=== PATIENT | male | born 1955 | race Caucasian/White ===

== ENCOUNTER → 2016-10-17 | Outpatient (CLI) | payer OTHER ==
[~2016-10-17] MED LIST: LISI-729 PO; NRN100 PO; OPTIRAY 320 IV PRN; OXYC1TAB3 PO; TRAM-10 PO; VOTRIENT PO
--- NOTE | 2016-10-17 09:07 | DIAGNOSTIC IMAGING REPORT ---
ADDENDUM Additional retroperitoneal etiologies include the possibility of sarcoma. Lymphoma is a remote possibility. Electronically signed by: Karri Toro M.D. 10/17/2016 12:08 PM Dictated Date/Time: 10/17/2016 12:08 PM ORIGINAL REPORT ABDOMEN AND PELVIS CT WITH IV AND ORAL CONTRAST CT DOSE: 467.90 mGycm HISTORY: Mass RLQ ABDOMINAL MASS, RENAL CYSTS ACQUIRED BILATERAL TECHNIQUE: Multiaxial CT images of the abdomen and pelvis were performed following the use of intravenous and oral contrast. COMPARISON STUDY: None. FINDINGS: 5 mm pericardial based nodule left lung base. Lung bases otherwise are clear. The liver is uniform in appearance. Pancreas is unremarkable. Left kidney demonstrates a 1.2 cm slightly exophytic cyst at its superior pole. Spleen is uniform. There is a large locally invasive right paravertebral mass. This appears to extend to the inferior margin of the right kidney at its posterior aspect as well as potentially the right kidney lower pole positioned slightly anterior to the right renal pelvis. Measurements are approximately 14 x 10 cm. It shows a heterogeneous internal matrix. There is mild right renal hydronephrosis. There is a nonobstructing calcification involving the lower pole collecting system of the right. There are several right renal cysts largest of which measures 6.7 cm. Mass displaces the inferior vena cava to the left with extrinsic compression of that structure. There is potential invasion to the right iliopsoas musculature. No definitive extension of the spinal canal is appreciated. The right renal vein appears patent. There is Potential extension to the right lateral pelvic sidewalls identified best seen image 44. There is localized displacement of the associated bowel loops although no definite invasion of those structures is confirmed. The appendix is normal. The bowel pattern is nonobstructive. Survey evaluation of the osseous structures shows no lytic or blastic process. IMPRESSION: 1. 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 2. The mass is locally invasive as discussed. 3. No evidence for vascular invasion although there is displacement of the inferior vena cava 4. Mild right renal hydronephrosis . 5. 5 mm nodule medial left base. 6. Bilateral renal cysts. 7. A right renal neoplasm is the diagnosis of exclusion Electronically signed by: Karri Toro M.D. 10/17/2016 9:05 AM Dictated Date/Time: 10/17/2016 8:54 AM
== END | disposition home or self-care (01) ==
LOC: C.CTS 07:19
PROVIDERS: ATTEND Nurse Practitioner
DX: R19.03 Right lower quadrant abdominal swelling, mass and lump (principal); N28.1 Cyst of kidney, acquired; N13.30 Unspecified hydronephrosis

== ENCOUNTER 2016-11-23 17:37 | Emergency (ER) | payer OTHER ==
[~2016-11-23] VITALS: Ht 167.6 cm; Wt 72.2 kg
[2016-11-23 17:41] VITALS: Ht 167.6 cm; Wt 72.2 kg
[2016-11-23] MEDS ORDERED: ONDANSETRON INJ 2 MG/ML 2 ML VIAL IV STA (17:55)
[2016-11-23] MEDS ORDERED: HYDROmorphone INJ 1 MG/ML SYR IV PRN (18:00)
[2016-11-23] MEDS ORDERED: LISI-729 PO (18:09)
[2016-11-23] MEDS ORDERED: NRN100 PO (18:09)
[2016-11-23] MEDS ORDERED: TRAM-10 PO (18:09)
[2016-11-23] MEDS ORDERED: VOTRIENT PO (18:09)
[2016-11-23 18:17] LABS: BASO % 0.3 %; BASO ABS # 0.02 K/uL (0-0.2); COMPLETE YES; EOS % 1.3 %; HEMATOCRIT 30.9 % (42-52); IG% 0.1 %; LYMPH % 17.6 %; LYMPH ABS # 1.22 K/uL (1.2-3.4); MEAN CELL VOLUME 80.1 fL (80-100); MEAN CORPUSCULAR HEMOGLOBIN 26.2 pg (25-34); MEAN CORPUSCULAR HGB CONC 32.7 g/dl (32-36); MEAN PLATELET VOLUME 9.2 fL (7.4-10.4); MONO % 16.5 %; NEUT % 64.2 %; PLATELET COUNT 176 K/uL (130-400); RED BLOOD COUNT 3.86 M/uL (4.7-6.1); WHITE BLOOD COUNT 6.92 K/uL (4.8-10.8)
[2016-11-23 18:34] LABS: BUN/CREATININE RATIO 13.8 (10-20); CALCIUM 8.4 mg/dl (8.5-10.1); CREATININE 0.95 mg/dl (0.60-1.40); POTASSIUM 3.9 mmol/L (3.5-5.1)
[2016-11-23 18:45] LABS: URINE APPEARANCE CLEAR (CLEAR); URINE BILIRUBIN NEG (NEG); URINE COLOR DK YELLOW; URINE EPITHELIAL CELL AUTO 0-5 /lpf (0-5); URINE NITRITE NEG (NEG); URINE PH 5.5 (4.5-7.5); URINE SPECIFIC GRAVITY 1.023 (1.000-1.030); UROBILINOGEN POS (NEG); ZZUR CULT IF INDIC CLEAN CATCH NO
[2016-11-23 18:59] LABS: MANUAL MICROSCOPIC REQUIRED? NO; REVIEW REQ? YES
[2016-11-23] MEDS ORDERED: OPTIRAY 320 IV PRN (20:00)
--- NOTE | 2016-11-23 20:15 | DIAGNOSTIC IMAGING REPORT ---
ABD/PELVIS COMBO HISTORY: 61 years-old Male right flank pain, kidney tumor, Triple Renal phase please COMPARISON: CT abdomen and pelvis 10/17/2016 TECHNIQUE: Multiple axial CT images of the abdomen and pelvis were obtained both with and without the use of 115 mL Optiray 320 utilizing renal mass protocol. A dose lowering technique was used consistent with the principals of JARRETT. FINDINGS: The right lung bases are clear with the exception of a 6 x 8 mm nodule abutting the pleural surface in the inferior segment lingula. This is unchanged from comparison. There is no pneumoperitoneum. Coronary arterial calcifications are noted. The liver, gallbladder, pancreas and adrenal glands are within normal limits. There is moderate atherosclerotic plaquing of the abdominal aorta and branch vessels. Spleen is enlarged, 15 cm Circumscribed low attenuating lesion of the superior pole left kidney is seen, 1.2 x 1.4 cm suggesting a cyst without significant enhancement. No left-sided hydronephrosis. Bladder is unremarkable. Prostate is enlarged with central coarse calcifications. Large cyst of the superior pole right kidney measure 7.0 x 6.9 cm demonstrating thin internal calcified septations without appreciable enhancement. Additional smaller cysts are seen involving the right kidney. There is a very large complex mass of the retroperitoneum which appears to emanate from the perirenal space and invades the right so as and iliopsoas musculature demonstrating areas of internal septal hyperattenuation and mural enhancing soft tissue nodularity overall measuring approximately 10.6 x 14.8 x 15.8 cm in AP, transverse and craniocaudal dimensions. On comparison study dated 10/17/2016, this mass measured 9.9 x 14.1 cm in AP and transverse dimension. There is a moderate amount of likely reactive edema in the right perirenal space. This mass abuts and severely compresses and narrows the IVC, nicely demonstrated on image 209 of the postcontrast series. No definite IVC invasion or IVC thrombus is identified. Additionally, this mass seen abutting and invading the inferior pole right kidney. There is moderate dilation of the central and peripheral calyces and pelvis of the right kidney secondary to extrinsic mass effect from this lesion nicely seen on image 156 of the delayed series. The ureter is severely compressed throughout the majority of its course from this large mass. There is invasion of the mass into the inferior pole collecting system, seen best on the delayed sagittal series. There is mild likely reactive edema within the retroperitoneum tracking along the right pericolic gutter. There is no associated bowel obstruction. There is no bowel obstruction. There is displacement of the bowel from the large mass. Trace free pelvic fluid is likely reactive. The appendix appears normal. Soft tissues are within normal limits. No bony invasion of this mass is identified. No suspicious lytic or blastic bony lesions. IMPRESSION: 1. Large heterogeneous mass of the right retroperitoneum is redemonstrated without significant change from comparison study dated 10/17/2016. This mass causes moderate right-sided hydronephrosis secondary to external mass effect upon the right ureterovesicular junction. Additionally, there is invasion into the inferior pole right kidney and inferior collecting system as well as invasion into the right psoas and iliopsoas musculature causing severe compression without definite invasion of the IVC. Primary differential consideration would include a retroperitoneal sarcoma. 2. No evidence of bony metastasis or pathologic adenopathy. 3. No bowel obstruction. 4. Prostamegaly. 5. Unchanged 8 mm noncalcified pleural-based pulmonary nodule of the inferior segment linear. This could be further evaluated with CT of the chest. Please refer to below summary of Fleischner criteria recommendations for follow-up of incidental CT nodules (Reymundo Busch, Guidelines for management of small pulmonary nodules detected on CT scans: A statement from the Fleischner Society, Radiology 237: [phone].) SOLID NODULES Solitary nodule size: 6-8 mm * Low risk patients: follow-up at 6-12 months, then consider further follow-up at 18-24 months * high risk patients: initial follow-up CT at 6-12 months and then at 18-24 months if no change Note: newly detected indeterminate nodule in persons 35 years of age or older. * Low risk patients: minimal or absent history of smoking and/or other known risk factors * high risk patients: history of smoking or of other known risk factors (e.g. first degree relative with lung cancer, or exposure to asbestos, radon, uranium) * if a nodule up to 8 mm is partly solid or is ground glass further follow-up is required after 24 months to exclude possible slow growing adenocarcinoma (KELLY) The above report was generated using voice recognition software. It may contain grammatical, syntax or spelling errors. Electronically signed by: Eric Bah M.D. 11/23/2016 8:13 PM Dictated Date/Time: 11/23/2016 7:49 PM
[2016-11-23] MEDS ORDERED: OXYCODONE IR HOME PACK PO ONE (23:15)
[2016-11-23] MEDS ORDERED: OXYC1TAB3 PO (23:31)
[2016-11-24 00:01] VITALS: BP 127/74; PULSE 60; TEMP 36.9; O2SAT 97
--- NOTE | 2016-11-24 00:31 | EMERGENCY ROOM VISIT NOTE ---
History Report prepared by Kirill: Nell Rhodes Under the Supervision of: Dr. Anibal Lopez M.D. First contact with patient: 17:49 Chief Complaint: FLANK PAIN Stated Complaint: PAIN IN KIDNEY AND TUMOR History of Present Illness The patient is a 61 year old male who presents to the Emergency Room with complaints of constant left flank pain beginning today. The patient states that he has a history of stage II Kidney Cancer and has been on chemotherapy for 1 month. He reports that he just started an oral chemotherapy pill and since it began he has been having right flank pain. He notes that he has felt this pain before but it is worse today and after calling his doctor he was told to come in to the ED. The patient rates his pain as an 8/10 in severity. He complains of tingling in his feet and toes that began a few months ago and difficulty urinating. 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 Pt denies LOC, headache, fevers , chills, diaphoresis, visual changes, neck pain, chest pain, breathing difficulties, nausea, vomiting, melena, hematochezia, weakness, lymphadenopathy , rash, or other complaints. Source of History: patient Onset: today Position: other (right flank pain) Symptom Intensity: 8/10 Timing: constant Associated Symptoms: + urinary symptoms Review of Systems See HPI for pertinent positives and negatives. A total of ten systems were reviewed and were otherwise negative. 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 Social History Smoking Status: Former Smoker Marital Status: Housing Status: lives with significant other Current/Historical Medications Scheduled Gabapentin (Gabapentin), 200 MG PO Q8H Lisinopril (Zestril), 5 MG PO DAILY [Votrient], 800 MG PO QAM Scheduled PRN Oxycodone Ir (Roxicodone Ir), 1-2 TAB PO Q4H PRN for Pain Tramadol (Ultram), 50 MG PO Q6H PRN for Pain Allergies Coded Allergies: No Known Allergies (Unverified , 10/17/16) Physical Exam Vital Signs Date Time Temp Pulse Resp B/P (MAP) Pulse Ox O2 Delivery O2 Flow Rate FiO2 11/24/16 00:01 36.9 60 16 127/74 97 11/23/16 23:29 36.9 60 16 127/74 97 Room Air 11/23/16 22:18 55 11/23/16 22:14 56 16 132/77 95 Room Air 11/23/16 20:48 64 16 142/80 98 Room Air 11/23/16 19:23 60 16 138/86 95 Room Air 11/23/16 18:36 59 20 150/83 94 Room Air 11/23/16 18:26 64 11/23/16 17:41 37.3 70 16 128/85 95 Room Air Physical Exam GENERAL: Awake, alert, well-appearing, in no distress HENT: Normocephalic, atraumatic. Oropharynx unremarkable. EYES: Normal conjunctiva. Sclera non-icteric. NECK: Supple. No nuchal rigidity. FROM. No JVD. RESPIRATORY: Clear to auscultation. CARDIAC: Regular rate, normal rhythm. Extremities warm and well perfused. Pulses equal. ABDOMEN: Soft, non-distended. No tenderness to palpation. No rebound or guarding. No masses. RECTAL: Deferred. MUSCULOSKELETAL: Chest examination reveals no tenderness. The back is symmetrical on inspection without obvious abnormality. Right flank tenderness. No joint edema. LOWER EXTREMITIES: Calves are equal size bilaterally and non-tender. No edema. No discoloration. NEURO: Normal sensorium. No sensory or motor deficits noted. SKIN: No rash or jaundice noted. Medical Decision & Procedures ER Provider Diagnostic Interpretation: Radiology results as stated below per my review and radiologist interpretation: ABD/PELVIS COMBO FINDINGS: The right lung bases are clear with the exception of a 6 x 8 mm nodule abutting the pleural surface in the inferior segment lingula. This is unchanged from comparison. There is no pneumoperitoneum. Coronary arterial calcifications are noted. The liver, gallbladder, pancreas and adrenal glands are within normal limits. There is moderate atherosclerotic plaquing of the abdominal aorta and branch vessels. Spleen is enlarged, 15 cm Circumscribed low attenuating lesion of the superior pole left kidney is seen, 1.2 x 1.4 cm suggesting a cyst without significant enhancement. No left-sided hydronephrosis. Bladder is unremarkable. Prostate is enlarged with central coarse calcifications. Large cyst of the superior pole right kidney measure 7.0 x 6.9 cm demonstrating thin internal calcified septations without appreciable enhancement. Additional smaller cysts are seen involving the right kidney. There is a very large complex mass of the retroperitoneum which appears to emanate from the perirenal space and invades the right so as and iliopsoas musculature demonstrating areas of internal septal hyperattenuation and mural enhancing soft tissue nodularity overall measuring approximately 10.6 x 14.8 x 15.8 cm in AP, transverse and craniocaudal dimensions. On comparison study dated 10/17/2016, this mass measured 9.9 x 14.1 cm in AP and transverse dimension. There is a moderate amount of likely reactive edema in the right perirenal space. This mass abuts and severely compresses and narrows the IVC, nicely demonstrated on image 209 of the postcontrast series. No definite IVC invasion or IVC thrombus is identified. Additionally, this mass seen abutting and invading the inferior pole right kidney. There is moderate dilation of the central and peripheral calyces and pelvis of the right kidney secondary to extrinsic mass effect from this lesion nicely seen on image 156 of the delayed series. The ureter is severely compressed throughout the majority of its course from this large mass. There is invasion of the mass into the inferior pole collecting system, seen best on the delayed sagittal series. There is mild likely reactive edema within the retroperitoneum tracking along the right pericolic gutter. There is no associated bowel obstruction. There is no bowel obstruction. There is displacement of the bowel from the large mass. Trace free pelvic fluid is likely reactive. The appendix appears normal. Soft tissues are within normal limits. No bony invasion of this mass is identified. No suspicious lytic or blastic bony lesions. IMPRESSION: 1. Large heterogeneous mass of the right retroperitoneum is redemonstrated without significant change from comparison study dated 10/17/2016. This mass causes moderate right-sided hydronephrosis secondary to external mass effect upon the right ureterovesicular junction. Additionally, there is invasion into the inferior pole right kidney and inferior collecting system as well as invasion into the right psoas and iliopsoas musculature causing severe compression without definite invasion of the IVC. Primary differential consideration would include a retroperitoneal sarcoma. 2. No evidence of bony metastasis or pathologic adenopathy. 3. No bowel obstruction. 4. Prostamegaly. 5. Unchanged 8 mm noncalcified pleural-based pulmonary nodule of the inferior segment linear. This could be further evaluated with CT of the chest. Please refer to below summary of Fleischner criteria recommendations for follow-up of incidental CT nodules (Reymundo Busch, Guidelines for management of small pulmonary nodules detected on CT scans: A statement from the Fleischner Society, Radiology 237: [phone].) SOLID NODULES Solitary nodule size: 6-8 mm * Low risk patients: follow-up at 6-12 months, then consider further follow-up at 18-24 months * high risk patients: initial follow-up CT at 6-12 months and then at 18-24 months if no change Note: newly detected indeterminate nodule in persons 35 years of age or older. * Low risk patients: minimal or absent history of smoking and/or other known risk factors * high risk patients: history of smoking or of other known risk factors (e.g. first degree relative with lung cancer, or exposure to asbestos, radon, uranium) * if a nodule up to 8 mm is partly solid or is ground glass further follow-up is required after 24 months to exclude possible slow growing adenocarcinoma (KELLY) The above report was generated using voice recognition software. It may contain grammatical, syntax or spelling errors. Electronically signed by: Eric Bah M.D. 11/23/2016 8:13 PM Dictated Date/Time: 11/23/2016 7:49 PM Laboratory Results 11/23/16 18:00 Red Blood Count 3.86, Mean Corpuscular Volume 80.1, Mean Corpuscular Hemoglobin 26.2, Mean Corpuscular Hemoglobin Concent 32.7, Mean Platelet Volume 9.2, Neutrophils (%) (Auto) 64.2, Lymphocytes (%) (Auto) 17.6, Monocytes (%) (Auto) 16.5, Eosinophils (%) (Auto) 1.3, Basophils (%) (Auto) 0.3, Neutrophils # (Auto ) 4.44, Lymphocytes # (Auto) 1.22, Monocytes # (Auto) 1.14, Eosinophils # (Auto ) 0.09, Basophils # (Auto) 0.02 11/23/16 18:00 Test 11/23/16 00:00 11/23/16 18:00 Urine Color DK YELLOW Urine Appearance CLEAR (CLEAR) Urine pH 5.5 (4.5-7.5) Urine Specific [place] 1.023 (1.000-1.030) Urine Protein 1+ (NEG) Urine Glucose (UA) NEG (NEG) Urine Ketones NEG (NEG) Urine Occult Blood TRACE (NEG) Urine Nitrite NEG (NEG) Urine Bilirubin NEG (NEG) Urine Urobilinogen POS (NEG) Urine Leukocyte Esterase NEG (NEG) Urine WBC (Auto) 1-5 /hpf (0-5) Urine RBC (Auto) 5-10 /hpf (0-4) Urine Hyaline Casts (Auto) 1-5 /lpf (0-5) Urine Epithelial Cells (Auto) 0-5 /lpf (0-5) Urine Bacteria (Auto) NEG (NEG) Urine Sperm (Auto) PRESENT (NOT PRESENT) White Blood Count 6.92 K/uL (4.8-10.8) Red Blood Count 3.86 M/uL (4.7-6.1) Hemoglobin 10.1 g/dL (14.0-18.0) Hematocrit 30.9 % (42-52) Mean Corpuscular Volume 80.1 fL (80-100) Mean Corpuscular Hemoglobin 26.2 pg (25-34) Mean Corpuscular Hemoglobin Concent 32.7 g/dl (32-36) Platelet Count 176 K/uL (130-400) Mean Platelet Volume 9.2 fL (7.4-10.4) Neutrophils (%) (Auto) 64.2 % Lymphocytes (%) (Auto) 17.6 % Monocytes (%) (Auto) 16.5 % Eosinophils (%) (Auto) 1.3 % Basophils (%) (Auto) 0.3 % Neutrophils # (Auto) 4.44 K/uL (1.4-6.5) Lymphocytes # (Auto) 1.22 K/uL (1.2-3.4) Monocytes # (Auto) 1.14 K/uL (0.11-0.59) Eosinophils # (Auto) 0.09 K/uL (0-0.5) Basophils # (Auto) 0.02 K/uL (0-0.2) RDW Standard Deviation 41.0 fL (36.4-46.3) RDW Coefficient of Variation 14.0 % (11.5-14.5) Immature Granulocyte % (Auto) 0.1 % Immature Granulocyte # (Auto) 0.01 K/uL (0.00-0.02) Anion Gap 6.0 mmol/L (3-11) Est Creatinine Clear Calc Drug Dose 75.5 ml/min Estimated GFR () 101.1 Estimated GFR (Non- 87.3 BUN/Creatinine Ratio 13.8 (10-20) Calcium Level 8.4 mg/dl (8.5-10.1) Total Bilirubin 0.7 mg/dl (0.2-1) Direct Bilirubin 0.3 mg/dl (0-0.2) Aspartate Amino Transf (AST/SGOT) 28 U/L (15-37) Alanine Aminotransferase (ALT/SGPT) 21 U/L (12-78) Alkaline Phosphatase 91 U/L (45-117) Total Protein 6.7 gm/dl (6.4-8.2) Albumin 2.3 gm/dl (3.4-5.0) Lipase 83 U/L (73-393) Laboratory results reviewed by me Medications Administered Medications (Trade) Dose Ordered Sig/Cameron Route Start Time Stop Time Status Last Admin Dose Admin Hydromorphone HCl (Dilaudid Inj) 1 mg Q15M PRN IV 11/23/16 18:00 12/07/16 17:59 11/23/16 18:13 1 MG Ondansetron HCl (Zofran Inj) 4 mg NOW STAT IV 11/23/16 17:55 11/23/16 17:56 DC 11/23/16 18:13 4 MG Oxycodone HCl (Roxicodone Immediate Rel 5MG Home Pack) 1 homepack UD ONCE PO 11/23/16 23:15 11/23/16 23:16 DC 11/23/16 23:51 1 HOMEPACK ED Course 1749: The patient was evaluated in room C4. A complete history and physical exam was performed. 1755: Zofran Inj 4mg IV. 1800: Dilaudid Inj 1mg PRN IV pain. 2211: I spoke to Dr. Pacheco of Oncology. She wanted to ensure that he was not having acute issues with the cancer. She recommends continuing medications outpatient and follow up with urology. 2315: Oxycodone HCl 1 homepack PO. 2317: I reevaluated the patient and he is feeling slightly better. 2327: I reevaluated the patient. Discussed results and discharge instructions: He verbalized understanding and agreement. The patient is ready for discharge. Medical Decision Triage Nursing notes reviewed. The patient's presentation and history were concerning for flank pain and known renal cell cancer. Etiologies such as pain secondary to his renal cell cancer, renal colic, appendicitis, diverticulitis, mesenteric ischemia, aortic pathology, infections , inflammatory bowel disease, PUD, biliary pathology, UTI, as well as others were entertained. The patient was evaluated. He had pain that was not controlled by his tramadol. The patient was given Dilaudid and Zofran here and he felt much better. The patient underwent CT imaging. He has a very large right sided mass. Patient was also noting some difficulty urinating and had urinary retention. Even after urinating a sample here he still had over 450 mL in his bladder on bladder scan. The patient had a Fatima catheter placed. I suspect this is related to his enlarged prostate noted on CT. The placement of the Fatima catheter did drain out a significant amount of urine. The patient had a mild anemia of CBC but no leukocytosis. His urinalysis did not reveal any sign of infection. His chemistry panel, LFTs and lipase were unremarkable. As the patient is feeling better with pain management I discussed following up as an outpatient and the patient and feel comfortable. He will need urology follow-up and will likely need the catheter in for the rest of this week. I did consult with his oncologist, Dr. Pacheco who directed him to the Emergency Room. She was comfortable with increasing his pain medication and having him follow up regarding this large renal tumor. I did discuss the urology referral for the catheter and she was in agreement with that as well. The patient worsens in any way he will be back.I gave my usual and customary discussion regarding this issue. By the evaluation outlined above other emergent etiologies such as those listed in the differential, as well as others, were deemed relatively unlikely. The patient was educated about the findings as listed above. All questions were answered and the patient was pleased with the treatment. Return instructions were outlined and the patient was discharged in stable condition. The patient was referred to Urology and oncology for follow-up for a recheck of the current condition. Medication Reconcilliation Current Medication List: was personally reviewed by me Blood Pressure Screening Patient's blood pressure: Normal blood pressure Blood pressure disposition: Did not require urgent referral Consults Time Called: 2204 Consulting Physician: Dr. Pacheco of Oncology Returned Call: [phone] Pacheco of Oncology. She wanted to ensure that he was not having acute issues with the cancer. She recommends continuing medications outpatient and follow up with urology. Impression Primary Impression: Flank pain Additional Impressions: Renal cancer Urinary retention Enlarged prostate Scribe Attestation The scribe's documentation has been prepared under my direction and personally reviewed by me in its entirety. I confirm that the note above accurately reflects all work, treatment, procedures, and medical decision making performed by me. Departure Information Dispostion Home / Self-Care Prescriptions Oxycodone Ir (Roxicodone Ir) 5 Mg Tab 1-2 TAB PO Q4H Y for Pain, #15 TAB Prov: Anibal Lopez MD 11/23/16 Referrals Brandon Sevilla PA-C (PCP) Forms HOME CARE DOCUMENTATION FORM, IMPORTANT VISIT INFORMATION Patient Instructions My [facility] Additional Instructions Oxycodone Immediate Release (OxyIR) 5mg: Take 1-2 pills every four hours for pain. Avoid alcohol, operating machinery or dangerous equipment, working on ladders or roofs, DRIVING, or situations where being under the influence may be dangerous. It is recommended to use an rmes-whf-[id number] stool softener such as Colace, 100mg twice daily while taking this medication to avoid constipation. Acetaminophen(Tylenol) may be used for fever or pain. Use 1000mg every six hours as needed. Avoid using more than 4000mg in a 24 hour period. This medication can be taken if you need to drive, work, or perform activities which may be dangerous when taking narcotic pain medication. Drink plenty of fluids. Return to the ER for worsening abdominal or back pain, vomiting, fevers, passing out, or as needed. Call Dr. Patton office at [facility] urology for follow-up. Call them tomorrow to arrange follow-up regarding the catheter. It is recommended to have the catheter removed in 5-7 days. The number is listed below. Follow-up with your primary office and Dr. Pacheco as scheduled. If you're unable to obtain an appointment with [facility] urology call [facility] tomorrow, [phone], to arrange a visit. Continue current medications. Care for the catheter as discussed. Do not pull on the catheter. Use the leg bag during the day and the large bag at night when you are sleeping. Drain the bag frequently. Do not let it fill completely. Return to the emergency department for fevers, abdominal pain, catheter problems , or as needed. Problem Qualifiers
== END 2016-11-23 23:55 | disposition home or self-care (01) ==
LOC: C.EDB 17:39 → C.EDC 23:55
DX: R10.9 Unspecified abdominal pain (principal); C64.1 Malignant neoplasm of right kidney, except renal pelvis; N40.1 Benign prostatic hyperplasia with lower urinary tract symptoms; R33.9 Retention of urine, unspecified; R91.1 Solitary pulmonary nodule; Z87.891 Personal history of nicotine dependence; Z79.899 Other long term (current) drug therapy; Z92.21 Personal history of antineoplastic chemotherapy

== ENCOUNTER 2021-05-03 13:49 | Inpatient (IN) ==
[2021-05-03 14:39] LABS: Basophils # (auto) 0.02 K/uL (0-0.2); Basophils % (auto) 0.5 %; Eosinophils # (auto) 0.12 K/uL (0-0.5); Eosinophils % (auto) 2.7 %; Hematocrit (blood only) 35.6 % (42-52); Hemoglobin 11.2 g/dL (14.0-18.0); Lymphocytes # (auto) 0.78 K/uL (1.2-3.4); Lymphocytes % (auto) 17.8 %; Mean Corpuscular Hgb Conc 31.5 g/dL (32-36); Mean Platelet Volume 10.4 fL (7.4-10.4); Monocytes # (auto) 0.49 K/uL (0.11-0.59); Monocytes % (auto) 11.2 %; Neutrophils # (auto) 2.96 K/uL (1.4-6.5); Neutrophils % (auto) 67.8 %; Platelet Count 117 K/uL (130-400); RDW Coefficient of Variation 14.1 % (11.5-14.5); RDW Standard Deviation 55.1 fL (36.4-46.3); Red Blood Count 3.39 M/uL (4.7-6.1); White Blood Count 4.37 K/uL (4.8-10.8)
--- NOTE | 2021-05-03 15:02 | XRay Report ---
XR chest 2V PA/lateral CLINICAL HISTORY: swelling to lower extremity post surgery TECHNIQUE: AP and lateral frontal radiograph of the chest was obtained. Comparison: Comparison is made to chest one view 04/27/2021 FINDINGS: No lines and tubes are seen. The cardiomediastinal silhouette is normal. The lungs are clear. Moderat e left pleural effusion. There is likely atelectasis at the left lung with elevation of the left killian diaphragm. IMPRESSION: Stable appearance of left pleural effusion and atelectasis. ACT 112: Negative or not required by law. Electronically signed by: Meng Clark M.D. 05/03/2021 3:00 PM
[2021-05-03 15:09] LABS: Albumin Globulin Ratio 1.1 (0.9-2); Albumin Level 2.8 gm/dl (3.4-5.0); BUN Creatinine Ratio 24.7 (10-20); Bilirubin,Total 0.5 mg/dl (0.2-1.0); Calcium 8.5 mg/dl (8.5-10.1); Creatinine Clr Calc Pharmacy 77.9 ml/min; Est GFR (African American) 104.7 ml/min; Est GFR (Non-African American) 90.4 ml/min; Globulin 2.5 gm/dl (2.5-4.0); Potassium 4.3 mmol/L (3.5-5.1); Total Protein 5.3 gm/dl (6.0-8.3)
--- NOTE | 2021-05-03 15:40 | Emergency Department Note ---
Impression & Plan Pleural effusion on left, MARIEE (dyspnea on exertion), Pancytopenia, Leg swelling, Lung cancer ED Provider Note NAME: SHARATH GARZA AGE: 66 SEX: M : 1955 ARRIVES VIA: Walk-In INFORMANT: Patient, ED PROVIDER(S): Vasiliy Izquierdo MD Chief Complaint: SOB HPI: Patient was seen on April 28 for recurrent right inguinal hernia and did have this repaired by Dr. Marrufo and today due to concern for lower extremity edema which she really only noted after the surgery. The patient has had worsening left-sided chest wall pain and flank discomfort. The patient does have a known history of lung CA on the left side. The patient has had a prior thoracentesis completed in 2018. Patient does take by mouth chemotherapy but stopped it and has not taken it in the last 2 weeks secondary to his surgical procedure which was completed. Patient states that he does not have some much abdominal pain and believes that the incisional site has been well appearing. The patient has noted right greater than left lower extremity edema. No prior history of DVT or PE. Patient did take morphine and oxycodone which mildly improved his discomfort of the left chest wall and denies any recent falls or trauma. The patient does not take any blood thinners. Patient has any fevers or chills. Patient is vaccinated for flu and COVID. Patient has noted his shortness of breath to be worse with exertion as well as with lying flat. ROS: See HPI for pertinent positives and negatives. A total of 10 systems were reviewed and otherwise negative. Past medical history: See below Surgical history: See below Social history: See below Physical Exam: GENERAL: NAD, wearing a mask, non-toxic. EYE EXAM: Normal conjunctiva. PERRL, no anisocoria and EOM's grossly intact w/o pain. NECK: Supple, no nuchal rigidity, no adenopathy, non-tender. No signs of meningismus. Chest: Left-sided posterior chest wall pain without any obvious deformities or overlying skin changes LUNGS: Decreased breath sounds left base. Normal chest wall mechanics. HEART: NSR, no MRG. ABDOMEN: Abdomen soft, non-tender, right lower hernia incisional site without any surrounding erythema fluctuance or drainage. Normo-active bowel sounds, no masses, no rebound or guarding. BACK: No CVA TTP. SKIN: No rashes and no bruising. UPPER EXTREMITIES: Upper extremities are grossly normal. LOWER EXTREMITIES: Grossly normal, slightly right greater than left lower extremity edema. NEURO EXAM: A&O x3, cranial nerves II-XII grossly intact, normal speech, moves all 4 extremities on command w/o issue. Differential diagnoses: Reactive airway disease, pneumonia, pneumothorax, COPD, CHF, infections, cardiac ischemia, pulmonary embolism, musculoskeletal, g astrointestinal, as well as other pathologies. Course: Patient was seen and evaluated the bedside. Full history physical exam was performed. EKG interpreted by me Normal sinus rhythm, rate of 81, normal intervals, normal axis, no ST changes or T WI. Imaging Studies: See Below Cardiac monitoring: An order was placed for continuous cardiac monitoring. The monitor shows a rate of 78 with sinus rhythm. MDM: Patient was seen due to concern for shortness of breath. Blood work is obtained along with CT imaging and ultrasound Patient's blood work showed mild leukopenia and mild anemia with hemoglobin 11.2. Patient's platelet count is slightly low at 117. Patient's kidney function unremarkable albeit with prerenal azotemia. Patient troponin is not detectable. BNP is not elevated. Flu COVID and RSV negative. Chest x-ray does show stable appearance of left pleural effusion. DVT ultrasound negative of the right lower extremity. CT chest that showed large left pleural effusion there is concern with the possibility of stephen spread of disease. Patient CT abdomen pelvis is somewhat difficult given the lack of contrast patient does have some trace ascites. Given the patient's or thopnea and dyspnea on exertion with large pleural effusion the patient may benefit from thoracentesis. I did speak with the on-call hospitalist Dr. Vo and the patient was admitted to the medicine service. Past Med/Surg History Medical History AAA (abdominal aortic aneurysm) 3.1cm (mild aneurysm of infrarenal abdominal aorta)- not significantly changed. 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 for this with relief History of chemotherapy 2017 - Pazopanib (2-3 months of treatment) 03/19/2019 - Opdivo ([id number] then switched to [id number]) Hypertension Neuropathy Very minor in feet [facility]- [facility]- pt minimally symptomatic- declining thoracentesis at this time - following up in Spring 2021 for further evaluation Renal cell carcinoma Right kidney- initially dx'ed 2016- s/p nephrectomy, immunotherapy with chemo 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 Beatrice Holloway [facility]) History of surgery 01/31/17 - Reconstruction of Vena Cava (Dr. Ck Davies [facility] [place]) History of tonsillectomy and adenoidectomy as a child Family History Grandmother (Paternal) , Passed age 69 of Colon Cancer No problems noted. Grandfather (Maternal) , Passed age 79 of unknown cancer (possible colon) No problems noted. Mother , Passed age 79 of Liver Cancer No problems noted. Father , Passed age 68 of [place] No problems noted. Brother , Passed age 55 of unknown (passed in sleep) No problems noted. Brother No problems noted. Brother No problems noted. Son No problems noted. Daughter No problems noted. Other No family history of adverse response to anesthesia Social History Smoking Status: Former smoker Years Smoked: 18; Second Hand Exposure: No; Hx Alcohol Use: No Hx Substance Use: No Preferred Language: Vietnamese Communication Ability: Effective Visual Impairment: Limited Hearing Ability: Normal Campus Supervisor Required: No Beliefs That Will Affect Care: None marital status: Current Living Situation: Spouse current occupational status: employed current occupation: [employer] Work[employer] Feels Safe at Home: Yes Childhood Exposure to Second-Hand Smoke: No caffeine: Yes (3 cups of coffee/day ) during the past year weight has: remained stable Dental Care, Regularly: No Assistive Devices: Contacts and Glasses Allergies Allergies Allergy/AdvReac Type Severity Reaction Status Date / Time No Known Allergies Allergy Unverified 05/03/21 20:11 Home Meds Home Medications Medication Instructions Recorded Confirmed albuterol sulfate 90 mcg/actuation 2 puffs INH QID PRN 07/17/19 05/03/21 aerosol inhaler (Proventil HFA) clobetasol-emollient 0.05 % 1 appln TOP BID PRN 07/17/19 05/03/21 topical cream gabapentin 600 mg tablet 1,200 mg PO QAM tab 07/17/19 05/03/21 hydrocortisone acetate 25 mg 25 mg KS BID PRN 07/17/19 05/03/21 rectal suppository (Anusol-HC) omeprazole 20 mg capsule,delayed 20 mg PO QAM 07/17/19 05/03/21 release rosuvastatin 10 mg tablet (Crestor) 10 mg PO QAM 07/17/19 05/03/21 tamsulosin 0.4 mg capsule (Flomax) 0.4 mg PO QAM 07/17/19 05/03/21 oxycodone 5 mg tablet 5 mg PO Q4H PRN 07/23/19 05/03/21 allopurinol 100 mg tablet 200 mg PO QAM 04/21/21 05/03/21 amlodipine 5 mg tablet (Norvasc) 5 mg PO QAM 04/21/21 05/03/21 cabozantinib 40 mg tablet 40 mg PO QDL 04/21/21 05/03/21 (Cabometyx) cyanocobalamin (vitamin B-12) 1,000 mcg PO QAM 04/21/21 05/03/21 1,000 mcg tablet,extended release (Vitamin B-12 ER) levothyroxine 25 mcg tablet 25 mcg PO QAM 04/21/21 05/03/21 (Synthroid) lisinopril 30 mg tablet 30 mg PO QAM 04/21/21 05/03/21 magnesium oxide 400 mg PO QAM 04/21/21 05/03/21 morphine 15 mg tablet,extended 15 mg PO Q12H 04/21/21 05/03/21 release ondansetron HCl 8 mg tablet 8 mg PO Q8H PRN 05/03/21 05/03/21 Previous Rx's Medication Instructions Recorded hydrocodone 5 mg-acetaminophen 325 1 tab PO Q6H PRN #20 tab 04/27/21 mg tablet Results & Data (ED) Vital Signs Vital Signs - 24 hr 05/03/21 14:08 05/03/21 17:21 Temperature 36.7 C Temperature Source Temporal Artery Scan Pulse Rate 91 H Pulse Rate [Right Finger] 76 Pulse Rhythm [Right Finger] Regular Pulse Strength [Right Finger] Normal Respiratory Rate 18 18 Respiratory Effort / Characteristics Non-Labored Non-Labored Spontaneous Respiratory Depth Normal Normal Respiratory Pattern Regular Regular Blood Pressure 114/77 Blood Pressure [Right Arm] 132/81 Blood Pressure Mean 89 Blood Pressure Mean [Right Arm] 98 Blood Pressure Position Sitting Pulse Oximetry 95 98 Oxygen Delivery Method Room Air Room Air Sepsis Recent Fever Within 48 Hours No Sepsis New/Unexplained Change in Mental Status No Sepsis Action Taken by Nursing No Action Required Home Medications Current Medication List: was personally reviewed by me Laboratory Data Attestation: I reviewed the patient's lab results. Result diagrams: 05/03/21 14:20 05/03/21 14:20 Lab Results 05/03/21 05/03/21 05/03/21 Range/Units 14:20 14:20 14:20 WBC 4.37 L (4.8-10.8) K/uL RBC 3.39 L (4.7-6.1) M/uL Hgb 11.2 L (14.0-18.0) g/dL Hct 35.6 L (42-52) % MCV 105.0 H (80-100) fL MCH 33.0 (25-34) pg MCHC 31.5 L (32-36) g/dL RDW Std Deviation 55.1 H (36.4-46.3) fL RDW Coeff of Rodrigue 14.1 (11.5-14.5) % Plt Count 117 L (130-400) K/uL MPV 10.4 (7.4-10.4) fL Immature Gran % (Auto) 0.0 % Neut % (Auto) 67.8 % Lymph % (Auto) 17.8 % Gooding % (Auto) 11.2 % Eos % (Auto) 2.7 % Baso % (Auto) 0.5 % Neut # (Auto) 2.96 (1.4-6.5) K/uL Lymph # (Auto) 0.78 L (1.2-3.4) K/uL Gooding # (Auto) 0.49 (0.11-0.59) K/uL Eos # (Auto) 0.12 (0-0.5) K/uL Baso # (Auto) 0.02 (0-0.2) K/uL Immature Gran # (Auto) 0.00 (0.00-0.02) K/uL Sodium 138 (136-145) mmol/L Potassium 4.3 (3.5-5.1) mmol/L Chloride 107 (98-107) mmol/L Carbon Dioxide 26 (21-32) mmol/L Anion Gap 5 (3-11) BUN 22 (6-23) mg/dl Creatinine 0.89 (0.6-1.4) mg/dl Est Cr Clr Drug Dosing 77.9 ml/min Est GFR ( Amer) 104.7 ml/min Est GFR (Non-Af Amer) 90.4 ml/min BUN/Creatinine Ratio 24.7 H (10-20) Glucose 132 H (70-99(Fasting)) mg/dl Calcium 8.5 (8.5-10.1) mg/dl Magnesium (1.7-2.4) mg/dl Total Bilirubin 0.5 (0.2-1.0) mg/dl AST 13 (13-39) U/L ALT 8 (7-52) U/L Alkaline Phosphatase 73 (34-104) U/L Troponin I < 0.03 (0-0.04) ng/ml B-Natriuretic Peptide (0-100) pg/ml Total Protein 5.3 L (6.0-8.3) gm/dl Albumin 2.8 L (3.4-5.0) gm/dl Globulin 2.5 (2.5-4.0) gm/dl Albumin/Globulin Ratio 1.1 (0.9-2) TSH (0.300-4.500) uIu/ml Free T4 (0.61-1.60) ng/dl SARS-CoV-2 (PCR) (Negative) Influenza Type A (PCR) (Neg) Influenza Type B (PCR) (Neg) RSV (RT-PCR) (Neg) 05/03/21 05/03/21 05/03/21 Range/Units 14:20 14:20 16:00 WBC (4.8-10.8) K/uL RBC (4.7-6.1) M/uL Hgb (14.0-18.0) g/dL Hct (42-52) % MCV (80-100) fL MCH (25-34) pg MCHC (32-36) g/dL RDW Std Deviation (36.4-46.3) fL RDW Coeff of Rodrigue (11.5-14.5) % Plt Count (130-400) K/uL MPV (7.4-10.4) fL Immature Gran % (Auto) % Neut % (Auto) % Lymph % (Auto) % Gooding % (Auto) % Eos % (Auto) % Baso % (Auto) % Neut # (Auto) (1.4-6.5) K/uL Lymph # (Auto) (1.2-3.4) K/uL Gooding # (Auto) (0.11-0.59) K/uL Eos # (Auto) (0-0.5) K/uL Baso # (Auto) (0-0.2) K/uL Immature Gran # (Auto) (0.00-0.02) K/uL Sodium (136-145) mmol/L Potassium (3.5-5.1) mmol/L Chloride (98-107) mmol/L Carbon Dioxide (21-32) mmol/L Anion Gap (3-11) BUN (6-23) mg/dl Creatinine (0.6-1.4) mg/dl Est Cr Clr Drug Dosing ml/min Est GFR ( Amer) ml/min Est GFR (Non-Af Amer) ml/min BUN/Creatinine Ratio (10-20) Glucose (70-99(Fasting)) mg/dl Calcium (8.5-10.1) mg/dl Magnesium 1.8 (1.7-2.4) mg/dl Total Bilirubin (0.2-1.0) mg/dl AST (13-39) U/L ALT (7-52) U/L Alkaline Phosphatase (34-104) U/L Troponin I (0-0.04) ng/ml B-Natriuretic Peptide (0-100) pg/ml Total Protein (6.0-8.3) gm/dl Albumin (3.4-5.0) gm/dl Globulin (2.5-4.0) gm/dl Albumin/Globulin Ratio (0.9-2) TSH 10.826 H (0.300-4.500) uIu/ml Free T4 0.71 (0.61-1.60) ng/dl SARS-CoV-2 (PCR) NEGATIVE (Negative) Influenza Type A (PCR) Negative (Neg) Influenza Type B (PCR) Negative (Neg) RSV (RT-PCR) Negative (Neg) 05/03/21 Range/Units 16:31 WBC (4.8-10.8) K/uL RBC (4.7-6.1) M/uL Hgb (14.0-18.0) g/dL Hct (42-52) % MCV (80-100) fL MCH (25-34) pg MCHC (32-36) g/dL RDW Std Deviation (36.4-46.3) fL RDW Coeff of Rodrigue (11.5-14.5) % Plt Count (130-400) K/uL MPV (7.4-10.4) fL Immature Gran % (Auto) % Neut % (Auto) % Lymph % (Auto) % Gooding % (Auto) % Eos % (Auto) % Baso % (Auto) % Neut # (Auto) (1.4-6.5) K/uL Lymph # (Auto) (1.2-3.4) K/uL Gooding # (Auto) (0.11-0.59) K/uL Eos # (Auto) (0-0.5) K/uL Baso # (Auto) (0-0.2) K/uL Immature Gran # (Auto) (0.00-0.02) K/uL Sodium (136-145) mmol/L Potassium (3.5-5.1) mmol/L Chloride (98-107) mmol/L Carbon Dioxide (21-32) mmol/L Anion Gap (3-11) BUN (6-23) mg/dl Creatinine (0.6-1.4) mg/dl Est Cr Clr Drug Dosing ml/min Est GFR ( Amer) ml/min Est GFR (Non-Af Amer) ml/min BUN/Creatinine Ratio (10-20) Glucose (70-99(Fasting)) mg/dl Calcium (8.5-10.1) mg/dl Magnesium (1.7-2.4) mg/dl Total Bilirubin (0.2-1.0) mg/dl AST (13-39) U/L ALT (7-52) U/L Alkaline Phosphatase (34-104) U/L Troponin I (0-0.04) ng/ml B-Natriuretic Peptide 83 (0-100) pg/ml Total Protein (6.0-8.3) gm/dl Albumin (3.4-5.0) gm/dl Globulin (2.5-4.0) gm/dl Albumin/Globulin Ratio (0.9-2) TSH (0.300-4.500) uIu/ml Free T4 (0.61-1.60) ng/dl SARS-CoV-2 (PCR) (Negative) Influenza Type A (PCR) (Neg) Influenza Type B (PCR) (Neg) RSV (RT-PCR) (Neg) Administered Medications Discontinued Medications Morphine Sulfate (Morphine Sulfate 4 Mg/Ml 1 Ml Carp\Vial) 4 mg IV NOW STA Stop: 05/03/21 17:45 Last Admin: 05/03/21 17:52 Dose: 4 mg Documented by: [id number] Oxycodone HCl (Oxycodone Hcl Ir 5 Mg Tab (Immediate Release)) 5 mg PO NOW STA Stop: 05/03/21 20:11 Last Admin: 05/03/21 20:30 Dose: 5 mg Documented by: [id number] Imaging Data Radiologist's Impression: Chest X-Ray 05/03/21 14:13 XR chest 2V PA/lateral CLINICAL HISTORY: swelling to lower extremity post surgery TECHNIQUE: AP and lateral frontal radiograph of the chest was obtained. Comparison: Comparison is made to chest one view 04/27/2021 FINDINGS: No lines and tubes are seen. The cardiomediastinal silhouette is normal. The lungs are clear. Moderate left pleural effusion. There is likely atelectasis at the left lung with elevation of the left hemidiaphragm. IMPRESSION: Stable appearance of left pleural effusion and atelectasis. ACT 112: Negative or not required by law. Electronically signed by: Meng Clark M.D. 05/03/2021 3:[address] 05/03/21 16:03 CT OF THE CHEST WITHOUT IV CONTRAST CLINICAL HISTORY: Left-sided chest pain. History of lung cancer. COMPARISON STUDY: Chest radiograph performed earlier today. Chest CT February 07, 2019. TECHNIQUE: Axial images of the chest were obtained without IV contrast. Images were reviewed in the axial, sagittal, and coronal planes. IV contrast was not administered for this examination. Automated exposure control was utilized for the study. A dose lowering technique was utilized adhering to the principles of ALARA. FINDINGS: Size of the heart is normal. There is no pericardial effusion. There is decreased attenuation of the cardiac blood pool. There is extensive coronary artery calcification. No pneumothorax is present. A large left pleural effusion is noted. This occupies 60% of the left thorax. This has significantly increased in size since prior chest CT. There is trace right pleural fluid. Note is made of multiple suspected left pleural implants which measure up to 4.4 cm. Implants were noted on prior CT. Enlarged prevascular node measures 1.8 x 1.3 cm. There are enlarged left cardiophrenic angle lymph nodes which measure up to 1.7 x 1.5 cm. No suspicious lesions are identified within visualized portions of the bony fractures. No acute fracture is identified. Abdomen and pelvis will be reported separately. Mild emphysema is present. IMPRESSION: 1. Large left pleural effusion, likely malignant given multiple left-sided pleural implants. 2. Interval development of prevascular and left cardiophrenic angle lymphadenopathy which suggests stephen spread of disease. ACT 112: Negative or not required by law. Electronically signed by: Kadeem Mary M.D. 05/03/2021 5:39 PM Venous Doppler Study 05/03/21 16:03 RIGHT LOWER EXTREMITY VENOUS DOPPLER CLINICAL HISTORY: Right leg swelling. Recent surgery. COMPARISON STUDY: No previous studies for comparison. TECHNIQUE: Sonography of the deep venous system of the right lower extremity was performed. Compression and augmentation were evaluated. FINDINGS: The right common femoral, superficial femoral and popliteal veins were compressible. Augmentation was normal. Flow was shown within the deep calf vessels. Subcutaneous edema of the right lower extremity is noted. IMPRESSION: No evidence of deep venous thrombus within the right lower extremity. ACT 112: Negative or not required by law. Electronically signed by: Kadeem Mary M.D. 05/03/2021 5:01 PM Abdomen/Pelvis CT 05/03/21 16:25 CT OF THE ABDOMEN AND PELVIS WITHOUT CONTRAST CLINICAL HISTORY: R hernia repair; now b/l LE edema R flank/chest pain. COMPARISON STUDY: CT of the abdomen and pelvis June 14, 2019. TECHNIQUE: Axial images of the abdomen and pelvis were obtained without IV contrast. Images were reviewed in the axial, sagittal, and coronal planes. Automated exposure control was utilized for the study. A dose lowering technique was utilized adhering to the principles of ALARA. FINDINGS: Please note that the chest CT will be reported separately. A large left pleural effusion with numerous pleural implants as well as left ca rdiophrenic angle lymphadenopathy are better depicted on the chest CT. No pneumatosis, free air or portal venous gas is present. Evaluation of the abdomen and pelvis is suboptimal as unenhanced examination. There is anasarca. There are are postoperative findings consistent with right inguinal hernia repair. No abnormality within the right nephrectomy bed is identified. The abdominal aorta is ectatic, measuring 2.9 cm in caliber at the level of the renal arteries. There is no evidence for a bowel obstruction. Fluid and gas within the right ankle region suggest recent hernia repair. No abdominal or pelvic lymphadenopathy is identified on this unenhanced study. No suspicious lesions are identified within the visualized skeletal structures. The appendix is likely normal. Evaluation of the abdomen and pelvis is suboptimal given the lack of contrast as well as paucity of intra-abdominal fat. There is trace ascites. IMPRESSION: 1. Technically difficult exam to interpret given lack of contrast and paucity of intra-abdominal fat. 2. Large left pleural effusion, likely malignant, and left cardiophrenic angle lymphadenopathy. Findings better depicted on the chest CT. Please see that report for further description. 3. Expected findings following recent right inguinal hernia. 4. Anasarca. Trace ascites. 5. No bowel obstruction. 6. Status post right nephrectomy. No abnormality within the nephrectomy bed. ACT 112: Negative or not required by law. Electronically signed by: Kadeem Mary M.D. 05/03/2021 5:51 PM Discharge Plan Visit Data Chief Complaint: Swelling/Edema to Extremity Stated Complaint: EDEMA WAIST DOWN, SOB WHEN LAYING, POST SURGICAL ED Provider: Vasiliy Izquierdo Discharge Problem: Pleural effusion on left, MARIEE (dyspnea on exertion), Pancytopenia, Leg swelling, Lung cancer Patient Disposition: Admitted As Inpatient Forms Stand Alone Forms: [facility] Prescriptions Prescriptions: No Action omeprazole 20 mg capsule,delayed release(DR/EC) 20 mg PO QAM RF: 0 gabapentin 600 mg tablet 1,200 mg PO QAM RF: 0 albuterol sulfate [Proventil HFA] 90 mcg/actuation HFA aerosol inhaler 2 puffs INH QID PRN (Reason: shortness of breath or wheezing) RF: 0 rosuvastatin [Crestor] 10 mg tablet 10 mg PO QAM RF: 0 tamsulosin [Flomax] 0.4 mg capsule 0.4 mg PO QAM RF: 0 clobetasol-emollient 0.05 % cream 1 appln TOP BID PRN (Reason: Skin Irritation) RF: 0 hydrocortisone acetate [Anusol-HC] 25 mg suppository 25 mg KS BID PRN (Reason: Hemorrhoids) RF: 0 oxycodone 5 mg tablet 5 mg PO Q4H PRN (Reason: Pain) RF: 0 cyanocobalamin (vitamin B-12) [Vitamin B-12] 1,000 mcg Tablet Extended Release 1,000 mcg PO QAM RF: 0 amlodipine [Norvasc] 5 mg Tablet 5 mg PO QAM RF: 0 allopurinol 100 mg Tablet 200 mg PO QAM RF: 0 levothyroxine [Synthroid] 25 mcg Tablet 25 mcg PO QAM RF: 0 lisinopril 30 mg Tablet 30 mg PO QAM RF: 0 morphine 15 mg Tablet Extended Release 15 mg PO Q12H RF: 0 Cabometyx 40 mg Tablet 40 mg PO QDL RF: 0 magnesium oxide 400 mg magnesium Tablet 400 mg PO QAM RF: 0 hydrocodone-acetaminophen 5-325 mg tablet 1 tab PO Q6H PRN (Reason: pain) Qty: 20 RF: 0 ondansetron HCl 8 mg tablet 8 mg PO Q8H PRN (Reason: Nausea) RF: 0 Referrals Referrals: Brandon Sevilla PA-C [Primary Care Provider] -
--- NOTE | 2021-05-03 16:46 | Electrocardiogram Report ---
Test Reason : Blood Pressure : / mmHG Vent. Rate : 081 BPM Atrial Rate : 081 BPM P-R Int : 138 ms QRS Dur : 082 ms QT Int : 360 ms P-R-T Axes : 046 023 025 degrees QTc Int : 418 ms Poor data quality, interpretation may be adversely affected Normal sinus rhythm Diffuse Minor Nonspecific T wave abnormality Abnormal ECG No previous ECGs available Confirmed by Manav Lee ([id number]) on 05/03/2021 4:45:32 PM Referred By: Confirmed By:Manav Lee
--- NOTE | 2021-05-03 17:02 | Ultrasound Report ---
RIGHT LOWER EXTREMITY VENOUS DOPPLER CLINICAL HISTORY: Right leg swelling. Recent surgery. COMPARISON STUDY: No previous studies for comparison. TECHNIQUE: Sonography of the deep venous system of the right lower extremity was performed. Compress ion and augmentation were evaluated. FINDINGS: The right common femoral, superficial femoral and popliteal veins were compressible. Augme ntation was normal. Flow was shown within the deep calf vessels. Subcutaneous edema of the right lowe r extremity is noted. IMPRESSION: No evidence of deep venous thrombus within the right lower extremity. ACT 112: Negative or not required by law. Electronically signed by: Kadeem Mary M.D. 05/03/2021 5:01 PM
[2021-05-03 17:09] LABS: Influenza A virus by PCR Negative (Neg); Influenza B virus by PCR Negative (Neg); RSV by PCR Negative (Neg); SARS CoV2 RNA(COVID-19) InHosp NEGATIVE (Negative)
--- NOTE | 2021-05-03 17:40 | CT Scan Report ---
CT OF THE CHEST WITHOUT IV CONTRAST CLINICAL HISTORY: Left-sided chest pain. History of lung cancer. COMPARISON STUDY: Chest radiograph performed earlier today. Chest CT February 07, 2019. TECHNIQUE: Axial images of the chest were obtained without IV contrast. Images were reviewed in the axial, sagittal, and coronal planes. IV contrast was not administered for this examination. Automat ed exposure control was utilized for the study. A dose lowering technique was utilized adhering to t he principles of ALARA. FINDINGS: Size of the heart is normal. There is no pericardial effusion. There is decreased attenuat ion of the cardiac blood pool. There is extensive coronary artery calcification. No pneumothorax is p resent. A large left pleural effusion is noted. This occupies 60% of the left thorax. This has signif icantly increased in size since prior chest CT. There is trace right pleural fluid. Note is made of lowell dawson suspected left pleural implants which measure up to 4.4 cm. Implants were noted on prior CT. Enlarged prevascular node measures 1.8 x 1.3 cm. There are enlarged left cardiophrenic angle lymph no brielle which measure up to 1.7 x 1.5 cm. No suspicious lesions are identified within visualized portions of the bony fractures. No acute fracture is identified. Abdomen and pelvis will be reported separate ly. Mild emphysema is present. IMPRESSION: 1. Large left pleural effusion, likely malignant given multiple left-sided pleural implants. 2. Interval development of prevascular and left cardiophrenic angle lymphadenopathy which suggests no judy spread of disease. ACT 112: Negative or not required by law. Electronically signed by: Kadeem Mary M.D. 05/03/2021 5:39 PM
[2021-05-03] MEDS ORDERED: MoRPHine SULFATE 4 MG/ML 1 ML CARP\\VIAL IV STA (17:44)
--- NOTE | 2021-05-03 17:52 | CT Scan Report ---
CT OF THE ABDOMEN AND PELVIS WITHOUT CONTRAST CLINICAL HISTORY: R hernia repair; now b/l LE edema R flank/chest pain. COMPARISON STUDY: CT of the abdomen and pelvis June 14, 2019. TECHNIQUE: Axial images of the abdomen and pelvis were obtained without IV contrast. Images were revi ewed in the axial, sagittal, and coronal planes. Automated exposure control was utilized for the lela dy. A dose lowering technique was utilized adhering to the principles of ALARA. FINDINGS: Please note that the chest CT will be reported separately. A large left pleural effusion wi th numerous pleural implants as well as left cardiophrenic angle lymphadenopathy are better depicted on the chest CT. No pneumatosis, free air or portal venous gas is present. Evaluation of the abdomen and pelvis is suboptimal as unenhanced examination. There is anasarca. There are are postoperative fi ndings consistent with right inguinal hernia repair. No abnormality within the right nephrectomy bed is identified. The abdominal aorta is ectatic, measuring 2.9 cm in caliber at the level of the renal arteries. There is no evidence for a bowel obstruction. Fluid and gas within the right ankle region s uggest recent hernia repair. No abdominal or pelvic lymphadenopathy is identified on this unenhanced study. No suspicious lesions are identified within the visualized skeletal structures. The appendix i s likely normal. Evaluation of the abdomen and pelvis is suboptimal given the lack of contrast as wel l as paucity of intra-abdominal fat. There is trace ascites. IMPRESSION: 1. Technically difficult exam to interpret given lack of contrast and paucity of intra-abdominal fat. 2. Large left pleural effusion, likely malignant, and left cardiophrenic angle lymphadenopathy. Findi ngs better depicted on the chest CT. Please see that report for further description. 3. Expected findings following recent right inguinal hernia. 4. Anasarca. Trace ascites. 5. No bowel obstruction. 6. Status post right nephrectomy. No abnormality within the nephrectomy bed. ACT 112: Negative or not required by law. Electronically signed by: Kadeem Mary M.D. 05/03/2021 5:51 PM
[2021-05-03] MEDS ORDERED: oxyCODONE HCL IR 5 MG TAB (IMMEDIATE RELEASE) PO STA (20:10)
[2021-05-03] MEDS ORDERED: FUROSEMIDE INJ 20 MG/2 ML VIAL IV ONE (20:11)
[2021-05-03 20:19] LABS: Thyroid Stimulating Hormone 10.826 uIu/ml (0.300-4.500)
[2021-05-03 20:51] LABS: T4 Free Thyroxine 0.71 ng/dl (0.61-1.60)
[2021-05-03] MEDS ORDERED: FUROSEMIDE 40 MG/4 ML VIAL IV ONE (21:06)
[2021-05-03] MEDS: MoRPHine SULFATE CR 15 MG TABCR PO SCH (21:22)
[2021-05-04] MEDS: oxyCODONE HCL IR 5 MG TAB (IMMEDIATE RELEASE) PO PRN ×4 (00:33→16:18)
[2021-05-04] MEDS ORDERED: ACETAMINOPHEN 325 MG TAB PO PRN (03:31)
[2021-05-04] MEDS ORDERED: PROMETHAZINE HCL 12.5 MG in SODIUM CHLORIDE 0.9% 50 ML IV PRN (03:31)
[2021-05-04] MEDS ORDERED: MoRPHine SULFATE 4 MG/ML 1 ML CARP\\VIAL IV PRN (03:31)
[2021-05-04] MEDS ORDERED: ACETAMINOPHEN 325 MG TAB ONE (03:34)
--- NOTE | 2021-05-04 03:54 | History & Physical Report ---
Date of Service LATE ENTRY May 03, 2021 Assessment & Plan (1) SOB (shortness of breath): Plan: Secondary to malignant left pleural effusion hx recurrent RCCA right with lung mets status post surgery, radiation, immunotherapy, currently on chemotherapy Fluid retention with orthopnea symptoms Rule out right-sided heart failure hx COPD, past tobacco abuse chronic pain on narcotics hypertension, stable hyperlipidemia on statin Rx AAA, stable measurement at 3.[address] abdomen pelvis February 2021 mild aortic stenosis (TTE 2017 ) Pancytopenia possibly from chemotherapy Hypothyroidism, TSH noted to be 10 Hyperglycemia rule out DM Medical telemetry Pulmonary consult in a.m. Re: Left pleural effusion N.p.o. after midnight in anticipation of procedure TTE Re: Fluid retention rule out right-sided heart failure, follow-up study for aortic stenosis Lasix 1 dose for fluid retention Peripheral blood smear for pancytopenia Check hemoglobin A1c DVT prophylaxis. SCDs Re: Thrombocytopenia Full code Patient's requesting updates from providers. Ms. Jeannie Lopez, contact #[phone]. Text document was generated using [employer] voice recognition software. It may contain grammatical or spelling errors. Kindly contact undersigned for clarification of any documentation item in question. Admission and Anticipated Discharge Date Admission Date: May 03, 2021 History of Present Illness Chief Complaint: Orthopnea, leg swelling Primary Care Provider: Brandon Sevilla PA-C History obtained from patient, family, and records. Medical history significant for recurrent RCCA right with lung mets status post surgery, radiation, immunotherapy, currently on chemotherapy, chronic left pleural effusion, chronic pain on narcotics, COPD, hypertension, hyperlipidemia, AAA, mild aortic stenosis (TTE 2018 ), anemia (last baseline hemoglobin of 11), chronic thrombocytopenia, past tobacco abuse. Patient underwent elective open repair of right inguinal hernia with mesh at same-day surgery last week. About 2 days ago, patient noted swelling from the waist down going to both legs with orthopnea symptoms. No unusual cough symptoms. Worsening of chronic left flank pain complaints. No fever, no chills. Patient directed to ER by PCPs office for evaluation. 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 Allergies Allergy/AdvReac Type Severity Reaction Status Date / Time No Known Allergies Allergy Unverified 05/03/21 20:11 Home Medications Medication Instructions Recorded Confirmed Type albuterol sulfate 90 mcg/actuation 2 puffs INH QID PRN 07/17/19 05/03/21 History aerosol inhaler (Proventil HFA) clobetasol-emollient 0.05 % 1 appln TOP BID PRN 07/17/19 05/03/21 History topical cream gabapentin 600 mg tablet 1,200 mg PO QAM tab 07/17/19 05/03/21 History hydrocortisone acetate 25 mg 25 mg TN BID PRN 07/17/19 05/03/21 History rectal suppository (Anusol-HC) omeprazole 20 mg capsule,delayed 20 mg PO QAM 07/17/19 05/03/21 History release rosuvastatin 10 mg tablet (Crestor) 10 mg PO QAM 07/17/19 05/03/21 History tamsulosin 0.4 mg capsule (Flomax) 0.4 mg PO QAM 07/17/19 05/03/21 History oxycodone 5 mg tablet 5 mg PO Q4H PRN 07/23/19 05/03/21 History allopurinol 100 mg tablet 200 mg PO QAM 04/21/21 05/03/21 History amlodipine 5 mg tablet (Norvasc) 5 mg PO QAM 04/21/21 05/03/21 History cabozantinib 40 mg tablet 40 mg PO QDL 04/21/21 05/03/21 History (Cabometyx) cyanocobalamin (vitamin B-12) 1,000 mcg PO QAM 04/21/21 05/03/21 History 1,000 mcg tablet,extended release (Vitamin B-12 ER) levothyroxine 25 mcg tablet 25 mcg PO QAM 04/21/21 05/03/21 History (Synthroid) lisinopril 30 mg tablet 30 mg PO QAM 04/21/21 05/03/21 History magnesium oxide 400 mg PO QAM 04/21/21 05/03/21 History morphine 15 mg tablet,extended 15 mg PO Q12H 04/21/21 05/03/21 History release hydrocodone 5 mg-acetaminophen 325 1 tab PO Q6H PRN #20 tab 04/27/21 05/03/21 Rx mg tablet ondansetron HCl 8 mg tablet 8 mg PO Q8H PRN 05/03/21 05/03/21 History Past Med/Surg History Medical History AAA (abdominal aortic aneurysm) 3.1cm (mild aneurysm of infrarenal abdominal aorta)- not significantly changed. 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 for this with relief History of chemotherapy 2016 - Pazopanib (2-3 months of treatment) 03/19/2019 - Opdivo ([id number] then switched to [id number]) Hypertension Neuropathy Very minor in feet Pleural effusion Per [facility] records- likely metastatic- pt minimally symptomatic- declining thoracentesis at this time - following up in Spring 2021 for further evaluation Renal cell carcinoma Right kidney- initially dx'ed 2016- s/p nephrectomy, immunotherapy with chemo Recurrence in nephrectomy bed with mets to lung (dx ~2018, takes oral chemoth erapy + radiation - stable currently) Thrombocytopenia Per records Surgical History History of biopsy 10/27/16 - Right Retroperitoneal Core Biopsy: + renal cell CA 05/2018 - Right Nephrectomy Bed: + renal cell CA History of colonoscopy 05/29/07 - with biopsy - Hyperplastic 06/03/10 - WNL 05/17/13 07/11/18 History of hemorrhoids 1989 - with Hemorrhoidectomy History of hernia repair 05/22/2018 History of laparoscopy 05/22/18 - Exploratory History of right nephrectomy 01/31/17 (Dr. Beatrice Holloway [facility] [place]) History of surgery 01/31/17 - Reconstruction of Vena Cava (Dr. Ck Davies [facility] [place]) History of tonsillectomy and adenoidectomy as a child Family History Grandmother (Paternal) , Passed age 69 of Colon Cancer No problems noted. Grandfather (Maternal) , Passed age 79 of unknown cancer (possible colon) No problems noted. Mother , Passed age 79 of Liver Cancer No problems noted. Father , Passed age 68 of [place] No problems noted. Brother , Passed age 55 of unknown (passed in sleep) No problems noted. Brother No problems noted. Brother No problems noted. Son No problems noted. Daughter No problems noted. Other No family history of adverse response to anesthesia Social History Smoking Status: Former smoker Years Smoked: 18; Second Hand Exposure: No; Hx Alcohol Use: No Hx Substance Use: No Preferred Language: Arabic Communication Ability: Effective Visual Impairment: Limited Hearing Ability: Normal Statistical Assistant Required: No Beliefs That Will Affect Care: None marital status: Current Living Situation: Spouse current occupational status: employed current occupation: [employer] Feels Safe at Home: Yes Safety Concerns: Feels Safe At This Time Childhood Exposure to Second-Hand Smoke: No caffeine: Yes (3 cups of coffee/day ) during the past year weight has: remained stable Dental Care, Regularly: No Assistive Devices: Glasses Review of Systems Review of Systems: As per HPI, all 10 systems reviewed, all other ROS negative Physical Exam Physical Exam: GENERAL: Slightly anxious, no respiratory distress SKIN: Pallor , warm HEENT: Partial alopecia, bespectacled, pale palpebral conjunctivae, no ptosis, dry buccal mucosa NECK : Supple, no tenderness CHEST : Decreased breath sounds more on the left, left chest wall tenderness HEART : RRR, systolic murmur ABDOMEN: Some distention, left flank tenderness EXTREMITIES : Bilateral LE swelling (left greater than the right), no LE tenderness, no other conspicuous deformities noted NEUROLOGIC : Coherent, no facial asymmetry, no other gross focality Results & Data Results & Data ([facility]) Vital Signs (Past 12 Hours) Vital Signs Pulse Pulse Resp BP BP Pulse Ox 05/04/21 02:00 89 16 164/94 H 94 05/03/21 22:06 74 16 142/87 H 95 05/03/21 17:21 76 18 132/81 98 Laboratory Results Laboratory Results WBC 4.37 K/uL (4.8-10.8) L 05/03/21 14:20 RBC 3.39 M/uL (4.7-6.1) L 05/03/21 14:20 Hgb 11.2 g/dL (14.0-18.0) L 05/03/21 14:20 Hct 35.6 % (42-52) L 05/03/21 14:20 MCV 105.0 fL (80-100) H 05/03/21 14:20 MCH 33.0 pg (25-34) 05/03/21 14:20 MCHC 31.5 g/dL (32-36) L 05/03/21 14:20 RDW Std Deviation 55.1 fL (36.4-46.3) H 05/03/21 14:20 RDW Coeff of Rodrigue 14.1 % (11.5-14.5) 05/03/21 14:20 Plt Count 117 K/uL (130-400) L 05/03/21 14:20 MPV 10.4 fL (7.4-10.4) 05/03/21 14:20 Immature Gran % (Auto) 0.0 % 05/03/21 14:20 Neut % (Auto) 67.8 % 05/03/21 14:20 Lymph % (Auto) 17.8 % 05/03/21 14:20 [place] % (Auto) 11.2 % 05/03/21 14:20 Eos % (Auto) 2.7 % 05/03/21 14:20 Baso % (Auto) 0.5 % 05/03/21 14:20 Neut # (Auto) 2.96 K/uL (1.4-6.5) 05/03/21 14:20 Lymph # (Auto) 0.78 K/uL (1.2-3.4) L 05/03/21 14:20 [place] # (Auto) 0.49 K/uL (0.11-0.59) 05/03/21 14:20 Eos # (Auto) 0.12 K/uL (0-0.5) 05/03/21 14:20 Baso # (Auto) 0.02 K/uL (0-0.2) 05/03/21 14:20 Immature Gran # (Auto) 0.00 K/uL (0.00-0.02) 05/03/21 14:20 Sodium 138 mmol/L (136-145) 05/03/21 14:20 Potassium 4.3 mmol/L (3.5-5.1) 05/03/21 14:20 Chloride 107 mmol/L (98-107) 05/03/21 14:20 Carbon Dioxide 26 mmol/L (21-32) 05/03/21 14:20 Anion Gap 5 (3-11) 05/03/21 14:20 BUN 22 mg/dl (6-23) 05/03/21 14:20 Creatinine 0.89 mg/dl (0.6-1.4) 05/03/21 14:20 Est Cr Clr Drug Dosing 77.9 ml/min 05/03/21 14:20 Est GFR ( Amer) 104.7 ml/min 05/03/21 14:20 Est GFR (Non-Af Amer) 90.4 ml/min 05/03/21 14:20 BUN/Creatinine Ratio 24.7 (10-20) H 05/03/21 14:20 Glucose 132 mg/dl (70-99(Fasting)) H 05/03/21 14:20 Calcium 8.5 mg/dl (8.5-10.1) 05/03/21 14:20 Magnesium 1.8 mg/dl (1.7-2.4) 05/03/21 14:20 Total Bilirubin 0.5 mg/dl (0.2-1.0) 05/03/21 14:20 AST 13 U/L (13-39) 05/03/21 14:20 ALT 8 U/L (7-52) 05/03/21 14:20 Alkaline Phosphatase 73 U/L (34-104) 05/03/21 14:20 Troponin I < 0.03 ng/ml (0-0.04) 05/03/21 14:20 B-Natriuretic Peptide 83 pg/ml (0-100) 05/03/21 16:31 Total Protein 5.3 gm/dl (6.0-8.3) L 05/03/21 14:20 Albumin 2.8 gm/dl (3.4-5.0) L 05/03/21 14:20 Globulin 2.5 gm/dl (2.5-4.0) 05/03/21 14:20 Albumin/Globulin Ratio 1.1 (0.9-2) 05/03/21 14:20 TSH 10.826 uIu/ml (0.300-4.500) H 05/03/21 14:20 Free T4 0.71 ng/dl (0.61-1.60) 05/03/21 14:20 SARS-CoV-2 (PCR) NEGATIVE (Negative) 05/03/21 16:00 Influenza Type A (PCR) Negative (Neg) 05/03/21 16:00 Influenza Type B (PCR) Negative (Neg) 05/03/21 16:00 RSV (RT-PCR) Negative (Neg) 05/03/21 16:00 Impressions Chest X-Ray 05/03/21 14:13 XR chest 2V PA/lateral CLINICAL HISTORY: swelling to lower extremity post surgery TECHNIQUE: AP and lateral frontal radiograph of the chest was obtained. Comparison: Comparison is made to chest one view 04/27/2021 FINDINGS: No lines and tubes are seen. The cardiomediastinal silhouette is normal. The lungs are clear. Moderate left pleural effusion. There is likely atelectasis at the left lung with elevation of the left hemidiaphragm. IMPRESSION: Stable appearance of left pleural effusion and atelectasis. ACT 112: Negative or not required by law. Electronically signed by: Meng Clark M.D. 05/03/2021 3:[address] 05/03/21 16:03 CT OF THE CHEST WITHOUT IV CONTRAST CLINICAL HISTORY: Left-sided chest pain. History of lung cancer. COMPARISON STUDY: Chest radiograph performed earlier today. Chest CT February 07, 2019. TECHNIQUE: Axial images of the chest were obtained without IV contrast. Images were reviewed in the axial, sagittal, and coronal planes. IV contrast was not administered for this examination. Automated exposure control was utilized for the study. A dose lowering technique was utilized adhering to the principles of ALARA. FINDINGS: Size of the heart is normal. There is no pericardial effusion. There is decreased attenuation of the cardiac blood pool. There is extensive coronary artery calcification. No pneumothorax is present. A large left pleural effusion is noted. This occupies 60% of the left thorax. This has significantly increased in size since prior chest CT. There is trace right pleural fluid. Note is made of multiple suspected left pleural implants which measure up to 4.4 cm. Implants were noted on prior CT. Enlarged prevascular node measures 1.8 x 1.3 cm. There are enlarged left cardiophrenic angle lymph nodes which measure up to 1.7 x 1.5 cm. No suspicious lesions are identified within visualized portions of the bony fractures. No acute fracture is identified. Abdomen and pelvis will be reported separately. Mild emphysema is present. IMPRESSION: 1. Large left pleural effusion, likely malignant given multiple left-sided pleural implants. 2. Interval development of prevascular and left cardiophrenic angle lymphadenopathy which suggests stephen spread of disease. ACT 112: Negative or not required by law. Electronically signed by: Kadeem Mary M.D. 05/03/2021 5:39 PM Venous Doppler Study 05/03/21 16:03 RIGHT LOWER EXTREMITY VENOUS DOPPLER CLINICAL HISTORY: Right leg swelling. Recent surgery. COMPARISON STUDY: No previous studies for comparison. TECHNIQUE: Sonography of the deep venous system of the right lower extremity was performed. Compression and augmentation were evaluated. FINDINGS: The right common femoral, superficial femoral and popliteal veins were compressible. Augmentation was normal. Flow was shown within the deep calf vessels. Subcutaneous edema of the right lower extremity is noted. IMPRESSION: No evidence of deep venous thrombus within the right lower extremity. ACT 112: Negative or not required by law. Electronically signed by: Kadeem Mary M.D. 05/03/2021 5:01 PM Abdomen/Pelvis CT 05/03/21 16:25 CT OF THE ABDOMEN AND PELVIS WITHOUT CONTRAST CLINICAL HISTORY: R hernia repair; now b/l LE edema R flank/chest pain. COMPARISON STUDY: CT of the abdomen and pelvis June 14, 2019. TECHNIQUE: Axial images of the abdomen and pelvis were obtained without IV contrast. Images were reviewed in the axial, sagittal, and coronal planes. Automated exposure control was utilized for the study. A dose lowering technique was utilized adhering to the principles of ALARA. FINDINGS: Please note that the chest CT will be reported separately. A large left pleural effusion with numerous pleural implants as well as left cardiophrenic angle lymphadenopathy are better depicted on the chest CT. No pneumatosis, free air or portal venous gas is present. Evaluation of the abdomen and pelvis is suboptimal as unenhanced examination. There is anasarca. There are are postoperative findings consistent with right inguinal hernia repair. No abnormality within the right nephrectomy bed is identified. The abdominal aorta is ectatic, measuring 2.9 cm in caliber at the level of the renal arteries. There is no evidence for a bowel obstruction. Fluid and gas within the right ankle region suggest recent hernia repair. No abdominal or pelvic lymphadenopathy is identified on this unenhanced study. No suspicious lesions are identified within the visualized skeletal structures. The appendix is likely normal. Evaluation of the abdomen and pelvis is suboptimal given the lack of contrast as well as paucity of intra-abdominal fat. There is trace ascites. IMPRESSION: 1. Technically difficult exam to interpret given lack of contrast and paucity of intra-abdominal fat. 2. Large left pleural effusion, likely malignant, and left cardiophrenic angle lymphadenopathy. Findings better depicted on the chest CT. Please see that report for further description. 3. Expected findings following recent right inguinal hernia. 4. Anasarca. Trace ascites. 5. No bowel obstruction. 6. Status post right nephrectomy. No abnormality within the nephrectomy bed. ACT 112: Negative or not required by law. Electronically signed by: Kadeem Mary M.D. 05/03/2021 5:51 PM Diagnostic Findings EKG as per my interpretation rate 80, NSR, normal axis, T wave flattening inferior leads Code Status & VTE Plan VTE Prophylaxis Plan VTE Prophylaxis will be ordered: Yes
[2021-05-04 05:34] LABS: Basophils # (auto) 0.02 K/uL (0-0.2); Basophils % (auto) 0.5 %; Eosinophils # (auto) 0.12 K/uL (0-0.5); Eosinophils % (auto) 2.9 %; Hematocrit (blood only) 31.7 % (42-52); Mean Corpuscular Hemoglobin 32.9 pg (25-34); Mean Corpuscular Hgb Conc 31.5 g/dL (32-36); Mean Corpuscular Volume 104.3 fL (80-100); Mean Platelet Volume 10.2 fL (7.4-10.4); Monocytes # (auto) 0.66 K/uL (0.11-0.59); Monocytes % (auto) 16.1 %; Neutrophils # (auto) 2.61 K/uL (1.4-6.5); Neutrophils % (auto) 63.5 %; Platelet Count 114 K/uL (130-400); RDW Coefficient of Variation 14.1 % (11.5-14.5); RDW Standard Deviation 53.9 fL (36.4-46.3); Red Blood Count 3.04 M/uL (4.7-6.1); White Blood Count 4.11 K/uL (4.8-10.8)
[2021-05-04 06:07] LABS: RBC Morphology Unremarkable
[2021-05-04] MEDS: amLODIPine BESYLATE 5 MG TAB PO SCH ×2 (06:18→10:46)
[2021-05-04] MEDS: LEVOTHYROXINE SODIUM 25 MCG TABLET PO SCH (06:19)
[2021-05-04 06:55] LABS: Estimated Average Glucose 111 mg/dl; Hemoglobin A1C 5.5 % (4.5-5.6)
[2021-05-04] MEDS ORDERED: ENOXAPARIN INJ 40 MG/0.4 ML SYR SQ SCH (09:00)
[2021-05-04] MEDS ORDERED: amLODIPine BESYLATE 5 MG TAB PO SCH (09:00)
[2021-05-04] MEDS: allopurinoL 100 MG TAB PO SCH (10:45)
[2021-05-04] MEDS: MoRPHine SULFATE CR 15 MG TABCR PO SCH ×2 (10:45→19:52)
[2021-05-04] MEDS: GABAPENTIN 600 MG TAB PO SCH (10:47)
[2021-05-04] MEDS: lisinopril 10 MG TAB PO SCH (10:47)
[2021-05-04 10:48] LABS: Partial Thromboplastin Time 26.3 Seconds (21.0-31.0); Prothrombin Time 10.1 Seconds (9.0-12.0)
[2021-05-04] MEDS: ROSUVASTATIN CALCIUM 10 MG TAB PO SCH (10:48)
[2021-05-04] MEDS: PANTOprazole 40 MG TAB PO SCH (10:48)
[2021-05-04] MEDS: TAMSULOSIN HCL 0.4 MG CAP PO SCH (10:49)
--- NOTE | 2021-05-04 13:09 | Procedure Note ---
Procedure Note Date of Service May 04, 2021 Note INDICATION: Left-sided pleural effusion with history of lung cancer and renal cell carcinoma PROCEDURE: Left-sided thoracentesis with ultrasound imaging prior to procedure. DATE: 05/04/2021 TIME: 12:30 PM PROVIDER: Ben Torres PA-C CONSENT: Was obtained prior to the procedure by Ben Torres PA-C at the direction of Dr. Lund and placed on the chart PROCEDURE SUMMARY: Bedside ultra sound was performed to identify an appropriate puncture site. Images were saved to the [employer] system. A time out was performed. The patient was prepped and draped in a sterile manner using chlorhexidine scrub after the appropriate level was confirmed by ultrasound. 1% lidocaine was used to numb the region. A finder needle was then used under negative pressure to locate fluid and instill lidocaine into the pleural space. A small incision was made with a #10 scalpel. A needle with overlying catheter was advanced using negative pressure on the syringe until a pleural flash was obtained. The thoracentesis catheter was then threaded without difficulty and without any bleeding. The patient had 1440 mL of yellow fluid removed. The incision site was then covered with two Band-Aids with no evidence of bleeding. No immediate complications were noted during the procedure. Dr. Lund and Dr. Maldonado were contacted after the procedure with results. A post-procedure chest x-ray was completed and reviewed at bedside by this provider and no pneumothorax was identified. The patient tolerated the procedure well with no shortness of breath, no hypotension, no increase in heart rate, and no other acute symptoms. Coding CPT Codes Pulmonary/Thoracic - Pulmonary and Thoracic: 94099 Thoracentesis w imaging ([id number]) Pulmonary/Thoracic - Pulmonary and Thoracic: 62619 US, Chest, real time with imaging documentation ([id number]) [facility] [facility] [place] Codes (Charges) Pulmonary/Thoracic Procedure 1: Pulmonary and Thoracic: 83396 Thoracentesis w imaging Procedure 2: Pulmonary and Thoracic: 92117 US, Chest, real time with imaging documentation
--- NOTE | 2021-05-04 13:25 | Pulmonary Consultation ---
Date of Consultation May 04, 2021 Assessment & Plan (1) Lung cancer: Laterality: left Lung location: unspecified part of lung Qualified Code(s): C34.92 - Malignant neoplasm of unspecified part of left bro nchus or lung (2) Renal cell carcinoma: (3) Pancytopenia: (4) Pleural effusion on left: (5) SOB (shortness of breath): Attending: Dr. Lund Impression: 66-year-old male with history of renal cell carcinoma and newly diagnosed lung cancer 4 years ago. Presents with a several day history of lower extremity edema and new left-sided pleural effusion. Patient currently receiving Carbometyx 40 mg p.o. daily. Not anticoagulated and not on any antiplatelet agents. INR 1.0, PT 10.1, APTT 26.3. Platelet count is 114,000. Patient saturating at 95% SaO2 on room air with respiratory rate of 18. Recommendations: 1. Left pleural effusion: * Consent obtained as delegated by Dr. Lund for left-sided thoracentesis * Procedure performed at bedside without complication * 1440 cc of yellow fluid was evacuated with no blood loss * Dr. Lund and Dr. Maldonado advised of thoracentesis. * Fluid was sent to the laboratory for evaluation and cytology studies * Chest x-ray performed at bedside with no evidence of pneumothorax 2. Shortness of breath: * No adventitious breath sounds other than decreased breath sounds on the left at the time of my examination * SaO2 95% on room air with no other evidence of hypoxia * Bedside thoracentesis performed * Continue supportive care and await pleural fluid studies 3. Lung cancer: * Daily Carbometyx * Continue outpatient follow-up with oncology 4. History of tobacco abuse: * Patient reports he quit smoking in 1992 5. Vaccination status: * 6 vaccinations of COVID 19 Moderna * 05/18/2020, 05/23/2020, 06/15/2020, 07/02/2020, 01/15/2021, 02/13/2021 Moderna vaccinations as listed in the EMR * Influenza vaccination 01/06/2021 Thank you for including us in the care of this patient. We will sign off at this time. Please feel free to consult us with further questions. History of Present Illness Reason for Consultation: Left pleural effusion Requesting Physician: Dr. Dumont Attending Physician: Asa Maldonado MD History of Present Illness Attending: Dr. Lund This is a 66-year-old male with a past medical history of renal cell carcinoma, left-sided lung cancer, pancytopenia from chemotherapy, daily chemotherapy with Cabometyx 40 mg p.o., neuropathy, GERD, hyperlipidemia, BPH, hypothyroidism, chronic pain, vitamin B 12 deficiency, hypertension, gout, past history of tobacco abuse. Patient presents today with shortness of breath. He reports that he underwent right inguinal hernia repair last week and since that time he has felt more short of breath. When he had his renal cell carcinoma he developed right-sided pleural fluid which was evacuated at the time of surgery. During that same admission, a thoracentesis was performed and it sounds like the patient had pleurodesis done on the right. He developed lung cancer approximately 4 years ago and is receiving daily oral chemotherapy treatment with Cabometyx. He denies any other thoracentesis or pleural procedure. He complains of a constant left lower lobe pain around the flank and posterior rib line. He denies any fever, chills, sweats, rigors. No pleuritic pain. He does have some lower extremity edema since the surgery last week. Patient is fully vaccinated for COVID. Tobacco abuse history. Quit smoking in 1992. Allergies Allergy/AdvReac Type Severity Reaction Status Date / Time No Known Allergies Allergy Unverified 05/03/21 20:11 Home Medications Medication Instructions Recorded Confirmed Type albuterol sulfate 90 mcg/actuation 2 puffs INH QID PRN 07/17/19 05/03/21 History aerosol inhaler (Proventil HFA) clobetasol-emollient 0.05 % 1 appln TOP BID PRN 07/17/19 05/03/21 History topical cream gabapentin 600 mg tablet 1,200 mg PO QAM tab 07/17/19 05/03/21 History hydrocortisone acetate 25 mg 25 mg OR BID PRN 07/17/19 05/03/21 History rectal suppository (Anusol-HC) omeprazole 20 mg capsule,delayed 20 mg PO QAM 07/17/19 05/03/21 History release rosuvastatin 10 mg tablet (Crestor) 10 mg PO QAM 07/17/19 05/03/21 History tamsulosin 0.4 mg capsule (Flomax) 0.4 mg PO QAM 07/17/19 05/03/21 History oxycodone 5 mg tablet 5 mg PO Q4H PRN 07/23/19 05/03/21 History allopurinol 100 mg tablet 200 mg PO QAM 04/21/21 05/03/21 History amlodipine 5 mg tablet (Norvasc) 5 mg PO QAM 04/21/21 05/03/21 History cabozantinib 40 mg tablet 40 mg PO QDL 04/21/21 05/03/21 History (Cabometyx) cyanocobalamin (vitamin B-12) 1,000 mcg PO QAM 04/21/21 05/03/21 History 1,000 mcg tablet,extended release (Vitamin B-12 ER) levothyroxine 25 mcg tablet 25 mcg PO QAM 04/21/21 05/03/21 History (Synthroid) lisinopril 30 mg tablet 30 mg PO QAM 04/21/21 05/03/21 History magnesium oxide 400 mg PO QAM 04/21/21 05/03/21 History morphine 15 mg tablet,extended 15 mg PO Q12H 04/21/21 05/03/21 History release hydrocodone 5 mg-acetaminophen 325 1 tab PO Q6H PRN #20 tab 04/27/21 05/03/21 Rx mg tablet ondansetron HCl 8 mg tablet 8 mg PO Q8H PRN 05/03/21 05/03/21 History Patient History Medical History AAA (abdominal aortic aneurysm) 3.1cm (mild aneurysm of infrarenal abdominal aorta)- not significantly changed. 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 for this with relief History of chemotherapy 2017 - Pazopanib (2-3 months of treatment) 03/19/2019 - Opdivo ([id number] then switched to [id number]) Hypertension Neuropathy Very minor in feet Pleural effusion Per [facility] records- likely metastatic- pt minimally symptomatic- declining thoracentesis at this time - following up in Spring 2021 for further evaluation Renal cell carcinoma Right kidney- initially dx'ed 2016- s/p nephrectomy, immunotherapy with chemo 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 [facility] [place] of surgery 01/31/17 - Reconstruction of Vena Cava [place]k [place] [facility] [place] History of tonsillectomy and adenoidectomy as a child Family History Grandmother (Paternal) , Passed age 69 of Colon Cancer No problems noted. Grandfather (Maternal) , Passed age 79 of unknown cancer (possible colon) No problems noted. Mother , Passed age 79 of Liver Cancer No problems noted. Father , Passed age 68 of [place] No problems noted. Brother , Passed age 55 of unknown (passed in sleep) No problems noted. Brother No problems noted. Brother No problems noted. Son No problems noted. Daughter No problems noted. 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 No wheezes, rales, rhonchi. No dyspnea demonstrated. No use of accessory muscles. No conversational dyspnea. HEART: Regular, rate controlled ABDOMEN: Soft, NT, ND, BS Present EXTREMITIES: Trace bilateral LE edema, pedal pulses intact and equal bilaterally NEURO: A&OX3 Results & Data Results & Data ([facility]) Vital Signs (Past 12 Hours) Vital Signs Pulse Pulse Resp BP BP Pulse Ox Pulse Ox 05/04/21 04:50 69 18 162/93 H 95 95 05/04/21 02:00 89 16 164/94 H 94 Laboratory Results 05/04/21 05:11 05/03/21 14:20 COVID-19 Results 05/03/21 16:00 SARS-CoV-2 (PCR) NEGATIVE INR 1.0 (0.9-1.1) 05/04/21 10:14 Diagnostic Findings Chest X-Ray 05/03/21 14:13 XR chest 2V PA/lateral CLINICAL HISTORY: swelling to lower extremity post surgery TECHNIQUE: AP and lateral frontal radiograph of the chest was obtained. Comparison: Comparison is made to chest one view 04/27/2021 FINDINGS: No lines and tubes are seen. The cardiomediastinal silhouette is normal. The lungs are clear. Moderate left pleural effusion. There is likely atelectasis at the left lung with elevation of the left hemidiaphragm. IMPRESSION: Stable appearance of left pleural effusion and atelectasis. ACT 112: Negative or not required by law. Electronically signed by: Meng Clark M.D. 05/03/2021 3:[address] 05/03/21 16:03 CT OF THE CHEST WITHOUT IV CONTRAST CLINICAL HISTORY: Left-sided chest pain. History of lung cancer. COMPARISON STUDY: Chest radiograph performed earlier today. Chest CT February 07, 2019. TECHNIQUE: Axial images of the chest were obtained without IV contrast. Images were reviewed in the axial, sagittal, and coronal planes. IV contrast was not administered for this examination. Automated exposure control was utilized for the study. A dose lowering technique was utilized adhering to the principles of ALARA. FINDINGS: Size of the heart is normal. There is no pericardial effusion. There is decreased attenuation of the cardiac blood pool. There is extensive coronary artery calcification. No pneumothorax is present. A large left pleural effusion is noted. This occupies 60% of the left thorax. This has significantly increased in size since prior chest CT. There is trace right pleural fluid. Note is made of multiple suspected left pleural implants which measure up to 4.4 cm. Implants were noted on prior CT. Enlarged prevascular node measures 1.8 x 1.3 cm. There are enlarged left cardiophrenic angle lymph nodes which measure up to 1.7 x 1.5 cm. No suspicious lesions are identified within visualized portions of the bony fractures. No acute fracture is identified. Abdomen and pelvis will be reported separately. Mild emphysema is present. IMPRESSION: 1. Large left pleural effusion, likely malignant given multiple left-sided pleural implants. 2. Interval development of prevascular and left cardiophrenic angle lymphadenopathy which suggests stephen spread of disease. ACT 112: Negative or not required by law. Electronically signed by: Kadeem Mary M.D. 05/03/2021 5:39 PM Venous Doppler Study 05/03/21 16:03 RIGHT LOWER EXTREMITY VENOUS DOPPLER CLINICAL HISTORY: Right leg swelling. Recent surgery. COMPARISON STUDY: No previous studies for comparison. TECHNIQUE: Sonography of the deep venous system of the right lower extremity was performed. Compression and augmentation were evaluated. FINDINGS: The right common femoral, superficial femoral and popliteal veins were compressible. Augmentation was normal. Flow was shown within the deep calf vessels. Subcutaneous edema of the right lower extremity is noted. IMPRESSION: No evidence of deep venous thrombus within the right lower extremity. ACT 112: Negative or not required by law. Electronically signed by: Kadeem Mary M.D. 05/03/2021 5:01 PM Abdomen/Pelvis CT 05/03/21 16:25 CT OF THE ABDOMEN AND PELVIS WITHOUT CONTRAST CLINICAL HISTORY: R hernia repair; now b/l LE edema R flank/chest pain. COMPARISON STUDY: CT of the abdomen and pelvis June 14, 2019. TECHNIQUE: Axial images of the abdomen and pelvis were obtained without IV contrast. Images were reviewed in the axial, sagittal, and coronal planes. Automated exposure control was utilized for the study. A dose lowering technique was utilized adhering to the principles of ALARA. FINDINGS: Please note that the chest CT will be reported separately. A large left pleural effusion with numerous pleural implants as well as left cardiophrenic angle lymphadenopathy are better depicted on the chest CT. No pneumatosis, free air or portal venous gas is present. Evaluation of the abdomen and pelvis is suboptimal as unenhanced examination. There is anasarca. There are are postoperative findings consistent with right inguinal hernia repair. No abnormality within the right nephrectomy bed is identified. The abdominal aorta is ectatic, measuring 2.9 cm in caliber at the level of the renal arteries. There is no evidence for a bowel obstruction. Fluid and gas within the right ankle region suggest recent hernia repair. No abdominal or pelvic lymphadenopathy is identified on this unenhanced study. No suspicious lesions are identified within the visualized skeletal structures. The appendix is likely normal. Evaluation of the abdomen and pelvis is suboptimal given the lack of contrast as well as paucity of intra-abdominal fat. There is trace ascites. IMPRESSION: 1. Technically difficult exam to interpret given lack of contrast and paucity of intra-abdominal fat. 2. Large left pleural effusion, likely malignant, and left cardiophrenic angle lymphadenopathy. Findings better depicted on the chest CT. Please see that report for further description. 3. Expected findings following recent right inguinal hernia. 4. Anasarca. Trace ascites. 5. No bowel obstruction. 6. Status post right nephrectomy. No abnormality within the nephrectomy bed. ACT 112: Negative or not required by law. Electronically signed by: Kadeem Mary M.D. 05/03/2021 5:51 PM PG Care Time/CCT Total # of Minutes Spent Total Time Spent with Patient: Total time spent is greater than 50% in coordination of care (as documented) at patient's floor/unit and/or counseling patient: 45 minutes independent of any procedures Coding Level of Care Code 17218 Inpt Consult Level 5 Diagnoses Lung cancer C34.92 Laterality: left Lung location: unspecified part of lung Renal cell carcinoma C64.9 Pancytopenia D61.818 Pleural effusion on left J90 SOB (shortness of breath) R06.02 Time Spent (min) 45
--- NOTE | 2021-05-04 13:37 | XRay Report ---
XR chest 1V portable HISTORY: S/P Left Thoracentesis COMPARISON: Chest 05/03/2021. FINDINGS: No pneumothorax. There is elevation the left hemidiaphragm and a trace left pleural effusio n. This has decreased in size status post thoracentesis. Left basilar densities favor atelectasis. Th e right lung is clear. The heart is stable in size. IMPRESSION: Decrease in size in the trace left pleural effusion status post thoracentesis. No pneumothorax. ACT 112: Negative or not required by law. Electronically signed by: Twan Yun M.D. 05/04/2021 1:36 PM
[2021-05-04 13:50] LABS: Glucose Pleural Fluid 92 mg/dl
[2021-05-04 13:55] LABS: Amylase Pleural Fluid 39 U/L; LDH Pleural Fluid 118 U/L; Total Protein Pleural Fluid 2.8 g/dl
[2021-05-04 14:31] LABS: Appearance Pleural Fluid HAZY; Color Pleural Fluid YELLOW; RBC Pleural Fluid (A) < 3000 /uL; Source Pleural Fluid LEFT LUNG; WBC Pleural Fluid (A) 580 /uL
[2021-05-04 14:50] LABS: Basophils, Fluid 0 %; Eosinophils, Fluid 0 %; Lymphocytes, Fluid 8 %; Mono,Macrophage,Mesothelial 50 %; Neutrophils, Fluid 42 %
--- NOTE | 2021-05-04 16:37 | Hospitalist Progress Note ---
Date of Service May 04, 2021 Assessment & Plan (1) SOB (shortness of breath): Plan: Left pleural effusion Secondary to metastatic lung disease H/O Recurrent RCCA right with lung mets S/P Surgery, radiation, immunotherapy H/O Tobacco use -CT Chest:Large left pleural effusion, likely malignant given multiple left- sided pleural implants. Interval development of prevascular and left cardiophrenic angle lymphadenopathy which suggests stephen spread of disease. ECHO reviwed Currently on chemotherapy--Carbometyx 40 mg p.o. daily S/P Thoracentesis Follow-up pleural fluid studies Appreciate pulmonology input Needs follow-up with Dr. Jay Melissa upon discharge Discussed with Dr. Jay Melissa today--okay to hold Carbometyx today--Requests to inform about DC planning H/O COPD past tobacco abuse No signs of exacerbation Monitor Chronic pain on narcotics Hypertension Hyperlipidemia AAA, stable measurement at 3.[address] abdomen pelvis February 2021 Continue home meds Pancytopenia possibly from chemotherapy Monitor CBC Hypothyroidism TSH elevated, normal free T4 We will repeat thyroid function test tomorrow Continue levothyroxine DVT Px: SCDs Re: Thrombocytopenia Code Status Full code Admission and Anticipated Discharge Date Admission Date: May 03, 2021 Subjective Patient is seen and examined at bedside States having left-sided pleuritic pain and dyspnea on exertion Offers no other complaints Denies any dizziness, nausea, abdominal pain Discussed with Dr. Jay Melissa today Review of Systems Review of Systems: All systems reviewed & are unremarkable except as noted in Subjective Physical Exam Physical Exam: Physical Exam: Vitals signs as noted above General Appearance:Thin, no apparent distress Head: normocephalic, Atraumatic Eyes: normal inspection, EOMI Neck: supple, Trachea midline Respiratory/Chest: Decreased left breath sounds, CTA, No accessory muscle use Cardiovascular: S1, S2, No murmur Abdomen/GI:Soft, Non tender, Bowel sounds present Extremities/Musculoskeletal:normal inspection, no edema Neurologic/Psych:AAOX3, grossly no focal neurological deficits Skin: normal color, warm Results & Data Results & Data ([facility]) Vital Signs (Past 12 Hours) Vital Signs Temp Pulse Resp BP BP Pulse Ox Pulse Ox 05/04/21 16:12 36.6 C 82 18 144/87 H 96 05/04/21 14:00 36.9 C 75 18 150/86 H 96 05/04/21 12:30 36.8 C 89 18 154/79 H 98 05/04/21 09:00 37 C 88 18 152/84 H 98 05/04/21 04:50 69 18 162/93 H 95 95 Laboratory Results Short CBC 05/04/21 Range/Units 05:11 WBC 4.11 L (4.8-10.8) K/uL Hgb 10.0 L (14.0-18.0) g/dL Hct 31.7 L (42-52) % Plt Count 114 L (130-400) K/uL Cardiac Enzymes 05/03/21 Range/Units 14:20 Troponin I < 0.03 (0-0.04) ng/ml
[2021-05-05] MEDS: oxyCODONE HCL IR 5 MG TAB (IMMEDIATE RELEASE) PO PRN ×4 (01:09→14:28)
[2021-05-05] MEDS: LEVOTHYROXINE SODIUM 25 MCG TABLET PO SCH (05:33)
[2021-05-05 05:52] LABS: Hematocrit (blood only) 31.3 % (42-52); Hemoglobin 9.8 g/dL (14.0-18.0); Mean Corpuscular Hemoglobin 32.7 pg (25-34); Mean Corpuscular Hgb Conc 31.3 g/dL (32-36); Mean Corpuscular Volume 104.3 fL (80-100); Mean Platelet Volume 10.3 fL (7.4-10.4); Platelet Count 118 K/uL (130-400); RDW Coefficient of Variation 13.8 % (11.5-14.5); RDW Standard Deviation 53.1 fL (36.4-46.3); White Blood Count 4.59 K/uL (4.8-10.8)
[2021-05-05 06:13] LABS: BUN Creatinine Ratio 22.4 (10-20); Calcium 8.3 mg/dl (8.5-10.1); Creatinine Clr Calc Pharmacy 50.5 ml/min; Est GFR (African American) 70.1 ml/min; Est GFR (Non-African American) 60.5 ml/min; Potassium 4.7 mmol/L (3.5-5.1)
[2021-05-05 06:35] LABS: Thyroid Stimulating Hormone 10.86 uIu/ml (0.300-4.500)
[2021-05-05 07:33] LABS: T4 Free Thyroxine 0.71 ng/dl (0.61-1.60)
[2021-05-05] MEDS: MoRPHine SULFATE CR 15 MG TABCR PO SCH (07:47)
[2021-05-05] MEDS: amLODIPine BESYLATE 5 MG TAB PO SCH (07:47)
[2021-05-05] MEDS: GABAPENTIN 600 MG TAB PO SCH (07:47)
[2021-05-05] MEDS: allopurinoL 100 MG TAB PO SCH (07:48)
[2021-05-05] MEDS: ROSUVASTATIN CALCIUM 10 MG TAB PO SCH (07:48)
[2021-05-05] MEDS: PANTOprazole 40 MG TAB PO SCH (07:48)
[2021-05-05] MEDS: TAMSULOSIN HCL 0.4 MG CAP PO SCH (07:48)
[2021-05-05] MEDS: lisinopril 10 MG TAB PO SCH (07:48)
[2021-05-05 11:53] VITALS: PULSE 69; TEMP 97.9; O2SAT 94
--- NOTE | 2021-05-05 13:28 | Pulmonology Progress Note ---
Date of Service May 05, 2021 Assessment & Plan (1) Lung cancer: Laterality: left Lung location: unspecified part of lung Qualified Code(s): C34.92 - Malignant neoplasm of unspecified part of left bronchus or lung (2) Renal cell carcinoma: (3) Pancytopenia: (4) Pleural effusion on left: (5) SOB (shortness of breath): Plan: Attending: Dr. Lund Impression: 66-year-old male with history of renal cell carcinoma and newly diagnosed lung cancer 4 years ago. Presents with a several day history of lower extremity edema and new left-sided pleural effusion. Patient currently receiving Carbometyx 40 mg p.o. daily. Not anticoagulated and not on any antiplatelet agents. INR 1.0, PT 10.1, APTT 26.3. Platelet count is 114,000. Patient saturating at 95% SaO2 on room air with respiratory rate of 18. Status post left-sided thoracentesis 05/04/2021 with what appeared to be transudate of fluid by lights criteria. Pathology is pending Recommendations: 1. Left pleural effusion: * Status post left-sided thoracentesis 05/04/2021 with small residual pleural effusion on postprocedural chest x-ray * No evidence of empyema on laboratory evaluation of pleural fluid * Pathology is still pending. Known malignancy on left side with lung cancer primary * At this time no further intervention by pulmonary as needed. Would follow-up with patient's oncologist after pathology is reported on yesterday's pleural fluid 2. Shortness of breath: * Persistent left-sided decrease in breath sounds. * SaO2 95% on room air with no other evidence of hypoxia * Bedside thoracentesis performed 05/04/2021 * Consider two-step prior to discharge. From a pulmonary perspective, patient could be discharged at this time. 3. Lung cancer: * Daily Carbometyx * Continue outpatient follow-up with oncology * Pathology of yesterday's left-sided thoracentesis still pending 4. History of tobacco abuse: * Patient reports he quit smoking in 1992 5. Vaccination status: * 6 vaccinations of COVID 19 Moderna * 05/18/2020, 05/23/2020, 06/15/2020, 07/02/2020, 01/15/2021, 02/13/2021 Moderna vaccinations as listed in the EMR * Influenza vaccination 01/06/2021 Thank you for including us in the care of this patient. We will sign off at this time. Please feel free to consult us with further questions. Admission and Anticipated Discharge Date Admission Date: May 03, 2021 Subjective Attending: Dr. Lund Patient seen and examined in room 289. No shortness of breath. No bleeding at thoracentesis site on left. Chest discomfort seems to be improved. Oxygenating well on room air. No cough or sputum production. No fever or chills. No acute complaints. Review of Systems Review of Systems: All systems reviewed & are unremarkable except as noted in Subjective Physical Exam Physical Exam: GENERAL : No acute distress EYES: No icterus, gaze conjugate NOSE: No evidence of epistaxis MOUTH: No lesions or candidiasis NECK: Supple LUNGS: Breath sounds continue to be diminished at left base. No other adventitious breath sounds. HEART: Regular, rate controlled ABDOMEN: Soft, NT, ND, BS Present EXTREMITIES: No LE edema, pedal pulses intact NEURO: A&OX3 Results & Data Results & Data ([facility]) Vital Signs (Past 12 Hours) Vital Signs Temp Pulse Pulse Pulse Pulse Pulse Resp 05/05/21 11:53 36.6 C 69 16 05/05/21 08:11 80 78 70 05/05/21 07:27 36.3 C L 63 20 05/05/21 07:11 59 L 05/05/21 03:12 37.2 C 71 18 Resp Resp Resp BP BP Pulse Ox Pulse Ox 05/05/21 11:53 101/62 94 05/05/21 08:11 18 16 16 94 05/05/21 07:27 121/75 95 05/05/21 07:11 05/05/21 03:12 122/64 95 Pulse Ox Pulse Ox 05/05/21 11:53 05/05/21 08:11 95 97 05/05/21 07:27 05/05/21 07:11 05/05/21 03:12 Laboratory Results 05/05/21 05:18 05/05/21 05:18 Diagnostic Findings No further diagnostics since thoracentesis yesterday PG Care Time/CCT Total # of Minutes Spent Total Time Spent with Patient: Total time spent is greater than 50% in coordination of care (as documented) at patient's floor/unit and/or counseling patient: Coding Level of Care Code 95741 Subseq Hosp Care Lvl 2 Diagnoses Lung cancer C34.92 Laterality: left Lung location: unspecified part of lung Renal cell carcinoma C64.9 Pancytopenia D61.818 Pleural effusion on left J90 SOB (shortness of breath) R06.02 Time Spent (min) 20
--- NOTE | 2021-05-05 13:36 | Hospitalist Progress Note ---
Date of Service May 05, 2021 Assessment & Plan (1) SOB (shortness of breath): Plan: per Dr. Maldonado's notes with addendum: Left pleural effusion Secondary to metastatic lung disease H/O Recurrent RCCA right with lung mets S/P Surgery, radiation, immunotherapy H/O Tobacco use -CT Chest:Large left pleural effusion, likely malignant given multiple left- sided pleural implants. Interval development of prevascular and left car diophrenic angle lymphadenopathy which suggests stephen spread of disease. ECHO reviewed Currently on chemotherapy--Carbometyx 40 mg p.o. daily S/P Thoracentesis 05/04/21 draining 1.4 L Follow-up pleural fluid studies: pending patient requesting to increase Oxycodone to 7.5mg q4 prn Drug monitoring queried, no issues also advised to use Tylenol 650mg TID advised to use Incentive Spirometer q1h ff up with Dr. Jay Melissa tomorrow ff up with PCP in 1 week H/O COPD past tobacco abuse not in exacerbation Chronic pain per # 1 Hypertension Hyperlipidemia AAA, stable measurement at 3.[address] abdomen pelvis February 2021 reduce Amlodipine to 2.5mg po daily as BP on the lower side monitor as outpatient Pancytopenia possibly from chemotherapy CBC stable Hypothyroidism TSH elevated at 10, normal free T4 at 0.7 further management per PCP Continue levothyroxine 25mcg for now Disposition d/c home ff up with Oncologist tomorrow ff up with PCP in 1 week Admission and Anticipated Discharge Date Admission Date: May 03, 2021 Subjective ff up for left pleural effusion, etc seen resting in bed, comfortable states his breathing is better overall ambulated with respiratory therapist, does not require o2 supplement no cough, fever/chills report sharp pain on the posterolateral lower ribs, chronic no other symptoms states he is ready and would like to be discharged today Review of Systems Review of Systems: all noted and negative except for above Physical Exam Physical Exam: General- oriented x 3, not in distress, speaks in sentences with no effort or accessory muscle use Eyes- anicteric Neck- no JVD Lungs- clear breath sounds bilaterally, no rales/wheezes thoracentesis site: no bleeding, discharge Heart- normal rate, regular rhythm; no murmurs Abdomen- normal bowel sounds, nondistended, soft, nontender Extremities- no pretibial edema, no calf tenderness Neuro- alert, oriented x 3; no gross focal neurologic deficits Skin- warm & dry Results & Data Results & Data ([facility]) Vital Signs (Past 12 Hours) Vital Signs Temp Pulse Pulse Pulse Pulse Pulse Resp 05/05/21 11:53 36.6 C 69 16 05/05/21 08:11 80 78 70 05/05/21 07:27 36.3 C L 63 20 05/05/21 07:11 59 L 05/05/21 03:12 37.2 C 71 18 Resp Resp Resp BP BP Pulse Ox Pulse Ox 05/05/21 11:53 101/62 94 05/05/21 08:11 18 16 16 94 05/05/21 07:27 121/75 95 05/05/21 07:11 05/05/21 03:12 122/64 95 Pulse Ox Pulse Ox 05/05/21 11:53 05/05/21 08:11 95 97 05/05/21 07:27 05/05/21 07:11 05/05/21 03:12 all noted and reviewed including below
[2021-05-05 14:08] VITALS: BP 122/64
--- NOTE | 2021-05-05 14:32 | Discharge Summary ---
Date of Service May 05, 2021 Admission HPI Per Admitting Provider History obtained from patient, family, and records. Medical history significant for recurrent RCCA right with lung mets status post surgery, radiation, immunotherapy, currently on chemotherapy, chronic left pleural effusion, chronic pain on narcotics, COPD, hypertension, hyperlipidemia, AAA, mild aortic stenosis (TTE 2018 ), anemia (last baseline hemoglobin of 11), chronic thrombocytopenia, past tobacco abuse. Patient underwent elective open repair of right inguinal hernia with mesh at same-day surgery last week. About 2 days ago, patient noted swelling from the waist down going to both legs with orthopnea symptoms. No unusual cough symptoms. Worsening of chronic left flank pain complaints. No fever, no chills. Patient directed to ER by PCPs office for evaluation. 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 Admission Exam (Per Admitting) Constitutional GENERAL: Slightly anxious, no respiratory distress SKIN: Pallor , warm HEENT: Partial alopecia, bespectacled, pale palpebral conjunctivae, no ptosis, dry buccal mucosa NECK : Supple, no tenderness CHEST : Decreased breath sounds more on the left, left chest wall tenderness HEART : RRR, systolic murmur ABDOMEN: Some distention, left flank tenderness EXTREMITIES : Bilateral LE swelling (left greater than the right), no LE tenderness, no other conspicuous deformities noted NEUROLOGIC : Coherent, no facial asymmetry, no other gross focality Discharge Data Consultations 05/03/21 18:55 ED Decision to Admit Stat 05/04/21 03:31 Consult Pulmonology Routine Procedures Performed LEFT SIDED THORACENTESIS Date of Service May 04, 2021 Note INDICATION: Left-sided pleural effusion with history of lung cancer and renal cell carcinoma PROCEDURE: Left-sided thoracentesis with ultrasound imaging prior to procedure. DATE: 05/04/2021 TIME: 12:30 PM PROVIDER: Ben Torres PA-C CONSENT: Was obtained prior to the procedure by Ben Torres PA-C at the direction of Dr. Lund and placed on the chart PROCEDURE SUMMARY: Bedside ultra sound was performed to identify an appropriate puncture site. Images were saved to the [employer] system. A time out was performed. The patient was prepped and draped in a sterile manner using chlorhexidine scrub after the appropriate level was confirmed by ultrasound. 1% lidocaine was used to numb the region. A finder needle was then used under negative pressure to locate fluid and instill lidocaine into the pleural space. A small incision was made with a #10 scalpel. A needle with overlying catheter was advanced using negative pressure on the syringe until a pleural flash was obtained. The thoracentesis catheter was then threaded without difficulty and without any bleeding. The patient had 1440 mL of yellow fluid removed. The incision site was then covered with two Band-Aids with no evidence of bleeding. No immediate complications were noted during the procedure. Dr. Lund and Dr. Maldonado were contacted after the procedure with results. A post-procedure chest x-ray was completed and reviewed at bedside by this provider and no pneumothorax was identified. The patient tolerated the procedure well with no shortness of breath, no hypotension, no increase in heart rate, and no other acute symptoms. CT OF THE CHEST WITHOUT IV CONTRAST CLINICAL HISTORY: Left-sided chest pain. History of lung cancer. COMPARISON STUDY: Chest radiograph performed earlier today. Chest CT February 07, 2019. TECHNIQUE: Axial images of the chest were obtained without IV contrast. Images were reviewed in the axial, sagittal, and coronal planes. IV contrast was not administered for this examination. Automated exposure control was utilized for the study. A dose lowering technique was utilized adhering to the principles of ALARA. FINDINGS: Size of the heart is normal. There is no pericardial effusion. There is decreased attenuation of the cardiac blood pool. There is extensive coronary artery calcification. No pneumothorax is present. A large left pleural effusion is noted. This occupies 60% of the left thorax. This has significantly increased in size since prior chest CT. There is trace right pleural fluid. Note is made of multiple suspected left pleural implants which measure up to 4.4 cm. Implants were noted on prior CT. Enlarged prevascular node measures 1.8 x 1.3 cm. There are enlarged left cardiophrenic angle lymph nodes which measure up to 1.7 x 1.5 cm. No suspicious lesions are identified within visualized portions of the bony fractures. No acute fracture is identified. Abdomen and pelvis will be reported separately. Mild emphysema is present. IMPRESSION: 1. Large left pleural effusion, likely malignant given multiple left-sided pleural implants. 2. Interval development of prevascular and left cardiophrenic angle lymphadenopathy which suggests stephen spread of disease. ACT 112: Negative or not required by law. CT OF THE ABDOMEN AND PELVIS WITHOUT CONTRAST CLINICAL HISTORY: R hernia repair; now b/l LE edema R flank/chest pain. COMPARISON STUDY: CT of the abdomen and pelvis June 14, 2019. TECHNIQUE: Axial images of the abdomen and pelvis were obtained without IV contrast. Images were reviewed in the axial, sagittal, and coronal planes. Automated exposure control was utilized for the study. A dose lowering technique was utilized adhering to the principles of ALARA. FINDINGS: Please note that the chest CT will be reported separately. A large left pleural effusion with numerous pleural implants as well as left cardiophren ic angle lymphadenopathy are better depicted on the chest CT. No pneumatosis, free air or portal venous gas is present. Evaluation of the abdomen and pelvis is suboptimal as unenhanced examination. There is anasarca. There are are postoperative findings consistent with right inguinal hernia repair. No abnormality within the right nephrectomy bed is identified. The abdominal aorta is ectatic, measuring 2.9 cm in caliber at the level of the renal arteries. There is no evidence for a bowel obstruction. Fluid and gas within the right ankle region suggest recent hernia repair. No abdominal or pelvic lymphadenopathy is identified on this unenhanced study. No suspicious lesions are identified within the visualized skeletal structures. The appendix is likely normal. Evaluation of the abdomen and pelvis is suboptimal given the lack of contrast as well as paucity of intra-abdominal fat. There is trace ascites. IMPRESSION: 1. Technically difficult exam to interpret given lack of contrast and paucity of intra-abdominal fat. 2. Large left pleural effusion, likely malignant, and left cardiophrenic angle lymphadenopathy. Findings better depicted on the chest CT. Please see that report for further description. 3. Expected findings following recent right inguinal hernia. 4. Anasarca. Trace ascites. 5. No bowel obstruction. 6. Status post right nephrectomy. No abnormality within the nephrectomy bed. ACT 112: Negative or not required by law. Hospital Course (1) SOB (shortness of breath): per Dr. Maldonado's notes with addendum: Left pleural effusion Secondary to metastatic lung disease H/O Recurrent RCCA right with lung mets S/P Surgery, radiation, immunotherapy H/O Tobacco use -CT Chest:Large left pleural effusion, likely malignant given multiple left- sided pleural implants. Interval development of prevascular and left cardiophrenic angle lymphadenopathy which suggests stephen spread of disease. ECHO reviewed Currently on chemotherapy--Carbometyx 40 mg p.o. daily S/P Thoracentesis 05/04/21 draining 1.4 L Follow-up pleural fluid studies: pending patient requesting to increase Oxycodone to 7.5mg q4 prn Drug monitoring queried, no issues also advised to use Tylenol 650mg TID advised to use Incentive Spirometer q1h ff up with Dr. Jay Melissa tomorrow ff up with PCP in 1 week H/O COPD past tobacco abuse not in exacerbation Chronic pain per # 1 Hypertension Hyperlipidemia AAA, stable measurement at 3.[address] abdomen pelvis February 2021 reduce Amlodipine to 2.5mg po daily as BP on the lower side monitor as outpatient Pancytopenia possibly from chemotherapy CBC stable Hypothyroidism TSH elevated at 10, normal free T4 at 0.7 further management per PCP Continue levothyroxine 25mcg for now Disposition d/c home ff up with Oncologist tomorrow ff up with PCP in 1 week
== END 2021-05-05 15:48 | disposition home or self-care (01) | DRG 180 ==
LOC: ED 13:49 → SUATTDRO 20:15 → EDINP 20:15 → 2N 05-04 04:59

== ENCOUNTER 2022-01-13 18:13 | Inpatient (IN) ==
--- NOTE | 2022-01-13 18:25 | ED Triage Note ---
Date of Service January 13, 2022 History of Present Illness This patient was briefly evaluated while in triage. An abbreviated physical exam was performed. This patient is a 66-year-old Male with past medical history of renal cell carcinoma, lung cancer, and recurrent left pleural effusion, who presents to the ED for evaluation of high calcium levels. Has been confused and weak for about a week, had blood work done today and was found to have Calcium level 13.3 and was referred here. Has history of kidney cancer and on daily oral chemo. Has been having pain in left side, notes history of fluid in the left lungs and had drained on 01/04. Dr. Melissa is his oncologist. Physical Exam CONSTITUTIONAL: No acute distress. Well appearing. RESPIRATORY: Diminished left lung sounds, clear on the right. Equal expansion bilaterally. CARDIOVASCULAR: Regular rate and rhythm with no murmurs, rubs or gallops. Normal peripheral perfusion. GASTROINTESTINAL: Soft NEUROLOGIC: Alert and oriented X 4 with normal affect. Initial orders for labs and / or imaging were placed and patient was placed in the waiting area until a bed is available. Please see further documentation for the full ED course.
[2022-01-13 18:52] LABS: Basophils # (auto) 0.03 K/uL (0-0.2); Basophils % (auto) 0.4 %; Eosinophils % (auto) 1.3 %; Hematocrit (blood only) 28.2 % (40.1-51.0); Hemoglobin 8.6 g/dl (14.0-18.0); Immature Granulocytes # (auto) 0.03 K/uL (0.00-0.02); Immature Granulocytes % (auto) 0.4 %; Lymphocytes # (auto) 0.55 K/uL (1.2-3.4); Lymphocytes % (auto) 7.3 %; Mean Corpuscular Hemoglobin 30.8 pg (25.0-34.0); Mean Corpuscular Hgb Conc 30.5 g/dL (32.0-36.0); Mean Corpuscular Volume 101.1 fL (80.0-100.0); Monocytes # (auto) 1.03 K/uL (0.24-0.82); Monocytes % (auto) 13.7 %; Neutrophils # (auto) 5.77 K/uL (1.4-6.5); Neutrophils % (auto) 76.9 %; Platelet Count 167 K/uL (130-400); RDW Coefficient of Variation 14.3 % (11.5-14.5); RDW Standard Deviation 53.7 fL (36.4-46.3); Red Blood Count 2.79 M/uL (4.63-6.08); White Blood Count 7.51 K/ul (4.8-10.8)
[2022-01-13 19:27] LABS: Albumin Globulin Ratio 0.8 (0.9-2); Albumin Level 2.8 gm/dl (3.4-5.0); BUN Creatinine Ratio 32.2 (10-20); Bilirubin,Total 0.3 mg/dl (0.2-1.0); Calcium 12.9 mg/dl (8.5-10.1); Creatinine Clr Calc Pharmacy 55.3 ml/min; Est GFR (African American) 77.5 ml/min; Est GFR (Non-African American) 66.9 ml/min; Globulin 3.3 gm/dl (2.5-4.0); Magnesium 1.8 mg/dl (1.7-2.4); Phosphorus 2.5 mg/dl (2.5-4.9); Potassium 4.4 mmol/L (3.5-5.1); Total Protein 6.1 gm/dl (6.0-8.3); Troponin I High Sensitivity 7.5 pg/ml (0-20)
[2022-01-13] MEDS ORDERED: SODIUM CHLORIDE 0.9% 1000ML 1,000 ML IV ONE (19:40)
--- NOTE | 2022-01-13 19:48 | CT Scan Report ---
CT OF THE HEAD WITHOUT CONTRAST CLINICAL HISTORY: Confusion. COMPARISON STUDY: No previous studies for comparison. CT DOSE: 691.05 mGy.cm TECHNIQUE: Helical axial images of the head were obtained without IV contrast. Automated exposure con trol was utilized for the study. A dose lowering technique was utilized adhering to the principles o f ALARA. FINDINGS: No acute intracranial hemorrhage, midline shift or mass effect is present. The ventricular system is unremarkable. The basal cisterns are patent. No extra-axial collections are present. There are no findings to suggest acute dural sinus thrombosis or acute territorial infarct. No significant calvarial abnormalities are present. IMPRESSION: No acute intracranial findings. ACT 112: Negative or not required by law. Electronically signed by: Kadeem Mary M.D. 01/13/2022 7:46 PM
--- NOTE | 2022-01-13 21:00 | XRay Report ---
XR chest 1V portable CLINICAL HISTORY: Atypical chest pain. COMPARISON STUDY: Chest CT May 03, 2021. Chest radiograph May 04, 2021. FINDINGS: A large left pleural effusion has increased in size since chest radiograph of May 04. There is no pneumothorax. No right pleural effusion is noted. No evidence for pulmonary edema. L eft basilar opacity is noted. IMPRESSION: Increase in size of a large left pleural effusion. ACT 112: Negative or not required by law. Electronically signed by: Kadeem Mary M.D. 01/13/2022 8:58 PM
[2022-01-13 21:37] LABS: Appearance Urine Clear (Clear); Bacteria Urine Automated Negative (Negative); Bilirubin Urine Negative (Negative); Blood Urine Negative (Negative); Color Urine Yellow; Glucose Urine UA Negative (Negative); Ketones Urine Negative (Negative); Leukocyte Esterase Urine Negative (Negative); Nitrite Urine Negative (Negative); Protein Urine Trace (Negative); RBC Urine Automated 0-4 /hpf (0-4); Specific Gravity Urine 1.021 (1.000-1.030); Urobilinogen Urine Negative (Negative); pH Urine 5.5 (4.5-7.5)
--- NOTE | 2022-01-13 21:56 | Emergency Department Note ---
Impression & Plan Hypercalcemia, Renal cell carcinoma, Lung cancer, Acute confusion ED Provider Note NAME: SHARATH GARZA AGE: 66 SEX: M : 1955 ARRIVES VIA: Walk-In INFORMANT: Patient, ED PROVIDER(S): Yaakov Mcginnis DO CHIEF COMPLAINT: confusion and elevated Calcium HPI: Patient is a 66-year-old male with a history of renal cell carcinoma in the lung cancer who presents the ER for confusion over the past 3 to 4 days. Patient denies any change in vision admits to mild headache. Admits to some left-sided chest pain which has been present for quite some time as well as abdominal pain. Denies any dysuria urgency or frequency. No other exacerbating or remitting factors. Pain along his abdomen and chest that is worse when he pushes on it. ROS: See above HPI for pertinent positives & negatives. A total of 10 systems reviewed and were otherwise negative. PAST MEDICAL HISTORY:See Below PAST SURGICAL HISTORY:See Below FAMILY HISTORY:See Below SOCIAL HISTORY:See Below HOME MEDICATIONS:See Below ALLERGIES:See Below VITALS:See Below PHYSICAL EXAMINATION: GENERAL: Sitting up in bed, alert, chronically ill-appearing, disheveled, cachectic EYE EXAM: normal conjunctiva. PERRL and EOM's grossly intact. OROPHARYNX: mucous membranes are dry CHEST: Reproducible left anterior chest wall pain LUNGS: Clear to auscultation. Normal chest wall mechanics HEART: no murmurs, S1 normal and S2 normal ABDOMEN: abdomen soft, non-tender, normo-active bowel sounds, no masses, no rebound or guarding. UPPER EXTREMITIES: upper extremities are grossly normal. LOWER EXTREMITIES: No pitting edema. NEURO EXAM: Awake alert following commands but confused. No focal deficit in the upper or lower extremities. No slurred speech. MEDICAL DECISION MAKING: Patient is a 66-year-old male who presents ER for the above stated complaint. IV was established blood work was obtained. Labs show no significant leukocytosis. Mild anemia at 8.6 down from 9. BMP was unremarkable. Calcium was significantly elevated at nearly 13. Troponin was negative with chest pain that has been present for greater than 8 hours not indicative of ACS. LFTs bilirubin was unremarkable. UA was clean. COVID was negative. CT head was negative. Chest x-ray with a large effusion. He is not hypoxic. Patient was given IV fluids as he will need to be diuresed for the hypercalcium. Discussed with the at bedside and patient was admitted to the hospitalist for further evaluation. Triage Nursing notes reviewed. Limited review of prior medical records performed Vital Signs: reviewed and remarkable for no significant abnormalities Differential diagnosis: Differential diagnoses includes but is not limited to toxic, metabolic, infectious, traumatic, cardiac, neurologic, hematologic, psychiatric and infl ammatory etiologies. ER treatment provided: See below Diagnostics interpreted by me: ECG: Sinus rhythm rate of 69 Normal axis No PVCs QTC 381 Cardiac Monitoring: An order was placed for continuous cardiac monitoring. The monitor shows a rate of 70 with sinus rhythm. Laboratory studies: As stated above and show below. Imaging studies: CT head was negative Chest x-ray as described above Consultation(s): Discussed with Dr. Andersen approved for further evaluation Procedures: none Critical Care: None Past Med/Surg History Medical History AAA (abdominal aortic aneurysm) 3.1cm (mild aneurysm of infrarenal abdominal aorta)- not significantly changed. 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 for this with relief History of chemotherapy 2017 - Pazopanib (2-3 months of treatment) 03/19/2019 - Opdivo ([id number] then switched to [id number]) Hypertension Neuropathy Very minor in feet Pleural effusion Per [facility] records- likely metastatic- pt minimally symptomatic- declining thoracentesis at this time - following up in Spring 2021 for further evaluation Renal cell carcinoma Right kidney- initially dx'ed 2017- s/p nephrectomy, immunotherapy with chemo 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 [facility] [place] of surgery 01/31/17 - Reconstruction of Vena Cava [place] Ck [place] [facility] [place] History of tonsillectomy and adenoidectomy as a child Family History Grandmother (Paternal) , Passed age 69 of Colon Cancer No problems noted. Grandfather (Maternal) , Passed age 79 of unknown cancer (possible colon) No problems noted. Mother , Passed age 79 of Liver Cancer No problems noted. Father , Passed age 68 of [place] No problems noted. Brother , Passed age 55 of unknown (passed in sleep) No problems noted. Brother No problems noted. Brother No problems noted. Son No problems noted. Daughter No problems noted. 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 Safe at Home: Yes Childhood Exposure to Second-Hand Smoke: No caffeine: Yes (3 cups of coffee/day ) during the past year weight has: remained stable Dental Care, Regularly: No Assistive Devices: None Allergies Allergies Allergy/AdvReac Type Severity Reaction Status Date / Time No Known Allergies Allergy Unverified 05/03/21 20:11 Home Meds Home Medications Medication Instructions Recorded Confirmed albuterol sulfate 90 mcg/actuation 2 puffs inhalation QID PRN 07/17/19 05/03/21 aerosol inhaler (Proventil HFA) shortness of breath or wheezing clobetasol-emollient 0.05 % 1 appln topical BID PRN Skin 07/17/19 05/03/21 topical cream Irritation gabapentin 600 mg tablet 1,200 mg PO QAM 07/17/19 05/03/21 hydrocortisone acetate 25 mg 25 mg [place] BID PRN Hemorrhoids 07/17/19 05/03/21 rectal suppository (Anusol-HC) omeprazole 20 mg capsule,delayed 20 mg PO QAM 07/17/19 05/03/21 release rosuvastatin 10 mg tablet (Crestor) 10 mg PO QAM 07/17/19 05/03/21 tamsulosin 0.4 mg capsule (Flomax) 0.4 mg PO QAM 07/17/19 05/03/21 allopurinol 100 mg tablet 200 mg PO QAM 04/21/21 05/03/21 cyanocobalamin (vitamin B-12) 1,000 mcg PO QAM 04/21/21 05/03/21 1,000 mcg tablet,extended release (Vitamin B-12 ER) levothyroxine 25 mcg tablet 25 mcg PO QAM 04/21/21 05/03/21 (Synthroid) lisinopril 30 mg tablet 30 mg PO QAM 04/21/21 05/03/21 magnesium oxide 400 mg PO QAM 04/21/21 05/03/21 ondansetron HCl 8 mg tablet 8 mg PO Q8H PRN Nausea 05/03/21 05/03/21 amlodipine 5 mg tablet 5 mg PO DAILY 01/13/22 01/13/22 cabozantinib 20 mg tablet 20 mg PO DAILY 01/13/22 01/13/22 (Cabometyx) hydromorphone 4 mg tablet 8 mg PO Q4H PRN Pain 01/13/22 01/13/22 methadone 10 mg tablet 10 mg PO BID 01/13/22 01/13/22 Results & Data (ED) Vital Signs Vital Signs - 24 hr 01/13/22 18:20 Temperature 37.1 C Temperature Source Temporal Artery Scan Pulse Rate 70 Respiratory Rate 20 Respiratory Effort / Characteristics Non-Labored Respiratory Depth Normal Blood Pressure 115/68 Blood Pressure Mean 83 Pulse Oximetry 99 Oxygen Delivery Method Room Air Sepsis Recent Fever Within 48 Hours No Sepsis New/Unexplained Change in Mental Status N/A Sepsis Action Taken by Nursing No Action Required Laboratory Data Result diagrams: 01/13/22 18:35 01/13/22 18:35 Lab Results 01/13/22 01/13/22 01/13/22 Range/Units 18:35 18:35 20:49 WBC 7.51 (4.8-10.8) K/ul RBC 2.79 L (4.63-6.08) M/uL Hgb 8.6 L (14.0-18.0) g/dl Hct 28.2 L (40.1-51.0) % MCV 101.1 H (80.0-100.0) fL MCH 30.8 (25.0-34.0) pg MCHC 30.5 L (32.0-36.0) g/dL RDW Std Deviation 53.7 H (36.4-46.3) fL RDW Coeff of Rodrigue 14.3 (11.5-14.5) % Plt Count 167 (130-400) K/uL MPV 10.0 (9.4-12.4) fL Immature Gran % (Auto) 0.4 % Neut % (Auto) 76.9 % Lymph % (Auto) 7.3 % Hunt % (Auto) 13.7 % Eos % (Auto) 1.3 % Baso % (Auto) 0.4 % Neut # (Auto) 5.77 (1.4-6.5) K/uL Lymph # (Auto) 0.55 L (1.2-3.4) K/uL Hunt # (Auto) 1.03 H (0.24-0.82) K/uL Eos # (Auto) 0.10 (0-0.50) K/uL Baso # (Auto) 0.03 (0-0.2) K/uL Immature Gran # (Auto) 0.03 H (0.00-0.02) K/uL Sodium 137 (136-145) mmol/L Potassium 4.4 (3.5-5.1) mmol/L Chloride 105 (98-107) mmol/L Carbon Dioxide 28 (21-32) mmol/L Anion Gap 4 (3-11) BUN 37 H (6-23) mg/dl Creatinine 1.15 (0.6-1.4) mg/dl Est Cr Clr Drug Dosing 55.3 ml/min Est GFR ( Amer) 77.5 ml/min Est GFR (Non-Af Amer) 66.9 ml/min BUN/Creatinine Ratio 32.2 H (10-20) Glucose 98 (70-99(Fasting)) mg/dl Calcium 12.9 H* (8.5-10.1) mg/dl Phosphorus 2.5 (2.5-4.9) mg/dl Magnesium 1.8 (1.7-2.4) mg/dl Total Bilirubin 0.3 (0.2-1.0) mg/dl AST 18 (13-39) U/L ALT 20 (7-52) U/L Alkaline Phosphatase 61 (34-104) U/L Troponin I High Sens 7.5 (0-20) pg/ml Total Protein 6.1 (6.0-8.3) gm/dl Albumin 2.8 L (3.4-5.0) gm/dl Globulin 3.3 (2.5-4.0) gm/dl Albumin/Globulin Ratio 0.8 L (0.9-2) Lipase 10 L (11-82) U/L Urine Color Yellow Urine Appearance Clear (Clear) Urine pH 5.5 (4.5-7.5) Ur Specific [place] 1.021 (1.000-1.030) Urine Protein Trace H (Negative) Urine Glucose (UA) Negative (Negative) Urine Ketones Negative (Negative) Urine Blood Negative (Negative) Urine Nitrite Negative (Negative) Urine Bilirubin Negative (Negative) Urine Urobilinogen Negative (Negative) Ur Leukocyte Esterase Negative (Negative) Urine WBC (Auto) 1-5 (0-5) /hpf Urine RBC (Auto) 0-4 (0-4) /hpf U Hyaline Cast (Auto) 1-5 (0-5) /lpf U Epithel Cells (Auto) 5-10 H (0-5) /lpf Urine Bacteria (Auto) Negative (Negative) SARS-CoV-2, RNA, NAAT (NEGATIVE) 01/13/22 Range/Units 21:06 WBC (4.8-10.8) K/ul RBC (4.63-6.08) M/uL Hgb (14.0-18.0) g/dl Hct (40.1-51.0) % MCV (80.0-100.0) fL MCH (25.0-34.0) pg MCHC (32.0-36.0) g/dL RDW Std Deviation (36.4-46.3) fL RDW Coeff of Rodrigue (11.5-14.5) % Plt Count (130-400) K/uL MPV (9.4-12.4) fL Immature Gran % (Auto) % Neut % (Auto) % Lymph % (Auto) % Hunt % (Auto) % Eos % (Auto) % Baso % (Auto) % Neut # (Auto) (1.4-6.5) K/uL Lymph # (Auto) (1.2-3.4) K/uL Hunt # (Auto) (0.24-0.82) K/uL Eos # (Auto) (0-0.50) K/uL Baso # (Auto) (0-0.2) K/uL Immature Gran # (Auto) (0.00-0.02) K/uL Sodium (136-145) mmol/L Potassium (3.5-5.1) mmol/L Chloride (98-107) mmol/L Carbon Dioxide (21-32) mmol/L Anion Gap (3-11) BUN (6-23) mg/dl Creatinine (0.6-1.4) mg/dl Est Cr Clr Drug Dosing ml/min Est GFR ( Amer) ml/min Est GFR (Non-Af Amer) ml/min BUN/Creatinine Ratio (10-20) Glucose (70-99(Fasting)) mg/dl Calcium (8.5-10.1) mg/dl Phosphorus (2.5-4.9) mg/dl Magnesium (1.7-2.4) mg/dl Total Bilirubin (0.2-1.0) mg/dl AST (13-39) U/L ALT (7-52) U/L Alkaline Phosphatase (34-104) U/L Troponin I High Sens (0-20) pg/ml Total Protein (6.0-8.3) gm/dl Albumin (3.4-5.0) gm/dl Globulin (2.5-4.0) gm/dl Albumin/Globulin Ratio (0.9-2) Lipase (11-82) U/L Urine Color Urine Appearance (Clear) Urine pH (4.5-7.5) Ur Specific [place] (1.000-1.030) Urine Protein (Negative) Urine Glucose (UA) (Negative) Urine Ketones (Negative) Urine Blood (Negative) Urine Nitrite (Negative) Urine Bilirubin (Negative) Urine Urobilinogen (Negative) Ur Leukocyte Esterase (Negative) Urine WBC (Auto) (0-5) /hpf Urine RBC (Auto) (0-4) /hpf U Hyaline Cast (Auto) (0-5) /lpf U Epithel Cells (Auto) (0-5) /lpf Urine Bacteria (Auto) (Negative) SARS-CoV-2, RNA, NAAT NEGATIVE (NEGATIVE) Administered Medications Discontinued Medications Sodium Chloride (Nss 1000ml) 1,000 mls @ 999 mls/hr IV .Q1H1M ONE Stop: 01/13/22 20:40 Last Admin: 01/13/22 20:30 Dose: 999 mls/hr Documented By: [facility] Imaging Data Radiologist's Impression: Chest X-Ray 01/13/22 18:25 XR chest 1V portable CLINICAL HISTORY: Atypical chest pain. COMPARISON STUDY: Chest CT May 03, 2021. Chest radiograph May 04, 2021. FINDINGS: A large left pleural effusion has increased in size since chest radiograph of May 04, 2021. There is no pneumothorax. No right pleural effusion is noted. No evidence for pulmonary edema. Left basilar opacity is noted. IMPRESSION: Increase in size of a large left pleural effusion. ACT 112: Negative or not required by law. Electronically signed by: Kadeem Mary M.D. 01/13/2022 8:[address] 01/13/22 18:27 CT OF THE HEAD WITHOUT CONTRAST CLINICAL HISTORY: Confusion. COMPARISON STUDY: No previous studies for comparison. CT DOSE: 691.05 mGy.cm TECHNIQUE: Helical axial images of the head were obtained without IV contrast. Automated exposure control was utilized for the study. A dose lowering technique was utilized adhering to the principles of ALARA. FINDINGS: No acute intracranial hemorrhage, midline shift or mass effect is present. The ventricular system is unremarkable. The basal cisterns are patent. No extra-axial collections are present. There are no findings to suggest acute dural sinus thrombosis or acute territorial infarct. No significant calvarial abnormalities are present. IMPRESSION: No acute intracranial findings. ACT 112: Negative or not required by law. Electronically signed by: Kadeem Mary M.D. 01/13/2022 7:46 PM Discharge Plan Visit Data Chief Complaint: Abnormal Labs/Diagnostic Testing Stated Complaint: REF BY , CALCIUM LEVEL 13.3, CONFUSION ED Provider: Yaakov Mcginnis Forms Stand Alone Forms: My [facility] Prescriptions Prescriptions: No Action omeprazole 20 mg capsule,delayed release(DR/EC) 20 mg PO QAM gabapentin 600 mg tablet 1,200 mg PO QAM albuterol sulfate [Proventil HFA] 90 mcg/actuation HFA aerosol inhaler 2 puffs INH QID PRN (Reason: shortness of breath or wheezing) rosuvastatin [Crestor] 10 mg tablet 10 mg PO QAM tamsulosin [Flomax] 0.4 mg capsule 0.4 mg PO QAM clobetasol-emollient 0.05 % cream 1 appln TOP BID PRN (Reason: Skin Irritation) hydrocortisone acetate [Anusol-HC] 25 mg suppository 25 mg [place] BID PRN (Reason: Hemorrhoids) methadone 10 mg tablet 10 mg PO BID amlodipine 5 mg tablet 5 mg PO DAILY hydromorphone 4 mg tablet 8 mg PO Q4H PRN (Reason: Pain) Cabometyx 20 mg tablet 20 mg PO DAILY cyanocobalamin (vitamin B-12) [Vitamin B-12] 1,000 mcg Tablet Extended Release 1,000 mcg PO QAM allopurinol 100 mg Tablet 200 mg PO QAM levothyroxine [Synthroid] 25 mcg Tablet 25 mcg PO QAM lisinopril 30 mg Tablet 30 mg PO QAM magnesium oxide 400 mg magnesium Tablet 400 mg PO QAM ondansetron HCl 8 mg tablet 8 mg PO Q8H PRN (Reason: Nausea) Referrals Referrals: Brandon Sevilla PA-C [Primary Care Provider] -
[2022-01-13] MEDS ORDERED: HYDROmorphone INJ 0.5 MG/0.5 ML SYR ONE (22:22)
--- NOTE | 2022-01-13 23:33 | History and Physical Report ---
DATE OF ADMISSION: 01/13/2022. CHIEF COMPLAINT: Hypercalcemia. HISTORY OF PRESENT ILLNESS: A 66-year-old male with past medical history significant for metastatic renal cell cancer, hyperlipidemia, history of hypercalcemia of malignancy, dehydration, history of COPD, metastasis to the left lung, abdominal aortic aneurysm, hypertension, history of inferior vena cava obstruction, sinus bradycardia, chronic kidney disease stage III, polyneuropathy associated with critical illness, anemia of chronic kidney disease, thrombocytopenia. The patient has history of thoracocentesis on the left side. On pain medication for cancer pain. Presents with hypercalcemia on outpatient labs with patient's calcium of 13.3 and was advised to come to the hospital. The patient was recently started on increased dose of Dilaudid and has some confusion, thought to be from Dilaudid, and has some weakness, could be from hypercalcemia. The patient has pain in the left rib cage and also left flank region, which is chronic and taking pain medications, currently on methadone 10 mg b.i.d. and Dilaudid p.o. 8 mg every 4 hours as needed, but still he has significant pain. Somewhat constipated. Moved bowels with stool softeners. Gets short of breath on exertion. Ambulates without any support. Appetite is okay. No headache. Had some double vision, thought to be from Dilaudid, but that is currently resolved. Has some mild runny nose, has some cough with whitish phlegm, afebrile. Normal bladder movements. No swelling in the legs. Resting comfortably and hemodynamically stable, answering questions appropriately. The is in the room. ALLERGIES: No known drug allergies. PAST MEDICAL HISTORY: As mentioned above. PAST SURGICAL HISTORY: Colonoscopy with biopsy, exploratory laparotomy, some kind of mesh for abdominal hernia repair, hemorrhoidectomy, reconstruction of vena cava, right radical nephrectomy with regional lymphadenectomy, tonsillectomy, adenoidectomy, incisional hernia repair, left inguinal hernia repair. MEDICATIONS: As per Epic, the patient is on magnesium oxide 400 mg p.o. daily, Dilaudid 4 mg 2 tablets p.o. q.4 hours p.r.n., methadone 10 mg p.o. b.i.d., Senna 8.6 mg p.o. at bedtime, Flomax 0.4 mg p.o. daily, albuterol sulfate 2 puffs every 4 hours p.r.n., vitamin B12 1000 mcg p.o. daily, Cabometyx 20 mg p.o. daily, lisinopril 30 mg p.o. daily, allopurinol 200 mg p.o. daily, amlodipine 5 mg p.o. daily, gabapentin 1200 mg p.o. daily, omeprazole 20 mg p.o. daily, levothyroxine 25 mcg p.o. daily, Zofran 8 mg p.o. p.r.n., simvastatin 10 mg p.o. daily, prochlorperazine 10 mg p.o. q.6 hours p.r.n. FAMILY HISTORY: Significant for maternal grandfather had colon cancer, irregular heartbeat; paternal grandmother had colon cancer, heart disorder; brother has diabetes; father had diabetes, heart disorder, stroke; mother has colon polyps, liver cancer. SOCIAL HISTORY: , former smoker and quit in 1995, smoked 1 pack a day for 18 years. No alcohol use. No drug use. REVIEW OF SYSTEMS: As per HPI. Rest of the review of systems is negative. PHYSICAL EXAMINATION: GENERAL: The patient is of moderate build, not in acute distress. VITAL SIGNS: Temperature 37.1, pulse 70, respiratory rate 20, blood pressure 115/68, oxygen 99% on room air. HEENT: Pupils equal, round and reactive to light. Oral mucosa moist. NECK: No JVD, no neck masses. CARDIOVASCULAR: S1 and S2 heard. Regular rate and rhythm. No murmur, no gallop. RESPIRATORY SYSTEM: Normal AP diameter, no accessory muscle use. Diminished breath sounds on the left side. No wheezing. ABDOMEN: Soft, bowel sounds present. Tenderness in the left lower quadrant. No distention. CENTRAL NERVOUS SYSTEM: Cranial nerves II through XII are grossly intact, nonfocal. EXTREMITIES: No edema, no erythema. LABORATORY DATA: WBC 7.5, hemoglobin 8.6, hematocrit 28.2, platelets 167. Sodium 137, potassium 4.4, chloride 105, bicarbonate 28, BUN 37, creatinine 1.1, serum glucose 98, calcium 12.9, phosphorus 2.5, magnesium 1.8, total bilirubin 0.3, AST 18, ALT 20, alkaline phosphatase 61. Troponin I high sensitivity 7.5. Lipase 10. Urinalysis negative. SARS-CoV-[address] of the head: No acute intracranial findings. Chest x-ray: Increase in size of the large left pleural effusion. EKG: Sinus rhythm with short LA, at a rate of 69, no significant change was found. ASSESSMENT AND PLAN: 1. This 66-year-old male presents with hypercalcemia, mostly secondary to metastatic right renal cell cancer. Received fluids in the Emergency Room. ill do aggressive iv fluids. We will follow the repeat laboratories. If not getting better can do Zometa or calcitonin, we will consult nephrology in the a.m. 2. History of recurrent right renal cell carcinoma with right-sided mid lung metastasis, status post surgery, radiation, immunotherapy. Currently metastatic lung disease, left pleural effusion, had thoracocentesis in the past. On Cabometyx.. As per the , there is a plan for catheter next [facility] at [facility]. If any concern, will consult pulmonary while the patient in the hospital. 3. History of chronic obstructive pulmonary disease, past tobacco use. Not in exacerbation. We will continue home inhalers. 4. Chronic pain from the cancer. Continue home methadone. Place on IV Dilaudid p.r.n. Consult pain management while in the hospital. 5. History of hypertension, hyperlipidemia, abdominal aortic aneurysm. Follows up with primary care physician. Continue amlodipine, statin, and lisinopril. We will monitor the blood pressure. 6. Anemia of chronic kidney disease. We will follow the laboratories. Possibly from chemotherapy. 7. Chronic kidney disease stage III. Presents with creatinine of 1.1. Follow the laboratories. 8. Deep venous thrombosis prophylaxis, placed on Lovenox. DISPOSITION: Closely monitor in the med-tele. PT/OT prior to discharge. Social service to help with discharge planning. Job ID: [id number] [facility]
[2022-01-13] MEDS ORDERED: ALBUTEROL HFA 8 GM INHALER INH PRN (23:46)
[2022-01-13] MEDS ORDERED: NITROGLYCERIN SL 0.4 MG/TAB TAB SL PRN (23:46)
[2022-01-14] MEDS ORDERED: FLUARIX QUADRIVALENT 0.5 ML SYR IM ONE (00:13)
[2022-01-14] MEDS: SODIUM CHLORIDE 0.9% 1000ML 1,000 ML IV SCH ×6 (01:01→23:36)
[2022-01-14] MEDS: ENOXAPARIN INJ 40 MG/0.4 ML SYR SQ SCH ×2 (01:01→20:48)
[2022-01-14] MEDS ORDERED: CLOBETASOL PROPIONATE 0.05% OINT 15 GM TUBE EXT PRN (01:32)
[2022-01-14] MEDS: HYDROmorphone INJ 0.5 MG/0.5 ML SYR IV PRN ×7 (04:52→19:43)
[2022-01-14] MEDS: LEVOTHYROXINE SODIUM 25 MCG TABLET PO SCH (04:52)
[2022-01-14 06:17] LABS: Basophils # (auto) 0.04 K/uL (0-0.2); Basophils % (auto) 0.7 %; Eosinophils # (auto) 0.17 K/uL (0-0.50); Eosinophils % (auto) 2.8 %; Hematocrit (blood only) 23.9 % (40.1-51.0); Hemoglobin 7.4 g/dl (14.0-18.0); Immature Granulocytes # (auto) 0.02 K/uL (0.00-0.02); Immature Granulocytes % (auto) 0.3 %; Lymphocytes % (auto) 11.5 %; Mean Corpuscular Hemoglobin 30.8 pg (25.0-34.0); Mean Corpuscular Volume 99.6 fL (80.0-100.0); Mean Platelet Volume 10.4 fL (9.4-12.4); Monocytes # (auto) 0.93 K/uL (0.24-0.82); Monocytes % (auto) 15.3 %; Neutrophils # (auto) 4.21 K/uL (1.4-6.5); Neutrophils % (auto) 69.4 %; Platelet Count 138 K/uL (130-400); RDW Coefficient of Variation 14.1 % (11.5-14.5); RDW Standard Deviation 51.3 fL (36.4-46.3); White Blood Count 6.07 K/ul (4.8-10.8)
[2022-01-14 06:39] LABS: Calcium 11.4 mg/dl (8.5-10.1); Creatinine Clr Calc Pharmacy 62.8 ml/min; Est GFR (African American) 91.8 ml/min; Est GFR (Non-African American) 79.2 ml/min; Magnesium 1.7 mg/dl (1.7-2.4); Potassium 4.5 mmol/L (3.5-5.1)
[2022-01-14 06:42] LABS: Polychromasia 1+
[2022-01-14] MEDS: MAGNESIUM OXIDE 400 MG TAB PO SCH (07:45)
[2022-01-14] MEDS: amLODIPine BESYLATE 5 MG TAB PO SCH (07:45)
[2022-01-14] MEDS: CYANOCOBALAMIN (B-12) 500 MCG TABLET PO SCH (07:45)
[2022-01-14] MEDS: allopurinoL 100 MG TAB PO SCH (07:45)
[2022-01-14] MEDS: GABAPENTIN 600 MG TAB PO SCH (07:45)
[2022-01-14] MEDS: TAMSULOSIN HCL 0.4 MG CAP PO SCH (07:46)
[2022-01-14] MEDS: ROSUVASTATIN CALCIUM 10 MG TAB PO SCH (07:46)
[2022-01-14] MEDS: PANTOprazole 40 MG TAB PO SCH (07:46)
[2022-01-14] MEDS: lisinopril 10 MG TAB PO SCH (07:46)
[2022-01-14] MEDS ORDERED: CABOZANTINIB 20 MG PO SCH (09:00)
[2022-01-14] MEDS ORDERED: METHADONE HCL 10 MG TAB PO SCH (09:00)
[2022-01-14] MEDS: oxyCODONE HCL IR 5 MG TAB (IMMEDIATE RELEASE) PO PRN ×3 (10:47→23:34)
--- NOTE | 2022-01-14 11:05 | Pain Management Consultation ---
Date of Consultation January 14, 2022 Assessment & Plan (1) Lung cancer: Laterality: left Lung location: unspecified part of lung Qualified Code(s): C34.92 - Malignant neoplasm of unspecified part of left b ronchus or lung (2) Renal cell carcinoma: (3) Non-cardiac chest pain: (4) Pleural effusion on left: Plan 1. Patient with history of renal cell carcinoma with left-sided lung metastasis with known pleural effusion and chronic left-sided chest wall region pain presenting with hypercalcemia, confusion and intractable pain. Potential for confusion to be multifactorial relating to his hypercalcemia and possibly outpatient opiate therapy. 2. We discussed treatment options at length. Patient currently involved the palliative care through [facility] in [place]. Will therefore have the patient maintain methadone, but will adjust the dose to 10 mg 3 times daily. ECG was reviewed which revealed normal QT interval. We did discuss that it will take methadone another 3-5 days to provide efficacy. 3. Will initiate Oxy IR 10 mg every 4 hours for as needed breakthrough pain which should be slightly longer lasting than oral hydromorphone. 4. Patient may utilize IV hydromorphone 0.5 mg every 2 hours for as needed breakthrough pain not well controlled with oral Oxy IR. 5. Will initiate Colace 100 mg twice daily for bowel regimen History of Present Illness Reason for Consultation: Intractable left chest wall pain with history of metastatic renal cell cancer Requesting Physician: Ruperto Garcia MD Attending Physician: Ruperto Garcia MD History of Present Illness Mr. Lopez is a 66-year-old white male who was admitted due to confusion over the past 3-4 days as well as ongoing difficulties with left posterior, lateral and anterior chest wall pain. Patient has past medical history significant for renal cell carcinoma with metastasis to the left lung with pleural effusion currently under the care of Dr. Melissa through [facility]. Patient further reports past medical history significant for hyperlipidemia, hypercalcemia of malignancy, COPD, abdominal aortic aneurysm, hypertension, inferior vena cava obstruction, sinus bradycardia,, chronic kidney disease, polyneuropathy, anemia of chronic disease and thrombocytopenia. He also has history of thoracentesis on left side and is reportedly scheduled for placement of catheter next week at [facility] in [place]. The patient has been under the care of palliative care through [facility] in [place] who started the patient on methadone 10 mg twice daily approximately 3 days ago and hydromorphone 8 mg every 4 hours as needed. He was reporting minimal relief from these medications indicating his pain is persistent in the left chest wall which he describes as a deep aching characteristic pain ranging between a 7/10 at its best and 10/10 at its worst. He denies any axial neck pain. He denies cervical radicular component to his pain. Reports increased pain with deep breathing, coughing or sneezing. He denies right-sided chest wall pain. He denies abdominal region pain. He reports bowel movements most recently yesterday without significant constipation. Patient reports trials in the outpatient setting with MS Contin and oxycodone with minimal relief of pain. He does have prior history of chemoradiation in the past but nothing within the past few years. His initial cancer diagnosis was approximately 4-5 years ago per his report. Patient has no further constitutional complaints at this time. Plan of care discussed with Dr. Koki Hannah. Pain Assessment Full Body Front + Back: 1. Left anterior chest wall 2. Left posterior chest wall Pain scale - at its best (0-10): 7 Pain scale - at its worst (0-10): 10 Allergies Allergy/AdvReac Type Severity Reaction Status Date / Time No Known Allergies Allergy Unverified 05/03/21 20:11 Home Medications Medication Instructions Recorded Confirmed Type albuterol sulfate 90 mcg/actuation 2 puffs inhalation QID PRN 07/17/19 05/03/21 History aerosol inhaler (Proventil HFA) shortness of breath or wheezing clobetasol-emollient 0.05 % 1 appln topical BID PRN Skin 07/17/19 05/03/21 History topical cream Irritation gabapentin 600 mg tablet 1,200 mg PO QAM 07/17/19 05/03/21 History hydrocortisone acetate 25 mg 25 mg [place] BID PRN Hemorrhoids 07/17/19 05/03/21 History rectal suppository (Anusol-HC) omeprazole 20 mg capsule,delayed 20 mg PO QAM 07/17/19 05/03/21 History release rosuvastatin 10 mg tablet (Crestor) 10 mg PO QAM 07/17/19 05/03/21 History tamsulosin 0.4 mg capsule (Flomax) 0.4 mg PO QAM 07/17/19 05/03/21 History allopurinol 100 mg tablet 200 mg PO QAM 04/21/21 05/03/21 History cyanocobalamin (vitamin B-12) 1,000 mcg PO QAM 04/21/21 05/03/21 History 1,000 mcg tablet,extended release (Vitamin B-12 ER) levothyroxine 25 mcg tablet 25 mcg PO QAM 04/21/21 05/03/21 History (Synthroid) lisinopril 30 mg tablet 30 mg PO QAM 04/21/21 05/03/21 History magnesium oxide 400 mg PO QAM 04/21/21 05/03/21 History ondansetron HCl 8 mg tablet 8 mg PO Q8H PRN Nausea 05/03/21 05/03/21 History amlodipine 5 mg tablet 5 mg PO DAILY 01/13/22 01/13/22 History cabozantinib 20 mg tablet 20 mg PO DAILY 01/13/22 01/13/22 History (Cabometyx) hydromorphone 4 mg tablet 8 mg PO Q4H PRN Pain 01/13/22 01/13/22 History methadone 10 mg tablet 10 mg PO BID 01/13/22 01/13/22 History Pain History Pain Intensity Pain scale - at its best (0-10): 7 Pain scale - at its worst (0-10): 10 Patient History Medical History (Updated 01/14/22 @ 12:13 by Rosalio Menodza PA-C) AAA (abdominal aortic aneurysm) 3.1cm (mild aneurysm of infrarenal abdominal aorta)- not significantly susan nged. 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 - Now on Gabapentin for this with relief History of chemotherapy 2017 - Pazopanib (2-3 months of treatment) 03/19/2019 - Opdivo ([id number] then switched to [id number]) Hypertension Neuropathy Very minor in feet Non-cardiac chest pain Pleural effusion Per [facility] records- likely metastatic- pt minimally symptomatic- declining thoracentesis at this time - following up in Spring 2021 for further evaluation Renal cell carcinoma Right kidney- initially dx'ed 2016- s/p nephrectomy, immunotherapy with chemo 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 [facility] [place] of surgery 01/31/17 - Reconstruction [place] Vena Cava [place] [facility] [place] History of tonsillectomy and adenoidectomy as a child Family History Grandmother (Paternal) , Passed age 69 of Colon Cancer No problems noted. Grandfather (Maternal) , Passed age 79 of unknown cancer (possible colon) No problems noted. Mother , Passed age 79 of Liver Cancer No problems noted. Father , Passed age 68 of [place] No problems noted. Brother , Passed age 55 of unknown (passed in sleep) No problems noted. Brother No problems noted. Brother No problems noted. Son No problems noted. Daughter No problems noted. 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 Speech and thought process appropriate. Mood and affect appropriate. Cognition intact. Head: Normocephalic and atraumatic. ENT: No evidence of nasal or oral mucosal lesions. Mucous membranes are moist. Eyes: Pupils equal round reactive to light. Neck: Supple without adenopathy and full range of motion. Chest: Patient is tender over the entire left anterior, lateral and posterior mid and lower chest wall from approximately the nipple line distally to the costal margin. Patient is tender with AP and lateral compression of the left chest wall. There is no visible abnormalities or skin breakdown. Thoracic spine: Patient nontender over the midline of the thoracic spine to palpation or percussion. Abdomen: Soft and nondistended. No organomegaly. Bowel sounds active. Lower extremities: Strength testing 5/5 with dorsi and plantar flexion. Sensation was intact. No appreciable edema. Neurologic: Cranial nerves grossly intact. Ambulatory function not witnessed.
--- NOTE | 2022-01-14 11:26 | Nephrology Consultation ---
Date of Consultation January 14, 2022 Assessment & Plan (1) Hypercalcemia: moderate hypercalcemia w/ intermittent confusion prior to admission; presume hypercalcemia of malignancy; responding slowly to IV fluids -continue NS at current rate but stop immediately if worsening respiratory status -will give zolendronate 4 mg IV today -check PTH, 25 OHD, TSH and repeat BMP this afternoon; orders in History of Present Illness Reason for Consultation: hypercalcemia Requesting Physician: Dr Green Attending Physician: Ruperto Garcia MD History of Present Illness 71 y/o M whom I'm asked to see for hypercalcemia was admitted for same overnight after outpatient labs showed serum calcium of 13.3 (14.7 corrected). This am w/ NS running at 200 mL/hr serum calcium is 11.4 (12.7 corrected for albumin). PMH includes renal/clear cell carcinoma dx'd 2016 w/ L lung mets and Apr 2021 L pleural effusion with negative cytology, hyperlipidemia, COPD, hypothyroid, abdominal aortic aneurysm, hypertension, history of inferior vena cava obstruction, polyneuropathy associated with critical illness/Guillain [place] 2016. he also had L thoracentesis 01/04/22 for pain mgt w/ little relief. He has had hypercalcemia of malignancy in the past per report, though I find no inpatient records of this at [facility] or [facility]. also w/ hx of chronic pain milly L flank/rib cage on chronic narcotics. he is s/p R radical nephrectomy and lymphadenectomy. He is undergoing CTX w/ Carbometyx 20 mg p.o. daily. The patient had intermittent confusion, weakness priro to admission; also some constipation. when I evaluated him on rounds this am he endorsed exertional dyspnea "if I try to do anything" but no worsening dyspnea since arrival. no confusion; did have some L flank pain and was awaiting mediction. no n/v, no TAYLOR, no urinary concerns; no f/c. Allergies Allergy/AdvReac Type Severity Reaction Status Date / Time No Known Allergies Allergy Unverified 05/03/21 20:11 Home Medications Medication Instructions Recorded Confirmed Type albuterol sulfate 90 mcg/actuation 2 puffs inhalation QID PRN 07/17/19 05/03/21 History aerosol inhaler (Proventil HFA) shortness of breath or wheezing clobetasol-emollient 0.05 % 1 appln topical BID PRN Skin 07/17/19 05/03/21 History topical cream Irritation gabapentin 600 mg tablet 1,200 mg PO QAM 07/17/19 05/03/21 History hydrocortisone acetate 25 mg 25 mg [place] BID PRN Hemorrhoids 07/17/19 05/03/21 History rectal suppository (Anusol-HC) omeprazole 20 mg capsule,delayed 20 mg PO QAM 07/17/19 05/03/21 History release rosuvastatin 10 mg tablet (Crestor) 10 mg PO QAM 07/17/19 05/03/21 History tamsulosin 0.4 mg capsule (Flomax) 0.4 mg PO QAM 07/17/19 05/03/21 History allopurinol 100 mg tablet 200 mg PO QAM 04/21/21 05/03/21 History cyanocobalamin (vitamin B-12) 1,000 mcg PO QAM 04/21/21 05/03/21 History 1,000 mcg tablet,extended release (Vitamin B-12 ER) levothyroxine 25 mcg tablet 25 mcg PO QAM 04/21/21 05/03/21 History (Synthroid) lisinopril 30 mg tablet 30 mg PO QAM 04/21/21 05/03/21 History magnesium oxide 400 mg PO QAM 04/21/21 05/03/21 History ondansetron HCl 8 mg tablet 8 mg PO Q8H PRN Nausea 05/03/21 05/03/21 History amlodipine 5 mg tablet 5 mg PO DAILY 01/13/22 01/13/22 History cabozantinib 20 mg tablet 20 mg PO DAILY 01/13/22 01/13/22 History (Cabometyx) hydromorphone 4 mg tablet 8 mg PO Q4H PRN Pain 01/13/22 01/13/22 History methadone 10 mg tablet 10 mg PO BID 01/13/22 01/13/22 History Patient History Medical History (Updated 01/14/22 @ 12:13 by Rosalio Mendoza PA-C) AAA (abdominal aortic aneurysm) 3.1cm (mild aneurysm of infrarenal abdominal aorta)- not significantly changed. 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 - Now on Gabapentin for this with relief History of chemotherapy 2017 - Pazopanib (2-3 months of treatment) 03/19/2019 - Opdivo ([id number] then switched to [id number]) Hypertension Neuropathy Very minor in feet Non-cardiac chest pain [facility]- likely [facility]- pt minimally symptomatic- declining thoracentesis at this time - following up in Spring 2021 for further evaluation Renal cell carcinoma Right kidney- initially dx'ed 2016- s/p nephrectomy, immunotherapy with chemo 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 [facility] [place] History of surgery 01/31/17 - Reconstruction of Vena Cava [place] Ck [place] [facility] [place] History of tonsillectomy and adenoidectomy as a child Family History Grandmother (Paternal) , Passed age 69 of Colon Cancer No problems noted. Grandfather (Maternal) , Passed age 79 of unknown cancer (possible colon) No problems noted. Mother , Passed age 79 of Liver Cancer No problems noted. Father , Passed age 68 of [place] No problems noted. Brother , Passed age 55 of unknown (passed in sleep) No problems noted. Brother No problems noted. Brother No problems noted. Son No problems noted. Daughter No problems noted. 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 Other Information That Helps Us Care for You: No Feels Safe at Home: Yes Safety Concerns: Feels Safe At This Time Childhood Exposure to Second-Hand Smoke: No caffeine: Yes (3 cups of coffee/day ) during the past year weight has: remained stable Dental Care, Regularly: No Assistive Devices: Glasses Assistive Devices Comment: 2 pair glasses with patient Review of Systems Review of Systems: All systems reviewed & are unremarkable except as noted in HPI & below Physical Exam Constitutional: well developed, + thin, + frail appearing (exhausted just with talking; does limited exam maneuvers with effort) and cooperative; no acute distress Eyes: EOM intact bilaterally ENMT: Ears: no external ear abnormality Nose: no external nose abnormality Mouth: + dry oral mucous membranes Neck: no nuchal rigidity Respiratory: normal respiratory effort (as long as not talking and resting), + labored breathing (with speech) and able to speak in complete sentences; no cough Auscultation: + diminished lung sounds (tubular and extremely diminished L posterior mckeon; clear on R) Gastrointestinal (Abdomen): Inspection/Auscultation: normal bowel sounds Percussion/Palpation: abdomen soft; abdomen nontender Musculoskeletal: Extremities: strength 5/5 throughout Skin: no rashes, warm and dry Neurologic: deleon, fluent speech, no tremor Psychiatric: Orientation: oriented x 3 Genitourinary: no culver Results & Data ([facility]) Vital Signs (Past 12 Hours) Vital Signs Temp Pulse Pulse Resp BP Pulse Ox O2 Del Method 01/14/22 08:00 Room Air 01/14/22 08:20 36.6 C 62 18 159/79 H 96 Room Air 01/14/22 04:13 36.4 C L 52 L 16 107/63 96 Room Air 01/14/22 02:07 66 01/14/22 01:16 Room Air 01/13/22 23:55 36.7 C 68 16 128/74 97 Room Air Laboratory Results 01/14/22 05:27 01/14/22 05:27 Ca, albumin as per HPI Diagnostic Findings Chest x-ray: Increase in size of the large left pleural effusion. CT of the head: No acute intracranial findings.
[2022-01-14] MEDS ORDERED: ZOLEDRONIC ACID 4 MG in 0.9 % SODIUM CHLORIDE 100 ML IV ONE (13:00)
[2022-01-14] MEDS: METHADONE HCL 10 MG TAB PO SCH ×2 (13:31→20:47)
[2022-01-14] MEDS ORDERED: LIDOCAINE 1% LOCAL 20 ML VIAL ONE (14:59)
--- NOTE | 2022-01-14 15:10 | Pulmonary Consultation ---
Date of Consultation January 14, 2022 Assessment & Plan (1) Pleural effusion on left: (2) SOB (shortness of breath): (3) Renal cell carcinoma: Plan Impression: 66-year-old male with metastatic renal cell carcinoma and recurrent left pleural effusion. Our initial cytology was negative however there may have been additional samples which are not available in our system. The patient was scheduled to undergo outpatient Pleurx catheter placement in 1 week but was admitted for hypercalcemia. The patient is would like to have this procedure accomplished now. I advised him that it would not likely impact his pain but may improve his shortness of breath. He is agreeable to proceed. Recommendations: 1. The patient will undergo ultrasound-guided tunneled Pleurx catheter placement on the left. We will attempt to drain the fluid during the course of the catheter placement. 2. The patient will need case management to assist with home health care and getting the patient set up to drain at home and getting supplies delivered. This can be followed by the patient's outpatient pulmonary and oncology team in [place]. 3. Management of the patient's other medical issues is deferred to the primary admitting service. Questions were answered to the satisfaction of the patient and his . History of Present Illness Attending Physician: Ruperto Garcia MD History of Present Illness Asked by hospitalist to evaluate this patient for potential Pleurx catheter placement. History is obtained from discussion with the patient and his as well as review electronic medical record. Patient is a 66-year-old male with a history of metastatic renal cell carcinoma. He had a pleural effusion which was drained here back in April. Cytology at that point in time showed no evidence of malignancy. The effusion has reaccumulated and the patient is actually scheduled to undergo Pleurx catheter placement with [facility] in 1 week. He presented to the emergency room due to hypercalcemia on outpatient labs with a calcium of 13.3. He has some issues with chronic pain control as well as shortness of breath. Chest x-ray confirmed the left-sided effusion and pulmonary was consulted for potential Pleurx catheter placement. The patient is state that they would like to get the Pleurx done now with possible. This would enable getting some home health services set up with them and having the receive education. The patient reports shortness of breath with exertion. He has diffuse pain and has been seen by the pain management team. He does not report fevers chills or night sweats. He has not had significant lower extremity edema. Allergies Allergy/AdvReac Type Severity Reaction Status Date / Time No Known Allergies Allergy Unverified 05/03/21 20:11 Home Medications Medication Instructions Recorded Confirmed Type albuterol sulfate 90 mcg/actuation 2 puffs inhalation QID PRN 07/17/19 05/03/21 History aerosol inhaler (Proventil HFA) shortness of breath or wheezing clobetasol-emollient 0.05 % 1 appln topical BID PRN Skin 07/17/19 05/03/21 History topical cream Irritation gabapentin 600 mg tablet 1,200 mg PO QAM 07/17/19 05/03/21 History hydrocortisone acetate 25 mg 25 mg NV BID PRN Hemorrhoids 07/17/19 05/03/21 History rectal suppository (Anusol-HC) omeprazole 20 mg capsule,delayed 20 mg PO QAM 07/17/19 05/03/21 History release rosuvastatin 10 mg tablet (Crestor) 10 mg PO QAM 07/17/19 05/03/21 History tamsulosin 0.4 mg capsule (Flomax) 0.4 mg PO QAM 07/17/19 05/03/21 History allopurinol 100 mg tablet 200 mg PO QAM 04/21/21 05/03/21 History cyanocobalamin (vitamin B-12) 1,000 mcg PO QAM 04/21/21 05/03/21 History 1,000 mcg tablet,extended release (Vitamin B-12 ER) levothyroxine 25 mcg tablet 25 mcg PO QAM 04/21/21 05/03/21 History (Synthroid) lisinopril 30 mg tablet 30 mg PO QAM 04/21/21 05/03/21 History magnesium oxide 400 mg PO QAM 04/21/21 05/03/21 History ondansetron HCl 8 mg tablet 8 mg PO Q8H PRN Nausea 05/03/21 05/03/21 History amlodipine 5 mg tablet 5 mg PO DAILY 01/13/22 01/13/22 History cabozantinib 20 mg tablet 20 mg PO DAILY 01/13/22 01/13/22 History (Cabometyx) hydromorphone 4 mg tablet 8 mg PO Q4H PRN Pain 01/13/22 01/13/22 History methadone 10 mg tablet 10 mg PO BID 01/13/22 01/13/22 History Patient History Medical History (Updated 01/14/22 @ 12:13 by Rosalio Mendoza PA-C) AAA (abdominal aortic aneurysm) 3.1cm (mild aneurysm of infrarenal abdominal aorta)- not significantly castaneda ged. 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 - Now on Gabapentin for this with relief History of chemotherapy 2016 - Pazopanib (2-3 months of treatment) 03/19/2019 - Opdivo ([id number] then switched to [id number]) Hypertension Neuropathy Very minor in feet Non-cardiac chest pain [facility]- likely metastatic- pt minimally symptomatic- declining thoracentesis at this time - following up in Spring 2021 for further evaluation Renal cell carcinoma Right kidney- initially dx'ed 2016- s/p nephrectomy, immunotherapy with chemo 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 Beatrice Holloway [facility]) History of surgery 01/31/17 - Reconstruction of Vena Cava (Dr. Ck Davies [facility]) History of tonsillectomy and adenoidectomy as a child Family History Grandmother (Paternal) , Passed age 69 of Colon Cancer No problems noted. Grandfather (Maternal) , Passed age 79 of unknown cancer (possible colon) No problems noted. Mother , Passed age 79 of Liver Cancer No problems noted. Father , Passed age 68 of [place] No problems noted. Brother , Passed age 55 of unknown (passed in sleep) No problems noted. Brother No problems noted. Brother No problems noted. Son No problems noted. Daughter No problems noted. 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 No additions or deletions Physical Exam Constitutional: well developed, + thin, + frail appearing (exhausted just with talking; does limited exam maneuvers with effort) and cooperative; no acute d istress Eyes: EOM intact bilaterally ENMT: Ears: no external ear abnormality Nose: no external nose abnormality Mouth: + dry oral mucous membranes Neck: no nuchal rigidity Respiratory: normal respiratory effort (as long as not talking and resting), + labored breathing (with speech) and able to speak in complete sentences; no cough Auscultation: + diminished lung sounds (tubular and extremely diminished L posterior mckeon; clear on R) Gastrointestinal (Abdomen): Inspection/Auscultation: normal bowel sounds Percussion/Palpation: abdomen soft; abdomen nontender Musculoskeletal: Extremities: strength 5/5 throughout Skin: no rashes, warm and dry Neurologic: deleon, fluent speech, no tremor Psychiatric: Orientation: oriented x 3 Genitourinary: no culver Results & Data Results & Data ([facility]) Vital Signs (Past 12 Hours) Vital Signs Temp Pulse Resp BP Pulse Ox O2 Del Method 01/14/22 11:40 36.7 C 64 17 113/65 92 Room Air 01/14/22 08:00 Room Air 01/14/22 08:20 36.6 C 62 18 159/79 H 96 Room Air 01/14/22 04:13 36.4 C L 52 L 16 107/63 96 Room Air Critical Care Results & Data Vital Signs (Past 12 Hours) Vital Signs Temp Pulse Resp BP Pulse Ox O2 Del Method 01/14/22 11:40 36.7 C 64 17 113/65 92 Room Air 01/14/22 08:00 Room Air 01/14/22 08:20 36.6 C 62 18 159/79 H 96 Room Air 01/14/22 04:13 36.4 C L 52 L 16 107/63 96 Room Air Lab & Micro Results (Past 24 Hours) RBC 2.40 M/uL (4.63-6.08) L 01/14/22 WBC 6.07 K/ul (4.8-10.8) 01/14/22 Hgb 7.4 g/dl (14.0-18.0) L 01/14/22 Hct 23.9 % (40.1-51.0) L 01/14/22 MCV 99.6 fL (80.0-100.0) 01/14/22 MCH 30.8 pg (25.0-34.0) 01/14/22 MCHC 31.0 g/dL (32.0-36.0) L 01/14/22 RDW Standard Deviation 51.3 fL (36.4-46.3) H 01/14/22 RDW Coefficient of Variation 14.1 % (11.5-14.5) 01/14/22 Plt Count 138 K/uL (130-400) 01/14/22 MPV 10.4 fL (9.4-12.4) 01/14/22 Neutrophils (%) (Auto) 69.4 % 01/14/22 Lymphocytes (%) (Auto) 11.5 % 01/14/22 Monocytes # (Auto) 0.93 K/uL (0.24-0.82) H 01/14/22 Eosinophils # (Auto) 0.17 K/uL (0-0.50) 01/14/22 Immature Granulocyte % (Auto) 0.3 % 01/14/22 Neutrophils # (Auto) 4.21 K/uL (1.4-6.5) 01/14/22 Lymphocytes # (Auto) 0.70 K/uL (1.2-3.4) L 01/14/22 Monocytes # (Auto) 0.93 K/uL (0.24-0.82) H 01/14/22 Eosinophils # (Auto) 0.17 K/uL (0-0.50) 01/14/22 Basophils # (Auto) 0.04 K/uL (0-0.2) 01/14/22 Immature Granulocyte # (Auto) 0.02 K/uL (0.00-0.02) 2 Polychromasia 1+ 01/14/22 Na 135 mmol/L (136-145) L 01/14/22 K 4.5 mmol/L (3.5-5.1) 01/14/22 Cl 106 mmol/L (98-107) 01/14/22 CO2 28 mmol/L (21-32) 01/14/22 Anion Gap 1 (3-11) L 01/14/22 BUN 33 mg/dl (6-23) H 01/14/22 Creatinine 1.00 mg/dl (0.6-1.4) 01/14/22 Estimated GFR ( Amer) 91.8 ml/min 01/14/22 Estimated GFR (Non-Af Amer) 79.2 ml/min 01/14/22 BUN/Creatinine Ratio 33.0 (10-20) H 01/14/22 Glu 87 mg/dl (70-99(Fasting)) 01/14/22 Ca 11.4 mg/dl (8.5-10.1) H 01/14/22 Phosphorus Level 2.5 mg/dl (2.5-4.9) 01/13/22 Total Bilirubin 0.3 mg/dl (0.2-1.0) 01/13/22 AST 18 U/L (13-39) 01/13/22 ALT 20 U/L (7-52) 01/13/22 Alkaline Phosphatase 61 U/L (34-104) 01/13/22 TP 6.1 gm/dl (6.0-8.3) 01/13/22 Albumin 2.8 gm/dl (3.4-5.0) L 01/13/22 Globulin 3.3 gm/dl (2.5-4.0) 01/13/22 Albumin/Globulin Ratio 0.8 (0.9-2) L 01/13/22 Mg 1.7 mg/dl (1.7-2.4) 01/14/22 05:27 Calcium Level 11.4 mg/dl (8.5-10.1) H 01/14/22 05:27 Diagnostic Findings (Past 24 Hours) Chest X-Ray 01/13/22 18:25 XR chest 1V portable CLINICAL HISTORY: Atypical chest pain. COMPARISON STUDY: Chest CT May 03, 2021. Chest radiograph May 04, 2021. FINDINGS: A large left pleural effusion has increased in size since chest radiograph of May 04, 2021. There is no pneumothorax. No right pleural effusion is noted. No evidence for pulmonary edema. Left basilar opacity is noted. IMPRESSION: Increase in size of a large left pleural effusion. ACT 112: Negative or not required by law. Electronically signed by: Kadeem Mary M.D. 01/13/2022 8:[address] 01/13/22 18:27 CT OF THE HEAD WITHOUT CONTRAST CLINICAL HISTORY: Confusion. COMPARISON STUDY: No previous studies for comparison. CT DOSE: 691.05 mGy.cm TECHNIQUE: Helical axial images of the head were obtained without IV contrast. Automated exposure control was utilized for the study. A dose lowering technique was utilized adhering to the principles of ALARA. FINDINGS: No acute intracranial hemorrhage, midline shift or mass effect is present. The ventricular system is unremarkable. The basal cisterns are patent. No extra-axial collections are present. There are no findings to suggest acute dural sinus thrombosis or acute territorial infarct. No significant calvarial abnormalities are present. IMPRESSION: No acute intracranial findings. ACT 112: Negative or not required by law. Electronically signed by: Kadeem Mary M.D. 01/13/2022 7:46 PM I & O Totals 24 Hours 01/13/22 01/14/22 01/15/22 06:59 06:59 06:59 Intake Total 1969 1835.000 / 1835.000 Balance 1969 1835.000 / 1835.000 Cumulative 01/13/22 18:13 thru 01/14/22 14:15 Intake Total 3805.000 Balance 3805.000 RT Ventilator Mngmt (Last Documented) Ventilator Ordered Settings Respiratory Rate 17 01/14/22 11:40 Ventilator - PT Measurements Respiratory Rate 17 PG Care Time/CCT Total # of Minutes Spent Total Time Spent with Patient: Total time spent is greater than 50% in coordination of care (as documented) at patient's floor/unit and/or counseling patient: Coding Level of Care Code 17850 Inpt Consult Level 4 Diagnoses Pleural effusion on left J90 SOB (shortness of breath) R06.02 Renal cell carcinoma C64.9
[2022-01-14] MEDS ORDERED: HYDROmorphone INJ 0.5 MG/0.5 ML SYR IV STA ×2 (15:51→15:52)
--- NOTE | 2022-01-14 16:09 | Procedure Note ---
Procedure Note Date of Service January 14, 2022 Note Procedure: Ultrasound guided Left Pleurx catheter placement. Indication: Recurrent paramalignant effusion Consent: Signed by patient's wift and verified with timeout prior to procedure. Anesthesia: 15 mL's 1% lidocaine without epinephrine locally. [facility] Consultant: Dr. Lonnie Aviles Procedure: Appropriate radiographic films had been reviewed prior to commencement of the procedure. Risks and benefits were again discussed with patient consent was verified. The patient was placed in the left side up lateral decubitus position. Limited thoracic ultrasound was performed which revealed a large L effusion with compressive atelectasis. See seperate imaging. Site appropriate for the pleurotomy was marked. Skin was prepped and draped in normal sterile fashion. Using 1% lidocaine, the skin and soft tissues down to the pleura were anesthetized. A tract extending approximately 8 to 10 cm anteriorly from the pleurotomy site was also infiltrated and a site appropriate for the exit of the Pleurx catheter was marked. A 1 cm skin thaddeus was made at the posterior site. The catheter over the needle apparatus was advanced into the pleural space with pleural fluid easily aspirated. A wire was passed through the catheter after th e needle was removed. The Pleurx catheter was then loaded on the tunneling device. A 1cm skin incision was made at the anterior catheter exit site. The tunneling device with the attached Pleurx catheter were passed from the anterior incision back to the posterior incision until the cuff of the Pleurx catheter resided within the subcutaneous tissues. The catheter was palpated along its course and no kinking was identified. Serial dilatation was then performed over the wire with the pull-away catheter being left in place. The Pleurx was removed from the tunneling mechanism and advanced through the peel-away catheter. The catheter sheath was then peeled back as the Pleurx catheter was advanced into the pleural space. The Pleurx catheter course was palpated and no kinks were felt. It was attached to wall suction and a total of 2100 mL's was removed. Using 1-0 silk, 2 stitches were placed at the exit Pleurx site and the catheter secured in place. 2 small silk sutures were used to close the posterior incision. A sterile dressing was applied. The patient tolerated the procedure well without obvious complication. Post procedure x-ray is pending. Estimated blood loss: Less than 10 mL's Coding CPT Codes Pulmonary/Thoracic - Pulmonary and Thoracic: 34276 Insert pleural cathereter w/cuff ([id number]) [facility] [place] Procedure Codes (Charges) Pulmonary/Thoracic Procedure 1: Pulmonary and Thoracic: 00107 Insert pleural cathereter w/cuff
--- NOTE | 2022-01-14 16:24 | Hospitalist Progress Note ---
Date of Service January 14, 2022 Assessment & Plan (1) Hypercalcemia: (2) Pleural effusion on left: Plan: Dr. Green's notes with addendum: 1. This 66-year-old male presents with hypercalcemia, mostly secondary to metastatic right renal cell cancer. Received fluids in the Emergency Room. ill do aggressive iv fluids. We will follow the repeat laboratories. If not getting better can do Zometa or calcitonin, we will consult nephrology in the a.m. --Calcium improving from 13-11 Nephrology consulted Zometa given Continue IV fluid 2. History of recurrent right renal cell carcinoma with right-sided mid lung metastasis, status post surgery, radiation, immunotherapy. Currently metastatic lung disease, left pleural effusion, had thoracocentesis in the past. On Cabometyx.. As per the , there is a plan for catheter next Monday at [facility]. If any concern, will consult pulmonary while the patient in the hospital. -- Pulmonary service consulted for Pleurx catheter placement 3. History of chronic obstructive pulmonary disease, past tobacco use. Not in exacerbation. We will continue home inhalers. --Not in exacerbation 4. Chronic pain from the cancer. Continue home methadone. Place on IV Dilaudid p.r.n. Consult pain management while in the hospital. --Pain management consulted Methadone increased to 3 times daily, on IV Dilaudid as well and as needed oxycodone 5. History of hypertension, hyperlipidemia, abdominal aortic aneurysm. Follows up with primary care physician. Continue amlodipine, statin, and lisinopril. 6. Anemia of chronic kidney disease. -- Hemoglobin 7.8 No signs of active bleeding Monitor closely 7. Chronic kidney disease stage III. Presents with creatinine of 1.1. 8. Deep venous thrombosis prophylaxis, placed on Lovenox. DISPOSITION: Closely monitor in the med-tele. PT/OT prior to discharge. Social service to help with discharge planning. Disposition Anticipate discharge to home with home health services medically Admission and Anticipated Discharge Date Admission Date: January 13, 2022 Subjective Follow-up for hypercalcemia, left pleural effusion, etc. Seen sitting up in bed, comfortable, not in distress On room air Appears somewhat weak States he still has significant left pleuritic chest pain-chronic but seems to be worsening lately Has mild shortness of breath due to the difficulty with inspiration secondary to pain Denies confusion no fevers or chills No abdominal pain, nausea vomiting, problems with urination No other symptoms Review of Systems Review of Systems: all noted and negative except for above Physical Exam Physical Exam: General- oriented x 3, not in distress, speaks in sentences with no effort or accessory muscle use Head- atraumatic Eyes- PERRL, EOMI, anicteric ENT- oropharynx clear Neck- supple, no JVD, no adenopathy, no thyromegaly; carotids +2/2, no bruits appreciated Lungs-decreased breath sounds on the left Clear on the right Heart- normal rate, regular rhythm; no murmur, no gallop, no rub appreciated Abdomen- normal bowel sounds, nondistended, soft, nontender, no masses or hepatosplenomegaly Extremities- no pretibial edema, no calf tenderness; peripheral pulses intact Neuro- alert, oriented x 3; CN 2-12 grossly intact; motor 5/5 bilaterally;sensation 100% on all extremities; no other gross focal neurologic deficits Skin- warm & dry Results & Data Results & Data ([facility]) Vital Signs (Past 12 Hours) Vital Signs Temp Pulse Resp BP Pulse Ox O2 Del Method 01/14/22 11:40 36.7 C 64 17 113/65 92 Room Air 01/14/22 08:00 Room Air 01/14/22 08:20 36.6 C 62 18 159/79 H 96 Room Air all noted and reviewed including below
[2022-01-14 16:59] LABS: Thyroid Stimulating Hormone 6.342 uIu/ml (0.300-4.500)
--- NOTE | 2022-01-14 17:18 | Electrocardiogram Report ---
Test Reason : Blood Pressure : / mmHG Vent. Rate : 069 BPM Atrial Rate : 069 BPM P-R Int : 128 ms QRS Dur : 090 ms QT Int : 356 ms P-R-T Axes : -15 047 058 degrees QTc Int : 381 ms Sinus rhythm Nonspecific T wave abnormality Abnormal ECG When compared with ECG of 03-MAY-2021 14:14, No significant change was found Confirmed by Usman Calvert ([id number]) on 01/14/2022 5:18:32 PM Referred By: Jay Melissa Confirmed By:Usman Calvert
[2022-01-14 17:31] LABS: T4 Free Thyroxine 0.97 ng/dl (0.61-1.60)
--- NOTE | 2022-01-14 17:52 | XRay Report ---
XR chest 1V portable CLINICAL HISTORY: L pleurex placement TECHNIQUE: Single frontal radiograph of the chest was obtained. Comparison: Comparison is made to chest radiograph 01/13/2022 FINDINGS: Interval placement of a left pleural catheter. Cardiomegaly is noted. There is a small left pleural e ffusion, decreased from prior exam. Thorax is seen. Left lower lung airspace opacity is seen. IMPRESSION: 1. Interval placement of a left pleural catheter. The left effusion has decreased in size and no pne umothorax is seen. 2. Left lower lung airspace opacity likely reflects atelectasis with or without superimposed aspirat ion/pneumonia. ACT 112: Negative or not required by law. Electronically signed by: Meng Clark M.D. 01/14/2022 5:50 PM
[2022-01-14] MEDS: DOCUSATE SODIUM 100 MG CAP PO SCH (20:47)
--- NOTE | 2022-01-14 22:06 | Electrocardiogram Report ---
Test Reason : Blood Pressure : / mmHG Vent. Rate : 074 BPM Atrial Rate : 074 BPM P-R Int : 138 ms QRS Dur : 086 ms QT Int : 360 ms P-R-T Axes : 055 038 047 degrees QTc Int : 399 ms Normal sinus rhythm Normal ECG When compared with ECG of 13-JAN-2022 18:31, No significant change was found Confirmed by Usman Calvert ([id number]) on 01/14/2022 10:05:34 PM Referred By: Jay Melissa Confirmed By:Usman Calvert
[2022-01-15] MEDS: HYDROmorphone INJ 0.5 MG/0.5 ML SYR IV PRN ×8 (01:07→22:45)
[2022-01-15] MEDS: oxyCODONE HCL IR 5 MG TAB (IMMEDIATE RELEASE) PO PRN ×5 (04:40→22:44)
[2022-01-15] MEDS: LEVOTHYROXINE SODIUM 25 MCG TABLET PO SCH (04:41)
[2022-01-15] MEDS: SODIUM CHLORIDE 0.9% 1000ML 1,000 ML IV SCH ×2 (04:41→09:45)
[2022-01-15 07:09] LABS: Basophils # (auto) 0.05 K/uL (0-0.2); Basophils % (auto) 0.6 %; Eosinophils # (auto) 0.12 K/uL (0-0.50); Eosinophils % (auto) 1.4 %; Hemoglobin 9.4 g/dl (14.0-18.0); Immature Granulocytes # (auto) 0.04 K/uL (0.00-0.02); Immature Granulocytes % (auto) 0.5 %; Lymphocytes # (auto) 0.65 K/uL (1.2-3.4); Lymphocytes % (auto) 7.8 %; Mean Corpuscular Hemoglobin 30.9 pg (25.0-34.0); Mean Corpuscular Hgb Conc 31.3 g/dL (32.0-36.0); Mean Corpuscular Volume 98.7 fL (80.0-100.0); Mean Platelet Volume 10.2 fL (9.4-12.4); Monocytes # (auto) 0.87 K/uL (0.24-0.82); Monocytes % (auto) 10.4 %; Neutrophils # (auto) 6.61 K/uL (1.4-6.5); Neutrophils % (auto) 79.3 %; Platelet Count 181 K/uL (130-400); RDW Coefficient of Variation 14.4 % (11.5-14.5); RDW Standard Deviation 52.5 fL (36.4-46.3); Red Blood Count 3.04 M/uL (4.63-6.08); White Blood Count 8.34 K/ul (4.8-10.8)
--- NOTE | 2022-01-15 07:21 | Electrocardiogram Report ---
Test Reason : Blood Pressure : / mmHG Vent. Rate : 072 BPM Atrial Rate : 072 BPM P-R Int : 124 ms QRS Dur : 082 ms QT Int : 356 ms P-R-T Axes : 080 046 017 degrees QTc Int : 389 ms Poor data quality, interpretation may be adversely affected Normal sinus rhythm Nonspecific T wave abnormality Abnormal ECG When compared with ECG of 14-JAN-2022 08:51, No significant change was found Confirmed by Silverio Marley ([id number]) on 01/15/2022 7:20:54 AM Referred By: Jay Melissa Confirmed By:Rick Marley
[2022-01-15] MEDS: lisinopril 10 MG TAB PO SCH (07:55)
[2022-01-15] MEDS: ROSUVASTATIN CALCIUM 10 MG TAB PO SCH (07:55)
[2022-01-15] MEDS: GABAPENTIN 600 MG TAB PO SCH (07:55)
[2022-01-15] MEDS: PANTOprazole 40 MG TAB PO SCH (07:55)
[2022-01-15] MEDS: CYANOCOBALAMIN (B-12) 500 MCG TABLET PO SCH (07:55)
[2022-01-15] MEDS: TAMSULOSIN HCL 0.4 MG CAP PO SCH (07:56)
[2022-01-15] MEDS: allopurinoL 100 MG TAB PO SCH (07:56)
[2022-01-15] MEDS: MAGNESIUM OXIDE 400 MG TAB PO SCH (07:56)
[2022-01-15] MEDS: DOCUSATE SODIUM 100 MG CAP PO SCH ×2 (07:56→20:26)
[2022-01-15] MEDS: amLODIPine BESYLATE 5 MG TAB PO SCH (07:56)
[2022-01-15 08:19] LABS: BUN Creatinine Ratio 23.5 (10-20); Calcium 11.3 mg/dl (8.5-10.1); Creatinine Clr Calc Pharmacy 68.1 ml/min; Est GFR (African American) 94.1 ml/min; Est GFR (Non-African American) 81.2 ml/min; Potassium 4.3 mmol/L (3.5-5.1)
[2022-01-15] MEDS: METHADONE HCL 10 MG TAB PO SCH ×3 (08:34→20:26)
[2022-01-15] MEDS ORDERED: POLYETHYLENE (MIRALAX) 17 GM PACK PO ONE (09:45)
[2022-01-15] MEDS ORDERED: FUROSEMIDE INJ 20 MG/2 ML VIAL IV ONE (10:00)
[2022-01-15] MEDS ORDERED: FUROSEMIDE 40 MG/4 ML VIAL IV ONE (10:00)
--- NOTE | 2022-01-15 10:35 | XRay Report ---
SINGLE VIEW CHEST CLINICAL HISTORY: Pleural effusion. FINDINGS: An AP, portable, upright chest radiograph is compared to study dated 01/14/2022 and correlat ed with chest CT dated 04/23/2021. The examination is degraded by portable technique and patient rotati on. The cardiomediastinal silhouette is unremarkable. A pleural drain the left lung base is unchange d from previous. There is a small residual pleural effusion with left basilar consolidation. This george ears mildly increased in size from yesterday. The right lung is clear noting basilar atelectasis. No pneumothorax is seen. The skeletal structures are osteopenic. The bony thorax is grossly intact. IMPRESSION: 1. A pleural drain is again seen in the left lung base. No pneumothorax is identified. 2. Small residual left pleural effusion with left basilar consolidation. This appears modestly increa sed in size from yesterday. ACT 112: Negative or not required by law. Electronically signed by: Ben Blevins M.D. 01/15/2022 10:33 AM
--- NOTE | 2022-01-15 10:56 | Nephrology Progress Note ---
Date of Service January 15, 2022 Assessment & Plan (1) Hypercalcemia: Plan: moderate hypercalcemia w/ intermittent confusion prior to admission; presume hypercalcemia of malignancy; responding slowly to IV fluids - NS stopped 2/ SOB, has trace pedal edema, - Ok to withhold fluids as his oral intake has improved.No more lasix today, Reasses in am - zolendronate 4 mg IV given yesterday, lasix given in am-- expect better calcium levels on next check. -This is likey hypercalcemia of malignancy.PTH and 25 OHD low, send PTrP. TSH raised with normal t4- likley subclinical-- would repeat with free t3 Admission and Anticipated Discharge Date Admission Date: January 13, 2022 Subjective Follow-up for hypercalcemia, left pleural effusion, etc. Seen sitting up in bed, comfortable, not in distress On room air Appears weak No abdominal pain, nausea vomiting, problems with urination. oral intake has improved. No other symptoms Trace pedal edema Review of Systems Review of Systems: All systems reviewed & are unremarkable except as noted in HPI & below Physical Exam Physical Exam: General Comfortable, not in distress. appears weak HEENT- Moist mucous membrane CVS-Normal heart sounds, no murmer Resp- Decreased breath sound bilaterally, Ocassioanal wheezes, no crepts Abdomen- soft , non tender , non distended BS + REGISTERED VASCULAR TECHNOLOGIST (RVT)- Alert , oriented X 3 Extremities- Trace pedal edema Results & Data ([facility]) Vital Signs (Past 12 Hours) Vital Signs Temp Pulse Pulse Resp BP Pulse Ox O2 Del Method 01/15/22 07:43 37.2 C 67 19 115/68 95 Room Air 01/15/22 04:56 37.0 C 73 18 138/77 94 Room Air 01/15/22 03:39 36.6 C 65 20 95 Room Air 01/15/22 00:00 61 01/14/22 23:00 36.9 C 76 18 166/81 H 94 Room Air Laboratory Results 01/15/22 06:59 01/15/22 06:59
--- NOTE | 2022-01-15 11:10 | Pulmonology Progress Note ---
Date of Service January 15, 2022 Assessment & Plan (1) Pleural effusion on left: (2) SOB (shortness of breath): (3) Renal cell carcinoma: Plan Impression: 66-year-old male with metastatic renal cell carcinoma and recurrent left pleural effusion. Status post Pleurx catheter placement 01/14/2022 with removal of 2 L of fluid. Recommendations: 1. Para malignant effusion: Status post Pleurx catheter placement. Continue drainage every other day. The will be educated by nursing regarding drainage. They have palliative care set up at home and they can provide some additional assistance in draining the catheter. 2. Patient's stitches should be removed in 7 to 10 days. This can be performed by the home health care or palliative care team or through Dr. Garber's offic e. 3. Management of the patient's other medical issues is deferred to the primary admitting service. Would recommend updating CODE STATUS in this patient with advanced malignancy. Pulmonary will sign off at this point time. Feel free to contact us if we can be of additional assistance Admission and Anticipated Discharge Date Admission Date: January 13, 2022 Subjective Patient seen and examined. EMR reviewed. The patient is somewhat somnolent but nevertheless continues to complain of significant pain. He thinks his breathing may be better after the Pleurx catheter was placed and the pleural effusion was drained. He complains of some pain at the insertion site. He is not had any fevers or chills overnight. His believes that he is fairly edematous. Review of Systems Review of Systems: All systems reviewed & are unremarkable except as noted in Subjective Physical Exam Constitutional: well developed, + thin, + frail appearing (exhausted just with talking; does limited exam maneuvers with effort) and cooperative; no acute distress Eyes: EOM intact bilaterally ENMT: Ears: no external ear abnormality Nose: no external nose abnormality Mouth: + dry oral mucous membranes Neck: no nuchal rigidity Respiratory: normal respiratory effort (as long as not talking and resting), + labored breathing (with speech) and able to speak in complete sentences; no cough Auscultation: + diminished lung sounds (tubular and extremely diminished L posterior mckeon; clear on R) Gastrointestinal (Abdomen): Inspection/Auscultation: normal bowel sounds Percussion/Palpation: abdomen soft; abdomen nontender Musculoskeletal: Extremities: strength 5/5 throughout Skin: no rashes, warm and dry Psychiatric: Orientation: oriented x 3 Results & Data Results & Data ([facility]) Vital Signs (Past 12 Hours) Vital Signs Temp Pulse Pulse Resp BP Pulse Ox O2 Del Method 01/15/22 07:43 37.2 C 67 19 115/68 95 Room Air 01/15/22 04:56 37.0 C 73 18 138/77 94 Room Air 01/15/22 03:39 36.6 C 65 20 95 Room Air 01/15/22 00:00 61 Laboratory Results 01/15/22 06:59 01/15/22 06:59 Diagnostic Findings Chest x-ray post Pleurx catheter placement was reviewed. No pneumothorax. Decr eased size of the pleural effusion with Pleurx catheter in good position PG Care Time/CCT Total # of Minutes Spent Total Time Spent with Patient: Total time spent is greater than 50% in coordination of care (as documented) at patient's floor/unit and/or counseling patient: Coding Level of Care Code 39696 Subseq Hosp Care Lvl 2 Diagnoses Pleural effusion on left J90 SOB (shortness of breath) R06.02 Renal cell carcinoma C64.9
--- NOTE | 2022-01-15 16:45 | Hospitalist Progress Note ---
Date of Service January 15, 2022 Assessment & Plan (1) Hypercalcemia: (2) Pleural effusion on left: Plan: Dr. Green's notes with addendum: 1. This 66-year-old male presents with hypercalcemia, mostly secondary to metastatic right renal cell cancer. --Calcium improving from 13-11 Remains at 11 today IV fluids held secondary to lower extremity edema Lasix 20 mg IV ordered Nephrology on board Zometa given 01/14 2. History of recurrent right renal cell carcinoma with right-sided mid lung metastasis, status post surgery, radiation, immunotherapy. Currently metastatic lung disease, left pleural effusion, had thoracocentesis in the past. On Cabometyx.. As per the , there is a plan for catheter next Monday at [facility]. If any concern, will consult pulmonary while the patient in the hospital. -- Pulmonary service consulted 01/14, Pleurx catheter placed drainage to be performed every other day bilingual case manager on board 3. History of chronic obstructive pulmonary disease, past tobacco use. Not in exacerbation. We will continue home inhalers. --Not in exacerbation 4. Chronic pain from the cancer. Continue home methadone. Place on IV Dilaudid p.r.n. Consult pain management while in the hospital. --Pain management consulted Methadone increased to 3 times daily, on IV Dilaudid as well and as needed oxycodone 5. History of hypertension, hyperlipidemia, abdominal aortic aneurysm. Follows up with primary care physician. Continue amlodipine, statin, and lisinopril. 6. Anemia of chronic kidney disease. -- Hemoglobin 9.4 No signs of active bleeding Monitor closely 7. Chronic kidney disease stage III. Presents with creatinine of 1.1. 8. Deep venous thrombosis prophylaxis, placed on Lovenox. DISPOSITION: Closely monitor in the med-tele. Disposition Anticipate discharge to home with home health services medically Admission and Anticipated Discharge Date Admission Date: January 13, 2022 Subjective Follow-up for hypercalcemia, metastatic renal cell carcinoma with left-sided pleural effusion, etc. Seen resting in bed, comfortable, not in distress States he had persistent left-sided chest pain overnight No shortness of breath No fevers or chills, cough Urinating with no problems no other symptoms Review of Systems Review of Systems: all noted and negative except for above Physical Exam Physical Exam: General- oriented x 3, not in distress, speaks in sentences with no effort or accessory muscle use Eyes- anicteric Neck- no JVD Lungs- clear BS bilaterally, no crackles or wheezing Heart- normal rate, regular rhythm; no murmurs Abdomen- normal bowel sounds, nondistended, soft, nontender Extremities- no pretibial edema, no calf tenderness Neuro- alert, oriented x 3; no gross focal neurologic deficits Skin- warm & dry Results & Data Results & Data ([facility]) Vital Signs (Past 12 Hours) Vital Signs Temp Pulse Pulse Resp BP Pulse Ox O2 Del Method 01/15/22 15:52 60 01/15/22 11:15 37.1 C 60 18 98/54 L 95 01/15/22 08:00 65 01/15/22 08:00 Room Air 01/15/22 07:43 37.2 C 67 19 115/68 95 Room Air 01/15/22 04:56 37.0 C 73 18 138/77 94 Room Air
[2022-01-15] MEDS: ENOXAPARIN INJ 40 MG/0.4 ML SYR SQ SCH (20:26)
[2022-01-15] MEDS ORDERED: GABAPENTIN 300 MG CAP PO SCH (21:00)
[2022-01-15] MEDS ORDERED: GABAPENTIN 100 MG CAP PO SCH (21:00)
[2022-01-16] MEDS: HYDROmorphone INJ 0.5 MG/0.5 ML SYR IV PRN ×9 (00:36→22:14)
[2022-01-16] MEDS: oxyCODONE HCL IR 5 MG TAB (IMMEDIATE RELEASE) PO PRN ×4 (02:55→22:13)
[2022-01-16] MEDS: LEVOTHYROXINE SODIUM 25 MCG TABLET PO SCH (05:47)
[2022-01-16 08:03] LABS: BUN Creatinine Ratio 24.5 (10-20); Calcium 10.7 mg/dl (8.5-10.1); Creatinine Clr Calc Pharmacy 65.4 ml/min; Est GFR (African American) 89.6 ml/min; Est GFR (Non-African American) 77.3 ml/min; Potassium 4.2 mmol/L (3.5-5.1)
[2022-01-16] MEDS: allopurinoL 100 MG TAB PO SCH (08:20)
[2022-01-16] MEDS: lisinopril 10 MG TAB PO SCH (08:21)
[2022-01-16] MEDS: PANTOprazole 40 MG TAB PO SCH (08:21)
[2022-01-16] MEDS: METHADONE HCL 10 MG TAB PO SCH ×3 (08:21→20:07)
[2022-01-16] MEDS: MAGNESIUM OXIDE 400 MG TAB PO SCH (08:21)
[2022-01-16] MEDS: CABOZANTINIB S MALATE 20 MG PO SCH (08:21)
[2022-01-16] MEDS: amLODIPine BESYLATE 5 MG TAB PO SCH (08:21)
[2022-01-16] MEDS: CYANOCOBALAMIN (B-12) 500 MCG TABLET PO SCH (08:21)
[2022-01-16] MEDS: DOCUSATE SODIUM 100 MG CAP PO SCH ×2 (08:21→20:07)
[2022-01-16] MEDS: GABAPENTIN 600 MG TAB PO SCH (08:21)
[2022-01-16] MEDS: POLYETHYLENE (MIRALAX) 17 GM PACK PO SCH (08:22)
[2022-01-16] MEDS: TAMSULOSIN HCL 0.4 MG CAP PO SCH (08:22)
[2022-01-16] MEDS: ROSUVASTATIN CALCIUM 10 MG TAB PO SCH (08:22)
--- NOTE | 2022-01-16 10:31 | Nephrology Progress Note ---
Date of Service January 16, 2022 Assessment & Plan (1) Hypercalcemia: Plan: moderate hypercalcemia w/ intermittent confusion prior to admission; presume hypercalcemia of malignancy; responding slowly to IV fluids - NS stopped yesterday 2/ SOB, has trace pedal edema, Calcium improved. - Ok to withhold fluids as his oral intake has improved.No lasix today, Reasses in am - zolendronate 4 mg IV given on 01/14, lasix was given in am of 01/14 -This is likey hypercalcemia of malignancy.PTH and 25 OHD low, send PTrP. TSH raised with normal t4- miladisley subclinical-- would repeat with free t3 Admission and Anticipated Discharge Date Admission Date: January 13, 2022 Subjective Follow-up for hypercalcemia, metastatic renal cell carcinoma with left-sided pleural effusion, etc. Seen resting in bed, comfortable, not in distress, c/o back pain No shortness of breath No fevers or chills, cough Urinating with no problems no other symptoms Review of Systems Review of Systems: All systems reviewed & are unremarkable except as noted in HPI & below Physical Exam Physical Exam: General Comfortable, not in distress. appears weak HEENT- Moist mucous membrane CVS-Normal heart sounds, no murmer Resp- Decreased breath sound bilaterally, Ocassioanal wheezes, no crepts Abdomen- soft , non tender , non distended BS + DIETITIAN RESEARCH- Alert , oriented X 3 Extremities- Trace pedal edema Results & Data ([facility] [place]) Vital Signs (Past 12 Hours) Vital Signs Temp Pulse Resp BP Pulse Ox O2 Del Method 01/16/22 07:28 36.8 C 67 17 119/70 97 Room Air 01/16/22 06:12 37.0 C 89 24 148/72 H 94 Room Air 01/16/22 02:53 36.8 C 55 L 17 110/66 94 Room Air 01/15/22 23:46 37.0 C 53 L 19 106/66 94 Room Air Laboratory Results 01/15/22 06:59 01/16/22 06:55
[2022-01-16] MEDS: DICLOFENAC SOD 1% GEL 100 GM TUBE EXT SCH ×2 (14:40→20:08)
--- NOTE | 2022-01-16 16:17 | Hospitalist Progress Note ---
Date of Service January 16, 2022 Assessment & Plan (1) Hypercalcemia: Plan: This 66-year-old male presents with hypercalcemia, mostly secondary to metastatic right renal cell cancer. Received Zometa on 01/14/2022 IV fluids held secondary to lower extremity edema Calcium level has been improving Calcium is 10.7 as of 01/16/2022 Appreciate nephrology input and recommendation Metastatic right renal cell cancer-has been under care of oncologist Dr. Melissa Chronic pain from the cancer. Continue home methadone. Place on IV Dilaudid p.r.n. Consult pain management while in the hospital. Pain management consulted-appreciate input and recommendation Methadone increased to 3 times daily, on IV Dilaudid as well and as needed oxycodone (2) Pleural effusion on left: Plan: History of recurrent right renal cell carcinoma with right-sided mid lung metastasis, status post surgery, radiation, immunotherapy. Currently metastatic lung disease, left pleural effusion, had thoracocentesis in the past. On Cabometyx-.. Pulmonary service consulted 01/14, Pleurx catheter placed drainage to be performed every other day manager of maintenance on board Has been draining adequate amount of fluid Left posterior chest wall pain-minimal swelling locally and tenderness Will try diclofenac cream twice daily History of chronic obstructive pulmonary disease, past tobacco use. Not in exacerbation. We will continue home inhalers. Denies any more increasing shortness of breath History of hypertension, hyperlipidemia, abdominal aortic aneurysm. Follows up with primary care physician. Continue amlodipine, statin, and lisinopril. Anemia of chronic kidney disease. Hemoglobin 9.4 No signs of active bleeding Monitor closely Chronic kidney disease stage III. Presents with creatinine of 1.1. Deep venous thrombosis prophylaxis, placed on Lovenox. DISPOSITION: Closely monitor in the med-tele. Disposition Anticipate discharge to home with home health services medically Discussed with the in detail Admission and Anticipated Discharge Date Admission Date: January 13, 2022 Subjective 01/16/2022 The patient was seen and examined in telemetry unit He has been complaining of pain in the left chest wall at the back, remains weak and lethargic Pain in the left lower quadrant and at the back stable Review of Systems Review of Systems: All systems reviewed and are unremarkable except as noted below Physical Exam Physical Exam: Lying in bed with minimal distress due to pain Constitutional: + ill appearing and + thin Eyes: PERRL, conjunctivae normal, anicteric sclerae ENMT: external ear and nose normal, oropharynx normal Respiratory: + respiratory distress (Minimal distress at rest) Auscultation: + diminished lung sounds (Left base with a status post chest tube in situ) and + crackles Cardiovascular: Rate/Rhythm: regular rate, regular rhythm and + tachycardic Heart Sounds: normal S1 and normal S2; no murmur Extremities: + edema (Trace edema bilaterally more on the right) Gastrointestinal (Abdomen): Inspection/Auscultation: normal bowel sounds; abdomen not distended Percussion/Palpation: abdomen soft; abdomen nontender Musculoskeletal: No acute arthritis in any joint Neurologic: Alert and awake. Generally very weak and lethargic. Moves all extremities Results & Data Results & Data ([facility]) Vital Signs (Past 12 Hours) Vital Signs Temp Pulse Resp BP Pulse Ox O2 Del Method 01/16/22 15:46 37.1 C 116 H 17 111/70 92 Room Air 01/16/22 14:49 Room Air 01/16/22 11:09 36.6 C 60 16 97/58 L 97 Room Air 01/16/22 07:28 36.8 C 67 17 119/70 97 Room Air 01/16/22 06:12 37.0 C 89 24 148/72 H 94 Room Air Laboratory Results [facility] 01/16/22 06:55 Sodium 134 L Potassium 4.2 Chloride 104 Carbon Dioxide 24 BUN 25 H Creatinine 1.02 Glucose 98 Calcium 10.7 H Medications Administered Current Inpatient Medications Acetaminophen (Acetaminophen 325 Mg Tab) 650 mg PO Q4H PRN PRN Reason: Mild Pain or Fever Stop: 02/12/22 23:45 Albuterol (Albuterol Hfa 8 Gm Inhaler) 2 puffs INH QID PRN PRN Reason: shortness of breath or wheezin Stop: 02/12/22 23:45 Allopurinol (Allopurinol 100 Mg Tab) 200 mg PO QAM HEATHER Stop: 02/13/22 08:59 Last Admin: 01/16/22 08:20 Dose: 200 mg Amlodipine Besylate (Amlodipine Besylate 5 Mg Tab) 5 mg PO DAILY HEATHER Stop: 02/13/22 08:59 Last Admin: 01/16/22 08:21 Dose: 5 mg Cabozantinib (Cabozantinib S-Malate 20 Mg Tab (Cabometyx) (Patients Own Med)) 1 each PO DAILY HEATHER Stop: 02/15/22 08:59 Last Admin: 01/16/22 08:21 Dose: 1 each Clobetasol Propionate (Clobetasol Propionate 0.05% Oint 15 Gm Tube) 1 appln EXT BID PRN PRN Reason: Skin Irritation Stop: 02/13/22 01:31 Cyanocobalamin (Cyanocobalamin (B-12) 500 Mcg Tablet) 1,000 mcg PO QAM ON LICENSE OF [facility] Stop: 02/13/22 08:59 Last Admin: 01/16/22 08:21 Dose: 1,000 mcg Diclofenac Sodium (Diclofenac Sod 1% Gel 100 Gm Tube) 2 gm EXT BID ON LICENSE OF [facility]; Protocol Stop: 02/15/22 11:44 Last Admin: 01/16/22 14:40 Dose: 2 gm Docusate Sodium (Docusate Sodium 100 Mg Cap) 100 mg PO BID ON LICENSE OF [facility] Stop: 02/13/22 20:59 Last Admin: 01/16/22 08:21 Dose: 100 mg Enoxaparin Sodium (Enoxaparin Inj 40 Mg/0.4 Ml Syr) 40 mg SQ HS ON LICENSE OF [facility] Stop: 02/13/22 00:59 Last Admin: 01/15/22 20:26 Dose: 40 mg Gabapentin (Gabapentin 600 Mg Tab) 1,200 mg PO QAM ON LICENSE OF [facility] Stop: 02/13/22 08:59 Last Admin: 01/16/22 08:21 Dose: 1,200 mg Hydromorphone HCl (Hydromorphone Inj 0.5 Mg/0.5 Ml Syr) 0.5 mg IV Q2H PRN PRN Reason: Pain uncontrolled by PO meds Stop: 01/27/22 23:45 Last Admin: 01/16/22 13:40 Dose: 0.5 mg Levothyroxine Sodium (Levothyroxine Sodium 25 Mcg Tablet) 25 mcg PO DAILYBB ON LICENSE OF [facility] Stop: 02/13/22 06:29 Last Admin: 01/16/22 05:47 Dose: 25 mcg Lisinopril (Lisinopril 10 Mg Tab) 30 mg PO QAM ON LICENSE OF [facility] Stop: 02/13/22 08:59 Last Admin: 01/16/22 08:21 Dose: 30 mg Magnesium Oxide (Magnesium Oxide 400 Mg Tab) 400 mg PO QAM ON LICENSE OF [facility] Stop: 02/13/22 08:59 Last Admin: 01/16/22 08:21 Dose: 400 mg Methadone HCl (Methadone Hcl 10 Mg Tab) 10 mg PO TID HEATHER Stop: 01/28/22 13:59 Last Admin: 01/16/22 13:40 Dose: 10 mg Nitroglycerin (Nitroglycerin Sl 0.4 Mg/Tab Tab) 0.4 mg SL UD PRN PRN Reason: Chest Pain Stop: 02/12/22 23:45 Ondansetron HCl (Ondansetron Inj 2 Mg/Ml 2 Ml Vial) 4 mg IV Q6H PRN PRN Reason: Nausea Stop: 02/12/22 23:45 Oxycodone HCl (Oxycodone Hcl Ir 5 Mg Tab (Immediate Release)) 10 mg PO Q4 PRN PRN Reason: Moderate to Severe Pain Stop: 01/28/22 09:07 Last Admin: 01/16/22 08:02 Dose: 10 mg Pantoprazole Sodium (Pantoprazole 40 Mg Tab) 40 mg PO QAM ON LICENSE OF [facility] Stop: 02/13/22 08:59 Last Admin: 01/16/22 08:21 Dose: 40 mg Polyethylene Glycol (Polyethylene (Miralax) 17 Gm Pack) 17 gm PO DAILY ON LICENSE OF [facility] Stop: 02/15/22 08:59 Last Admin: 01/16/22 08:22 Dose: 17 gm Rosuvastatin Calcium (Rosuvastatin Calcium 10 Mg Tab) 10 mg PO QAM ON LICENSE OF [facility] Stop: 02/13/22 08:59 Last Admin: 01/16/22 08:22 Dose: 10 mg Tamsulosin HCl (Tamsulosin Hcl 0.4 Mg Cap) 0.4 mg PO QAM ON LICENSE OF [facility] Stop: 02/13/22 08:59 Last Admin: 01/16/22 08:22 Dose: 0.4 mg
[2022-01-16] MEDS: ENOXAPARIN INJ 40 MG/0.4 ML SYR SQ SCH (20:07)
[2022-01-17] MEDS: HYDROmorphone INJ 0.5 MG/0.5 ML SYR IV PRN ×7 (00:55→23:34)
[2022-01-17] MEDS: oxyCODONE HCL IR 5 MG TAB (IMMEDIATE RELEASE) PO PRN ×5 (02:16→23:33)
[2022-01-17] MEDS: LEVOTHYROXINE SODIUM 25 MCG TABLET PO SCH (05:17)
[2022-01-17 07:33] LABS: BUN Creatinine Ratio 26.5 (10-20); Calcium 9.3 mg/dl (8.5-10.1); Creatinine Clr Calc Pharmacy 59.3 ml/min; Est GFR (African American) 79.2 ml/min; Est GFR (Non-African American) 68.3 ml/min; Potassium 4.1 mmol/L (3.5-5.1)
--- NOTE | 2022-01-17 08:46 | Pain Management Progress Note ---
Date of Service January 17, 2022 Assessment & Plan (1) Lung cancer: Laterality: left Lung location: unspecified part of lung Qualified Code(s): C34.92 - Malignant neoplasm of unspecified part of left bronchus or lung (2) Renal cell carcinoma: (3) Non-cardiac chest pain: (4) Pleural effusion on left: Plan 1. Commend increasing methadone to 15 mg a.m. and p.m. and 10 mg in the afternoon. Discussed it may take 5-7 days to provide efficacy. Recommend EKG this Monday for QTc interval monitoring 2. Recommend increasing his Oxy IR to 15 mg every 4 hours for as needed breakthrough pain and he utilize IV hydromorphone 0.5 mg every 2 hours for as needed breakthrough pain not well controlled with oral Oxy IR. 3. Bowel regimen was increased to add Dulcolax and Relistor to the regimen today. We discussed the goal of 1 bowel movement at least every 3 days. 4. Recommend initiation of Cymbalta 30 mg p.o. every morning. We discussed the risk benefits and side effects and patient agrees to proceed. Orders are written 5. We will follow-up with him tomorrow morning to confirm efficacy. Admission and Anticipated Discharge Date Admission Date: January 13, 2022 Subjective 66-year-old white male with an initial diagnosis of renal cell cancer 4 to 5 years ago. He presented to the [facility] with ongoing difficulties with left posterior, lateral and anterior chest wall pain due to metastasis. He is currently under the care of Dr. Melissa and palliative care through [facility]. He was initiated on methadone 10 mg p.o. twice daily through palliative care and this was increased last week to 3 times daily during his hospital stay. He reports persistent left chest wall pain characterized as deep aching characteristic pain at 8 out of 10 at rest and 10/10 with activity. He reports he tries to "push through his pain "but finds it difficult with pain control during ambulation. He has utilized 50 mg of Oxy IR and 4.5 mg of IV hydromorphone in the last 24 hours. He reports constipation and has been 3-4 days since his last movement. He denies significant mental sedation with his current opiate regimen. Previous trials include MSContin and oxycodone. Pain Assessment Pain Assessment Full Body Front + Back: 1. Physical Exam Constitutional: WD/WN, vitals as above well developed and + thin; no acute distress Eyes: PERRL, conjunctivae normal, anicteric sclerae Respiratory: normal respiratory effort Cardiovascular: Extremities: + edema Gastrointestinal (Abdomen): Inspection/Auscultation: + abdomen distended Percussion/Palpation: + abdomen tender (mild) Results ([facility]) Diagnostic Review Other Findings: EKG 01/13/2022 Vent. Rate : 072 BPM Atrial Rate : 072 BPM P-R Int : 124 ms QRS Dur : 082 ms QT Int : 356 ms P-R-T Axes : 080 046 017 degrees QTc Int : 389 ms Poor data quality, interpretation may be adversely affected Normal sinus rhythm Nonspecific T wave abnormality Abnormal ECG When compared with ECG of 14-JAN-2022 08:51, No significant change was found
--- NOTE | 2022-01-17 08:54 | Nephrology Progress Note ---
Date of Service January 17, 2022 Assessment & Plan (1) Hypercalcemia: Plan: moderate hypercalcemia w/ intermittent confusion prior to admission; presume hypercalcemia of malignancy; responded slowly to IV fluids and zometa now taking effect as well - zolendronate 4 mg IV given on 01/14, lasix was given in am of 01/14 -PTH and 25 OHD low -recommend sending PTHrp -defer to primary service to further eval thyroid or to give to PCP for mgt; TSH raised with normal t4- likley subclinical-- would repeat with free t3 - calcium wnl; will sign off; no renal f/u needed; f/u labs w/ oncology per routine Admission and Anticipated Discharge Date Admission Date: January 13, 2022 Subjective no interval events; denies worsening sob -feels improved on this since tap; no edema, no abd pain Review of Systems Review of Systems: All systems reviewed & are unremarkable except as noted in Subjective Physical Exam Constitutional: well developed, + thin, + frail appearing (but not obviously tired w/ speech) and cooperative; no acute distress Eyes: EOM intact bilaterally ENMT: Ears: no external ear abnormality Nose: no external nose abnormality Mouth: + dry oral mucous membranes Neck: no nuchal rigidity Respiratory: normal respiratory effort and able to speak in complete sentences; no cough Auscultation: + diminished lung sounds (extremely diminished L posterior mckeon) Cardiovascular: RRR, no murmur, no edema Gastrointestinal (Abdomen): Inspection/Auscultation: normal bowel sounds Percussion/Palpation: abdomen soft; abdomen nontender Musculoskeletal: Extremities: strength 5/5 throughout Skin: no rashes, warm and dry Psychiatric: Orientation: oriented x 3 Results & Data ([facility]) Vital Signs (Past 12 Hours) Vital Signs Temp Pulse Pulse Resp BP Pulse Ox O2 Del Method 01/17/22 07:05 36.6 C 63 17 132/81 99 Room Air 01/16/22 23:00 61 01/17/22 02:20 36.9 C 84 16 102/64 95 Room Air 01/16/22 22:18 36.8 C 64 18 114/68 92 Room Air Laboratory Results 01/15/22 06:59 01/17/22 06:24
[2022-01-17] MEDS: CYANOCOBALAMIN (B-12) 500 MCG TABLET PO SCH (09:09)
[2022-01-17] MEDS: CABOZANTINIB S MALATE 20 MG PO SCH (09:09)
[2022-01-17] MEDS: amLODIPine BESYLATE 5 MG TAB PO SCH (09:09)
[2022-01-17] MEDS: allopurinoL 100 MG TAB PO SCH (09:09)
[2022-01-17] MEDS: DOCUSATE SODIUM 100 MG CAP PO SCH ×2 (09:10→19:40)
[2022-01-17] MEDS: MAGNESIUM OXIDE 400 MG TAB PO SCH (09:10)
[2022-01-17] MEDS: DICLOFENAC SOD 1% GEL 100 GM TUBE EXT SCH ×2 (09:10→19:40)
[2022-01-17] MEDS: GABAPENTIN 600 MG TAB PO SCH (09:10)
[2022-01-17] MEDS: lisinopril 10 MG TAB PO SCH (09:10)
[2022-01-17] MEDS: DULoxetine HCL 30 MG CAP PO SCH (09:10)
[2022-01-17] MEDS: POLYETHYLENE (MIRALAX) 17 GM PACK PO SCH (09:11)
[2022-01-17] MEDS: ROSUVASTATIN CALCIUM 10 MG TAB PO SCH (09:11)
[2022-01-17] MEDS: METHYLNALTREXONE BROMIDE 12 MG/0.6 ML VIAL SQ SCH (09:11)
[2022-01-17] MEDS: TAMSULOSIN HCL 0.4 MG CAP PO SCH (09:11)
[2022-01-17] MEDS: PANTOprazole 40 MG TAB PO SCH (09:11)
[2022-01-17] MEDS: bisacodyL 5 MG TABEC PO SCH (09:17)
[2022-01-17] MEDS: METHADONE HCL 5 MG TAB PO SCH ×2 (09:17→21:42)
[2022-01-17] MEDS ORDERED: METHADONE HCL 10 MG TAB PO SCH (14:00)
--- NOTE | 2022-01-17 16:02 | Hospitalist Progress Note ---
Date of Service January 17, 2022 Assessment & Plan (1) Hypercalcemia: Plan: This 66-year-old male presents with hypercalcemia, mostly secondary to metastatic right renal cell cancer. Received Zometa on 01/14/2022 IV fluids held secondary to lower extremity edema Calcium level has been improving Calcium is 10.7 as of 01/16/2022 Appreciate nephrology input and recommendation Calcium level has been normalized and marketing agent signed off Metastatic right renal cell cancer-has been under care of oncologist Dr. Melissa Chronic pain from the cancer. Continue home methadone. Place on IV Dilaudid p.r.n. Consult pain management while in the hospital. Pain management consulted-appreciate input and recommendation Methadone increased to 3 times daily, on IV Dilaudid as well and as needed oxycodone Appreciate pain therapist reevaluation and adjustment of medication (2) Pleural effusion on left: Plan: History of recurrent right renal cell carcinoma with right-sided mid lung metastasis, status post surgery, radiation, immunotherapy. Currently metastatic lung disease, left pleural effusion, had thoracocentesis in the past. On Cabometyx-.. 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 Not in exacerbation. We will continue home inhalers. Denies any more increasing shortness of breath History of hypertension, hyperlipidemia, abdominal aortic aneurysm. Follows up with primary care physician. Continue amlodipine, statin, and lisinopril. Anemia of chronic kidney disease. Hemoglobin 9.4 No signs of active bleeding Monitor closely Chronic kidney disease stage III. Presents with creatinine of 1.1. Deep venous thrombosis prophylaxis, placed on Lovenox. DISPOSITION: Closely monitor in the med-tele. Disposition Anticipate discharge to home with home health services medically Discussed with the in detail Ask for PT and OT evaluation for possible discharge in a day or 2 Admission and Anticipated Discharge Date Admission Date: January 13, 2022 Subjective 01/16/2022 The patient was seen and examined in telemetry unit He has been complaining of pain in the left chest wall at the back, remains weak and lethargic Pain in the left lower quadrant and at the back stable 01/17/2022 The patient was seen and examined in telemetry unit in presence of the He was just seen by the pain therapist and the medications have been adjusted Patient is sleeping right now Review of Systems Review of Systems: Other (Not done as he is sleeping) Physical Exam Physical Exam: Lying in bed -sleeping Constitutional: + ill appearing and + thin Respiratory: + respiratory distress (Minimal distress at rest) Auscultation: + diminished lung sounds (Left base with a status post chest tube in situ) and + crackles Cardiovascular: Rate/Rhythm: regular rate, regular rhythm and + tachycardic Heart Sounds: normal S1 and normal S2; no murmur Extremities: + edema (Trace edema bilaterally more on the right) Gastrointestinal (Abdomen): Inspection/Auscultation: normal bowel sounds; abdomen not distended Percussion/Palpation: abdomen soft; abdomen nontender Results & Data Results & Data ([facility]) Vital Signs (Past 12 Hours) Vital Signs Temp Pulse Resp BP Pulse Ox O2 Del Method 01/17/22 11:19 36.7 C 63 17 108/65 97 Room Air 01/17/22 09:46 Room Air 01/17/22 07:05 36.6 C 63 17 132/81 99 Room Air Laboratory Results [facility] 01/17/22 06:24 Sodium 132 L Potassium 4.1 Chloride 103 Carbon Dioxide 26 BUN 30 H Creatinine 1.13 Glucose 98 Calcium 9.3 Medications Administered Current Inpatient Medications Acetaminophen (Acetaminophen 325 Mg Tab) 650 mg PO Q4H PRN PRN Reason: Mild Pain or Fever Stop: 02/12/22 23:45 Albuterol (Albuterol Hfa 8 Gm Inhaler) 2 puffs INH QID PRN PRN Reason: shortness of breath or wheezin Stop: 02/12/22 23:45 Allopurinol (Allopurinol 100 Mg Tab) 200 mg PO QAM [facility] Stop: 02/13/22 08:59 Last Admin: 01/17/22 09:09 Dose: 200 mg Amlodipine Besylate (Amlodipine Besylate 5 Mg Tab) 5 mg PO DAILY [facility] Stop: 02/13/22 08:59 Last Admin: 01/17/22 09:09 Dose: 5 mg Bisacodyl (Bisacodyl 5 Mg Tabec) 5 mg PO QAM [facility] Stop: 02/16/22 08:59 Last Admin: 01/17/22 09:17 Dose: 5 mg Cabozantinib (Cabozantinib S-Malate 20 Mg Tab (Cabometyx) (Patients Own Med)) 1 each PO DAILY [facility] Stop: 02/15/22 08:59 Last Admin: 01/17/22 09:09 Dose: 1 each Clobetasol Propionate (Clobetasol Propionate 0.05% Oint 15 Gm Tube) 1 appln EXT BID PRN PRN Reason: Skin Irritation Stop: 02/13/22 01:31 Cyanocobalamin (Cyanocobalamin (B-12) 500 Mcg Tablet) 1,000 mcg PO QAM [facility] Stop: 02/13/22 08:59 Last Admin: 01/17/22 09:09 Dose: 1,000 mcg Diclofenac Sodium (Diclofenac Sod 1% Gel 100 Gm Tube) 2 gm EXT BID [facility]; Protocol Stop: 02/15/22 11:44 Last Admin: 01/17/22 09:10 Dose: 2 gm Docusate Sodium (Docusate Sodium 100 Mg Cap) 100 mg PO BID [facility] Stop: 02/13/22 20:59 Last Admin: 01/17/22 09:10 Dose: 100 mg Duloxetine HCl (Duloxetine Hcl 30 Mg Cap) 30 mg PO QAM [facility] Stop: 02/16/22 08:59 Last Admin: 01/17/22 09:10 Dose: 30 mg Enoxaparin Sodium (Enoxaparin Inj 40 Mg/0.4 Ml Syr) 40 mg SQ HS [facility] Stop: 02/13/22 00:59 Last Admin: 01/16/22 20:07 Dose: 40 mg Gabapentin (Gabapentin 600 Mg Tab) 1,200 mg PO QAM [facility] Stop: 02/13/22 08:59 Last Admin: 01/17/22 09:10 Dose: 1,200 mg Hydromorphone HCl (Hydromorphone Inj 0.5 Mg/0.5 Ml Syr) 0.5 mg IV Q2H PRN PRN Reason: Pain uncontrolled by PO meds Stop: 01/27/22 23:45 Last Admin: 01/17/22 09:18 Dose: 0.5 mg Levothyroxine Sodium (Levothyroxine Sodium 25 Mcg Tablet) 25 mcg PO DAILYBB [facility] Stop: 02/13/22 06:29 Last Admin: 01/17/22 05:17 Dose: 25 mcg Lisinopril (Lisinopril 10 Mg Tab) 30 mg PO QAM [facility] Stop: 02/13/22 08:59 Last Admin: 01/17/22 09:10 Dose: 30 mg Magnesium Oxide (Magnesium Oxide 400 Mg Tab) 400 mg PO QAM [facility] Stop: 02/13/22 08:59 Last Admin: 01/17/22 09:10 Dose: 400 mg Methadone HCl (Methadone Hcl 10 Mg Tab) 10 mg PO DAILY@1400 [facility] Stop: 01/31/22 13:59 Last Admin: 01/17/22 14:39 Dose: 10 mg Methadone HCl (Methadone Hcl 5 Mg Tab) 15 mg PO BID@0600,2200 [facility] Stop: 01/31/22 08:59 Last Admin: 01/17/22 09:17 Dose: 15 mg Methylnaltrexone [place] (Methylnaltrexone [place] 12 Mg/0.6 Ml Vial) 12 mg SQ Q2D@0900 [facility] Stop: 02/16/22 08:59 Last Admin: 01/17/22 09:11 Dose: 12 mg Nitroglycerin (Nitroglycerin Sl 0.4 Mg/Tab Tab) 0.4 mg SL UD PRN PRN Reason: Chest Pain Stop: 02/12/22 23:45 Ondansetron HCl (Ondansetron Inj 2 Mg/Ml 2 Ml Vial) 4 mg IV Q6H PRN PRN Reason: Nausea Stop: 02/12/22 23:45 Oxycodone HCl (Oxycodone Hcl Ir 5 Mg Tab (Immediate Release)) 15 mg PO Q4H PRN PRN Reason: Pain Stop: 01/31/22 08:21 Last Admin: 01/17/22 11:36 Dose: 15 mg Pantoprazole Sodium (Pantoprazole 40 Mg Tab) 40 mg PO QAM [facility] Stop: 02/13/22 08:59 Last Admin: 01/17/22 09:11 Dose: 40 mg Polyethylene Glycol (Polyethylene (Miralax) 17 Gm Pack) 17 gm PO DAILY [facility] Stop: 02/15/22 08:59 Last Admin: 01/17/22 09:11 Dose: 17 gm Rosuvastatin Calcium (Rosuvastatin Calcium 10 Mg Tab) 10 mg PO QAM [facility] Stop: 02/13/22 08:59 Last Admin: 01/17/22 09:11 Dose: 10 mg Tamsulosin HCl (Tamsulosin Hcl 0.4 Mg Cap) 0.4 mg PO QAM [facility] Stop: 02/13/22 08:59 Last Admin: 01/17/22 09:11 Dose: 0.4 mg
[2022-01-17] MEDS: ENOXAPARIN INJ 40 MG/0.4 ML SYR SQ SCH (19:41)
[2022-01-18] MEDS: HYDROmorphone INJ 0.5 MG/0.5 ML SYR IV PRN ×6 (02:30→21:50)
[2022-01-18 06:17] LABS: BUN Creatinine Ratio 27.1 (10-20); Calcium 8.6 mg/dl (8.5-10.1); Creatinine Clr Calc Pharmacy 69.8 ml/min; Est GFR (African American) 96.4 ml/min; Est GFR (Non-African American) 83.2 ml/min; Potassium 4.1 mmol/L (3.5-5.1)
[2022-01-18] MEDS: METHADONE HCL 5 MG TAB PO SCH ×4 (06:31→21:49)
[2022-01-18] MEDS: LEVOTHYROXINE SODIUM 25 MCG TABLET PO SCH (06:32)
[2022-01-18] MEDS: oxyCODONE HCL IR 5 MG TAB (IMMEDIATE RELEASE) PO PRN ×3 (08:38→19:38)
[2022-01-18] MEDS: bisacodyL 5 MG TABEC PO SCH (08:41)
[2022-01-18] MEDS: PANTOprazole 40 MG TAB PO SCH (08:42)
[2022-01-18] MEDS: TAMSULOSIN HCL 0.4 MG CAP PO SCH (08:42)
[2022-01-18] MEDS: lisinopril 10 MG TAB PO SCH (08:43)
[2022-01-18] MEDS: DOCUSATE SODIUM 100 MG CAP PO SCH ×2 (08:44→21:49)
--- NOTE | 2022-01-18 08:44 | Pain Management Progress Note ---
Date of Service January 18, 2022 Assessment & Plan (1) Lung cancer: Laterality: left Lung location: unspecified part of lung Qualified Code(s): C34.92 - Malignant neoplasm of unspecified part of left bronchus or lung (2) Renal cell carcinoma: (3) Non-cardiac chest pain: (4) Pleural effusion on left: Plan 1. Will increase methadone to 15 mg 3 times daily. Recommend EKG this Monday for QTc interval monitoring 2. We will currently maintain Oxy IR 15 mg every 4 hours for as needed breakthrough pain and he may utilize IV hydromorphone 0.5 mg every 2 hours for as needed breakthrough pain not well controlled with oral Oxy IR. 3. Monitor bowel regimen with adjustments as needed 4. Continue with duloxetine 30 mg p.o. every morning. 5. Will follow-up with him tomorrow morning to confirm further efficacy. Admission and Anticipated Discharge Date Admission Date: January 13, 2022 Subjective Mr. Lopez is [id number] white male with an initial diagnosis of renal cell cancer 4 to 5 years ago. He presented to the [facility] with ongoing difficulties with left posterior, lateral and anterior chest wall pain d ue to metastasis. He is currently under the care of Dr. Melissa and palliative care through [facility]. He was initiated on methadone 10 mg p.o. twice daily through palliative care and has been increased currently to 50 mg twice daily and 10 mg midday with this dosage adjustment yesterday. There has been a slight reduction in his overall utilization of Oxy IR and IV hydromorphone in the past 24 hours utilizing 3 mg of IV hydromorphone and 45 mg of Oxy IR. He reports his pain is slightly improved although he reports persistent left chest wall pain characterized as deep aching characteristic pain at 8-10/10. He reports constipation, but did have BM yesterday which was small per his report. He reports some generalized abdominal discomfort and fullness. Patient continues to deny significant mental sedation with his current opiate regimen. Previous trials include MSContin and oxycodone. Patient has no further constitutional complaints. Pain Assessment Pain Assessment Full Body Front + Back: 1. Left lateral and anterior chest wall 2. Left posterior lateral chest wall Pain scale - at its best (0-10): 8 Pain scale - at its worst (0-10): 10 Physical Exam Physical Exam: General: Patient sitting quietly in exam room in no acute distress. Speech and thought process appropriate. Mood and affect appropriate. Cognition intact. Head: Normocephalic and atraumatic. Chest: Patient is tender over the entire left anterior, lateral and posterior mid and lower chest wall from approximately the nipple line distally to the costal margin. Patient is tender with AP and lateral compression of the left chest wall. There is no visible abnormalities or skin breakdown. Thoracic spine: Patient nontender over the midline of the thoracic spine to palpation or percussion. Abdomen: Soft and nondistended. No organomegaly. Bowel sounds active. Patient is moderately tender left upper quadrant to direct palpation. Lower extremities: Strength testing 5/5 with dorsi and plantar flexion. Sensation was intact. Patient has some appreciable 1+ pitting edema in the left lower extremity., Neurologic: Cranial nerves grossly intact. Ambulatory function not witnessed.
[2022-01-18] MEDS: MAGNESIUM OXIDE 400 MG TAB PO SCH (08:46)
[2022-01-18] MEDS: GABAPENTIN 600 MG TAB PO SCH (08:47)
[2022-01-18] MEDS: allopurinoL 100 MG TAB PO SCH (08:47)
[2022-01-18] MEDS: ROSUVASTATIN CALCIUM 10 MG TAB PO SCH (08:47)
[2022-01-18] MEDS: CYANOCOBALAMIN (B-12) 500 MCG TABLET PO SCH (08:48)
[2022-01-18] MEDS: POLYETHYLENE (MIRALAX) 17 GM PACK PO SCH (08:49)
[2022-01-18] MEDS: DULoxetine HCL 30 MG CAP PO SCH (08:50)
[2022-01-18] MEDS: amLODIPine BESYLATE 5 MG TAB PO SCH (08:50)
[2022-01-18] MEDS: DICLOFENAC SOD 1% GEL 100 GM TUBE EXT SCH ×2 (08:51→21:50)
[2022-01-18] MEDS: CABOZANTINIB S MALATE 20 MG PO SCH ×2 (09:59→10:32)
[2022-01-18] MEDS ORDERED: Nursing to Pharmacy Communication SCH (10:00)
--- NOTE | 2022-01-18 16:39 | Hospitalist Progress Note ---
Date of Service January 18, 2022 Assessment & Plan (1) Hypercalcemia: Plan: This 66-year-old male presents with hypercalcemia, mostly secondary to metastatic right renal cell cancer. Received Zometa on 01/14/2022 IV fluids held secondary to lower extremity edema Calcium level has been improving Calcium is 10.7 as of 01/16/2022 Appreciate nephrology input and recommendation Calcium level has been normalized and dam operator signed off Calcium level is 8.6 today we will monitor for tomorrow Metastatic right renal cell cancer-has been under care of oncologist Dr. Melsisa Chronic pain from the cancer. Continue home methadone. Place on IV Dilaudid p.r.n. Consult pain management while in the hospital. Pain management consulted-appreciate input and recommendation Methadone increased to 3 times daily, on IV Dilaudid as well and as needed oxycodone Appreciate pain therapist reevaluation and adjustment of medication Pain seems to reasonably controlled and further adjustment of pain medications will be done tomorrow History of PT and OT evaluation prior to discharge in a day or 2 (2) Pleural effusion on left: Plan: History of recurrent right renal cell carcinoma with right-sided mid lung metastasis, status post surgery, radiation, immunotherapy. Currently metastatic lung disease, left pleural effusion, had thoracocentesis in the past. On Cabometyx-.. 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 Not in exacerbation. We will continue home inhalers. Denies any more increasing shortness of breath History of hypertension, hyperlipidemia, abdominal aortic aneurysm. Follows up with primary care physician. Continue amlodipine, statin, and lisinopril. Anemia of chronic kidney disease. Hemoglobin 9.4 No signs of active bleeding Monitor closely Chronic kidney disease stage III. Presents with creatinine of 1.1. Deep venous thrombosis prophylaxis, placed on Lovenox. DISPOSITION: Closely monitor in the med-tele. Disposition Anticipate discharge to home with home health services medically Discussed with the in detail Ask for PT and OT evaluation for possible discharge in a day or 2 Did not get any PT evaluation today Admission and Anticipated Discharge Date Admission Date: January 13, 2022 Subjective 01/16/2022 The patient was seen and examined in telemetry unit He has been complaining of pain in the left chest wall at the back, remains weak and lethargic Pain in the left lower quadrant and at the back stable 01/17/2022 The patient was seen and examined in telemetry unit in presence of the He was just seen by the pain therapist and the medications have been adjusted Patient is sleeping right now 01/18/2022 The patient was seen and examined in telemetry unit His pain seems to be reasonably controlled Denies any other symptoms of chest pain, shortness of breath, abdominal pain, nausea and or vomiting Review of Systems Review of Systems: All systems reviewed and are unremarkable except as noted below Physical Exam Physical Exam: Lying in bed without any significant pain Constitutional: + ill appearing and + thin Eyes: PERRL, conjunctivae normal, anicteric sclerae ENMT: external ear and nose normal, oropharynx normal Respiratory: + respiratory distress (Minimal distress at rest) Auscultation: + diminished lung sounds (Left base with a status post chest tube in situ) and + crackles Cardiovascular: Rate/Rhythm: regular rate, regular rhythm and + tachycardic Heart Sounds: normal S1 and normal S2; no murmur Extremities: + edema (Trace edema bilaterally more on the right) Gastrointestinal (Abdomen): Inspection/Auscultation: normal bowel sounds; abdomen not distended Percussion/Palpation: abdomen soft; abdomen nontender Musculoskeletal: No acute arthritis in any joint Neurologic: normal touch/pain/proprioception and moves all extremities; no focal motor deficits Generally very weak and lethargic Results & Data Results & Data ([facility]) Vital Signs (Past 12 Hours) Vital Signs Temp Pulse Pulse Resp BP Pulse Ox O2 Del Method 01/18/22 13:34 103/76 01/18/22 11:43 36.5 C 57 L 17 93/60 L 95 Room Air 01/18/22 11:29 Room Air 01/18/22 09:34 63 16 103/68 100 Room Air 01/18/22 07:51 77 01/18/22 07:31 36.6 C 66 18 105/63 100 Room Air Laboratory Results [facility] 01/18/22 05:18 Sodium 132 L Potassium 4.1 Chloride 103 Carbon Dioxide 25 BUN 26 H Creatinine 0.96 Glucose 92 Calcium 8.6 Medications Administered Current Inpatient Medications Acetaminophen (Acetaminophen 325 Mg Tab) 650 mg PO Q4H PRN PRN Reason: Mild Pain or Fever Stop: 02/12/22 23:45 Albuterol (Albuterol Hfa 8 Gm Inhaler) 2 puffs INH QID PRN PRN Reason: shortness of breath or wheezin Stop: 02/12/22 23:45 Allopurinol (Allopurinol 100 Mg Tab) 200 mg PO QAM [facility] Stop: 02/13/22 08:59 Last Admin: 01/18/22 08:47 Dose: 200 mg Amlodipine Besylate (Amlodipine Besylate 5 Mg Tab) 5 mg PO DAILY [facility] Stop: 02/13/22 08:59 Last Admin: 01/18/22 08:50 Dose: 5 mg Bisacodyl (Bisacodyl 5 Mg Tabec) 5 mg PO QAM [facility] Stop: 02/16/22 08:59 Last Admin: 01/18/22 08:41 Dose: 5 mg Cabozantinib (Cabozantinib S-Malate 20 Mg Tab (Cabometyx) (Patients Own Med)) 1 each PO DAILY@1030 [facility] Stop: 02/15/22 08:59 Last Admin: 01/18/22 10:32 Dose: 1 each Clobetasol Propionate (Clobetasol Propionate 0.05% Oint 15 Gm Tube) 1 appln EXT BID PRN PRN Reason: Skin Irritation Stop: 02/13/22 01:31 Cyanocobalamin (Cyanocobalamin (B-12) 500 Mcg Tablet) 1,000 mcg PO QAM [facility] Stop: 02/13/22 08:59 Last Admin: 01/18/22 08:48 Dose: 1,000 mcg Diclofenac Sodium (Diclofenac Sod 1% Gel 100 Gm Tube) 2 gm EXT BID [facility]; Protoco l Stop: 02/15/22 11:44 Last Admin: 01/18/22 08:51 Dose: 2 gm Docusate Sodium (Docusate Sodium 100 Mg Cap) 100 mg PO BID [facility] Stop: 02/13/22 20:59 Last Admin: 01/18/22 08:44 Dose: 100 mg Duloxetine HCl (Duloxetine Hcl 30 Mg Cap) 30 mg PO QAM [facility] Stop: 02/16/22 08:59 Last Admin: 01/18/22 08:50 Dose: 30 mg Enoxaparin Sodium (Enoxaparin Inj 40 Mg/0.4 Ml Syr) 40 mg SQ HS [facility] Stop: 02/13/22 00:59 Last Admin: 01/17/22 19:41 Dose: 40 mg Gabapentin (Gabapentin 600 Mg Tab) 1,200 mg PO QAM [facility] Stop: 02/13/22 08:59 Last Admin: 01/18/22 08:47 Dose: 1,200 mg Hydromorphone HCl (Hydromorphone Inj 0.5 Mg/0.5 Ml Syr) 0.5 mg IV Q2H PRN PRN Reason: Pain uncontrolled by PO meds Stop: 01/27/22 23:45 Last Admin: 01/18/22 13:29 Dose: 0.5 mg Levothyroxine Sodium (Levothyroxine Sodium 25 Mcg Tablet) 25 mcg PO DAILYBB [facility] Stop: 02/13/22 06:29 Last Admin: 01/18/22 06:32 Dose: 25 mcg Lisinopril (Lisinopril 10 Mg Tab) [facility] [place] Stop: 02/13/22 08:59 Last Admin: 01/18/22 08:43 Dose: 30 mg Magnesium Oxide (Magnesium Oxide 400 Mg Tab) 400 [facility] [place] [facility] Stop: 02/13/22 08:59 Last Admin: 01/18/22 08:46 Dose: 400 mg Methadone HCl (Methadone Hcl 5 Mg Tab) 15 mg PO TID [facility] Stop: 02/01/22 08:59 Last Admin: 01/18/22 14:13 Dose: 15 mg Methylnaltrexone [place] (Methylnaltrexone [place] 12 Mg/0.6 Ml Vial) 12 mg SQ Q2D@0900 [facility] Stop: 02/16/22 08:59 Last Admin: 01/17/22 09:11 Dose: 12 mg Nitroglycerin (Nitroglycerin Sl 0.4 Mg/Tab Tab) 0.4 mg SL UD PRN PRN Reason: Chest Pain Stop: 02/12/22 23:45 Ondansetron HCl (Ondansetron Inj 2 Mg/Ml 2 Ml Vial) 4 mg IV Q6H PRN PRN Reason: Nausea Stop: 02/12/22 23:45 Oxycodone HCl (Oxycodone Hcl Ir 5 Mg Tab (Immediate Release)) 15 mg PO Q4H PRN PRN Reason: Pain Stop: 01/31/22 08:21 Last Admin: 01/18/22 15:34 Dose: 15 mg Pantoprazole Sodium (Pantoprazole 40 Mg Tab) 40 mg PO QAM [facility] Stop: 02/13/22 08:59 Last Admin: 01/18/22 08:42 Dose: 40 mg Polyethylene Glycol (Polyethylene (Miralax) 17 Gm Pack) 17 gm PO DAILY [facility] Stop: 02/15/22 08:59 Last Admin: 01/18/22 08:49 Dose: 17 gm Rosuvastatin Calcium (Rosuvastatin Calcium 10 Mg Tab) [facility] [place] [facility] Stop: 02/13/22 08:59 Last Admin: 01/18/22 08:47 Dose: 10 mg Tamsulosin HCl (Tamsulosin Hcl 0.4 Mg Cap) 0.[facility] [place] [facility] Stop: 02/13/22 08:59 Last Admin: 01/18/22 08:42 Dose: 0.4 mg
[2022-01-18] MEDS: ENOXAPARIN INJ 40 MG/0.4 ML SYR SQ SCH (21:49)
[2022-01-19] MEDS: HYDROmorphone INJ 0.5 MG/0.5 ML SYR IV PRN ×5 (03:24→17:48)
[2022-01-19] MEDS: ACETAMINOPHEN 325 MG TAB PO PRN (03:27)
[2022-01-19] MEDS: oxyCODONE HCL IR 5 MG TAB (IMMEDIATE RELEASE) PO PRN ×3 (04:41→20:45)
[2022-01-19] MEDS: LEVOTHYROXINE SODIUM 25 MCG TABLET PO SCH (06:32)
[2022-01-19 06:43] LABS: Calcium 8.9 mg/dl (8.5-10.1); Creatinine Clr Calc Pharmacy 68.5 ml/min; Est GFR (African American) 91.8 ml/min; Est GFR (Non-African American) 79.2 ml/min
--- NOTE | 2022-01-19 08:49 | Pain Management Progress Note ---
Date of Service January 19, 2022 Assessment & Plan (1) Lung cancer: Laterality: left Lung location: unspecified part of lung Qualified Code(s): C34.92 - Malignant neoplasm of unspecified part of left bronchus or lung (2) Renal cell carcinoma: (3) Non-cardiac chest pain: (4) Pleural effusion on left: Plan 1. Maintain methadone 15 mg 3 times daily. Recommend EKG this Monday for QTc interval monitoring-orders will be written 2. Will continue to maintain Oxy IR 15 mg every 4 hours for as needed breakthrough pain and he may utilize IV hydromorphone 0.5 mg every 2 hours for as needed breakthrough pain not well controlled with oral Oxy IR. 3. Monitor bowel regimen with adjustments as needed--patient is scheduled to receive Relistor today 4. Continue with duloxetine 30 mg p.o. every morning. Admission and Anticipated Discharge Date Admission Date: January 13, 2022 Subjective Mr. Lopez is a 66-year-old white male with known history of renal cell cancer diagnosed 4 to 5 years ago with metastatic disease affecting the left lung with ongoing pain complaints affecting the left posterior, lateral and anterior chest wall region. Patient's methadone was further increased to 15 mg 3 times daily yesterday. He continues with Oxy IR 15 mg every 4 hours for breakthrough pain (60 mg in past 24 hours) and hydromorphone 0.5 mg every 2 hours (3 mg in past 24 hours). Patient is reporting a slight improvement in his overall pain over the past 24 hours with further dosing adjustments. His pain is currently a 7/10. His pain is not as sharp and stabbing as it had been. Patient did not have bowel movement yesterday and reports minimal abdominal discomfort/fullness. Patient reports that he is not nauseated. He did consume some food yesterday with slightly improved appetite. Patient has no further constitutional complaints at this time. Plan of care discussed with Dr. Koki Hannah. Pain Assessment Pain Assessment Full Body Front + Back: 1. Left anterior lateral chest wall 2. Left posterior lateral chest wall Pain scale - at its best (0-10): 7 Pain scale - at its worst (0-10): 10 Physical Exam Physical Exam: General: Patient sitting quietly in exam room in no acute distress. Speech and thought process appropriate. Mood and affect appropriate. Cognition intact. Head: Normocephalic and atraumatic. Chest: Patient is tender over the entire left anterior, lateral and posterior mid and lower chest wall from approximately the nipple line distally to the costal margin. Patient is tender with AP and lateral compression of the left chest wall. There is no visible abnormalities or skin breakdown. Thoracic spine: Patient nontender over the midline of the thoracic spine to pa lpation or percussion. Abdomen: Soft and nondistended. No organomegaly. Bowel sounds active. Patient is moderately tender left upper quadrant to direct palpation. Lower extremities: Strength testing 5/5 with dorsi and plantar flexion. Sensation was intact. Patient has some appreciable 1+ pitting edema in the left lower extremity., Neurologic: Cranial nerves grossly intact. Ambulatory function not witnessed.
[2022-01-19] MEDS: METHADONE HCL 5 MG TAB PO SCH ×2 (09:00→14:09)
[2022-01-19] MEDS: lisinopril 10 MG TAB PO SCH (09:00)
[2022-01-19] MEDS: METHYLNALTREXONE BROMIDE 12 MG/0.6 ML VIAL SQ SCH (09:01)
[2022-01-19] MEDS: MAGNESIUM OXIDE 400 MG TAB PO SCH (09:01)
[2022-01-19] MEDS: CYANOCOBALAMIN (B-12) 500 MCG TABLET PO SCH (09:01)
[2022-01-19] MEDS: DULoxetine HCL 30 MG CAP PO SCH (09:01)
[2022-01-19] MEDS: GABAPENTIN 600 MG TAB PO SCH (09:01)
[2022-01-19] MEDS: ROSUVASTATIN CALCIUM 10 MG TAB PO SCH (09:01)
[2022-01-19] MEDS: PANTOprazole 40 MG TAB PO SCH (09:01)
[2022-01-19] MEDS: DOCUSATE SODIUM 100 MG CAP PO SCH ×2 (09:01→20:47)
[2022-01-19] MEDS: amLODIPine BESYLATE 5 MG TAB PO SCH (09:01)
[2022-01-19] MEDS: allopurinoL 100 MG TAB PO SCH (09:01)
[2022-01-19] MEDS: TAMSULOSIN HCL 0.4 MG CAP PO SCH (09:01)
[2022-01-19] MEDS: POLYETHYLENE (MIRALAX) 17 GM PACK PO SCH (09:01)
[2022-01-19] MEDS: DICLOFENAC SOD 1% GEL 100 GM TUBE EXT SCH ×2 (09:02→20:46)
[2022-01-19] MEDS: bisacodyL 5 MG TABEC PO SCH (09:02)
[2022-01-19] MEDS: CABOZANTINIB S MALATE 20 MG PO SCH (11:07)
[2022-01-19] MEDS ORDERED: fentaNYL 12 MCG/HR TDSY TD SCH (16:15)
[2022-01-19] MEDS ORDERED: fentaNYL 25 MCG/HR TDSY TD SCH (16:15)
--- NOTE | 2022-01-19 16:42 | Hospitalist Progress Note ---
Date of Service January 19, 2022 Assessment & Plan (1) Hypercalcemia: Plan: This 66-year-old male presents with hypercalcemia, mostly secondary to metastatic right renal cell cancer. Received Zometa on 01/14/2022 IV fluids held secondary to lower extremity edema Calcium level has been improving Calcium is 10.7 as of 01/16/2022 Appreciate nephrology input and recommendation Calcium level has been normalized and billing services manager signed off Calcium level is 8.6 today we will monitor for tomorrow Calcium level remains normal Metastatic right renal cell cancer-has been under care of oncologist Dr. Melissa Chronic pain from the cancer. Continue home methadone. Place on IV Dilaudid p.r.n. Consult pain management while in the hospital. Pain management consulted-appreciate input and recommendation Methadone increased to 3 times daily, on IV Dilaudid as well and as needed oxycodone Appreciate pain therapist reevaluation and adjustment of medication Pain seems to reasonably controlled and further adjustment of pain medications will be done tomorrow History of PT and OT evaluation prior to discharge in a day or 2 Still has significant pain and methadone has been discontinued and fentanyl patch has been applied If the pain is controlled may be discharged tomorrow or day after (2) Pleural effusion on left: Plan: History of recurrent right renal cell carcinoma with right-sided mid lung metast asis, status post surgery, radiation, immunotherapy. Currently metastatic lung disease, left pleural effusion, had thoracocentesis in the past. On Cabometyx-.. 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 Not in exacerbation. We will continue home inhalers. Denies any more increasing shortness of breath History of hypertension, hyperlipidemia, abdominal aortic aneurysm. Follows up with primary care physician. Continue amlodipine, statin, and lisinopril. Anemia of chronic kidney disease. Hemoglobin 9.4 No signs of active bleeding Monitor closely Chronic kidney disease stage III. Presents with creatinine of 1.1. Deep venous thrombosis prophylaxis, placed on Lovenox. DISPOSITION: Closely monitor in the med-tele. Disposition Anticipate discharge to home with home health services medically Discussed with the in detail Ask for PT and OT evaluation for possible discharge in a day or 2 Did not get any PT evaluation today Has been ambulating in the room without any significant problem Admission and Anticipated Discharge Date Admission Date: January 13, 2022 Subjective 01/16/2022 The patient was seen and examined in telemetry unit He has been complaining of pain in the left chest wall at the back, remains weak and lethargic Pain in the left lower quadrant and at the back stable 01/17/2022 The patient was seen and examined in telemetry unit in presence of the He was just seen by the pain therapist and the medications have been adjusted Patient is sleeping right now 01/18/2022 The patient was seen and examined in telemetry unit His pain seems to be reasonably controlled Denies any other symptoms of chest pain, shortness of breath, abdominal pain, nausea and or vomiting 01/19/2022 The patient was seen and examined in telemetry unit Still remains in pain which is not reasonably controlled He wants to try fentanyl patch Denies any other symptoms Review of Systems Review of Systems: All systems reviewed and are unremarkable except as noted below Physical Exam Physical Exam: Lying in bed without any significant pain Constitutional: + ill appearing and + thin Eyes: PERRL, conjunctivae normal, anicteric sclerae ENMT: external ear and nose normal, oropharynx normal Respiratory: + respiratory distress (Minimal distress at rest) Auscultation: + diminished lung sounds (Left base with a status post chest tube in situ) and + crackles Cardiovascular: Rate/Rhythm: regular rate, regular rhythm and + tachycardic Heart Sounds: normal S1 and normal S2; no murmur Extremities: + edema (Trace edema bilaterally more on the right) Gastrointestinal (Abdomen): Inspection/Auscultation: normal bowel sounds; abdomen not distended Percussion/Palpation: abdomen soft; abdomen nontender Neurologic: normal touch/pain/proprioception and moves all extremities; no focal motor deficits Lymphatic: no cervical or axillary lymphadenopathy Results & Data Results & Data ([facility]) Vital Signs (Past 12 Hours) Vital Signs Temp Pulse Pulse Resp BP Pulse Ox O2 Del Method 01/19/22 16:27 36.4 C L 62 18 97/61 L 94 Room Air 01/19/22 16:09 76 01/19/22 12:39 36.8 C 57 L 18 100/64 96 Room Air 01/19/22 09:00 62 01/19/22 09:00 Room Air 01/19/22 08:34 36.9 C 62 18 105/67 95 Room Air Laboratory Results BMP 01/19/22 05:26 Sodium 131 L Potassium 4.0 Chloride 102 Carbon Dioxide 24 BUN 23 Creatinine 1.00 Glucose 95 Calcium 8.9 Medications Administered Current Inpatient Medications Acetaminophen (Acetaminophen 325 Mg Tab) 650 mg PO Q4H PRN PRN Reason: Mild Pain or Fever Stop: 02/12/22 23:45 Last Admin: 01/19/22 03:27 Dose: 650 mg Albuterol (Albuterol Hfa 8 Gm Inhaler) 2 puffs INH QID PRN PRN Reason: shortness of breath or wheezin Stop: 02/12/22 23:45 Allopurinol ([facility] 100 Mg Tab) [facility] [place]: 02/13/22 08:59 Last Admin: 01/19/22 09:01 Dose: 200 mg Amlodipine Besylate (Amlodipine Besylate 5 Mg Tab) 5 mg PO DAILY [facility] Stop: 02/13/22 08:59 Last Admin: 01/19/22 09:01 Dose: 5 mg Bisacodyl (Bisacodyl 5 Mg Tabec) [facility] [place]: 02/16/22 08:59 Last Admin: 01/19/22 09:02 Dose: 5 mg Cabozantinib (Cabozantinib S-Malate 20 Mg Tab (Cabometyx) (Patients Own Med)) 1 each PO DAILY@1030 [facility] Stop: 02/15/22 08:59 Last Admin: 01/19/22 11:07 Dose: 1 each Clobetasol Propionate (Clobetasol Propionate 0.05% Oint 15 Gm Tube) 1 appln EXT BID PRN PRN Reason: Skin Irritation Stop: 02/13/22 01:31 Cyanocobalamin (Cyanocobalamin (B-12) 500 Mcg Tablet) 1,000 mcg PO QAM [facility] Stop: 02/13/22 08:59 Last Admin: 01/19/22 09:01 Dose: 1,000 mcg Diclofenac Sodium (Diclofenac Sod 1% Gel 100 Gm Tube) 2 gm EXT BID [facility]; Protoc ol Stop: 02/15/22 11:44 Last Admin: 01/19/22 09:02 Dose: Not Given Docusate Sodium (Docusate Sodium 100 Mg Cap) 100 mg PO BID [facility] Stop: 02/13/22 20:59 Last Admin: 01/19/22 09:01 Dose: 100 mg Duloxetine HCl (Duloxetine Hcl 30 Mg Cap) 30 mg PO QAM [facility] Stop: 02/16/22 08:59 Last Admin: 01/19/22 09:01 Dose: 30 mg Enoxaparin Sodium (Enoxaparin Inj 40 Mg/0.4 Ml Syr) 40 mg SQ HS [facility] Stop: 02/13/22 00:59 Last Admin: 01/18/22 21:49 Dose: 40 mg Fentanyl (Fentanyl 25 Mcg/Hr Tdsy) 25 mcg TD Q3D [facility] Stop: 02/02/22 16:14 Fentanyl (Fentanyl 12 Mcg/Hr Tdsy) 12 mcg TD Q3D [facility] Stop: 02/02/22 16:14 Gabapentin (Gabapentin 600 Mg Tab) 1,[facility] [place] Stop: 02/13/22 08:59 Last Admin: 01/19/22 09:01 Dose: 1,200 mg Hydromorphone HCl (Hydromorphone Inj 0.5 Mg/0.5 Ml Syr) 0.5 mg IV Q2H PRN PRN Reason: Pain uncontrolled by PO meds Stop: 01/27/22 23:45 Last Admin: 01/19/22 12:44 Dose: 0.5 mg Levothyroxine Sodium (Levothyroxine Sodium 25 Mcg Tablet) 25 mcg PO DAILYBB [facility] Stop: 02/13/22 06:29 Last Admin: 01/19/22 06:32 Dose: 25 mcg Lisinopril (Lisinopril 10 Mg Tab) [facility] [place] [place] Stop: 02/13/22 08:59 Last Admin: 01/19/22 09:00 Dose: 30 mg Magnesium Oxide (Magnesium Oxide 400 Mg Tab) [facility] [place] [place] Stop: 02/13/22 08:59 Last Admin: 01/19/22 09:01 Dose: 400 mg Methylnaltrexone [place] (Methylnaltrexone [place] 12 Mg/0.6 Ml Vial) 12 mg SQ Q2D@0900 [facility] Stop: 02/16/22 08:59 Last Admin: 01/19/22 09:01 Dose: 12 mg Miscellaneous (Fentanyl Patch Remove & Waste) 1 each N/A Q3D [facility] Stop: 02/18/22 16:14 Miscellaneous (Check Fentanyl Patch Placement) 1 each N/A QS [facility] Stop: 02/19/22 00:00 Nitroglycerin (Nitroglycerin Sl 0.4 Mg/Tab Tab) 0.4 mg SL UD PRN PRN Reason: Chest Pain Stop: 02/12/22 23:45 Ondansetron HCl (Ondansetron Inj 2 Mg/Ml 2 Ml Vial) 4 mg IV Q6H PRN PRN Reason: Nausea Stop: 02/12/22 23:45 Oxycodone HCl (Oxycodone Hcl Ir 5 Mg Tab (Immediate Release)) 15 mg PO Q4H PRN PRN Reason: Pain Stop: 01/31/22 08:21 Last Admin: 01/19/22 11:06 Dose: 15 mg Pantoprazole Sodium (Pantoprazole 40 Mg Tab) 40 mg PO QAM [facility] Stop: 02/13/22 08:59 Last Admin: 01/19/22 09:01 Dose: 40 mg Polyethylene Glycol (Polyethylene (Miralax) 17 Gm Pack) 17 gm PO DAILY [facility] Stop: 02/15/22 08:59 Last Admin: 01/19/22 09:01 Dose: 17 gm Rosuvastatin Calcium (Rosuvastatin Calcium 10 Mg Tab) 10 mg PO QAM [facility] Stop: 02/13/22 08:59 Last Admin: 01/19/22 09:01 Dose: 10 mg Tamsulosin HCl (Tamsulosin Hcl 0.4 Mg Cap) 0.4 mg PO QAM [facility] Stop: 02/13/22 08:59 Last Admin: 01/19/22 09:01 Dose: 0.4 mg
[2022-01-19] MEDS: ONDANSETRON INJ 2 MG/ML 2 ML VIAL IV PRN (17:42)
[2022-01-19] MEDS: ENOXAPARIN INJ 40 MG/0.4 ML SYR SQ SCH (20:46)
[2022-01-19] MEDS: CHECK fentaNYL PATCH PLACEMENT SCH (23:34)
[2022-01-20] MEDS: oxyCODONE HCL IR 5 MG TAB (IMMEDIATE RELEASE) PO PRN ×4 (03:40→19:31)
[2022-01-20] MEDS: HYDROmorphone INJ 0.5 MG/0.5 ML SYR IV PRN ×3 (05:12→21:08)
[2022-01-20] MEDS: LEVOTHYROXINE SODIUM 25 MCG TABLET PO SCH (06:55)
[2022-01-20 06:56] LABS: BUN Creatinine Ratio 23.4 (10-20); Calcium 8.5 mg/dl (8.5-10.1); Est GFR (African American) 80.9 ml/min; Est GFR (Non-African American) 69.8 ml/min; Potassium 4.2 mmol/L (3.5-5.1)
[2022-01-20] MEDS: DICLOFENAC SOD 1% GEL 100 GM TUBE EXT SCH ×2 (07:59→21:09)
[2022-01-20] MEDS: allopurinoL 100 MG TAB PO SCH (08:00)
[2022-01-20] MEDS: DOCUSATE SODIUM 100 MG CAP PO SCH ×2 (08:00→21:09)
[2022-01-20] MEDS: ROSUVASTATIN CALCIUM 10 MG TAB PO SCH (08:00)
[2022-01-20] MEDS: PANTOprazole 40 MG TAB PO SCH (08:01)
[2022-01-20] MEDS: GABAPENTIN 600 MG TAB PO SCH (08:01)
[2022-01-20] MEDS: MAGNESIUM OXIDE 400 MG TAB PO SCH (08:01)
[2022-01-20] MEDS: DULoxetine HCL 30 MG CAP PO SCH (08:01)
[2022-01-20] MEDS: CYANOCOBALAMIN (B-12) 500 MCG TABLET PO SCH (08:01)
[2022-01-20] MEDS: TAMSULOSIN HCL 0.4 MG CAP PO SCH (08:01)
[2022-01-20] MEDS: POLYETHYLENE (MIRALAX) 17 GM PACK PO SCH (08:01)
[2022-01-20] MEDS: CHECK fentaNYL PATCH PLACEMENT SCH ×2 (08:03→16:22)
[2022-01-20] MEDS: bisacodyL 5 MG TABEC PO SCH (08:06)
--- NOTE | 2022-01-20 08:35 | Pain Management Progress Note ---
Date of Service January 20, 2022 Assessment & Plan (1) Lung cancer: Laterality: left Lung location: unspecified part of lung Qualified Code(s): C34.92 - Malignant neoplasm of unspecified part of left bronchus or lung (2) Renal cell carcinoma: (3) Non-cardiac chest pain: (4) Pleural effusion on left: Plan 1. Will currently maintain fentanyl at 37 mcg dose. We discussed the challenges of transitioning from methadone to fentanyl with regards to residual methadone over the next 3-5 days. 2. Will continue to maintain Oxy IR 15 mg every 4 hours for as needed breakt hrough pain and he may utilize IV hydromorphone 0.5 mg every 2 hours for as needed breakthrough pain not well controlled with oral Oxy IR. 3. Monitor bowel regimen with adjustments as needed 4. Continue with duloxetine 30 mg p.o. every morning. 5. Further adjustment of fentanyl in 2-3 days pending response Admission and Anticipated Discharge Date Admission Date: January 13, 2022 Subjective Mr. Lopez is a 66-year-old white male with known history of renal cell cancer diagnosed 4 to 5 years ago with metastatic disease affecting the left lung with ongoing pain complaints affecting the left posterior, lateral and anterior chest wall region. Patient's methadone was discontinued yesterday afternoon after discussion with the patient's as he was continuing to experience poor pain control. Patient was transitioned to fentanyl transdermal patch initially at 37 mcg dose. He continues with Oxy IR 15 mg every 4 hours for breakthrough pain (454 mg in past 24 hours) and hydromorphone 0.5 mg every 2 hours (2 mg in past 24 hours). Patient is reporting a slight improvement in his overall pain over the past 24 hours. His pain is currently a 7/10. His pain is not as sharp and stabbing as it had been. Patient did have bowel movement yesterday and reports minimal abdominal discomfort/fullness. Patient reports that he is not nauseated. He did consume some food yesterday with slightly improved appetite. Patient has no further constitutional complaints at this time. Plan of care discussed with Dr. Koki Hannah. Pain Assessment Pain Assessment Full Body Front + Back: 1. Left lateral and anterior chest wall 2. Left posterior lateral Pain scale - at its best (0-10): 7 Pain scale - at its worst (0-10): 10 Physical Exam Physical Exam: General: Patient sleeping upon entering the room. Patient was easily arousable. Patient in no acute distress. Speech and thought process appropriate. Mood and affect appropriate. Cognition intact. Head: Normocephalic and atraumatic. Chest: Patient is tender over the entire left anterior, lateral and posterior mid and lower chest wall from approximately the nipple line distally to the costal margin predominantly lateral and posterior during today's evaluation. Patient is tender with AP and lateral compression of the left chest wall. There is no visible abnormalities or skin breakdown. Abdomen: Soft and nondistended. No organomegaly. Bowel sounds active. Patient is moderately tender left upper quadrant to direct palpation. Lower extremities: Strength testing 5/5 with dorsi and plantar flexion. Sensation was intact. Patient has some appreciable 1+ pitting edema in the left lower extremity., Neurologic: Cranial nerves grossly intact. Ambulatory function not witnessed.
[2022-01-20] MEDS: amLODIPine BESYLATE 5 MG TAB PO SCH (09:52)
[2022-01-20] MEDS: lisinopril 10 MG TAB PO SCH (09:54)
[2022-01-20] MEDS: CABOZANTINIB S MALATE 20 MG PO SCH (11:56)
--- NOTE | 2022-01-20 16:58 | Hospitalist Progress Note ---
Date of Service January 20, 2022 Assessment & Plan (1) Hypercalcemia: Plan: This 66-year-old male presents with hypercalcemia, mostly secondary to metastatic right renal cell cancer. Received Zometa on 01/14/2022 IV fluids held secondary to lower extremity edema Calcium level has been improving Calcium is 10.7 as of 01/16/2022 Appreciate nephrology input and recommendation Calcium level has been normalized and drop worker signed off Calcium level is 8.6 today we will monitor for tomorrow Calcium level remains normal (2) Cancer-related pain: Plan: Metastatic right renal cell cancer-has been under care of oncologist Dr. Melissa- on oral chemotherapy Chronic pain from the cancer. Continue home methadone. Place on IV Dilaudid p.r.n. Consult pain management while in the hospital. Pain management consulted-appreciate input and recommendation Methadone increased to 3 times daily, on IV Dilaudid as well and as needed oxycodone Appreciate pain therapist reevaluation and adjustment of medication Pain seems to reasonably controlled and further adjustment of pain medications will be done tomorrow History of PT and OT evaluation prior to discharge in a day or 2 Still has significant pain and methadone has been discontinued and Fentanyl patch 37 mcg has been on for the last 2 days without much improvement of pain The patch can be increased to 50 to 75 mcg but will need to wait for 2 to 3 days for the methadone to be cleared out of the system The patient is not yet ready to be discharged due to persistence of increased pain (3) Pleural effusion on left: Plan: History of recurrent right renal cell carcinoma with right-sided mid lung metastasis, status post surgery, radiation, immunotherapy. Currently metastatic lung disease, left pleural effusion, had thoracocentesis in the past. On Cabometyx-.. 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 Not in exacerbation. We will continue home inhalers. Denies any more increasing shortness of breath History of hypertension, hyperlipidemia, abdominal aortic aneurysm. Follows up with primary care physician. Continue amlodipine, statin, and lisinopril. Anemia of chronic kidney disease. Hemoglobin 9.4 No signs of active bleeding Monitor closely Chronic kidney disease stage III. Presents with creatinine of 1.1. Deep venous thrombosis prophylaxis, placed on Lovenox. DISPOSITION: Closely monitor in the med-tele. Disposition Anticipate discharge to home with home health services medically Discussed with the in detail Ask for PT and OT evaluation for possible discharge in a day or 2 Did not get any PT evaluation today Has been ambulating in the room without any significant problem Plan to discharge home when the pain is reasonably controlled Admission and Anticipated Discharge Date Admission Date: January 13, 2022 Subjective 01/16/2022 The patient was seen and examined in telemetry unit He has been complaining of pain in the left chest wall at the back, remains weak and lethargic Pain in the left lower quadrant and at the back stable 01/17/2022 The patient was seen and examined in telemetry unit in presence of the He was just seen by the pain therapist and the medications have been adjusted Patient is sleeping right now 01/18/2022 The patient was seen and examined in telemetry unit His pain seems to be reasonably controlled Denies any other symptoms of chest pain, shortness of breath, abdominal pain, nausea and or vomiting 01/19/2022 The patient was seen and examined in telemetry unit Still remains in pain which is not reasonably controlled He wants to try fentanyl patch Denies any other symptoms 01/20/2022 The patient was seen and examined in telemetry unit His pain is not adequately controlled His fentanyl patch may be increased after about 3 days as per the pain therapist The patient still remains in much pain and he cannot go home Review of Systems Review of Systems: All systems reviewed and are unremarkable except as noted below Physical Exam Physical Exam: Lying in bed without any significant pain Constitutional: + ill appearing and + thin Eyes: PERRL, conjunctivae normal, anicteric sclerae ENMT: external ear and nose normal, oropharynx normal Respiratory: + respiratory distress (Minimal distress at rest) Auscultation: + diminished lung sounds (Left base with a status post chest tube in situ) and + crackles Cardiovascular: Rate/Rhythm: regular rate, regular rhythm and + tachycardic Heart Sounds: normal S1 and normal S2; no murmur Extremities: + edema (Trace edema bilaterally more on the right) Gastrointestinal (Abdomen): Inspection/Auscultation: normal bowel sounds; abdomen not distended Percussion/Palpation: abdomen soft; abdomen nontender Neurologic: normal touch/pain/proprioception and moves all extremities; no focal motor deficits Lymphatic: no cervical or axillary lymphadenopathy Results & Data Results & Data ([facility]) Vital Signs (Past 12 Hours) Vital Signs Temp Pulse Pulse Resp BP Pulse Ox O2 Del Method 01/20/22 14:34 36.3 C L 79 17 111/67 94 Room Air 01/20/22 07:00 58 L 01/20/22 10:00 Room Air 01/20/22 07:22 36.4 C L 55 L 16 94/59 L 96 Room Air Laboratory Results [facility] 01/20/22 05:40 Sodium 131 L Potassium 4.2 Chloride 101 Carbon Dioxide 24 BUN 26 H Creatinine 1.11 Glucose 93 Calcium 8.5 Medications Administered Current Inpatient Medications Acetaminophen (Acetaminophen 325 Mg Tab) 650 mg PO Q4H PRN PRN Reason: Mild Pain or Fever Stop: 02/12/22 23:45 Last Admin: 01/19/22 03:27 Dose: 650 mg Albuterol (Albuterol Hfa 8 Gm Inhaler) 2 puffs INH QID PRN PRN Reason: shortness of breath or wheezin Stop: 02/12/22 23:45 Allopurinol (Allopurinol 100 Mg Tab) 200 mg PO QAM [facility] Stop: 02/13/22 08:59 Last Admin: 01/20/22 08:00 Dose: 200 mg Amlodipine Besylate (Amlodipine Besylate 5 Mg Tab) 5 mg PO DAILY [facility] Stop: 02/13/22 08:59 Last Admin: 01/20/22 09:52 Dose: Not Given Bisacodyl (Bisacodyl 5 Mg Tabec) 5 mg PO QAM [facility] Stop: 02/16/22 08:59 Last Admin: 01/20/22 08:06 Dose: 5 mg Cabozantinib (Cabozantinib S-Malate 20 Mg Tab (Cabometyx) (Patients Own Med)) 1 each PO DAILY@1030 [facility] Stop: 02/15/22 08:59 Last Admin: 01/20/22 11:56 Dose: 1 each Clobetasol Propionate (Clobetasol Propionate 0.05% Oint 15 Gm Tube) 1 appln EXT BID PRN PRN Reason: Skin Irritation Stop: 02/13/22 01:31 Cyanocobalamin (Cyanocobalamin (B-12) 500 Mcg Tablet) [facility] [place] Stop: 02/13/22 08:59 Last Admin: 01/20/22 08:01 Dose: 1,000 mcg Diclofenac Sodium (Diclofenac Sod 1% Gel 100 Gm Tube) 2 gm EXT BID [facility]; Protocol Stop: 02/15/22 11:44 Last Admin: 01/20/22 07:59 Dose: Not Given Docusate Sodium (Docusate Sodium 100 Mg Cap) 100 mg PO BID [facility] Stop: 02/13/22 20:59 Last Admin: 01/20/22 08:00 Dose: 100 mg Duloxetine HCl (Duloxetine Hcl 30 Mg Cap) [facility] [place] Stop: 02/16/22 08:59 Last Admin: 01/20/22 08:01 Dose: 30 mg Enoxaparin Sodium (Enoxaparin Inj 40 Mg/0.4 Ml Syr) 40 mg SQ HS [facility] Stop: 02/13/22 00:59 Last Admin: 01/19/22 20:46 Dose: 40 mg Fentanyl (Fentanyl 25 Mcg/Hr Tdsy) 25 mcg TD Q3D [facility] Stop: 02/02/22 16:14 Last Admin: 01/19/22 16:53 Dose: 25 mcg Fentanyl (Fentanyl 12 Mcg/Hr Tdsy) 12 mcg TD Q3D [facility] Stop: 02/02/22 16:14 Last Admin: 01/19/22 16:52 Dose: 12 mcg Gabapentin (Gabapentin 600 Mg Tab) 1,200 mg PO [facility] Stop: 02/13/22 08:59 Last Admin: 01/20/22 08:01 Dose: 1,200 mg Hydromorphone HCl (Hydromorphone Inj 0.5 Mg/0.5 Ml Syr) 0.5 mg IV Q2H PRN PRN Reason: Pain uncontrolled by PO meds Stop: 01/27/22 23:45 Last Admin: 01/20/22 11:59 Dose: 0.5 mg Levothyroxine Sodium (Levothyroxine Sodium 25 Mcg Tablet) [facility]: 02/13/22 06:29 Last Admin: 01/20/22 06:55 Dose: 25 mcg Lisinopril (Lisinopril 10 Mg Tab) 30 mg PO [facility] Stop: 02/13/22 08:59 Last Admin: 01/20/22 09:54 Dose: Not Given Magnesium Oxide (Magnesium Oxide 400 Mg Tab) 400 mg PO QAM [facility] Stop: 02/13/22 08:59 Last Admin: 01/20/22 08:01 Dose: 400 mg Methylnaltrexone [place] (Methylnaltrexone [place] 12 Mg/0.6 Ml Vial) 12 mg SQ Q2D@0900 [facility] Stop: 02/16/22 08:59 Last Admin: 01/19/22 09:01 Dose: 12 mg Miscellaneous (Fentanyl Patch Remove & Waste) 1 each N/A Q3D [facility] Stop: 02/18/22 16:14 Last Admin: 01/19/22 16:53 Dose: 1 each Miscellaneous (Check Fentanyl Patch Placement) 1 each N/A QS [facility] Stop: 02/19/22 00:00 Last Admin: 01/20/22 16:22 Dose: 1 each Nitroglycerin (Nitroglycerin Sl 0.4 Mg/Tab Tab) 0.4 mg SL UD PRN PRN Reason: Chest Pain Stop: 02/12/22 23:45 Ondansetron HCl (Ondansetron Inj 2 Mg/Ml 2 Ml Vial) 4 mg IV Q6H PRN PRN Reason: Nausea Stop: 02/12/22 23:45 Last Admin: 01/19/22 17:42 Dose: 4 mg Oxycodone HCl (Oxycodone Hcl Ir 5 Mg Tab (Immediate Release)) 15 mg PO Q4H PRN PRN Reason: Pain Stop: 01/31/22 08:21 Last Admin: 01/20/22 13:52 Dose: 15 mg Pantoprazole Sodium (Pantoprazole 40 Mg Tab) 40 mg PO QAM [facility] Stop: 02/13/22 08:59 Last Admin: 01/20/22 08:01 Dose: 40 mg Polyethylene Glycol (Polyethylene (Miralax) 17 Gm Pack) 17 gm PO DAILY [facility] Stop: 02/15/22 08:59 Last Admin: 01/20/22 08:01 Dose: 17 gm Rosuvastatin Calcium (Rosuvastatin Calcium 10 Mg Tab) 10 mg PO QAM [facility] Stop: 02/13/22 08:59 Last Admin: 01/20/22 08:00 Dose: 10 mg Tamsulosin HCl (Tamsulosin Hcl 0.4 Mg Cap) [facility] [place] Stop: 02/13/22 08:59 Last Admin: 01/20/22 08:01 Dose: 0.4 mg
[2022-01-20] MEDS ORDERED: IOVERSOL 350 MG 100mL Prefilled Syringe IV ONE (20:51)
[2022-01-20] MEDS: ENOXAPARIN INJ 40 MG/0.4 ML SYR SQ SCH (21:10)
--- NOTE | 2022-01-20 21:19 | CT Scan Report ---
CT SCAN OF THE ABDOMEN AND PELVIS WITH IV CONTRAST CLINICAL HISTORY: Left-sided abdominal pain. COMPARISON STUDY: Abdominal CT dated 05/03/2021. TECHNIQUE: Following the IV administration of 60 cc of Optiray 350, CT scan of the abdomen and pelvi s is performed from the lung bases to the proximal femora. Images are reviewed in the axial, sagittal , and coronal planes. IV contrast was administered without complication. A dose lowering technique wa s utilized adhering to the principles of ALARA. The examination is degraded by motion artifact and pa tient cachexia. CT DOSE: 286.19 mGy.cm FINDINGS: Lung bases: The heart is normal in size and without pericardial effusion. The coronary artery densely calcified. There is a small hiatal hernia. Metastatic pleural disease is again seen at the left lung base. A small left pleural effusion. A pleural-based lesion on image #19 measures 3.6 cm. A pleural drain is seen on the left. Trace pleural effusion is seen on the right with dependent atelectasis. Th ere is no airspace consolidation seen typical for pneumonia. A calcified granuloma is noted in the ri ght middle lobe. Liver: The contrast-enhanced liver is normal in size, contour, and attenuation. There is no intrahepa tic biliary ductal dilatation. The hepatic veins and portal veins are patent. A 2.3 cm low-attenuatio n lesion is suggested scalloping inferior right lobe of the liver on image #184. Gallbladder: Contracted. Spleen: Normal in size and attenuation. Pancreas: Moderately atrophic and grossly unremarkable. Adrenal glands: Unremarkable. Kidneys: The right kidney is not identified and presumed surgically absent. The left kidney is normal in size without hydronephrosis. A 2.5 cm exophytic cyst arises from the lower pole of the left kidne y. The left kidney enhances homogeneously. Abdominal vasculature: The abdominal aorta is normal in course and caliber noting advanced atheroscle rotic calcification. Bowel: There is rectosigmoid fecal impaction and moderate to severe constipation. There is diffuse ga seous distention of the colon. The cc: measures up to 9 cm diameter. The small bowel loops are normal in caliber. The appendix is partially visualized and normal. Peritoneum: There is mesenteric edema. No intraperitoneal free air or abdominal ascites is identified . Lymphadenopathy: Cardiophrenic lymphadenopathy is again noted. A node on image #59 measures 3.7 x 1.5 cm. No retroperitoneal lymphadenopathy is clearly identified. Pelvic viscera: The prostate gland is mildly enlarged and heterogeneous. The bladder is normal as vis ualized. There is a small fat-containing left inguinal hernia. There is evidence of previous right in guinal herniorrhaphy. Skeletal structures: The skeletal structures are osteopenic. There is mild thoracic spondylosis and s coliosis. There is evidence of multifocal osteolytic metastatic disease. There are numerous left-side d rib lesions (axial images #113, #140, #179, and #180) with associated soft tissue components. There is a large osteolytic lesion with a soft tissue component centered in the posterior 11th rib at the costovertebral junction on axial image #94. The soft tissue component measures 5.2 x 4.7 cm and invad es the left pedicle of T11. This encroaches on the left estimated central canal as seen on image #93 as well as the left T11-T12 neural foramen as seen on image #101. Soft tissues: There is body wall edema. IMPRESSION: 1. There is rectosigmoid fecal impaction and moderate to severe constipation. 2. There is diffuse gaseous distention of the colon. The cecum measures up to 9 mm, and this may repr esent distal colonic obstruction secondary to fecal impaction. Clinical correlation will be required. 3. The small bowel loops are normal in caliber. 4. There is a small left pleural effusion with a left pleural drain in place and evidence of metastat ic pleural disease. This has progressed as compared to 05/03/2021. 5. There is metastatic left cardiophrenic lymphadenopathy. 6. There are osteolytic bone lesions involving left-sided ribs which contain soft tissue components. The largest lesion involves the left posterior rib, and the soft tissue component invades the left as pect of T11. This encroaches upon the left aspect of the thecal sac at this level as well as the left T11-T12 neural foramen. 7. Question a lesion scalloping the inferior right lobe of liver. A hepatic metastasis is not exclude d. 8. Anasarca of the body wall. 9. Additional findings as above. ACT 112: Negative or not required by law. Electronically signed by: Ben Blevins M.D. 01/20/2022 9:16 PM
--- NOTE | 2022-01-20 22:21 | Communication Note ---
Date of Service: January 20, 2022
[2022-01-20] MEDS ORDERED: SODIUM CHLORIDE 0.9% 500 ML IV ONE (22:22)
[2022-01-20] MEDS ORDERED: DOCUSATE SODIUM/SENNA 50/8.6MG TAB PO ONE (22:30)
[2022-01-21] MEDS: CHECK fentaNYL PATCH PLACEMENT SCH ×3 (00:03→15:43)
[2022-01-21] MEDS ORDERED: ALBUMIN 25% 100 mL 25 GM/100 ML VIAL IV ONE (01:31)
[2022-01-21] MEDS: oxyCODONE HCL IR 5 MG TAB (IMMEDIATE RELEASE) PO PRN ×5 (02:46→20:45)
[2022-01-21] MEDS: HYDROmorphone INJ 0.5 MG/0.5 ML SYR IV PRN ×5 (04:06→21:32)
[2022-01-21 05:09] LABS: Basophils # (auto) 0.03 K/uL (0-0.2); Basophils % (auto) 0.5 %; Eosinophils # (auto) 0.15 K/uL (0-0.50); Eosinophils % (auto) 2.3 %; Hematocrit (blood only) 25.8 % (40.1-51.0); Hemoglobin 8.1 g/dl (14.0-18.0); Immature Granulocytes # (auto) 0.03 K/uL (0.00-0.02); Immature Granulocytes % (auto) 0.5 %; Lymphocytes # (auto) 0.44 K/uL (1.2-3.4); Lymphocytes % (auto) 6.7 %; Mean Corpuscular Hemoglobin 30.2 pg (25.0-34.0); Mean Corpuscular Hgb Conc 31.4 g/dL (32.0-36.0); Mean Corpuscular Volume 96.3 fL (80.0-100.0); Mean Platelet Volume 9.8 fL (9.4-12.4); Monocytes # (auto) 0.61 K/uL (0.24-0.82); Monocytes % (auto) 9.3 %; Neutrophils # (auto) 5.33 K/uL (1.4-6.5); Neutrophils % (auto) 80.7 %; Platelet Count 161 K/uL (130-400); RDW Coefficient of Variation 14.4 % (11.5-14.5); RDW Standard Deviation 50.4 fL (36.4-46.3); Red Blood Count 2.68 M/uL (4.63-6.08); White Blood Count 6.59 K/ul (4.8-10.8)
[2022-01-21 05:30] LABS: BUN Creatinine Ratio 20.4 (10-20); Calcium 8.4 mg/dl (8.5-10.1); Creatinine Clr Calc Pharmacy 60.9 ml/min; Est GFR (African American) 79.2 ml/min; Est GFR (Non-African American) 68.3 ml/min; Potassium 4.5 mmol/L (3.5-5.1)
[2022-01-21] MEDS: LEVOTHYROXINE SODIUM 25 MCG TABLET PO SCH (06:15)
[2022-01-21] MEDS: bisacodyL 5 MG TABEC PO SCH (08:33)
[2022-01-21] MEDS: DOCUSATE SODIUM/SENNA 50/8.6MG TAB PO SCH ×2 (08:33→20:44)
[2022-01-21] MEDS: allopurinoL 100 MG TAB PO SCH (08:34)
[2022-01-21] MEDS: lisinopril 10 MG TAB PO SCH (08:35)
[2022-01-21] MEDS: MAGNESIUM OXIDE 400 MG TAB PO SCH (08:35)
[2022-01-21] MEDS: PANTOprazole 40 MG TAB PO SCH (08:35)
[2022-01-21] MEDS: amLODIPine BESYLATE 5 MG TAB PO SCH (08:35)
[2022-01-21] MEDS: TAMSULOSIN HCL 0.4 MG CAP PO SCH (08:35)
[2022-01-21] MEDS: DULoxetine HCL 30 MG CAP PO SCH (08:35)
[2022-01-21] MEDS: GABAPENTIN 600 MG TAB PO SCH (08:35)
[2022-01-21] MEDS: ROSUVASTATIN CALCIUM 10 MG TAB PO SCH (08:36)
[2022-01-21] MEDS: CYANOCOBALAMIN (B-12) 500 MCG TABLET PO SCH (08:36)
[2022-01-21] MEDS: DICLOFENAC SOD 1% GEL 100 GM TUBE EXT SCH ×2 (08:37→20:45)
[2022-01-21] MEDS: METHYLNALTREXONE BROMIDE 12 MG/0.6 ML VIAL SQ SCH (08:38)
[2022-01-21] MEDS: POLYETHYLENE (MIRALAX) 17 GM PACK PO SCH (08:39)
--- NOTE | 2022-01-21 09:10 | Pain Management Progress Note ---
Date of Service January 21, 2022 Assessment & Plan (1) Lung cancer: Laterality: left Lung location: unspecified part of lung Qualified Code(s): C34.92 - Malignant neoplasm of unspecified part of left bronchus or lung (2) Renal cell carcinoma: (3) Non-cardiac chest pain: (4) Pleural effusion on left: Plan 1. For constipation I have added a glycerin suppository which the patient and his state typically helps. If not effective, consider enema. 2. Continue Fentanyl patch at 37 mcg/hr. May need further titration. 3. Continue Cymbalta 30mg daily. 4. Continue Oxycodone 15mg x 4 hours PRN breakthrough pain. 5. Hydromorphone IV if Oxycodone not effective. 6. Continue bowel regimen. Will sign off on the patient. Please contact with any questions or concerns. Admission and Anticipated Discharge Date Admission Date: January 13, 2022 Subjective Mr. Lopez is a 66 year old male with a known history of renal cell cancer with metastatic disease affecting the left lung. There is pain located along the left posterior, lateral, and anterior chest wall. Methadone has been discontinued and he has been placed on fentanyl patch 37 mcg and remains on oxycodone 15 mg every 4 hours. He has used 2 mg of IV Dilaudid over the past 24 hours. Overall he is reporting significant improvement in the chest pain. His predominant pain complaint at this time is of the abdomen. A CT scan has been performed which showed moderate to severe constipation. He is on a bowel regimen of Colace, Senokot, MiraLAX, and Relistor. He describes a cramping pain in the abdomen. Last bowel movement was 2 days ago. Case discussed with Dr. Koki Hannah Physical Exam Physical Exam: General: Patient is awake, alert, and oriented. Patient in no acute distress. Speech and thought process appropriate. Mood and affect appropriate. Cognition intact. Head: Normocephalic and atraumatic. Chest: Patient is minimally tender over the left chest wall. Abdomen: Hard and distended abdomen. No rebound tenderness. No peritoneal signs. Lower extremities: 2+ pitting edema in the lower extremities Neurologic: Cranial nerves grossly intact.
[2022-01-21] MEDS ORDERED: GLYCERIN ADULT 12 SUPP/BOX SUPP PR ONE (09:15)
[2022-01-21] MEDS: ONDANSETRON INJ 2 MG/ML 2 ML VIAL IV PRN (09:56)
[2022-01-21] MEDS: CABOZANTINIB S MALATE 20 MG PO SCH (11:05)
--- NOTE | 2022-01-21 11:23 | Hospitalist Progress Note ---
Date of Service January 21, 2022 Assessment & Plan (1) Hypercalcemia: Plan: per Dr. Hernandez's notes with addendum: This 66-year-old male presents with hypercalcemia, mostly secondary to metastatic right renal cell cancer. Received Zometa on 01/14/2022 IV fluids held secondary to lower extremity edema Calcium level has been improving Calcium is 10.7 as of 01/16/2022 Appreciate nephrology input and recommendation Calcium level has been normalized and ore charger signed off Calcium level is 8.6 today we will monitor for tomorrow Calcium level remains normal 01/21 Ca 8.4 (2) Cancer-related pain: Plan: Metastatic right renal cell cancer-has been under care of oncologist Dr. Melissa- on oral chemotherapy Chronic pain from the cancer. Continue home methadone. Place on IV Dilaudid p.r.n. Consult pain management while in the hospital. Pain management consulted-appreciate input and recommendation Methadone increased to 3 times daily, on IV Dilaudid as well and as needed oxycodone Appreciate pain therapist reevaluation and adjustment of medication Pain seems to reasonably controlled and further adjustment of pain medications will be done tomorrow History of PT and OT evaluation prior to discharge in a day or 2 Still has significant pain and methadone has been discontinued and Fentanyl patch 37 mcg has been on for the last 2 days without much improvement of pain The patch can be increased to 50 to 75 mcg but will need to wait for 2 to 3 days for the methadone to be cleared out of the system The patient is not yet ready to be discharged due to persistence of increased pain 01/21 still having significant pain pain management on board continue Fentanyl patch 37mcg,Oxycodone PO PRN, Dilaudid IV PRN (3) Pleural effusion on left: Plan: History of recurrent right renal cell carcinoma with right-sided mid lung metastasis, status post surgery, radiation, immunotherapy. Currently metastatic lung disease, left pleural effusion, had thoracocentesis in the past. On Cabometyx-.. Pulmonary service consulted 01/14, Pleurx catheter placed drainage to be performed every other day architect manager on board Has been draining adequate amount of fluid Left posterior chest wall pain-minimal swelling locally and tenderness Will try diclofenac cream twice daily Denies any chest pain at the back The pleural fluid is drained by the 01/21 no issues with Pleurex Cath History of chronic obstructive pulmonary disease, past tobacco use. Not in exacerbation. History of hypertension, hyperlipidemia, abdominal aortic aneurysm. Follows up with primary care physician. Continue amlodipine, statin, and lisinopril. Anemia of chronic kidney disease. Hemoglobin 9.4--> 8.1 No signs of active bleeding Monitor closely Chronic kidney disease stage III. Presents with creatinine of 1.1. Deep venous thrombosis prophylaxis, placed on Lovenox. DISPOSITION: Closely monitor in the med-tele. Disposition Anticipate discharge to home with home health services when medically stable Admission and Anticipated Discharge Date Admission Date: January 13, 2022 Subjective ff up for renal cell CA with lung mets, etc seen resting in bed, not in distress, sitting up states pain level is still high no dyspnea, palpitations, dizziness no abdominal pain, nausea no other symptoms Review of Systems Review of Systems: all noted and negative except for above Physical Exam Physical Exam: General- oriented x 3, not in distress, speaks in sentences with no effort or accessory muscle use Eyes- anicteric Neck- no JVD Lungs- clear breath sounds bilaterally, no rales/wheezes (+) pleurex cath on the left Heart- normal rate, regular rhythm; no murmurs Abdomen- normal bowel sounds, nondistended, soft, nontender Extremities-mild pretibial edema, no calf tenderness Neuro- alert, oriented x 3; no gross focal neurologic deficits Skin- warm & dry Results & Data Results & Data ([facility]) Vital Signs (Past 12 Hours) Vital Signs Temp Pulse Pulse Resp BP Pulse Ox O2 Del Method 01/21/22 08:01 36.3 C L 69 20 112/71 96 Room Air 01/21/22 05:27 60 01/21/22 03:00 36.6 C 60 20 124/74 95 Room Air all noted and reviewed including below
[2022-01-21] MEDS: ENOXAPARIN INJ 40 MG/0.4 ML SYR SQ SCH (20:44)
[2022-01-22] MEDS: CHECK fentaNYL PATCH PLACEMENT SCH ×4 (00:44→23:51)
[2022-01-22] MEDS: oxyCODONE HCL IR 5 MG TAB (IMMEDIATE RELEASE) PO PRN ×5 (01:04→23:52)
[2022-01-22] MEDS: HYDROmorphone INJ 0.5 MG/0.5 ML SYR IV PRN ×5 (03:45→23:51)
[2022-01-22] MEDS: LEVOTHYROXINE SODIUM 25 MCG TABLET PO SCH (05:32)
[2022-01-22] MEDS: POLYETHYLENE (MIRALAX) 17 GM PACK PO SCH (08:14)
[2022-01-22] MEDS: lisinopril 10 MG TAB PO SCH (08:15)
[2022-01-22] MEDS: TAMSULOSIN HCL 0.4 MG CAP PO SCH (08:15)
[2022-01-22] MEDS: CYANOCOBALAMIN (B-12) 500 MCG TABLET PO SCH (08:16)
[2022-01-22] MEDS: GABAPENTIN 600 MG TAB PO SCH (08:16)
[2022-01-22] MEDS: MAGNESIUM OXIDE 400 MG TAB PO SCH (08:16)
[2022-01-22] MEDS: ROSUVASTATIN CALCIUM 10 MG TAB PO SCH (08:16)
[2022-01-22] MEDS: allopurinoL 100 MG TAB PO SCH (08:16)
[2022-01-22] MEDS: PANTOprazole 40 MG TAB PO SCH (08:16)
[2022-01-22] MEDS: DOCUSATE SODIUM/SENNA 50/8.6MG TAB PO SCH ×2 (08:17→20:52)
[2022-01-22] MEDS: amLODIPine BESYLATE 5 MG TAB PO SCH (08:17)
[2022-01-22] MEDS: DULoxetine HCL 30 MG CAP PO SCH (08:17)
[2022-01-22] MEDS: bisacodyL 5 MG TABEC PO SCH (08:18)
[2022-01-22] MEDS: DICLOFENAC SOD 1% GEL 100 GM TUBE EXT SCH ×2 (08:23→20:52)
[2022-01-22] MEDS ORDERED: fentaNYL 50 MCG/HR TDSY TD STA (10:29)
[2022-01-22 11:46] LABS: Basophils # (auto) 0.03 K/uL (0-0.2); Basophils % (auto) 0.5 %; Eosinophils # (auto) 0.07 K/uL (0-0.50); Eosinophils % (auto) 1.3 %; Hematocrit (blood only) 28.1 % (40.1-51.0); Hemoglobin 8.8 g/dl (14.0-18.0); Immature Granulocytes # (auto) 0.04 K/uL (0.00-0.02); Immature Granulocytes % (auto) 0.7 %; Lymphocytes # (auto) 0.48 K/uL (1.2-3.4); Lymphocytes % (auto) 8.6 %; Mean Corpuscular Hemoglobin 30.4 pg (25.0-34.0); Mean Corpuscular Hgb Conc 31.3 g/dL (32.0-36.0); Mean Corpuscular Volume 97.2 fL (80.0-100.0); Mean Platelet Volume 10.8 fL (9.4-12.4); Monocytes # (auto) 0.36 K/uL (0.24-0.82); Monocytes % (auto) 6.4 %; Neutrophils # (auto) 4.62 K/uL (1.4-6.5); Neutrophils % (auto) 82.5 %; Platelet Count 140 K/uL (130-400); RDW Coefficient of Variation 14.4 % (11.5-14.5); RDW Standard Deviation 51.3 fL (36.4-46.3); Red Blood Count 2.89 M/uL (4.63-6.08)
[2022-01-22] MEDS: D5W AND NSS 1,000 ML IV SCH (11:55)
[2022-01-22] MEDS: CABOZANTINIB S MALATE 20 MG PO SCH (11:57)
[2022-01-22 12:09] LABS: BUN Creatinine Ratio 19.4 (10-20); Calcium 8.2 mg/dl (8.5-10.1); Creatinine Clr Calc Pharmacy 61.7 ml/min; Est GFR (African American) 83.6 ml/min; Est GFR (Non-African American) 72.2 ml/min; Potassium 4.2 mmol/L (3.5-5.1)
--- NOTE | 2022-01-22 14:40 | XRay Report ---
XR chest 1V portable CLINICAL HISTORY: ff up left pleural effusion COMPARISON STUDY: None available at time of interpretation due to PACS downtime. FINDINGS: A left basilar pleural catheter is in place. There is no pneumothorax. A small left pleural effusion is noted with left basilar opacity. Volume loss is noted with elevation of the left hemidia phragm. Right lung is clear. No evidence for pulmonary edema. There is no right pleural effusion. IMPRESSION: Left basilar pleural catheter in place with a small left pleural effusion and left basil ar opacity with volume loss. ACT 112: Negative or not required by law. Electronically signed by: Kadeem Mary M.D. 01/22/2022 2:39 PM
--- NOTE | 2022-01-22 17:52 | Hospitalist Progress Note ---
Date of Service January 22, 2022 Assessment & Plan (1) Hypercalcemia: Plan: per Dr. Hernandez's notes with addendum: This 66-year-old male presents with hypercalcemia, mostly secondary to metastatic right renal cell cancer. Received Zometa on 01/14/2022 IV fluids held secondary to lower extremity edema Calcium level has been improving Calcium is 10.7 as of 01/16/2022 Appreciate nephrology input and recommendation Calcium level has been normalized and anaesthetic technician signed off Calcium level is 8.6 today we will monitor for tomorrow Calcium level remains normal 01/22 Calcium 8.2 (2) Cancer-related pain: Plan: Metastatic right renal cell cancer-has been under care of oncologist Dr. Melissa- on oral chemotherapy Chronic pain from the cancer. Continue home methadone. Place on IV Dilaudid p.r.n. Consult pain management while in the hospital. Pain management consulted-appreciate input and recommendation Methadone increased to 3 times daily, on IV Dilaudid as well and as needed oxycodone Appreciate pain therapist reevaluation and adjustment of medication Pain seems to reasonably controlled and further adjustment of pain medications will be done tomorrow History of PT and OT evaluation prior to discharge in a day or 2 Still has significant pain and methadone has been discontinued and Fentanyl patch 37 mcg has been on for the last 2 days without much improvement of pain The patch can be increased to 50 to 75 mcg but will need to wait for 2 to 3 days for the methadone to be cleared out of the system The patient is not yet ready to be discharged due to persistence of increased pain 01/22 still having significant pain pain management on board Increase Fentanyl patch from 37, now 50 mcg,Oxycodone PO PRN, Dilaudid IV PRN (3) Pleural effusion on left: Plan: History of recurrent right renal cell carcinoma with right-sided mid lung metastasis, status post surgery, radiation, immunotherapy. Currently metastatic lung disease, left pleural effusion, had thoracocentesis in the past. On Cabometyx-.. Pulmonary service consulted 01/14, Pleurx catheter placed drainage to be performed every other day poultry farm manager on board Has been draining adequate amount of fluid Left posterior chest wall pain-minimal swelling locally and tenderness Will try diclofenac cream twice daily Denies any chest pain at the back The pleural fluid is drained by the 01/22 Repeat chest x-ray: Small left pleural effusion no issues with Pleurex Cath History of chronic obstructive pulmonary disease, past tobacco use. Not in exacerbation. History of hypertension, hyperlipidemia, abdominal aortic aneurysm. Follows up with primary care physician. Continue amlodipine, statin, and lisinopril. Anemia of chronic kidney disease. Hemoglobin 9.4--> 8.8 No signs of active bleeding Monitor closely Chronic kidney disease stage III. Presents with creatinine of 1.1. --Stable Deep venous thrombosis prophylaxis, placed on Lovenox. DISPOSITION: Closely monitor in the med-tele. Disposition May need [facility] facility plan of care discussed with patient and his Jeannie in detail and at length all questions answered They are understanding, agreeable, comfortable with the plan of care Admission and Anticipated Discharge Date Admission Date: January 13, 2022 Subjective Follow-up for renal cell carcinoma with lung mets, pleural effusion, etc. Seen sitting up in bed, comfortable not in distress, drowsy but able to answer questions appropriately Patient's Jeannie at the bedside visiting Patient states he still having significant pain over the left lung area Pain level 7-9 out of 10 constantly No shortness of breath Poor appetite, since yesterday Abdominal pain No other symptom Review of Systems Review of Systems: all noted and negative except for above Physical Exam Physical Exam: General- oriented x 3, not in distress, speaks in sentences with no effort or accessory muscle use Appears weak, drowsy Eyes- anicteric Neck- no JVD Lungs- clear breath sounds bilaterally, no crackles or wheezing Heart- normal rate, regular rhythm; no murmurs Abdomen- normal bowel sounds, nondistended, soft, nontender Extremities-mild pretibial edema, no calf tenderness Neuro- alert, oriented x 3; no gross focal neurologic deficits Skin- warm & dry Results & Data Results & Data ([facility]) Vital Signs (Past 12 Hours) Vital Signs Temp Pulse Pulse Resp BP Pulse Ox O2 Del Method 01/22/22 15:37 36.8 C 68 16 110/66 96 Room Air 01/22/22 11:16 36.6 C 73 16 108/64 95 Room Air 01/22/22 08:00 69 01/22/22 08:00 Room Air 01/22/22 07:33 36.4 C L 70 17 114/71 97 Room Air all noted and reviewed including below
[2022-01-22] MEDS: ENOXAPARIN INJ 40 MG/0.4 ML SYR SQ SCH (19:37)
[2022-01-23] MEDS: HYDROmorphone INJ 0.5 MG/0.5 ML SYR IV PRN ×9 (04:31→22:04)
[2022-01-23] MEDS: oxyCODONE HCL IR 5 MG TAB (IMMEDIATE RELEASE) PO PRN ×5 (04:31→22:04)
[2022-01-23] MEDS: D5W AND NSS 1,000 ML IV SCH ×2 (04:37→20:43)
[2022-01-23] MEDS: LEVOTHYROXINE SODIUM 25 MCG TABLET PO SCH (04:40)
[2022-01-23 05:57] LABS: Creatinine Clr Calc Pharmacy 63.7 ml/min; Est GFR (African American) 84.6 ml/min
[2022-01-23] MEDS: DULoxetine HCL 30 MG CAP PO SCH (07:40)
[2022-01-23] MEDS: PANTOprazole 40 MG TAB PO SCH (07:42)
[2022-01-23] MEDS: ROSUVASTATIN CALCIUM 10 MG TAB PO SCH (07:43)
[2022-01-23] MEDS: MAGNESIUM OXIDE 400 MG TAB PO SCH (07:43)
[2022-01-23] MEDS: DOCUSATE SODIUM/SENNA 50/8.6MG TAB PO SCH ×2 (07:43→22:03)
[2022-01-23] MEDS: CYANOCOBALAMIN (B-12) 500 MCG TABLET PO SCH (07:43)
[2022-01-23] MEDS: GABAPENTIN 600 MG TAB PO SCH (07:43)
[2022-01-23] MEDS: TAMSULOSIN HCL 0.4 MG CAP PO SCH (07:44)
[2022-01-23] MEDS: allopurinoL 100 MG TAB PO SCH (07:44)
[2022-01-23] MEDS: POLYETHYLENE (MIRALAX) 17 GM PACK PO SCH (07:44)
[2022-01-23] MEDS: CHECK fentaNYL PATCH PLACEMENT SCH ×2 (08:55→16:05)
[2022-01-23] MEDS: DICLOFENAC SOD 1% GEL 100 GM TUBE EXT SCH ×2 (08:56→20:43)
[2022-01-23] MEDS: CABOZANTINIB S MALATE 20 MG PO SCH (11:14)
[2022-01-23] MEDS: METHYLNALTREXONE BROMIDE 12 MG/0.6 ML VIAL SQ SCH (11:34)
[2022-01-23] MEDS: bisacodyL 5 MG TABEC PO SCH (11:34)
--- NOTE | 2022-01-23 17:52 | Hospitalist Progress Note ---
Date of Service January 23, 2022 Assessment & Plan (1) Hypercalcemia: Plan: per Dr. Hernandez's notes with addendum: This 66-year-old male presents with hypercalcemia, mostly secondary to metastatic right renal cell cancer. Received Zometa on 01/14/2022 IV fluids held secondary to lower extremity edema Calcium level has been improving Calcium is 10.7 as of 01/16/2022 Appreciate nephrology input and recommendation Calcium level has been normalized and steam heating installer signed off Calcium level is 8.6 today we will monitor for tomorrow Calcium level remains normal 01/23 Calcium 8.2 (2) Cancer-related pain: Plan: Metastatic right renal cell cancer-has been under care of oncologist Dr. Melissa- on oral chemotherapy Chronic pain from the cancer. Continue home methadone. Place on IV Dilaudid p.r.n. Consult pain management while in the hospital. Pain management consulted-appreciate input and recommendation Methadone increased to 3 times daily, on IV Dilaudid as well and as needed oxycodone Appreciate pain therapist reevaluation and adjustment of medication Pain seems to reasonably controlled and further adjustment of pain medications will be done tomorrow History of PT and OT evaluation prior to discharge in a day or 2 Still has significant pain and methadone has been discontinued and Fentanyl patch 37 mcg has been on for the last 2 days without much improvement of pain The patch can be increased to 50 to 75 mcg but will need to wait for 2 to 3 days for the methadone to be cleared out of the system The patient is not yet ready to be discharged due to persistence of increased pain 01/23 Pain improving Pain management on board Fentanyl patch now 50 mcg,Oxycodone PO PRN, Dilaudid IV PRN (3) Pleural effusion on left: Plan: History of recurrent right renal cell carcinoma with right-sided mid lung metastasis, status post surgery, radiation, immunotherapy. Currently metastatic lung disease, left pleural effusion, had thoracocentesis in the past. On Cabometyx-.. Pulmonary service consulted 01/14, Pleurx catheter placed drainage to be performed every other day executive meeting manager on board Has been draining adequate amount of fluid Left posterior chest wall pain-minimal swelling locally and tenderness Will try diclofenac cream twice daily Denies any chest pain at the back The pleural fluid is drained by the 01/23 Repeat chest x-ray: Small left pleural effusion no issues with Pleurex Cath History of chronic obstructive pulmonary disease, past tobacco use. Not in exacerbation. History of hypertension, hyperlipidemia, abdominal aortic aneurysm. Follows up with primary care physician. Continue amlodipine, statin, and lisinopril. Anemia of chronic kidney disease. Hemoglobin 9.4--> 8.8 No signs of active bleeding Monitor closely Chronic kidney disease stage III. Presents with creatinine of 1.1. --Stable Deep venous thrombosis prophylaxis, placed on Lovenox. DISPOSITION: Closely monitor in the med-tele. Disposition May need [facility] facility plan of care discussed with patient and his Jeannie in detail and at length all questions answered They are understanding, agreeable, comfortable with the plan of care Admission and Anticipated Discharge Date Admission Date: January 13, 2022 Subjective Follow-up for hypercalcemia, etc. Seen resting in bed, not in distress, comfortable States he feels improved today overall Pain is more manageable No shortness of breath No other new symptoms Patient's family at the bedside visiting Review of Systems Review of Systems: all noted and negative except for above Physical Exam Physical Exam: General- oriented x 3, not in distress, speaks in sentences with no effort or accessory muscle use Eyes- anicteric Neck- no JVD Lungs- clear breath sounds bilaterally, no rales/wheezes Heart- normal rate, regular rhythm; no murmurs Abdomen- normal bowel sounds, nondistended, soft, nontender Extremities- no pretibial edema, no calf tenderness Neuro- alert, oriented x 3; no gross focal neurologic deficits Skin- warm & dry Results & Data Results & Data ([facility]) Vital Signs (Past 12 Hours) Vital Signs Temp Pulse Pulse Resp BP Pulse Ox O2 Del Method 01/23/22 16:00 36.4 C L 55 L 16 107/71 96 Room Air 01/23/22 11:56 36.5 C 60 16 97/60 L 97 Room Air 01/23/22 09:50 54 L 01/23/22 06:52 36.8 C 63 16 131/74 96 Room Air all noted and reviewed including below
[2022-01-23] MEDS: ENOXAPARIN INJ 40 MG/0.4 ML SYR SQ SCH (22:03)
[2022-01-24] MEDS: HYDROmorphone INJ 0.5 MG/0.5 ML SYR IV PRN ×11 (00:06→23:11)
[2022-01-24] MEDS: CHECK fentaNYL PATCH PLACEMENT SCH ×4 (00:06→23:50)
[2022-01-24] MEDS: oxyCODONE HCL IR 5 MG TAB (IMMEDIATE RELEASE) PO PRN ×6 (02:06→22:40)
[2022-01-24] MEDS: ACETAMINOPHEN 325 MG TAB PO PRN ×2 (05:44→23:49)
[2022-01-24] MEDS: LEVOTHYROXINE SODIUM 25 MCG TABLET PO SCH (06:04)
[2022-01-24] MEDS: DULoxetine HCL 30 MG CAP PO SCH (07:56)
[2022-01-24] MEDS: POLYETHYLENE (MIRALAX) 17 GM PACK PO SCH (07:56)
[2022-01-24] MEDS: PANTOprazole 40 MG TAB PO SCH (07:56)
[2022-01-24] MEDS: MAGNESIUM OXIDE 400 MG TAB PO SCH (07:56)
[2022-01-24] MEDS: DOCUSATE SODIUM/SENNA 50/8.6MG TAB PO SCH ×2 (07:56→22:36)
[2022-01-24] MEDS: GABAPENTIN 600 MG TAB PO SCH (07:56)
[2022-01-24] MEDS: TAMSULOSIN HCL 0.4 MG CAP PO SCH (07:56)
[2022-01-24] MEDS: ROSUVASTATIN CALCIUM 10 MG TAB PO SCH (07:56)
[2022-01-24] MEDS: CYANOCOBALAMIN (B-12) 500 MCG TABLET PO SCH (07:57)
[2022-01-24] MEDS: DICLOFENAC SOD 1% GEL 100 GM TUBE EXT SCH ×2 (07:57→22:35)
[2022-01-24] MEDS: allopurinoL 100 MG TAB PO SCH (07:57)
[2022-01-24] MEDS: CABOZANTINIB S MALATE 20 MG PO SCH (10:06)
[2022-01-24] MEDS: bisacodyL 5 MG TABEC PO SCH (10:07)
[2022-01-24] MEDS: D5W AND NSS 1,000 ML IV SCH (10:07)
--- NOTE | 2022-01-24 12:57 | Pain Management Progress Note ---
Date of Service January 24, 2022 Assessment & Plan (1) Lung cancer: Laterality: left Lung location: unspecified part of lung Qualified Code(s): C34.92 - Malignant neoplasm of unspecified part of left bronchus or lung (2) Renal cell carcinoma: (3) Non-cardiac chest pain: (4) Pleural effusion on left: Plan 1. Will discontinue Fentanyl 50 mcg and transition to 100 mcg/h based on his utilization of IV hydromorphone and Oxy IR over the past 24 hours 2. Continue Cymbalta 30mg daily. 3. Continue Oxycodone 15mg x 4 hours PRN breakthrough pain. Patient was again encouraged to utilize the oral oxycodone prior to utilizing IV hydromorphone 4. Continue with hydromorphone IV if Oxycodone not effective. 5. Will continue to follow. Admission and Anticipated Discharge Date Admission Date: January 13, 2022 Subjective Mr. Lopez is a 66-year-old white male with known history of renal cell cancer diagnosed 4 to 5 years ago with metastatic disease affecting the left lung with ongoing pain complaints affecting the left posterior, lateral and anterior chest wall region. Patient's continues with poor pain control. Patient was transitioned to fentanyl transdermal patch initially at 37 mcg dose late last week which was increased to 50 mcg approximately 36-48 hours ago. He continues with Oxy IR 15 mg every 4 hours for breakthrough pain (90 mg in past 24 hours) and hydromorphone 0.5 mg every 2 hours (6 mg in past 24 hours). Patient is reporting a slight improvement in his overall pain over the past 24 hours. His pain is currently a 7-8/10. His pain is not as sharp and stabbing as it had been. Patient has been able to lie supine more frequently which was previously more difficult due to increased pain. Patient did have bowel movement yesterday and reports minimal abdominal discomfort/fullness. Patient reports that he is not nauseated. Patient has no further constitutional complaints at this time. Plan of care discussed with Dr. Garcia. Physical Exam Physical Exam: General: Patient sleeping upon entering the room. Patient was easily arousable. Patient in no acute distress. Speech and thought process appropriate. Mood and affect appropriate. Cognition intact. Patient's was present during today's visit. Head: Normocephalic and atraumatic. Chest: Patient is minimally tender over the entire left anterior, lateral and posterior mid and lower chest wall from approximately the nipple line distally to the costal margin predominantly lateral and posterior during today's evaluation. Patient is tender with AP and lateral compression of the left chest wall. There is no visible abnormalities or skin breakdown. Abdomen: Soft and nondistended. No organomegaly. Bowel sounds active. Patient is moderately tender left upper quadrant to direct palpation. Neurologic: Cranial nerves grossly intact. Ambulatory function not witnessed.
[2022-01-24] MEDS: fentaNYL 100 MCG/HR TDSY TD SCH (14:12)
--- NOTE | 2022-01-24 15:15 | Hospitalist Progress Note ---
Date of Service January 24, 2022 Assessment & Plan (1) Hypercalcemia: Plan: per Dr. Hernandez's notes with addendum: This 66-year-old male presents with hypercalcemia, mostly secondary to metastatic right renal cell cancer. Received Zometa on 01/14/2022 IV fluids held secondary to lower extremity edema Calcium level has been improving Calcium is 10.7 as of 01/16/2022 Appreciate nephrology input and recommendation Calcium level has been normalized and telephone order supervisor signed off Calcium level is 8.6 today we will monitor for tomorrow Calcium level remains normal 01/23 Calcium 8.2 (2) Cancer-related pain: Plan: Metastatic right renal cell cancer-has been under care of oncologist Dr. Melissa- on oral chemotherapy Chronic pain from the cancer. Has intractable pain mostly on the left chest wall, known site of left pleural effusion, pleural Metastasis Transitionedfrom methadone to fentanyl patch 01/24 Pain management on board Fentanyl being uptitrated Now increased to 100 mcg daily Continue oxycodone PO PRN, Dilaudid IV PRN (3) Pleural effusion on left: Plan: History of recurrent right renal cell carcinoma with right-sided mid lung metastasis, status post surgery, radiation, immunotherapy. Currently metastatic lung disease, left pleural effusion, had thoracocentesis in the past. On Cabometyx-.. Pulmonary service consulted 01/14, Pleurx catheter placed drainage to be performed every other day per pulmonary service The pleural fluid is drained by the 01/24 Repeat chest x-ray: Small left pleural effusion no issues with Pleurex Cath History of chronic obstructive pulmonary disease, past tobacco use. Not in exacerbation. History of hypertension, hyperlipidemia, abdominal aortic aneurysm. Follows up with primary care physician. Continue amlodipine, statin, and lisinopril. Anemia of chronic kidney disease. Hemoglobin 9.4--> 8.8 No signs of active bleeding Monitor closely Chronic kidney disease stage III. Presents with creatinine of 1.1. --Stable Deep venous thrombosis prophylaxis, placed on Lovenox. DISPOSITION: Closely monitor in the med-tele. Disposition May need group home facility plan of care discussed with patient and his Jeannie in detail and at length all questions answered They are understanding, agreeable, comfortable with the plan of care Admission and Anticipated Discharge Date Admission Date: January 13, 2022 Subjective Follow-up renal cell carcinoma with lung mets to the left lower lobe, etc. Resting in bed, sleeping but easily awakened Not in distress States pain is somewhat better, but still significant No shortness of breath No other new symptoms Review of Systems Review of Systems: all noted and negative except for above Physical Exam Physical Exam: General- oriented x 3, not in distress, speaks in sentences with no effort or accessory muscle use Eyes- anicteric Neck- no JVD Lungs-minimal rales left lung base, clear on the right No wheezing Heart- normal rate, regular rhythm; no murmurs Abdomen- normal bowel sounds, nondistended, soft, nontender Extremities- trace pretibial edema, no calf tenderness Neuro- alert, oriented x 3; no gross focal neurologic deficits Skin- warm & dry Results & Data Results & Data ([facility]) Vital Signs (Past 12 Hours) Vital Signs Temp Pulse Pulse Resp BP Pulse Ox O2 Del Method 01/24/22 11:29 36.5 C 56 L 16 114/68 95 Room Air 01/24/22 08:00 62 01/24/22 07:00 36.4 C L 59 L 18 134/81 97 Room Air all noted and reviewed including below
[2022-01-24] MEDS: ENOXAPARIN INJ 40 MG/0.4 ML SYR SQ SCH (22:40)
[2022-01-25] MEDS: HYDROmorphone INJ 0.5 MG/0.5 ML SYR IV PRN ×10 (01:10→21:57)
[2022-01-25] MEDS: D5W AND NSS 1,000 ML IV SCH (02:49)
[2022-01-25] MEDS: oxyCODONE HCL IR 5 MG TAB (IMMEDIATE RELEASE) PO PRN ×5 (02:52→21:58)
[2022-01-25] MEDS: LEVOTHYROXINE SODIUM 25 MCG TABLET PO SCH (02:54)
[2022-01-25] MEDS: POLYETHYLENE (MIRALAX) 17 GM PACK PO SCH (07:17)
[2022-01-25] MEDS: DOCUSATE SODIUM/SENNA 50/8.6MG TAB PO SCH ×2 (07:19→20:13)
[2022-01-25] MEDS: DULoxetine HCL 30 MG CAP PO SCH (07:20)
[2022-01-25] MEDS: GABAPENTIN 600 MG TAB PO SCH (07:20)
[2022-01-25] MEDS: CYANOCOBALAMIN (B-12) 500 MCG TABLET PO SCH (07:20)
[2022-01-25] MEDS: allopurinoL 100 MG TAB PO SCH (07:20)
[2022-01-25] MEDS: MAGNESIUM OXIDE 400 MG TAB PO SCH (07:20)
[2022-01-25] MEDS: PANTOprazole 40 MG TAB PO SCH (07:20)
[2022-01-25] MEDS: TAMSULOSIN HCL 0.4 MG CAP PO SCH (07:20)
[2022-01-25] MEDS: ROSUVASTATIN CALCIUM 10 MG TAB PO SCH (07:20)
[2022-01-25] MEDS: METHYLNALTREXONE BROMIDE 12 MG/0.6 ML VIAL SQ SCH (07:24)
[2022-01-25] MEDS: bisacodyL 5 MG TABEC PO SCH (07:25)
[2022-01-25] MEDS: DICLOFENAC SOD 1% GEL 100 GM TUBE EXT SCH ×2 (07:25→20:12)
[2022-01-25] MEDS: CHECK fentaNYL PATCH PLACEMENT SCH ×2 (07:26→17:05)
--- NOTE | 2022-01-25 09:18 | Pain Management Progress Note ---
Date of Service January 25, 2022 Assessment & Plan (1) Lung cancer: Laterality: left Lung location: unspecified part of lung Qualified Code(s): C34.92 - Malignant neoplasm of unspecified part of left bronchus or lung (2) Renal cell carcinoma: (3) Non-cardiac chest pain: (4) Pleural effusion on left: Plan 1. Continue Fentanyl 100mcg. No changes made today as it has been less than 24 hours since the last dose increase. Medication has not yet taken full effect. 2. Continue Cymbalta 30mg daily. 3. Continue Oxycodone 15mg x 4 hours PRN breakthrough pain. Patient was again encouraged to utilize the oral oxycodone prior to utilizing IV hydromorphone 4. Continue with hydromorphone IV if Oxycodone not effective. 5. Continue bowel regimen. Will follow up tomorrow. Admission and Anticipated Discharge Date Admission Date: January 13, 2022 Subjective Mr. Lopez is a 66-year-old white male with known history of renal cell cancer diagnosed 4 to 5 years ago with metastatic disease affecting the left lung with ongoing pain complaints affecting the left posterior, lateral and anterior chest wall region. Patient reports pain control. Yesterday the Fentanyl patch was increased from 50 to 100mcg/hr. He continues with Oxy IR 15 mg every 4 hours for breakthrough pain (90 mg in past 24 hours) and hydromorphone 0.5 mg every 2 hours (5 mg in past 24 hours). Patient is reporting a slight improvement in his overall pain over the past 24 hours. His pain is currently a 5-6/10. He has been having daily bowel movements and his abdomen is no longer distended. Patient has no further constitutional complaints at this time. Plan of care discussed with Dr. Garcia. Physical Exam Physical Exam: General: Patient is awake, alert, and oriented. Patient in no acute distress. Speech and thought process appropriate. Mood and affect appropriate. Cognition intact. Accompanied by his eating breakfast. Head: Normocephalic and atraumatic. Chest: Patient is minimally tender over the left chest wall. Abdomen: Soft abdomen. No rebound tenderness. No peritoneal signs. Lower extremities: 1+ pitting edema in the lower extremities Neurologic: Cranial nerves grossly intact.
[2022-01-25] MEDS: CABOZANTINIB S MALATE 20 MG PO SCH (10:09)
--- NOTE | 2022-01-25 13:41 | Hospitalist Progress Note ---
Date of Service January 25, 2022 Assessment & Plan (1) Hypercalcemia: Plan: per Dr. Hernandez's notes with addendum: This 66-year-old male presents with hypercalcemia, mostly secondary to metastatic right renal cell cancer. Received Zometa on 01/14/2022 Given IV fluids Nephrology service consulted, signed off -- Hypercalcemia resolved (2) Cancer-related pain: Plan: Metastatic right renal cell cancer-has been under care of oncologist Dr. Melissa- on oral chemotherapy Chronic pain from the cancer. Has intractable pain mostly on the left chest wall, known site of left pleural effusion, pleural Metastasis Transitionedfrom methadone to fentanyl patch 01/25 Pain management on board Fentanyl being uptitrated increased to 100 mcg daily yesterday Continue oxycodone PO PRN, Dilaudid IV PRN (3) Pleural effusion on left: Plan: History of recurrent right renal cell carcinoma with right-sided mid lung metastasis, status post surgery, radiation, immunotherapy. Currently metastatic lung disease, left pleural effusion, had thoracocentesis in the past. On Cabometyx-.. Pulmonary service consulted 01/14, Pleurx catheter placed 01/25 Repeat chest x-ray: Small left pleural effusion no issues with Pleurex Cath Pleurx cath drained by patient's every 2 to 3 days at the bedside History of chronic obstructive pulmonary disease, past tobacco use. Not in exacerbation. History of hypertension, hyperlipidemia, abdominal aortic aneurysm. Follows up with primary care physician. Continue amlodipine, statin, and lisinopril. Anemia of chronic kidney disease. Hemoglobin 9.4--> 8.8 No signs of active bleeding Monitor closely Chronic kidney disease stage III. Presents with creatinine of 1.1. --Stable Deep venous thrombosis prophylaxis, placed on Lovenox. DISPOSITION: Closely monitor in the med-tele. Disposition May need [facility] facility plan of care discussed with patient and his Jeannie in detail and at length all questions answered They are understanding, agreeable, comfortable with the plan of care Admission and Anticipated Discharge Date Admission Date: January 13, 2022 Subjective Follow-up for renal cell CA with left lung mets, pleural effusion, etc. Per RN, patient seems to be doing better today, able to ambulate to the bathroom Seen resting in bed, sitting up, not in distress States he feels somewhat improved today Pain is still significant but seems to be better controlled Appetite is okay Tolerating diet well No other symptom Review of Systems Review of Systems: all noted and negative except for above Physical Exam Physical Exam: General- oriented x 3, not in distress, speaks in sentences with no effort or accessory muscle use Eyes- anicteric Neck- no JVD Lungs- clear breath sounds bilaterally, no crackles Pleurx catheter on the left chest wall Heart- normal rate, regular rhythm; no murmurs Abdomen- normal bowel sounds, nondistended, soft, nontender Extremities- no pretibial edema, no calf tenderness Neuro- alert, oriented x 3; no gross focal neurologic deficits Skin- warm & dry Results & Data Results & [facility] ([facility]) Vital Signs (Past 12 Hours) Vital Signs Temp Pulse Pulse Resp BP Pulse Ox O2 Del Method 01/25/22 11:42 36.4 C L 61 16 119/70 96 Room Air 01/25/22 08:00 55 L 01/25/22 07:18 36.4 C L 61 17 161/76 H 97 Room Air 01/25/22 03:00 36.5 C 61 14 151/79 H 96 Room Air all noted and reviewed including below
[2022-01-25] MEDS: ENOXAPARIN INJ 40 MG/0.4 ML SYR SQ SCH (20:12)
[2022-01-26] MEDS: HYDROmorphone INJ 0.5 MG/0.5 ML SYR IV PRN ×10 (00:14→22:33)
[2022-01-26] MEDS: CHECK fentaNYL PATCH PLACEMENT SCH ×4 (00:17→15:10)
[2022-01-26] MEDS: oxyCODONE HCL IR 5 MG TAB (IMMEDIATE RELEASE) PO PRN ×5 (02:06→20:22)
[2022-01-26] MEDS: LEVOTHYROXINE SODIUM 25 MCG TABLET PO SCH (04:34)
[2022-01-26 06:51] LABS: Creatinine Clr Calc Pharmacy 73.7 ml/min; Est GFR (African American) 98.9 ml/min; Est GFR (Non-African American) 85.3 ml/min
[2022-01-26] MEDS: allopurinoL 100 MG TAB PO SCH (08:11)
[2022-01-26] MEDS: CYANOCOBALAMIN (B-12) 500 MCG TABLET PO SCH (08:12)
[2022-01-26] MEDS: DOCUSATE SODIUM/SENNA 50/8.6MG TAB PO SCH ×2 (08:13→20:37)
[2022-01-26] MEDS: DULoxetine HCL 30 MG CAP PO SCH (08:13)
[2022-01-26] MEDS: GABAPENTIN 600 MG TAB PO SCH (08:13)
[2022-01-26] MEDS: lisinopril 10 MG TAB PO SCH (08:13)
[2022-01-26] MEDS: DICLOFENAC SOD 1% GEL 100 GM TUBE EXT SCH ×2 (08:13→20:38)
[2022-01-26] MEDS: TAMSULOSIN HCL 0.4 MG CAP PO SCH (08:14)
[2022-01-26] MEDS: PANTOprazole 40 MG TAB PO SCH (08:14)
[2022-01-26] MEDS: MAGNESIUM OXIDE 400 MG TAB PO SCH (08:14)
[2022-01-26] MEDS: POLYETHYLENE (MIRALAX) 17 GM PACK PO SCH (08:14)
[2022-01-26] MEDS: ROSUVASTATIN CALCIUM 10 MG TAB PO SCH (08:14)
[2022-01-26] MEDS: bisacodyL 5 MG TABEC PO SCH (08:17)
--- NOTE | 2022-01-26 08:47 | Pain Management Progress Note ---
Date of Service January 26, 2022 Assessment & Plan (1) Lung cancer: Laterality: left Lung location: unspecified part of lung Qualified Code(s): C34.92 - Malignant neoplasm of unspecified part of left bronchus or lung (2) Renal cell carcinoma: (3) Non-cardiac chest pain: (4) Pleural effusion on left: Plan 1. Fentanyl has been increased to 125mcg/hr. 2. Continue Cymbalta 30mg daily. 3. Continue Oxycodone 15mg x 4 hours PRN breakthrough pain. Patient was again encouraged to utilize the oral oxycodone prior to utilizing IV hydromorphone 4. Continue with hydromorphone IV if Oxycodone not effective. 5. Continue bowel regimen. Will follow up tomorrow. Admission and Anticipated Discharge Date Admission Date: January 13, 2022 Subjective Mr. Lopez is a 66-year-old white male with known history of renal cell cancer diagnosed 4 to 5 years ago with metastatic disease affecting the left lung with ongoing pain complaints affecting the left posterior, lateral and anterior chest wall region. Patient reports pain control. Two days ago the Fentanyl patch was increased from 50 to 100mcg/hr. He continues with Oxy IR 15 mg every 4 hours for breakthrough pain (90 mg in past 24 hours) and hydromorphone 0.5 mg every 2 hours (6 mg in past 24 hours). Patient is reporting poor pain relief today. The pain along the left side of the chest is causing difficulty sleeping. His pain is currently an 8/10. He has been having daily bowel movements and his abdomen is no longer distended. Patient has no further constitutional complaints at this time. Plan of care discussed with Dr. Garcia. Physical Exam Physical Exam: General: Patient is awake, alert, and oriented. Patient is laying supine in the hospital bed in moderate pain. Speech and thought process appropriate. Mood and affect appropriate. Cognition intact. Head: Normocephalic and atraumatic. Chest: Patient is minimally tender over the left chest wall. Abdomen: Soft abdomen. No rebound tenderness. No peritoneal signs. Lower extremities: 1+ pitting edema in the lower extremities Neurologic: Cranial nerves grossly intact.
[2022-01-26] MEDS: ACETAMINOPHEN 325 MG TAB PO PRN (08:52)
[2022-01-26] MEDS ORDERED: fentaNYL 25 MCG/HR TDSY TD SCH (09:00)
[2022-01-26] MEDS: CABOZANTINIB S MALATE 20 MG PO SCH (10:08)
--- NOTE | 2022-01-26 13:44 | Hospitalist Progress Note ---
Date of Service January 26, 2022 Assessment & Plan (1) Cancer-related pain: Plan: Metastatic right renal cell cancer-has been under care of oncologist Dr. Melissa- on oral chemotherapy Chronic pain from the cancer. Has intractable pain mostly on the left chest wall, known site of left pleural effusion, pleural Metastasis Transitionedfrom methadone to fentanyl patch Pain management on board Fentanyl being uptitrated Continue oxycodone PO PRN, Dilaudid IV PRN - palliative care consult given sigificant pain without much success controlling and given metastatic RCC and poor appetite (2) Pleural effusion on left: Plan: History of recurrent right renal cell carcinoma with right-sided mid lung metastasis, status post surgery, radiation, immunotherapy. Currently metastatic lung disease, left pleural effusion, had thoracocentesis in the past. On Cabometyx-.. Pulmonary service consulted 01/14, Pleurx catheter placed no issues with Pleurex Cath Pleurx cath drained by patient's every 2 to 3 days at the bedside (3) Hypercalcemia: Plan: This 66-year-old male presents with hypercalcemia, mostly secondary to metastatic right renal cell cancer. Received Zometa on 01/14/2022 Given IV fluids Nephrology service consulted, signed off -- Hypercalcemia resolved Plan History of chronic obstructive pulmonary disease, past tobacco use. Not in exacerbation. History of hypertension, hyperlipidemia, abdominal aortic aneurysm. Follows up with primary care physician. Continue amlodipine, statin, and lisinopril. Anemia of chronic kidney disease. Hemoglobin stable No signs of active bleeding Monitor closely Chronic kidney disease stage III. Presents with creatinine of 1.1. --Stable Deep venous thrombosis prophylaxis, placed on Lovenox. DISPOSITION: Closely monitor in the med-tele. Disposition May need jail facility Admission and Anticipated Discharge Date Admission Date: January 13, 2022 Subjective Patient with metastatic RCC to lung, chronic cancer pain, and presented with hypercalcemia. Given IVF with improvement in hypercalcemia. Left sided pleural effusion s/p Pleurx drain placement. Pain management working on pain control of cancer pain. to assist with drain Pleurx catheter at home on discharge. Patient reports severe pain, 10/10 that does not seem to get much relief from pain regimen, actively being titrated by pain management team. Deneis chest pain, shortness of breath, fever or chills, n/v/d, abdominal distention or pain. Review of Systems Review of Systems: all noted and negative except for above Physical Exam Physical Exam: General- oriented x 3, not in distress, speaks in sentences with no effort or accessory muscle use Eyes- anicteric Neck- no JVD Lungs- clear breath sounds bilaterally, no crackles Pleurx catheter on the left chest wall Heart- normal rate, regular rhythm; no murmurs Abdomen- normal bowel sounds, nondistended, soft, nontender Extremities- no pretibial edema, no calf tenderness Neuro- alert, oriented x 3; no gross focal neurologic deficits Skin- warm & dry Results & Data Results & Data ([facility]) Vital Signs (Past 12 Hours) Vital Signs Temp Pulse Pulse Resp BP Pulse Ox O2 Del Method 01/26/22 11:53 36.7 C 59 L 20 130/79 95 Room Air 01/26/22 08:00 72 01/26/22 08:00 Room Air 01/26/22 08:10 36.3 C L 65 18 145/78 H 95 Room Air 01/26/22 04:00 36.7 C 68 16 144/79 H 97 Room Air 01/26/22 03:24 59 L Diagnostic Findings Laboratory Results WBC 5.60 K/ul (4.8-10.8) 01/22/22 11:28 RBC 2.89 M/uL (4.63-6.08) L 01/22/22 11:28 Hgb 8.8 g/dl (14.0-18.0) L 01/22/22 11:28 Hct 28.1 % (40.1-51.0) L 01/22/22 11:28 MCV 97.2 fL (80.0-100.0) 01/22/22 11:28 MCH 30.4 pg (25.0-34.0) 01/22/22 11:28 MCHC 31.3 g/dL (32.0-36.0) L 01/22/22 11:28 RDW Std Deviation 51.3 fL (36.4-46.3) H 01/22/22 11:28 RDW Coeff of Rodrigue 14.4 % (11.5-14.5) 01/22/22 11:28 Plt Count 140 K/uL (130-400) 01/22/22 11:28 MPV 10.8 fL (9.4-12.4) 01/22/22 11:28 Immature Gran % (Auto) 0.7 % 01/22/22 11:28 Neut % (Auto) 82.5 % 01/22/22 11:28 Lymph % (Auto) 8.6 % 01/22/22 11:28 [place] % (Auto) 6.4 % 01/22/22 11:28 Eos % (Auto) 1.3 % 01/22/22 11:28 Baso % (Auto) 0.5 % 01/22/22 11:28 Neut # (Auto) 4.62 K/uL (1.4-6.5) 01/22/22 11:28 Lymph # (Auto) 0.48 K/uL (1.2-3.4) L 01/22/22 11:28 [place] # (Auto) 0.36 K/uL (0.24-0.82) 01/22/22 11:28 Eos # (Auto) 0.07 K/uL (0-0.50) 01/22/22 11:28 Baso # (Auto) 0.03 K/uL (0-0.2) 01/22/22 11:28 Immature Gran # (Auto) 0.04 K/uL (0.00-0.02) H 01/22/22 11:28 Polychromasia 1+ 01/14/22 05:27 Sodium 135 mmol/L (136-145) L 01/22/22 11:28 Potassium 4.2 mmol/L (3.5-5.1) 01/22/22 11:28 Chloride 104 mmol/L (98-107) 01/22/22 11:28 Carbon Dioxide 24 mmol/L (21-32) 01/22/22 11:28 Anion Gap 7 (3-11) 01/22/22 11:28 BUN 21 mg/dl (6-23) 01/22/22 11:28 Creatinine 0.94 mg/dl (0.6-1.4) 01/26/22 05:49 Est Cr Clr Drug Dosing 73.7 ml/min 01/26/22 05:49 Est GFR ( Amer) 98.9 ml/min 01/26/22 05:49 Est GFR (Non-Af Amer) 85.3 ml/min 01/26/22 05:49 BUN/Creatinine Ratio 19.4 (10-20) 01/22/22 11:28 Glucose 77 mg/dl (70-99(Fasting)) 01/22/22 11:28 POC Glucose 78 mg/dl (70-99) 01/18/22 07:53 Calcium 8.2 mg/dl (8.5-10.1) L 01/22/22 11:28 Phosphorus 2.5 mg/dl (2.5-4.9) 01/13/22 18:35 Magnesium 1.7 mg/dl (1.7-2.4) 01/14/22 05:27 Total Bilirubin 0.3 mg/dl (0.2-1.0) 01/13/22 18:35 AST 18 U/L (13-39) 01/13/22 18:35 ALT 20 U/L (7-52) 01/13/22 18:35 Alkaline Phosphatase 61 U/L (34-104) 01/13/22 18:35 Troponin I High Sens 7.5 pg/ml (0-20) 01/13/22 18:35 Total Protein 6.1 gm/dl (6.0-8.3) 01/13/22 18:35 Albumin 2.8 gm/dl (3.4-5.0) L 01/13/22 18:35 Globulin 3.3 gm/dl (2.5-4.0) 01/13/22 18:35 Albumin/Globulin Ratio 0.8 (0.9-2) L 01/13/22 18:35 Lipase 10 U/L (11-82) L 01/13/22 18:35 25-OH Vitamin D Total 10.4 ng/ml (30-100) L 01/14/22 16:08 TSH 6.342 uIu/ml (0.300-4.500) H 01/14/22 16:08 Free T4 0.97 ng/dl (0.61-1.60) 01/14/22 16:08 PTH Intact 4.8 pg/ml (12.0-88.0) L 01/14/22 16:08 Urine Color Yellow 01/13/22 20:49 Urine Appearance Clear (Clear) 01/13/22 20:49 Urine pH 5.5 (4.5-7.5) 01/13/22 20:49 Ur Specific [place] 1.021 (1.000-1.030) 01/13/22 20:49 Urine Protein Trace (Negative) H 01/13/22 20:49 Urine Glucose (UA) Negative (Negative) 01/13/22 20:49 Urine Ketones Negative (Negative) 01/13/22 20:49 Urine Blood Negative (Negative) 01/13/22 20:49 Urine Nitrite Negative (Negative) 01/13/22 20:49 Urine Bilirubin Negative (Negative) 01/13/22 20:49 Urine Urobilinogen Negative (Negative) 01/13/22 20:49 Ur Leukocyte Esterase Negative (Negative) 01/13/22 20:49 Urine WBC (Auto) 1-5 /hpf (0-5) 01/13/22 20:49 Urine RBC (Auto) 0-4 /hpf (0-4) 01/13/22 20:49 U Hyaline Cast (Auto) 1-5 /lpf (0-5) 01/13/22 20:49 U Epithel Cells (Auto) 5-10 /lpf (0-5) H 01/13/22 20:49 Urine Bacteria (Auto) Negative (Negative) 01/13/22 20:49 Hepatitis C Ab (EIA) NON-REACTIVE (NON-REACTIVE) 01/14/22 05:27 Hep C Ab Signal/Cutoff 0.04 (<1.00) 01/14/22 05:27 SARS-CoV-2, RNA, NAAT NEGATIVE (NEGATIVE) 01/13/22 21:[address] 01/13/22 18:27 CT OF THE HEAD WITHOUT CONTRAST CLINICAL HISTORY: Confusion. COMPARISON STUDY: No previous studies for comparison. CT DOSE: 691.05 mGy.cm TECHNIQUE: Helical axial images of the head were obtained without IV contrast. Automated exposure control was utilized for the study. A dose lowering technique was utilized adhering to the principles of ALARA. FINDINGS: No acute intracranial hemorrhage, midline shift or mass effect is present. The ventricular system is unremarkable. The basal cisterns are patent. No extra-axial collections are present. There are no findings to suggest acute dural sinus thrombosis or acute territorial infarct. No significant calvarial abnormalities are present. IMPRESSION: No acute intracranial findings. ACT 112: Negative or not required by law. Electronically signed by: Kadeem Mary M.D. 01/13/2022 7:46 PM Abdomen/Pelvis CT 01/20/22 20:25 CT SCAN OF THE ABDOMEN AND PELVIS WITH IV CONTRAST CLINICAL HISTORY: Left-sided abdominal pain. COMPARISON STUDY: Abdominal CT dated 05/03/2021. TECHNIQUE: Following the IV administration of 60 cc of Optiray 350, CT scan of the abdomen and pelvis is performed from the lung bases to the proximal femora. Images are reviewed in the axial, sagittal, and coronal planes. IV contrast was administered without complication. A dose lowering technique was utilized adhering to the principles of ALARA. The examination is degraded by motion artifact and patient cachexia. CT DOSE: 286.19 mGy.cm FINDINGS: Lung bases: The heart is normal in size and without pericardial effusion. The coronary artery densely calcified. There is a small hiatal hernia. Metastatic pleural disease is again seen at the left lung base. A small left pleural effusion. A pleural-based lesion on image #19 measures 3.6 cm. A pleural drain is seen on the left. Trace pleural effusion is seen on the right with dependent atelectasis. There is no airspace consolidation seen typical for pneumonia. A calcified granuloma is noted in the right middle lobe. Liver: The contrast-enhanced liver is normal in size, contour, and attenuation. There is no intrahepatic biliary ductal dilatation. The hepatic veins and portal veins are patent. A 2.3 cm low-attenuation lesion is suggested scalloping inferior right lobe of the liver on image #184. Gallbladder: Contracted. Spleen: Normal in size and attenuation. Pancreas: Moderately atrophic and grossly unremarkable. Adrenal glands: Unremarkable. Kidneys: The right kidney is not identified and presumed surgically absent. The left kidney is normal in size without hydronephrosis. A 2.5 cm exophytic cyst arises from the lower pole of the left kidney. The left kidney enhances homogeneously. Abdominal vasculature: The abdominal aorta is normal in course and caliber noting advanced atherosclerotic calcification. Bowel: There is rectosigmoid fecal impaction and moderate to severe constipation. There is diffuse gaseous distention of the colon. The cc: measures up to 9 cm diameter. The small bowel loops are normal in caliber. The appendix is partially visualized and normal. Peritoneum: There is mesenteric edema. No intraperitoneal free air or abdominal ascites is identified. Lymphadenopathy: Cardiophrenic lymphadenopathy is again noted. A node on image #59 measures 3.7 x 1.5 cm. No retroperitoneal lymphadenopathy is clearly identified. Pelvic viscera: The prostate gland is mildly enlarged and heterogeneous. The bladder is normal as visualized. There is a small fat-containing left inguinal hernia. There is evidence of previous right inguinal herniorrhaphy. Skeletal structures: The skeletal structures are osteopenic. There is mild thoracic spondylosis and scoliosis. There is evidence of multifocal osteolytic metastatic disease. There are numerous left-sided rib lesions (axial images #113, #140, #179, and #180) with associated soft tissue components. There is a large osteolytic lesion with a soft tissue component centered in the posterior 11th rib at the costovertebral junction on axial image #94. The soft tissue component measures 5.2 x 4.7 cm and invades the left pedicle of T11. This encroaches on the left estimated central canal as seen on image #93 as well as the left T11-T12 neural foramen as seen on image #101. Soft tissues: There is body wall edema. IMPRESSION: 1. There is rectosigmoid fecal impaction and moderate to severe constipation. 2. There is diffuse gaseous distention of the colon. The cecum measures up to 9 mm, and this may represent distal colonic obstruction secondary to fecal impaction. Clinical correlation will be required. 3. The small bowel loops are normal in caliber. 4. There is a small left pleural effusion with a left pleural drain in place and evidence of metastatic pleural disease. This has progressed as compared to 05/03/2021. 5. There is metastatic left cardiophrenic lymphadenopathy. 6. There are osteolytic bone lesions involving left-sided ribs which contain soft tissue components. The largest lesion involves the left posterior rib, and the soft tissue component invades the left aspect of T11. This encroaches upon the left aspect of the thecal sac at this level as well as the left T11-T12 neural foramen. 7. Question a lesion scalloping the inferior right lobe of liver. A hepatic metastasis is not excluded. 8. Anasarca of the body wall. 9. Additional findings as above. ACT 112: Negative or not required by law. Electronically signed by: Ben Blevins M.D. 01/20/2022 9:16 PM Chest X-Ray 01/22/22 11:03 XR chest 1V portable CLINICAL HISTORY: ff up left pleural effusion COMPARISON STUDY: None available at time of interpretation due to PACS downtime. FINDINGS: A left basilar pleural catheter is in place. There is no pneumothorax. A small left pleural effusion is noted with left basilar opacity. Volume loss is noted with elevation of the left hemidiaphragm. Right lung is clear. No evidence for pulmonary edema. There is no right pleural effusion. IMPRESSION: Left basilar pleural catheter in place with a small left pleural effusion and left basilar opacity with volume loss. ACT 112: Negative or not required by law. Electronically signed by: Kadeem Mary M.D. 01/22/2022 2:39 PM Medications Administered Current Inpatient Medications Acetaminophen (Acetaminophen 325 Mg Tab) 650 mg PO Q4H PRN PRN Reason: Mild Pain or Fever Stop: 02/12/22 23:45 Last Admin: 01/26/22 08:52 Dose: 650 mg Albuterol (Albuterol Hfa 8 Gm Inhaler) 2 puffs INH QID PRN PRN Reason: shortness of breath or wheezin Stop: 02/12/22 23:45 Allopurinol (Allopurinol 100 Mg Tab) 200 mg PO QAM [facility] Stop: 02/13/22 08:59 Last Admin: 01/26/22 08:11 Dose: 200 mg Amlodipine Besylate (Amlodipine Besylate 5 Mg Tab) 5 mg PO DAILY [facility] Stop: 02/13/22 08:59 Last Admin: 01/22/22 08:17 Dose: 5 mg Bisacodyl (Bisacodyl 5 Mg Tabec) 5 mg PO QAM [facility] Stop: 02/16/22 08:59 Last Admin: 01/26/22 08:17 Dose: 5 mg Cabozantinib (Cabozantinib S-Malate 20 Mg Tab (Cabometyx) (Patients Own Med)) 1 each PO DAILY@1030 [facility] Stop: 02/15/22 08:59 Last Admin: 01/26/22 10:08 Dose: 1 each Clobetasol Propionate (Clobetasol Propionate 0.05% Oint 15 Gm Tube) 1 appln EXT BID PRN PRN Reason: Skin Irritation Stop: 02/13/22 01:31 Cyanocobalamin (Cyanocobalamin (B-12) 500 Mcg Tablet) 1,000 mcg PO QAM [facility] Stop: 02/13/22 08:59 Last Admin: 01/26/22 08:12 Dose: 1,000 mcg Diclofenac Sodium (Diclofenac Sod 1% Gel 100 Gm Tube) 2 gm EXT BID [facility]; Protoc ol Stop: 02/15/22 11:44 Last Admin: 01/26/22 08:13 Dose: Not Given Duloxetine HCl (Duloxetine Hcl 30 Mg Cap) [facility] [place] Stop: 02/16/22 08:59 Last Admin: 01/26/22 08:13 Dose: 30 mg Enoxaparin Sodium (Enoxaparin Inj 40 Mg/0.4 Ml Syr) 40 mg SQ HS [facility] Stop: 02/13/22 00:59 Last Admin: 01/25/22 20:12 Dose: 40 mg Fentanyl (Fentanyl 100 Mcg/Hr Tdsy) 100 mcg TD Q3D [facility] Stop: 02/07/22 12:59 Last Admin: 01/24/22 14:12 Dose: 100 mcg Fentanyl (Fentanyl 25 Mcg/Hr Tdsy) 25 mcg TD Q3D [facility] Stop: 02/09/22 08:59 Last Admin: 01/26/22 09:28 Dose: 25 mcg Gabapentin (Gabapentin 600 Mg Tab) 1,200 mg PO [facility] Stop: 02/13/22 08:59 Last Admin: 01/26/22 08:13 Dose: 1,200 mg Hydromorphone HCl (Hydromorphone Inj 0.5 Mg/0.5 Ml Syr) 0.5 mg IV Q2H PRN PRN Reason: Pain uncontrolled by PO meds Stop: 01/27/22 23:45 Last Admin: 01/26/22 12:38 Dose: 0.5 mg Levothyroxine Sodium (Levothyroxine Sodium 25 Mcg Tablet) [facility] Stop: 02/13/22 06:29 Last Admin: 01/26/22 04:34 Dose: 25 mcg Lisinopril (Lisinopril 10 Mg Tab) 30 mg PO [facility] Stop: 02/13/22 08:59 Last Admin: 01/26/22 08:13 Dose: 30 mg Magnesium Oxide (Magnesium Oxide 400 Mg Tab) 400 mg PO [facility] Stop: 02/13/22 08:59 Last Admin: 01/26/22 08:14 Dose: 400 mg Miscellaneous (Fentanyl Patch Remove & Waste) 1 each N/A Q3D [facility] Stop: 02/23/22 12:59 Last Admin: 01/24/22 14:12 Dose: 1 each Miscellaneous (Check Fentanyl Patch Placement) 1 each N/A QS [facility] Stop: 02/23/22 15:59 Last Admin: 01/26/22 08:10 Dose: 1 each Miscellaneous (Fentanyl Patch Remove & Waste) 1 each N/A Q3D [facility] Stop: 02/25/22 08:58 Last Admin: 01/26/22 09:29 Dose: 1 each Miscellaneous (Check Fentanyl Patch Placement) 1 each N/A QS [facility] Stop: 02/25/22 15:59 Nitroglycerin (Nitroglycerin Sl 0.4 Mg/Tab Tab) 0.4 mg SL UD PRN PRN Reason: Chest Pain Stop: 02/12/22 23:45 Ondansetron HCl (Ondansetron Inj 2 Mg/Ml 2 Ml Vial) 4 mg IV Q6H PRN PRN Reason: Nausea Stop: 02/12/22 23:45 Last Admin: 01/21/22 09:56 Dose: 4 mg Oxycodone HCl (Oxycodone Hcl Ir 5 Mg Tab (Immediate Release)) 15 mg PO Q4H PRN PRN Reason: Pain Stop: 01/31/22 08:21 Last Admin: 01/26/22 10:12 Dose: 15 mg Pantoprazole Sodium (Pantoprazole 40 Mg Tab) 40 mg PO QAM [facility] Stop: 02/13/22 08:59 Last Admin: 01/26/22 08:14 Dose: 40 mg Polyethylene Glycol (Polyethylene (Miralax) 17 Gm Pack) 17 gm PO DAILY [facility] Stop: 02/15/22 08:59 Last Admin: 01/26/22 08:14 Dose: 17 gm Rosuvastatin Calcium (Rosuvastatin Calcium 10 Mg Tab) 10 mg PO QAM [facility] Stop: 02/13/22 08:59 Last Admin: 01/26/22 08:14 Dose: 10 mg Senna/Docusate Sodium (Docusate Sodium/Senna 50/8.6mg Tab) 1 tab PO BID [facility] Stop: 02/20/22 08:59 Last Admin: 01/26/22 08:13 Dose: 1 tab Tamsulosin HCl (Tamsulosin Hcl 0.4 Mg Cap) 0.4 mg PO QAM [facility] Stop: 02/13/22 08:59 Last Admin: 01/26/22 08:14 Dose: 0.4 mg
[2022-01-26] MEDS: ENOXAPARIN INJ 40 MG/0.4 ML SYR SQ SCH (20:37)
[2022-01-27] MEDS: oxyCODONE HCL IR 5 MG TAB (IMMEDIATE RELEASE) PO PRN ×5 (00:21→19:22)
[2022-01-27] MEDS: HYDROmorphone INJ 0.5 MG/0.5 ML SYR IV PRN ×6 (00:21→20:52)
[2022-01-27] MEDS: CHECK fentaNYL PATCH PLACEMENT SCH ×6 (00:22→16:38)
[2022-01-27] MEDS: ACETAMINOPHEN 325 MG TAB PO PRN ×4 (03:39→19:21)
[2022-01-27] MEDS: LEVOTHYROXINE SODIUM 25 MCG TABLET PO SCH (06:16)
[2022-01-27] MEDS: ONDANSETRON INJ 2 MG/ML 2 ML VIAL IV PRN (08:16)
[2022-01-27] MEDS: CYANOCOBALAMIN (B-12) 500 MCG TABLET PO SCH (08:19)
[2022-01-27] MEDS: allopurinoL 100 MG TAB PO SCH (08:19)
[2022-01-27] MEDS: DOCUSATE SODIUM/SENNA 50/8.6MG TAB PO SCH ×3 (08:20→19:20)
[2022-01-27] MEDS: POLYETHYLENE (MIRALAX) 17 GM PACK PO SCH (08:21)
[2022-01-27] MEDS: GABAPENTIN 600 MG TAB PO SCH (08:21)
[2022-01-27] MEDS: lisinopril 10 MG TAB PO SCH (08:21)
[2022-01-27] MEDS: ROSUVASTATIN CALCIUM 10 MG TAB PO SCH (08:22)
[2022-01-27] MEDS: PANTOprazole 40 MG TAB PO SCH (08:22)
[2022-01-27] MEDS: TAMSULOSIN HCL 0.4 MG CAP PO SCH (08:22)
[2022-01-27] MEDS: MAGNESIUM OXIDE 400 MG TAB PO SCH (08:22)
[2022-01-27] MEDS: DULoxetine HCL 30 MG CAP PO SCH (08:22)
[2022-01-27] MEDS: DICLOFENAC SOD 1% GEL 100 GM TUBE EXT SCH ×2 (08:23→19:19)
[2022-01-27] MEDS: bisacodyL 5 MG TABEC PO SCH (08:34)
--- NOTE | 2022-01-27 08:48 | Pain Management Progress Note ---
Date of Service January 27, 2022 Assessment & Plan (1) Lung cancer: Laterality: left Lung location: unspecified part of lung Qualified Code(s): C34.92 - Malignant neoplasm of unspecified part of left bronchus or lung (2) Renal cell carcinoma: (3) Non-cardiac chest pain: (4) Pleural effusion on left: Plan 1. Fentanyl continued at 125mcg/hr. 2. Continue Cymbalta 30mg daily. 3. Continue Oxycodone 15mg x 4 hours PRN breakthrough pain. Patient was again encouraged to utilize the oral oxycodone prior to utilizing IV hydromorphone 4. I have explained the importance to limit the IV Dilaudid in preparation for discharge. He does seem focused on the IV Dilaudid and has a paper written down to remind himself to request it every 2 hours despite the patient appearing comfortable with pain level. I have changed the order of 0.5mg IV Dilaudid x 2 hours to every 4 hours and challenged the patient to limit the use. 5. Continue bowel regimen. Will follow up tomorrow. Admission and Anticipated Discharge Date Admission Date: January 13, 2022 Subjective Mr. Lopez is a 66-year-old white male with known history of renal cell cancer diagnosed 4 to 5 years ago with metastatic disease affecting the left lung with ongoing pain complaints affecting the left posterior, lateral and anterior chest wall region. Patient reports fair pain control. Yesterday the Fentanyl patch was increased to 125 mcg/hr. He continues with Oxy IR 15 mg every 4 hours for breakthrough pain (90 mg in past 24 hours) and hydromorphone 0.5 mg every 2 hours (5.5 mg in past 24 hours). The pain along the left side of the chest is causing difficulty sleeping. His pain is currently an 8/10. He has been having daily bowel movements and his abdomen is no longer distended. Patient has no further constitutional complaints at this time. Plan of care discussed with Dr. Garcia. Physical Exam Physical Exam: General: Patient is awake, alert, and oriented. Patient in no acute distress. Speech and thought process appropriate. Mood and affect appropriate. Cognition intact. Sitting in hospital bed eating breakfast. Head: Normocephalic and atraumatic. Chest: Patient is minimally tender over the left chest wall. Abdomen: Soft abdomen. No rebound tenderness. No peritoneal signs. Lower extremities: 1+ pitting edema in the lower extremities Neurologic: Cranial nerves grossly intact.
--- NOTE | 2022-01-27 10:01 | Hospitalist Progress Note ---
Date of Service January 27, 2022 Assessment & Plan (1) Cancer-related pain: Plan: - Metastatic right renal cell cancer - has been under care of oncologist Dr. Melissa on oral chemotherapy - Chronic pain from the cancer. - Has intractable pain mostly on the left chest wall, known site of left pleural effusion, pleural Metastasis - Pain management on board - Fentanyl stable today as patient appears to be responding - Continue oxycodone PO PRN - IV dilaudid prn for severe pain - being weaned per [facility] management as cannot be discharged with IV pain medication - palliative care consult given significant pain without much success controlling and given metastatic RCC and poor appetite (2) Pleural effusion on left: Plan: History of recurrent right renal cell carcinoma with right-sided mid lung metastasis, status post surgery, radiation, immunotherapy. Currently metastatic lung disease, left pleural effusion, had thoracocentesis in the past. On Cabometyx-.. Pulmonary service consulted 01/14, Pleurx catheter placed - no issues with Pleurex Cath - Pleurx cath drained by patient's every 2 to 3 days at the bedside - educated and can manage (3) Hypercalcemia: Plan: This 66-year-old male presents with hypercalcemia, mostly secondary to metastatic right renal cell cancer. Received Zometa on 01/14/2022 Given IV fluids Nephrology service consulted, signed off -- Hypercalcemia resolved Plan History of chronic obstructive pulmonary disease, past tobacco use. Not in exacerbation. History of hypertension, hyperlipidemia, abdominal aortic aneurysm. Follows up with primary care physician. Continue amlodipine, statin, and lisinopril. Anemia of chronic kidney disease. Hemoglobin stable No signs of active bleeding Monitor closely Chronic kidney disease stage III. Presents with creatinine of 1.1. --Stable Deep venous thrombosis prophylaxis, placed on Lovenox. DISPOSITION: Closely monitor in the med-tele. Disposition May need correction facility Admission and Anticipated Discharge Date Admission Date: January 13, 2022 Subjective Patient with metastatic RCC to lung, chronic cancer pain, and presented with hypercalcemia. Given IVF with improvement in hypercalcemia. Left sided pleural effusion s/p Pleurx drain placement. Pain management working on pain control of cancer pain. to assist with drain Pleurx catheter at home on discharge. Patient reports pain is somewhat improved today, sitting up eating breakfast. Deneis chest pain, shortness of breath, fever or chills, n/v/d, abdominal distention or pain. Review of Systems Review of Systems: all noted and negative except for above Physical Exam Physical Exam: General- oriented x 3, not in distress, speaks in sentences with no effort or accessory muscle use Eyes- anicteric Neck- no JVD Lungs- clear breath sounds bilaterally, no crackles Pleurx catheter on the left chest wall Heart- normal rate, regular rhythm; no murmurs Abdomen- normal bowel sounds, nondistended, soft, nontender Extremities- no pretibial edema, no calf tenderness Neuro- alert, oriented x 3; no gross focal neurologic deficits Skin- warm & dry Results & Data Results & Data ([facility]) Vital Signs (Past 12 Hours) Vital Signs Temp Pulse Resp BP Pulse Ox O2 Del Method 01/27/22 08:08 36.5 C 61 20 133/78 96 Room Air 01/27/22 03:36 36.6 C 66 16 149/75 H 97 Room Air 01/27/22 00:18 36.8 C 67 16 145/87 H 96 Room Air Diagnostic Findings Laboratory Results WBC 5.60 K/ul (4.8-10.8) 01/22/22 11:28 RBC 2.89 M/uL (4.63-6.08) L 01/22/22 11:28 Hgb 8.8 g/dl (14.0-18.0) L 01/22/22 11:28 Hct 28.1 % (40.1-51.0) L 01/22/22 11:28 MCV 97.2 fL (80.0-100.0) 01/22/22 11:28 MCH 30.4 pg (25.0-34.0) 01/22/22 11:28 MCHC 31.3 g/dL (32.0-36.0) L 01/22/22 11:28 RDW Std Deviation 51.3 fL (36.4-46.3) H 01/22/22 11:28 RDW Coeff of Rodrigue 14.4 % (11.5-14.5) 01/22/22 11:28 Plt Count 140 K/uL (130-400) 01/22/22 11:28 MPV 10.8 fL (9.4-12.4) 01/22/22 11:28 Immature Gran % (Auto) 0.7 % 01/22/22 11: Neut % (Auto) 82.5 % 01/22/22 11:28 Lymph % (Auto) 8.6 % 01/22/22 11:28 [place] % (Auto) 6.4 % 01/22/22 11:28 Eos % (Auto) 1.3 % 01/22/22 11:28 Baso % (Auto) 0.5 % 01/22/22 11:28 Neut # (Auto) 4.62 K/uL (1.4-6.5) 01/22/22 11:28 Lymph # (Auto) 0.48 K/uL (1.2-3.4) L 01/22/22 11:28 [place] # (Auto) 0.36 K/uL (0.24-0.82) 01/22/22 11:28 Eos # (Auto) 0.07 K/uL (0-0.50) 01/22/22 11:28 Baso # (Auto) 0.03 K/uL (0-0.2) 01/22/22 11:28 Immature Gran # (Auto) 0.04 K/uL (0.00-0.02) H 01/22/22 11:28 Polychromasia 1+ 01/14/22 05:27 Sodium 135 mmol/L (136-145) L 01/22/22 11:28 Potassium 4.2 mmol/L (3.5-5.1) 01/22/22 11:28 Chloride 104 mmol/L (98-107) 01/22/22 11:28 Carbon Dioxide 24 mmol/L (21-32) 01/22/22 11:28 Anion Gap 7 (3-11) 01/22/22 11:28 BUN 21 mg/dl (6-23) 01/22/22 11:28 Creatinine 0.94 mg/dl (0.6-1.4) 01/26/22 05:49 Est Cr Clr Drug Dosing 73.7 ml/min 01/26/22 05:49 Est GFR ( Amer) 98.9 ml/min 01/26/22 05:49 Est GFR (Non-Af Amer) 85.3 ml/min 01/26/22 05:49 BUN/Creatinine Ratio 19.4 (10-20) 01/22/22 11:28 Glucose 77 mg/dl (70-99(Fasting)) 01/22/22 11:28 POC Glucose 78 mg/dl (70-99) 01/18/22 07:53 Calcium 8.2 mg/dl (8.5-10.1) L 01/22/22 11:28 Phosphorus 2.5 mg/dl (2.5-4.9) 01/13/22 18:35 Magnesium 1.7 mg/dl (1.7-2.4) 01/14/22 05:27 Total Bilirubin 0.3 mg/dl (0.2-1.0) 01/13/22 18:35 AST 18 U/L (13-39) 01/13/22 18:35 ALT 20 U/L (7-52) 01/13/22 18:35 Alkaline Phosphatase 61 U/L (34-104) 01/13/22 18:35 Troponin I High Sens 7.5 pg/ml (0-20) 01/13/22 18:35 Total Protein 6.1 gm/dl (6.0-8.3) 01/13/22 18:35 Albumin 2.8 gm/dl (3.4-5.0) L 01/13/22 18:35 Globulin 3.3 gm/dl (2.5-4.0) 01/13/22 18:35 Albumin/Globulin Ratio 0.8 (0.9-2) L 01/13/22 18:35 Lipase 10 U/L (11-82) L 01/13/22 18:35 25-OH Vitamin D Total 10.4 ng/ml (30-100) L 01/14/22 16:08 TSH 6.342 uIu/ml (0.300-4.500) H 01/14/22 16:08 Free T4 0.97 ng/dl (0.61-1.60) 01/14/22 16:08 PTH Intact 4.8 pg/ml (12.0-88.0) L 01/14/22 16:08 Urine Color Yellow 01/13/22 20:49 Urine Appearance Clear (Clear) 01/13/22 20:49 Urine pH 5.5 (4.5-7.5) 01/13/22 20:49 Ur Specific [place] 1.021 (1.000-1.030) 01/13/22 20:49 Urine Protein Trace (Negative) H 01/13/22 20:49 Urine Glucose (UA) Negative (Negative) 01/13/22 20:49 Urine Ketones Negative (Negative) 01/13/22 20:49 Urine Blood Negative (Negative) 01/13/22 20:49 Urine Nitrite Negative (Negative) 01/13/22 20:49 Urine Bilirubin Negative (Negative) 01/13/22 20:49 Urine Urobilinogen Negative (Negative) 01/13/22 20:49 Ur Leukocyte Esterase Negative (Negative) 01/13/22 20:49 Urine WBC (Auto) 1-5 /hpf (0-5) 01/13/22 20:49 Urine RBC (Auto) 0-4 /hpf (0-4) 01/13/22 20:49 U Hyaline Cast (Auto) 1-5 /lpf (0-5) 01/13/22 20:49 U Epithel Cells (Auto) 5-10 /lpf (0-5) H 01/13/22 20:49 Urine Bacteria (Auto) Negative (Negative) 01/13/22 20:49 Hepatitis C Ab (EIA) NON-REACTIVE (NON-REACTIVE) 01/14/22 05:27 Hep C Ab Signal/Cutoff 0.04 (<1.00) 01/14/22 05:27 SARS-CoV-2, RNA, NAAT NEGATIVE (NEGATIVE) 01/13/22 21:[address] 01/13/22 18:27 CT OF THE HEAD WITHOUT CONTRAST CLINICAL HISTORY: Confusion. COMPARISON STUDY: No previous studies for comparison. CT DOSE: 691.05 mGy.cm TECHNIQUE: Helical axial images of the head were obtained without IV contrast. Automated exposure control was utilized for the study. A dose lowering technique was utilized adhering to the principles of ALARA. FINDINGS: No acute intracranial hemorrhage, midline shift or mass effect is present. The ventricular system is unremarkable. The basal cisterns are patent. No extra-axial collections are present. There are no findings to suggest acute dural sinus thrombosis or acute territorial infarct. No significant calvarial abnormalities are present. IMPRESSION: No acute intracranial findings. ACT 112: Negative or not required by law. Electronically signed by: Kadeem Mary M.D. 01/13/2022 7:46 PM Abdomen/Pelvis CT 01/20/22 20:25 CT SCAN OF THE ABDOMEN AND PELVIS WITH IV CONTRAST CLINICAL HISTORY: Left-sided abdominal pain. COMPARISON STUDY: Abdominal CT dated 05/03/2021. TECHNIQUE: Following the IV administration of 60 cc of Optiray 350, CT scan of the abdomen and pelvis is performed from the lung bases to the proximal femora. Images are reviewed in the axial, sagittal, and coronal planes. IV contrast was administered without complication. A dose lowering technique was utilized adhering to the principles of ALARA. The examination is degraded by motion artifact and patient cachexia. CT DOSE: 286.19 mGy.cm FINDINGS: Lung bases: The heart is normal in size and without pericardial effusion. The coronary artery densely calcified. There is a small hiatal hernia. Metastatic pleural disease is again seen at the left lung base. A small left pleural effusion. A pleural-based lesion on image #19 measures 3.6 cm. A pleural drain is seen on the left. Trace pleural effusion is seen on the right with dependent atelectasis. There is no airspace consolidation seen typical for pneumonia. A calcified granuloma is noted in the right middle lobe. Liver: The contrast-enhanced liver is normal in size, contour, and attenuation. There is no intrahepatic biliary ductal dilatation. The hepatic veins and portal veins are patent. A 2.3 cm low-attenuation lesion is suggested scalloping inferior right lobe of the liver on image #184. Gallbladder: Contracted. Spleen: Normal in size and attenuation. Pancreas: Moderately atrophic and grossly unremarkable. Adrenal glands: Unremarkable. Kidneys: The right kidney is not identified and presumed surgically absent. The left kidney is normal in size without hydronephrosis. A 2.5 cm exophytic cyst arises from the lower pole of the left kidney. The left kidney enhances homogeneously. Abdominal vasculature: The abdominal aorta is normal in course and caliber noting advanced atherosclerotic calcification. Bowel: There is rectosigmoid fecal impaction and moderate to severe constipation. There is diffuse gaseous distention of the colon. The cc: measures up to 9 cm diameter. The small bowel loops are normal in caliber. The appendix is partially visualized and normal. Peritoneum: There is mesenteric edema. No intraperitoneal free air or abdominal ascites is identified. Lymphadenopathy: Cardiophrenic lymphadenopathy is again noted. A node on image #59 measures 3.7 x 1.5 cm. No retroperitoneal lymphadenopathy is clearly identified. Pelvic viscera: The prostate gland is mildly enlarged and heterogeneous. The bladder is normal as visualized. There is a small fat-containing left inguinal hernia. There is evidence of previous right inguinal herniorrhaphy. Skeletal structures: The skeletal structures are osteopenic. There is mild thoracic spondylosis and scoliosis. There is evidence of multifocal osteolytic metastatic disease. There are numerous left-sided rib lesions (axial images #113, #140, #179, and #180) with associated soft tissue components. There is a large osteolytic lesion with a soft tissue component centered in the posterior 11th rib at the costovertebral junction on axial image #94. The soft tissue component measures 5.2 x 4.7 cm and invades the left pedicle of T11. This encroaches on the left estimated central canal as seen on image #93 as well as the left T11-T12 neural foramen as seen on image #101. Soft tissues: There is body wall edema. IMPRESSION: 1. There is rectosigmoid fecal impaction and moderate to severe constipation. 2. There is diffuse gaseous distention of the colon. The cecum measures up to 9 mm, and this may represent distal colonic obstruction secondary to fecal impaction. Clinical correlation will be required. 3. The small bowel loops are normal in caliber. 4. There is a small left pleural effusion with a left pleural drain in place and evidence of metastatic pleural disease. This has progressed as compared to 05/03/2021. 5. There is metastatic left cardiophrenic lymphadenopathy. 6. There are osteolytic bone lesions involving left-sided ribs which contain soft tissue components. The largest lesion involves the left posterior rib, and the soft tissue component invades the left aspect of T11. This encroaches upon the left aspect of the thecal sac at this level as well as the left T11-T12 neural foramen. 7. Question a lesion scalloping the inferior right lobe of liver. A hepatic metastasis is not excluded. 8. Anasarca of the body wall. 9. Additional findings as above. ACT 112: Negative or not required by law. Electronically signed by: Ben Blevins M.D. 01/20/2022 9:16 PM Chest X-Ray 01/22/22 11:03 XR chest 1V portable CLINICAL HISTORY: ff up left pleural effusion COMPARISON STUDY: None available at time of interpretation due to PACS downtime. FINDINGS: A left basilar pleural catheter is in place. There is no pneumothorax. A small left pleural effusion is noted with left basilar opacity. Volume loss is noted with elevation of the left hemidiaphragm. Right lung is clear. No evidence for pulmonary edema. There is no right pleural effusion. IMPRESSION: Left basilar pleural catheter in place with a small left pleural effusion and left basilar opacity with volume loss. ACT 112: Negative or not required by law. Electronically signed by: Kadeem Mary M.D. 01/22/2022 2:39 PM Medications Administered Current Inpatient Medications Acetaminophen (Acetaminophen 325 Mg Tab) 650 mg PO Q4H PRN PRN Reason: Mild Pain or Fever Stop: 02/12/22 23:45 Last Admin: 01/27/22 03:39 Dose: 650 mg Albuterol (Albuterol Hfa 8 Gm Inhaler) 2 puffs INH QID PRN PRN Reason: shortness of breath or wheezin Stop: 02/12/22 23:45 Allopurinol (Allopurinol 100 Mg Tab) 200 mg PO QAM [facility] Stop: 02/13/22 08:59 Last Admin: 01/27/22 08:19 Dose: 200 mg Amlodipine Besylate (Amlodipine Besylate 5 Mg Tab) 5 mg PO DAILY [facility] Stop: 02/13/22 08:59 Last Admin: 01/22/22 08:17 Dose: 5 mg Bisacodyl (Bisacodyl 5 Mg Tabec) 5 mg PO QAM [facility] Stop: 02/16/22 08:59 Last Admin: 01/27/22 08:34 Dose: Not Given Cabozantinib (Cabozantinib S-Malate 20 Mg Tab (Cabometyx) (Patients Own Med)) 1 each PO DAILY@1030 [facility] Stop: 02/15/22 08:59 Last Admin: 01/26/22 10:08 Dose: 1 each Clobetasol Propionate (Clobetasol Propionate 0.05% Oint 15 Gm Tube) 1 appln EXT BID PRN PRN Reason: Skin Irritation Stop: 02/13/22 01:31 Cyanocobalamin (Cyanocobalamin (B-12) 500 Mcg Tablet) 1,000 mcg PO QAM [facility] Stop: 02/13/22 08:59 Last Admin: 01/27/22 08:19 Dose: 1,000 mcg Diclofenac Sodium (Diclofenac Sod 1% Gel 100 Gm Tube) 2 gm EXT BID [facility]; Protocol Stop: 02/15/22 11:44 Last Admin: 01/27/22 08:23 Dose: Not Given Duloxetine HCl (Duloxetine Hcl 30 Mg Cap) 30 mg PO [facility] Stop: 02/16/22 08:59 Last Admin: 01/27/22 08:22 Dose: 30 mg Enoxaparin Sodium (Enoxaparin Inj 40 Mg/0.4 Ml Syr) 40 mg SQ HS [facility] Stop: 02/13/22 00:59 Last Admin: 01/26/22 20:37 Dose: 40 mg Fentanyl (Fentanyl 100 Mcg/Hr Tdsy) 100 mcg TD Q3D [facility] Stop: 02/07/22 12:59 Last Admin: 01/24/22 14:12 Dose: 100 mcg Fentanyl (Fentanyl 25 Mcg/Hr Tdsy) 25 mcg TD Q3D [facility] Stop: 02/09/22 08:59 Last Admin: 01/26/22 09:28 Dose: 25 mcg Gabapentin (Gabapentin 600 Mg Tab) 1,200 mg PO [facility] Stop: 02/13/22 08:59 Last Admin: 01/27/22 08:21 Dose: 1,200 mg Hydromorphone HCl (Hydromorphone Inj 0.5 Mg/0.5 Ml Syr) 0.5 mg IV Q4 PRN PRN Reason: Pain uncontrolled by PO meds Stop: 01/28/22 09:20 Levothyroxine Sodium (Levothyroxine Sodium 25 Mcg Tablet) [facility]: 02/13/22 06:29 Last Admin: 01/27/22 06:16 Dose: 25 mcg Lisinopril (Lisinopril 10 Mg Tab) 30 mg PO [facility] Stop: 02/13/22 08:59 Last Admin: 01/27/22 08:21 Dose: 30 mg Magnesium Oxide (Magnesium Oxide 400 Mg Tab) 400 mg PO [facility] Stop: 02/13/22 08:59 Last Admin: 01/27/22 08:22 Dose: 400 mg Miscellaneous (Fentanyl Patch Remove & Waste) 1 each N/A Q3D [facility] Stop: 02/23/22 12:59 Last Admin: 01/24/22 14:12 Dose: 1 each Miscellaneous (Check Fentanyl Patch Placement) 1 each N/A QS [facility] Stop: 02/23/22 15:59 Last Admin: 01/27/22 08:18 Dose: 1 each Miscellaneous (Fentanyl Patch Remove & Waste) 1 each N/A Q3D [facility] Stop: 02/25/22 08:58 Last Admin: 01/26/22 09:29 Dose: 1 each Miscellaneous (Check Fentanyl Patch Placement) 1 each N/A QS [facility] Stop: 02/25/22 15:59 Last Admin: 01/27/22 08:19 Dose: 1 each Nitroglycerin (Nitroglycerin Sl 0.4 Mg/Tab Tab) 0.4 mg SL UD PRN PRN Reason: Chest Pain Stop: 02/12/22 23:45 Ondansetron HCl (Ondansetron Inj 2 Mg/Ml 2 Ml Vial) 4 mg IV Q6H PRN PRN Reason: Nausea Stop: 02/12/22 23:45 Last Admin: 01/27/22 08:16 Dose: 4 mg Oxycodone HCl (Oxycodone Hcl Ir 5 Mg Tab (Immediate Release)) 15 mg PO Q4H PRN PRN Reason: Pain Stop: 01/31/22 08:21 Last Admin: 01/27/22 06:16 Dose: 15 mg Pantoprazole Sodium (Pantoprazole 40 Mg Tab) 40 mg PO QAM [facility] Stop: 02/13/22 08:59 Last Admin: 01/27/22 08:22 Dose: 40 mg Polyethylene Glycol (Polyethylene (Miralax) 17 Gm Pack) 17 gm PO DAILY [facility] Stop: 02/15/22 08:59 Last Admin: 01/27/22 08:21 Dose: Not Given Rosuvastatin Calcium (Rosuvastatin Calcium 10 Mg Tab) 10 mg PO QAM [facility] Stop: 02/13/22 08:59 Last Admin: 01/27/22 08:22 Dose: 10 mg Senna/Docusate Sodium (Docusate Sodium/Senna 50/8.6mg Tab) 1 tab PO BID [facility] Stop: 02/20/22 08:59 Last Admin: 01/27/22 08:33 Dose: 1 tab Tamsulosin HCl (Tamsulosin Hcl 0.4 Mg Cap) 0.4 mg PO QAM [facility] Stop: 02/13/22 08:59 Last Admin: 01/27/22 08:22 Dose: 0.4 mg
[2022-01-27] MEDS: CABOZANTINIB S MALATE 20 MG PO SCH (10:35)
[2022-01-27] MEDS: fentaNYL 100 MCG/HR TDSY TD SCH (13:14)
--- NOTE | 2022-01-27 14:17 | Palliative Care Consultation ---
Date of Consultation January 27, 2022 Assessment & Plan (1) Cancer-related pain: Defer to pain management for orders on medication. He follows with Dr. Pierce as an outpatient as well. This is clearly the issue that impacts his quality of life the most at this time. 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 He enjoys being active and being outside. He has unfortunately not been able to do these things. He tells me that when he was diagnosed with cancer, his biggest worry was how long he was going to live. That was five years ago. Now he says that his biggest worry is having to live with this pain for the rest of his life. We talked about his understanding of the cancer progression. He tells me that the scans have indicated that the tumors haven't grown but that he is worried that the cancer is growing because the pain is getting worse. I asked him if he felt there were any limits to what he would want for his care. He feels that he would want to continue treatment as long as Dr. Melissa felt it was helping. He hasn't really considered any other limitations at this point. He realizes that he's going to but would like to have more time to be with his family which is the most important thing to him. He would want his , Jeannie, to be his surrogate decision maker and feels confident that she would know what to do, though he admits that he hasn't really talked to her about it. He will be seeing Dr. Pierce for further pain management and goals of care discussion. (4) Lung cancer: Laterality: left Lung location: unspecified part of lung Qualified Code(s): C34.92 - Malignant neoplasm of unspecified part of left bronchus or lung (5) Renal cell carcinoma: History of Present Illness Reason for Consultation: goals of care Requesting Physician: Dr. Santos Attending Physician: Jesus Santos MD History of Present Illness 66 yo gentleman with history of renal cell carcinoma diagnosed 5 years ago by his report. He is followed by Dr. Melissa at [facility] and also sees Dr. Pierce for outpatient palliative care and pain management. He tells me that he had been doing ok at home, generally independent for his ADLs and reading his Bible daily. He has had increasing pain in his left chest that he describes as feeling like his "insides are coming out". The pain is constant, worse with deep breaths. He has had some shortness of breath with a left pleural effusion. He had previous thoracentesis in April and was seen by Dr. Aviles for thoracentesis and tunneled catheter placement during this visit. Mr. Lopez tells me that the pain is limiting his ablility to do pretty much everything at home. He is currently being seen by pain management who have been adjusting his medication with fentanyl patch, prn oxycodone and IV hydromorphone. He is currently trying to wean off IV hydromorphone. He rates pain as severe and tells me that he just has to hold out until he can get "oxy in 45 minutes". Allergies Allergy/AdvReac Type Severity Reaction Status Date / Time No Known Allergies Allergy Unverified 05/03/21 20:11 Home Medications Medication Instructions Recorded Confirmed Type albuterol sulfate 90 mcg/actuation 2 puffs inhalation QID PRN 07/17/19 05/03/21 History aerosol inhaler (Proventil HFA) shortness of breath or wheezing clobetasol-emollient 0.05 % 1 appln topical BID PRN Skin 07/17/19 05/03/21 History topical cream Irritation gabapentin 600 mg tablet 1,200 mg PO QAM 07/17/19 05/03/21 History hydrocortisone acetate 25 mg 25 mg WA BID PRN Hemorrhoids 07/17/19 05/03/21 History rectal suppository (Anusol-HC) omeprazole 20 mg capsule,delayed 20 mg PO QAM 07/17/19 05/03/21 History release rosuvastatin 10 mg tablet (Crestor) 10 mg PO QAM 07/17/19 05/03/21 History tamsulosin 0.4 mg capsule (Flomax) 0.4 mg PO QAM 07/17/19 05/03/21 History allopurinol 100 mg tablet 200 mg PO QAM 04/21/21 05/03/21 History cyanocobalamin (vitamin B-12) 1,000 mcg PO QAM 04/21/21 05/03/21 History 1,000 mcg tablet,extended release (Vitamin B-12 ER) levothyroxine 25 mcg tablet 25 mcg PO QAM 04/21/21 05/03/21 History (Synthroid) lisinopril 30 mg tablet 30 mg PO QAM 04/21/21 05/03/21 History magnesium oxide 400 mg PO QAM 04/21/21 05/03/21 History ondansetron HCl 8 mg tablet 8 mg PO Q8H PRN Nausea 05/03/21 05/03/21 History amlodipine 5 mg tablet 5 mg PO DAILY 01/13/22 01/13/22 History cabozantinib 20 mg tablet 20 mg PO DAILY 01/13/22 01/13/22 History (Cabometyx) hydromorphone 4 mg tablet 8 mg PO Q4H PRN Pain 01/13/22 01/13/22 History methadone 10 mg tablet 10 mg PO BID 01/13/22 01/13/22 History Patient History Medical History AAA (abdominal aortic aneurysm) 3.1cm (mild aneurysm of infrarenal abdominal aorta)- not significantly changed. 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 - Now on Gabapentin for this with relief History of chemotherapy 2016 - Pazopanib (2-3 months of treatment) 03/19/2019 - Opdivo ([id number] then switched to [id number]) Hypertension Neuropathy Very minor in feet Non-cardiac chest pain [facility]- [facility]- pt minimally symptomatic- declining thoracentesis at this time - following up in Spring 2021 for further ev aluation Renal cell carcinoma Right kidney- initially dx'ed 2016- s/p nephrectomy, immunotherapy with chemo 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 Beatrice Holloway [facility] [place]) History of surgery 01/31/17 - Reconstruction of Vena Cava (Dr. Ck Davies [facility] [place]) History of tonsillectomy and adenoidectomy as a child Family History Grandmother (Paternal) , Passed age 69 of Colon Cancer No problems noted. Grandfather (Maternal) , Passed age 79 of unknown cancer (possible colon) No problems noted. Mother , Passed age 79 of Liver Cancer No problems noted. Father , Passed age 68 of [place] No problems noted. Brother , Passed age 55 of unknown (passed in sleep) No problems noted. Brother No problems noted. Brother No problems noted. Son No problems noted. Daughter No problems noted. 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 Other Information That Helps Us Care for You: No Feels Safe at Home: Yes Safety Concerns: Feels Safe At This Time Childhood Exposure to Second-Hand Smoke: No caffeine: Yes (3 cups of coffee/day ) during the past year weight has: remained stable Dental Care, Regularly: No Assistive Devices: Glasses Assistive Devices Comment: 2 pair glasses with patient Review of Systems Review of Systems: ESAS Pain 3/3 Dyspnea 1/3 Nausea 0/3 Drowsiness 1/3 PPS 40% Physical Exam Constitutional: + ill appearing and + thin ENMT: Mouth: oral mucous membranes not dry Respiratory: normal respiratory effort; no labored breathing Cardiovascular: Rate/Rhythm: regular rate and regular rhythm Musculoskeletal: Extremities: + muscle atrophy Neurologic: Speech / Cognition: normal cognition Results & Data ([facility]) Vital Signs (Past 12 Hours) Vital Signs Temp Pulse Resp BP Pulse Ox O2 Del Method 01/27/22 11:52 97.9 F 61 18 105/67 96 Room Air 01/27/22 08:08 97.7 F 61 20 133/78 96 Room Air 01/27/22 03:36 97.9 F 66 16 149/75 H 97 Room Air PG Care Time/CCT Total # of Minutes Spent Total Time Spent: 45 Total Time Spent with Patient: Total time spent is greater than 50% in coordination of care (as documented) at patient's floor/unit and/or counseling patient: goals of care, surrogate decision maker, patient support Coding Level of Care Code 75946 Initial Inpt Care Lvl 1 Diagnoses Cancer-related pain G89.3 SOB (shortness of breath) R06.02 Palliative care encounter Z51.5 Lung cancer C34.92 Laterality: left Lung location: unspecified part of lung Renal cell carcinoma C64.9
[2022-01-27] MEDS: ENOXAPARIN INJ 40 MG/0.4 ML SYR SQ SCH (19:20)
[2022-01-28] MEDS: CHECK fentaNYL PATCH PLACEMENT SCH ×8 (00:05→21:28)
[2022-01-28] MEDS: oxyCODONE HCL IR 5 MG TAB (IMMEDIATE RELEASE) PO PRN ×5 (01:19→19:42)
[2022-01-28] MEDS: ACETAMINOPHEN 325 MG TAB PO PRN ×4 (01:20→21:26)
[2022-01-28] MEDS: HYDROmorphone INJ 0.5 MG/0.5 ML SYR IV PRN ×2 (02:54→08:08)
[2022-01-28] MEDS: LEVOTHYROXINE SODIUM 25 MCG TABLET PO SCH (06:33)
[2022-01-28] MEDS: ROSUVASTATIN CALCIUM 10 MG TAB PO SCH (08:09)
[2022-01-28] MEDS: GABAPENTIN 600 MG TAB PO SCH (08:09)
[2022-01-28] MEDS: DOCUSATE SODIUM/SENNA 50/8.6MG TAB PO SCH ×2 (08:09→21:24)
[2022-01-28] MEDS: lisinopril 10 MG TAB PO SCH (08:09)
[2022-01-28] MEDS: DULoxetine HCL 30 MG CAP PO SCH (08:10)
[2022-01-28] MEDS: CYANOCOBALAMIN (B-12) 500 MCG TABLET PO SCH (08:10)
[2022-01-28] MEDS: MAGNESIUM OXIDE 400 MG TAB PO SCH (08:10)
[2022-01-28] MEDS: allopurinoL 100 MG TAB PO SCH (08:10)
[2022-01-28] MEDS: TAMSULOSIN HCL 0.4 MG CAP PO SCH (08:10)
[2022-01-28] MEDS: PANTOprazole 40 MG TAB PO SCH (08:10)
[2022-01-28] MEDS: amLODIPine BESYLATE 5 MG TAB PO SCH (08:11)
[2022-01-28] MEDS: POLYETHYLENE (MIRALAX) 17 GM PACK PO SCH (08:11)
[2022-01-28] MEDS: bisacodyL 5 MG TABEC PO SCH (08:14)
[2022-01-28] MEDS ORDERED: fentaNYL 50 MCG/HR TDSY TD SCH (10:30)
[2022-01-28] MEDS: CABOZANTINIB S MALATE 20 MG PO SCH (11:25)
--- NOTE | 2022-01-28 13:11 | Hospitalist Progress Note ---
Date of Service January 28, 2022 Assessment & Plan (1) Cancer-related pain: Plan: - Metastatic right renal cell cancer - has been under care of oncologist Dr. Melissa on oral chemotherapy - Chronic pain from the cancer. - Has intractable pain mostly on the left chest wall, known site of left pleural effusion, pleural Metastasis - Pain management on board - Fentanyl patched increased to 150mcg - will monitor for response - Continue oxycodone PO PRN - IV dilaudid dc'd in preparation for hopeful discharge this weekend - palliative care consult given significant pain without much success controlling and given metastatic RCC and poor appetite (2) Pleural effusion on left: Plan: History of recurrent right renal cell carcinoma with right-sided mid lung metastasis, status post surgery, radiation, immunotherapy. Currently metastatic lung disease, left pleural effusion, had thoracocentesis in the past. On Cabometyx-.. Pulmonary service consulted 01/14, Pleurx catheter placed - no issues with Pleurex Cath - Pleurx cath drained by patient's every 2 to 3 days at the bedside - educated and can manage (3) Hypercalcemia: Plan: This 66-year-old male presents with hypercalcemia, mostly secondary to metastatic right renal cell cancer. Received Zometa on 01/14/2022 Given IV fluids Nephrology service consulted, signed off -- Hypercalcemia resolved Plan History of chronic obstructive pulmonary disease, past tobacco use. Not in exacerbation. History of hypertension, hyperlipidemia, abdominal aortic aneurysm. Follows up with primary care physician. Continue amlodipine, statin, and lisinopril. Anemia of chronic kidney disease. Hemoglobin stable No signs of active bleeding Monitor closely Chronic kidney disease stage III. Presents with creatinine of 1.1. --Stable Deep venous thrombosis prophylaxis, placed on Lovenox. DISPOSITION: Closely monitor in the med-tele. Disposition May need senior care facility - patient and declining - would like to return home Admission and Anticipated Discharge Date Admission Date: January 13, 2022 Subjective Patient with metastatic RCC to lung, chronic cancer pain, and presented with hypercalcemia. Given IVF with improvement in hypercalcemia. Left sided pleural effusion s/p Pleurx drain placement. Pain management working on pain control of cancer pain. to assist with drain Pleurx catheter at home on discharge. Patient reports pain is somewhat improved today, sitting up in bed, reports using Dilaudid IV only once overnight. Denies chest pain, shortness of breath, fever or chills, n/v/d, abdominal distention or pain. Review of Systems Review of Systems: all noted and negative except for above Physical Exam Physical Exam: General- oriented x 3, not in distress, speaks in sentences with no effort or accessory muscle use Eyes- anicteric Neck- no JVD Lungs- clear breath sounds bilaterally, no crackles Pleurx catheter on the left chest wall Heart- normal rate, regular rhythm; no murmurs Abdomen- normal bowel sounds, nondistended, soft, nontender Extremities- no pretibial edema, no calf tenderness Neuro- alert, oriented x 3; no gross focal neurologic deficits Skin- warm & dry Results & Data Results & Data ([facility]) Vital Signs (Past 12 Hours) Vital Signs Temp Pulse Resp BP Pulse Ox O2 Del Method 01/28/22 12:02 36.6 C 57 L 16 132/76 96 01/28/22 07:40 36.4 C L 55 L 15 171/72 H 96 01/28/22 02:52 36.8 C 63 18 138/81 95 Room Air Diagnostic Findings Laboratory Results WBC 5.60 K/ul (4.8-10.8) 01/22/22 11:28 RBC 2.89 M/uL (4.63-6.08) L 01/22/22 11:28 Hgb 8.8 g/dl (14.0-18.0) L 01/22/22 11:28 Hct 28.1 % (40.1-51.0) L 01/22/22 11:28 MCV 97.2 fL (80.0-100.0) 01/22/22 11:28 MCH 30.4 pg (25.0-34.0) 01/22/22 11:28 MCHC 31.3 g/dL (32.0-36.0) L 01/22/22 11:28 RDW Std Deviation 51.3 fL (36.4-46.3) H 01/22/22 11:28 RDW Coeff of Rodrigue 14.4 % (11.5-14.5) 01/22/22 11:28 Plt Count 140 K/uL (130-400) 01/22/22 11:28 MPV 10.8 fL (9.4-12.4) 01/22/22 11:28 Immature Gran % (Auto) 0.7 % 01/22/22 11: Neut % (Auto) 82.5 % 01/22/22 11:28 Lymph % (Auto) 8.6 % 01/22/22 11:28 [place] % (Auto) 6.4 % 01/22/22 11:28 Eos % (Auto) 1.3 % 01/22/22 11:28 Baso % (Auto) 0.5 % 01/22/22 11: Neut # (Auto) 4.62 K/uL (1.4-6.5) 01/22/22 11:28 Lymph # (Auto) 0.48 K/uL (1.2-3.4) L 01/22/22 11:28 [place] # (Auto) 0.36 K/uL (0.24-0.82) 01/22/22 11:28 Eos # (Auto) 0.07 K/uL (0-0.50) 01/22/22 11:28 Baso # (Auto) 0.03 K/uL (0-0.2) 01/22/22 11:28 Immature Gran # (Auto) 0.04 K/uL (0.00-0.02) H 01/22/22 11:28 Polychromasia 1+ 01/14/22 05:27 Sodium 135 mmol/L (136-145) L 01/22/22 11:28 Potassium 4.2 mmol/L (3.5-5.1) 01/22/22 11:28 Chloride 104 mmol/L (98-107) 01/22/22 11:28 Carbon Dioxide 24 mmol/L (21-32) 01/22/22 11:28 Anion Gap 7 (3-11) 01/22/22 11:28 BUN 21 mg/dl (6-23) 01/22/22 11:28 Creatinine 0.94 mg/dl (0.6-1.4) 01/26/22 05:49 Est Cr Clr Drug Dosing 73.7 ml/min 01/26/22 05:49 Est GFR ( Amer) 98.9 ml/min 01/26/22 05:49 Est GFR (Non-Af Amer) 85.3 ml/min 01/26/22 05:49 BUN/Creatinine Ratio 19.4 (10-20) 01/22/22 11:28 Glucose 77 mg/dl (70-99(Fasting)) 01/22/22 11:28 POC Glucose 78 mg/dl (70-99) 01/18/22 07:53 Calcium 8.2 mg/dl (8.5-10.1) L 01/22/22 11:28 Phosphorus 2.5 mg/dl (2.5-4.9) 01/13/22 18:35 Magnesium 1.7 mg/dl (1.7-2.4) 01/14/22 05:27 Total Bilirubin 0.3 mg/dl (0.2-1.0) 01/13/22 18:35 AST 18 U/L (13-39) 01/13/22 18:35 ALT 20 U/L (7-52) 01/13/22 18:35 Alkaline Phosphatase 61 U/L (34-104) 01/13/22 18:35 Troponin I High Sens 7.5 pg/ml (0-20) 01/13/22 18:35 Total Protein 6.1 gm/dl (6.0-8.3) 01/13/22 18:35 Albumin 2.8 gm/dl (3.4-5.0) L 01/13/22 18:35 Globulin 3.3 gm/dl (2.5-4.0) 01/13/22 18:35 Albumin/Globulin Ratio 0.8 (0.9-2) L 01/13/22 18:35 Lipase 10 U/L (11-82) L 01/13/22 18:35 25-OH Vitamin D Total 10.4 ng/ml (30-100) L 01/14/22 16:08 TSH 6.342 uIu/ml (0.300-4.500) H 01/14/22 16:08 Free T4 0.97 ng/dl (0.61-1.60) 01/14/22 16:08 PTH Intact 4.8 pg/ml (12.0-88.0) L 01/14/22 16:08 Urine Color Yellow 01/13/22 20:49 Urine Appearance Clear (Clear) 01/13/22 20:49 Urine pH 5.5 (4.5-7.5) 01/13/22 20:49 Ur Specific [place] 1.021 (1.000-1.030) 01/13/22 20:49 Urine Protein Trace (Negative) H 01/13/22 20:49 Urine Glucose (UA) Negative (Negative) 01/13/22 20:49 Urine Ketones Negative (Negative) 01/13/22 20:49 Urine Blood Negative (Negative) 01/13/22 20:49 Urine Nitrite Negative (Negative) 01/13/22 20:49 Urine Bilirubin Negative (Negative) 01/13/22 20:49 Urine Urobilinogen Negative (Negative) 01/13/22 20:49 Ur Leukocyte Esterase Negative (Negative) 01/13/22 20:49 Urine WBC (Auto) 1-5 /hpf (0-5) 01/13/22 20:49 Urine RBC (Auto) 0-4 /hpf (0-4) 01/13/22 20:49 U Hyaline Cast (Auto) 1-5 /lpf (0-5) 01/13/22 20:49 U Epithel Cells (Auto) 5-10 /lpf (0-5) H 01/13/22 20:49 Urine Bacteria (Auto) Negative (Negative) 01/13/22 20:49 Hepatitis C Ab (EIA) NON-REACTIVE (NON-REACTIVE) 01/14/22 05:27 Hep C Ab Signal/Cutoff 0.04 (<1.00) 01/14/22 05:27 SARS-CoV-2, RNA, NAAT NEGATIVE (NEGATIVE) 01/13/22 21:[address] 01/13/22 18:27 CT OF THE HEAD WITHOUT CONTRAST CLINICAL HISTORY: Confusion. COMPARISON STUDY: No previous studies for comparison. CT DOSE: 691.05 mGy.cm TECHNIQUE: Helical axial images of the head were obtained without IV contrast. Automated exposure control was utilized for the study. A dose lowering technique was utilized adhering to the principles of ALARA. FINDINGS: No acute intracranial hemorrhage, midline shift or mass effect is present. The ventricular system is unremarkable. The basal cisterns are patent. No extra-axial collections are present. There are no findings to suggest acute dural sinus thrombosis or acute territorial infarct. No significant calvarial abnormalities are present. IMPRESSION: No acute intracranial findings. ACT 112: Negative or not required by law. Electronically signed by: Kadeem Mary M.D. 01/13/2022 7:46 PM Abdomen/Pelvis CT 10/06/22 20:25 CT SCAN OF THE ABDOMEN AND PELVIS WITH IV CONTRAST CLINICAL HISTORY: Left-sided abdominal pain. COMPARISON STUDY: Abdominal CT dated 05/03/2021. TECHNIQUE: Following the IV administration of 60 cc of Optiray 350, CT scan of the abdomen and pelvis is performed from the lung bases to the proximal femora. Images are reviewed in the axial, sagittal, and coronal planes. IV contrast was administered without complication. A dose lowering technique was utilized adhering to the principles of ALARA. The examination is degraded by motion artifact and patient cachexia. CT DOSE: 286.19 mGy.cm FINDINGS: Lung bases: The heart is normal in size and without pericardial effusion. The coronary artery densely calcified. There is a small hiatal hernia. Metastatic pleural disease is again seen at the left lung base. A small left pleural effusion. A pleural-based lesion on image #19 measures 3.6 cm. A pleural drain is seen on the left. Trace pleural effusion is seen on the right with dependent atelectasis. There is no airspace consolidation seen typical for pneumonia. A calcified granuloma is noted in the right middle lobe. Liver: The contrast-enhanced liver is normal in size, contour, and attenuation. There is no intrahepatic biliary ductal dilatation. The hepatic veins and portal veins are patent. A 2.3 cm low-attenuation lesion is suggested scalloping inferior right lobe of the liver on image #184. Gallbladder: Contracted. Spleen: Normal in size and attenuation. Pancreas: Moderately atrophic and grossly unremarkable. Adrenal glands: Unremarkable. Kidneys: The right kidney is not identified and presumed surgically absent. The left kidney is normal in size without hydronephrosis. A 2.5 cm exophytic cyst arises from the lower pole of the left kidney. The left kidney enhances homogeneously. Abdominal vasculature: The abdominal aorta is normal in course and caliber noting advanced atherosclerotic calcification. Bowel: There is rectosigmoid fecal impaction and moderate to severe constipation. There is diffuse gaseous distention of the colon. The cc: measures up to 9 cm diameter. The small bowel loops are normal in caliber. The appendix is partially visualized and normal. Peritoneum: There is mesenteric edema. No intraperitoneal free air or abdominal ascites is identified. Lymphadenopathy: Cardiophrenic lymphadenopathy is again noted. A node on image #59 measures 3.7 x 1.5 cm. No retroperitoneal lymphadenopathy is clearly identified. Pelvic viscera: The prostate gland is mildly enlarged and heterogeneous. The bladder is normal as visualized. There is a small fat-containing left inguinal hernia. There is evidence of previous right inguinal herniorrhaphy. Skeletal structures: The skeletal structures are osteopenic. There is mild thoracic spondylosis and scoliosis. There is evidence of multifocal osteolytic metastatic disease. There are numerous left-sided rib lesions (axial images #113, #140, #179, and #180) with associated soft tissue components. There is a large osteolytic lesion with a soft tissue component centered in the posterior 11th rib at the costovertebral junction on axial image #94. The soft tissue component measures 5.2 x 4.7 cm and invades the left pedicle of T11. This encroaches on the left estimated central canal as seen on image #93 as well as the left T11-T12 neural foramen as seen on image #101. Soft tissues: There is body wall edema. IMPRESSION: 1. There is rectosigmoid fecal impaction and moderate to severe constipation. 2. There is diffuse gaseous distention of the colon. The cecum measures up to 9 mm, and this may represent distal colonic obstruction secondary to fecal impaction. Clinical correlation will be required. 3. The small bowel loops are normal in caliber. 4. There is a small left pleural effusion with a left pleural drain in place and evidence of metastatic pleural disease. This has progressed as compared to 05/03/2021. 5. There is metastatic left cardiophrenic lymphadenopathy. 6. There are osteolytic bone lesions involving left-sided ribs which contain soft tissue components. The largest lesion involves the left posterior rib, and the soft tissue component invades the left aspect of T11. This encroaches upon the left aspect of the thecal sac at this level as well as the left T11-T12 neural foramen. 7. Question a lesion scalloping the inferior right lobe of liver. A hepatic metastasis is not excluded. 8. Anasarca of the body wall. 9. Additional findings as above. ACT 112: Negative or not required by law. Electronically signed by: Ben Blevins M.D. 01/20/2022 9:16 PM Chest X-Ray 01/22/22 11:03 XR chest 1V portable CLINICAL HISTORY: ff up left pleural effusion COMPARISON STUDY: None available at time of interpretation due to PACS downtime. FINDINGS: A left basilar pleural catheter is in place. There is no pneumothorax. A small left pleural effusion is noted with left basilar opacity. Volume loss is noted with elevation of the left hemidiaphragm. Right lung is clear. No evidence for pulmonary edema. There is no right pleural effusion. IMPRESSION: Left basilar pleural catheter in place with a small left pleural effusion and left basilar opacity with volume loss. ACT 112: Negative or not required by law. Electronically signed by: Kadeem Mary M.D. 01/22/2022 2:39 PM Medications Administered Current Inpatient Medications Acetaminophen (Acetaminophen 325 Mg Tab) 650 mg PO Q4H PRN PRN Reason: Mild Pain or Fever Stop: 02/12/22 23:45 Last Admin: 01/28/22 06:35 Dose: 650 mg Albuterol (Albuterol Hfa 8 Gm Inhaler) 2 puffs INH QID PRN PRN Reason: shortness of breath or wheezin Stop: 02/12/22 23:45 Allopurinol (Allopurinol 100 Mg Tab) 200 mg PO QAM [facility] Stop: 02/13/22 08:59 Last Admin: 01/28/22 08:10 Dose: 200 mg Amlodipine Besylate (Amlodipine Besylate 5 Mg Tab) 5 mg PO DAILY [facility] Stop: 02/13/22 08:59 Last Admin: 01/28/22 08:11 Dose: 5 mg Bisacodyl (Bisacodyl 5 Mg Tabec) 5 mg PO QAM [facility] Stop: 02/16/22 08:59 Last Admin: 01/28/22 08:14 Dose: 5 mg Cabozantinib (Cabozantinib S-Malate 20 Mg Tab (Cabometyx) (Patients Own Med)) 1 each PO DAILY@1030 [facility] Stop: 02/15/22 08:59 Last Admin: 01/28/22 11:25 Dose: 1 each Clobetasol Propionate (Clobetasol Propionate 0.05% Oint 15 Gm Tube) 1 appln EXT BID PRN PRN Reason: Skin Irritation Stop: 02/13/22 01:31 Cyanocobalamin (Cyanocobalamin (B-12) 500 Mcg Tablet) 1,000 mcg PO QAM [facility] Stop: 02/13/22 08:59 Last Admin: 01/28/22 08:10 Dose: 1,000 mcg Diclofenac Sodium (Diclofenac Sod 1% Gel 100 Gm Tube) 2 gm EXT BID [facility]; Protoc ol Stop: 02/15/22 11:44 Last Admin: 01/27/22 19:19 Dose: 2 gm Duloxetine HCl (Duloxetine Hcl 30 Mg Cap) 30 mg PO QAM [facility] Stop: 02/16/22 08:59 Last Admin: 01/28/22 08:10 Dose: 30 mg Enoxaparin Sodium (Enoxaparin Inj 40 Mg/0.4 Ml Syr) 40 mg SQ HS [facility] Stop: 02/13/22 00:59 Last Admin: 01/27/22 19:20 Dose: 40 mg Fentanyl (Fentanyl 100 Mcg/Hr Tdsy) 100 mcg TD Q3D [facility] Stop: 02/07/22 12:59 Last Admin: 01/27/22 13:14 Dose: 100 mcg Fentanyl (Fentanyl 50 Mcg/Hr Tdsy) 50 mcg TD Q3D [facility] Stop: 02/11/22 10:29 Last Admin: 01/28/22 10:51 Dose: 50 mcg Gabapentin (Gabapentin 600 Mg Tab) 1,200 mg PO [facility] Stop: 02/13/22 08:59 Last Admin: 01/28/22 08:09 Dose: 1,200 mg Levothyroxine Sodium (Levothyroxine Sodium 25 Mcg Tablet) [facility] Stop: 02/13/22 06:29 Last Admin: 01/28/22 06:33 Dose: 25 mcg Lisinopril (Lisinopril 10 Mg Tab) 30 mg PO [facility] Stop: 02/13/22 08:59 Last Admin: 01/28/22 08:09 Dose: 30 mg Magnesium Oxide (Magnesium Oxide 400 Mg Tab) 400 mg PO [facility] Stop: 02/13/22 08:59 Last Admin: 01/28/22 08:10 Dose: 400 mg Miscellaneous (Fentanyl Patch Remove & Waste) 1 each N/A Q3D [facility] Stop: 02/23/22 12:59 Last Admin: 01/27/22 13:00 Dose: 1 each Miscellaneous (Check Fentanyl Patch Placement) 1 each N/A QS [facility] Stop: 02/23/22 15:59 Last Admin: 01/28/22 10:45 Dose: 1 each Miscellaneous (Fentanyl Patch Remove & Waste) 1 each N/A Q3D [facility] Stop: 02/25/22 08:58 Last Admin: 01/28/22 10:49 Dose: 1 each Miscellaneous (Check Fentanyl Patch Placement) 1 each N/A QS [facility] Stop: 02/25/22 15:59 Last Admin: 01/28/22 08:00 Dose: 1 each Nitroglycerin (Nitroglycerin Sl 0.4 Mg/Tab Tab) 0.4 mg SL UD PRN PRN Reason: Chest Pain Stop: 02/12/22 23:45 Ondansetron HCl (Ondansetron Inj 2 Mg/Ml 2 Ml Vial) 4 mg IV Q6H PRN PRN Reason: Nausea Stop: 02/12/22 23:45 Last Admin: 01/27/22 08:16 Dose: 4 mg Oxycodone HCl (Oxycodone Hcl Ir 5 Mg Tab (Immediate Release)) 15 mg PO Q4H PRN PRN Reason: Pain Stop: 01/31/22 08:21 Last Admin: 01/28/22 10:51 Dose: 15 mg Pantoprazole Sodium (Pantoprazole 40 Mg Tab) 40 mg PO QAM [facility] Stop: 02/13/22 08:59 Last Admin: 01/28/22 08:10 Dose: 40 mg Polyethylene Glycol (Polyethylene (Miralax) 17 Gm Pack) 17 gm PO DAILY [facility] Stop: 02/15/22 08:59 Last Admin: 01/28/22 08:11 Dose: 17 gm Rosuvastatin Calcium (Rosuvastatin Calcium 10 Mg Tab) 10 mg PO QAM [facility] Stop: 02/13/22 08:59 Last Admin: 01/28/22 08:09 Dose: 10 mg Senna/Docusate Sodium (Docusate Sodium/Senna 50/8.6mg Tab) 1 tab PO BID [facility] Stop: 02/20/22 08:59 Last Admin: 01/28/22 08:09 Dose: 1 tab Tamsulosin HCl (Tamsulosin Hcl 0.4 Mg Cap) 0.4 mg PO QAM [facility] Stop: 02/13/22 08:59 Last Admin: 01/28/22 08:10 Dose: 0.4 mg
[2022-01-28] MEDS: DICLOFENAC SOD 1% GEL 100 GM TUBE EXT SCH ×2 (13:33→21:24)
[2022-01-28] MEDS: ENOXAPARIN INJ 40 MG/0.4 ML SYR SQ SCH (21:23)
[2022-01-29] MEDS: oxyCODONE HCL IR 5 MG TAB (IMMEDIATE RELEASE) PO PRN ×4 (03:39→22:34)
[2022-01-29] MEDS: LEVOTHYROXINE SODIUM 25 MCG TABLET PO SCH (06:07)
[2022-01-29] MEDS: ACETAMINOPHEN 325 MG TAB PO PRN ×4 (06:09→22:35)
[2022-01-29] MEDS: allopurinoL 100 MG TAB PO SCH (08:07)
[2022-01-29] MEDS: bisacodyL 5 MG TABEC PO SCH (08:07)
[2022-01-29] MEDS: CYANOCOBALAMIN (B-12) 500 MCG TABLET PO SCH (08:07)
[2022-01-29] MEDS: amLODIPine BESYLATE 5 MG TAB PO SCH (08:07)
[2022-01-29] MEDS: MAGNESIUM OXIDE 400 MG TAB PO SCH (08:08)
[2022-01-29] MEDS: lisinopril 10 MG TAB PO SCH (08:08)
[2022-01-29] MEDS: DOCUSATE SODIUM/SENNA 50/8.6MG TAB PO SCH ×2 (08:08→22:36)
[2022-01-29] MEDS: GABAPENTIN 600 MG TAB PO SCH (08:08)
[2022-01-29] MEDS: POLYETHYLENE (MIRALAX) 17 GM PACK PO SCH (08:09)
[2022-01-29] MEDS: ROSUVASTATIN CALCIUM 10 MG TAB PO SCH (08:09)
[2022-01-29] MEDS: TAMSULOSIN HCL 0.4 MG CAP PO SCH (08:09)
[2022-01-29] MEDS: PANTOprazole 40 MG TAB PO SCH (08:09)
[2022-01-29] MEDS ORDERED: fentaNYL 50 MCG/HR TDSY TD SCH (08:45)
[2022-01-29] MEDS ORDERED: fentaNYL 100 MCG/HR TDSY TD SCH (08:45)
[2022-01-29] MEDS ORDERED: [UNRECOGNIZED DRUG - REMARK] SCH (08:45)
[2022-01-29] MEDS: DICLOFENAC SOD 1% GEL 100 GM TUBE EXT SCH ×2 (10:08→22:35)
[2022-01-29] MEDS: DULoxetine HCL 30 MG CAP PO SCH (10:13)
[2022-01-29] MEDS: CABOZANTINIB S MALATE 20 MG PO SCH (10:14)
[2022-01-29] MEDS: CHECK fentaNYL PATCH PLACEMENT SCH ×2 (10:26)
[2022-01-29] MEDS ORDERED: fentaNYL 50 MCG/HR TDSY TD STA (14:07)
--- NOTE | 2022-01-29 14:10 | Hospitalist Progress Note ---
Date of Service January 29, 2022 Assessment & Plan (1) Cancer-related pain: Plan: - Metastatic right renal cell cancer - has been under care of oncologist Dr. Melissa on oral chemotherapy - Chronic pain from the cancer. - Has intractable pain mostly on the left chest wall, known site of left pleural effusion, pleural Metastasis - Pain management on board - Fentanyl patched increased to 200mcg - will monitor for response - Continue oxycodone PO PRN - IV dilaudid dc'd in preparation for hopeful discharge this weekend - palliative care consult given significant pain without much success controlling and given metastatic RCC and poor appetite (2) Pleural effusion on left: Plan: History of recurrent right renal cell carcinoma with right-sided mid lung metastasis, status post surgery, radiation, immunotherapy. Currently metastatic lung disease, left pleural effusion, had thoracocentesis in the past. On Cabometyx-.. Pulmonary service consulted 01/14, Pleurx catheter placed - no issues with Pleurex Cath - Pleurx cath drained by patient's every 2 to 3 days at the bedside - educated and can manage (3) Hypercalcemia: Plan: This 66-year-old male presents with hypercalcemia, mostly secondary to metastatic right renal cell cancer. Received Zometa on 01/14/2022 Given IV fluids Nephrology service consulted, signed off -- Hypercalcemia resolved Plan History of chronic obstructive pulmonary disease, past tobacco use. Not in exacerbation. History of hypertension, hyperlipidemia, abdominal aortic aneurysm. Follows up with primary care physician. Continue amlodipine, statin, and lisinopril. Anemia of chronic kidney disease. Hemoglobin stable No signs of active bleeding Monitor closely Chronic kidney disease stage III. Presents with creatinine of 1.1. --Stable Deep venous thrombosis prophylaxis, placed on Lovenox. DISPOSITION: Closely monitor in the med-tele. Disposition May need retirement facility - patient and declining - would like to return home Admission and Anticipated Discharge Date Admission Date: January 13, 2022 Subjective Patient with metastatic RCC to lung, chronic cancer pain, and presented with hypercalcemia. Given IVF with improvement in hypercalcemia. Left sided pleural effusion s/p Pleurx drain placement. Pain management working on pain control of cancer pain. to assist with drain Pleurx catheter at home on discharge. Patient reports pain is somewhat improved today but still pretty severe, sitting up in bed, no Dilaudid used since overnight 01/27/2022. Denies chest pain, allen rtness of breath, fever or chills, n/v/d, abdominal distention or pain. Review of Systems Review of Systems: all noted and negative except for above Physical Exam Physical Exam: General- oriented x 3, not in distress, speaks in sentences with no effort or accessory muscle use Eyes- anicteric Neck- no JVD Lungs- clear breath sounds bilaterally, no crackles Pleurx catheter on the left chest wall Heart- normal rate, regular rhythm; no murmurs Abdomen- normal bowel sounds, nondistended, soft, nontender Extremities- no pretibial edema, no calf tenderness Neuro- alert, oriented x 3; no gross focal neurologic deficits Skin- warm & dry Results & Data Results & Data ([facility]) Vital Signs (Past 12 Hours) Vital Signs Temp Pulse Resp BP Pulse Ox O2 Del Method 01/29/22 11:15 Room Air 01/29/22 11:07 36.5 C 58 L 18 108/69 95 Room Air 01/29/22 06:57 36.8 C 65 18 136/80 96 Room Air 01/29/22 04:00 36.5 C 65 18 159/84 H 97 Room Air Diagnostic Findings Laboratory Results WBC 5.60 K/ul (4.8-10.8) 01/22/22 11:28 RBC 2.89 M/uL (4.63-6.08) L 01/22/22 11:28 Hgb 8.8 g/dl (14.0-18.0) L 01/22/22 11:28 Hct 28.1 % (40.1-51.0) L 01/22/22 11:28 MCV 97.2 fL (80.0-100.0) 01/22/22 11:28 MCH 30.4 pg (25.0-34.0) 01/22/22 11:28 MCHC 31.3 g/dL (32.0-36.0) L 01/22/22 11:28 RDW Std Deviation 51.3 fL (36.4-46.3) H 01/22/22 11:28 RDW Coeff of Rodrigue 14.4 % (11.5-14.5) 01/22/22 11:28 Plt Count 140 K/uL (130-400) 01/22/22 11:28 MPV 10.8 fL (9.4-12.4) 01/22/22 11:28 Immature Gran % (Auto) 0.7 % 01/22/22 11: Neut % (Auto) 82.5 % 01/22/22 11:28 Lymph % (Auto) 8.6 % 01/22/22 11:28 Clinton % (Auto) 6.4 % 01/22/22 11:28 Eos % (Auto) 1.3 % 01/22/22 11:28 Baso % (Auto) 0.5 % 01/22/22 11:28 Neut # (Auto) 4.62 K/uL (1.4-6.5) 01/22/22 11:28 Lymph # (Auto) 0.48 K/uL (1.2-3.4) L 01/22/22 11:28 Clinton # (Auto) 0.36 K/uL (0.24-0.82) 01/22/22 11:28 Eos # (Auto) 0.07 K/uL (0-0.50) 01/22/22 11:28 Baso # (Auto) 0.03 K/uL (0-0.2) 01/22/22 11: Immature Gran # (Auto) 0.04 K/uL (0.00-0.02) H 01/22/22 11:28 Polychromasia 1+ 01/14/22 05:27 Sodium 135 mmol/L (136-145) L 01/22/22 11:28 Potassium 4.2 mmol/L (3.5-5.1) 01/22/22 11:28 Chloride 104 mmol/L (98-107) 01/22/22 11:28 Carbon Dioxide 24 mmol/L (21-32) 01/22/22 11:28 Anion Gap 7 (3-11) 01/22/22 11:28 BUN 21 mg/dl (6-23) 01/22/22 11:28 Creatinine 0.94 mg/dl (0.6-1.4) 01/26/22 05:49 Est Cr Clr Drug Dosing 73.7 ml/min 01/26/22 05:49 Est GFR ( Amer) 98.9 ml/min 01/26/22 05:49 Est GFR (Non-Af Amer) 85.3 ml/min 01/26/22 05:49 BUN/Creatinine Ratio 19.4 (10-20) 01/22/22 11:28 Glucose 77 mg/dl (70-99(Fasting)) 01/22/22 11:28 POC Glucose 78 mg/dl (70-99) 01/18/22 07:53 Calcium 8.2 mg/dl (8.5-10.1) L 01/22/22 11:28 Phosphorus 2.5 mg/dl (2.5-4.9) 01/13/22 18:35 Magnesium 1.7 mg/dl (1.7-2.4) 01/14/22 05:27 Total Bilirubin 0.3 mg/dl (0.2-1.0) 01/13/22 18:35 AST 18 U/L (13-39) 01/13/22 18:35 ALT 20 U/L (7-52) 01/13/22 18:35 Alkaline Phosphatase 61 U/L (34-104) 01/13/22 18:35 Troponin I High Sens 7.5 pg/ml (0-20) 01/13/22 18:35 Total Protein 6.1 gm/dl (6.0-8.3) 01/13/22 18:35 Albumin 2.8 gm/dl (3.4-5.0) L 01/13/22 18:35 Globulin 3.3 gm/dl (2.5-4.0) 01/13/22 18:35 Albumin/Globulin Ratio 0.8 (0.9-2) L 01/13/22 18:35 Lipase 10 U/L (11-82) L 01/13/22 18:35 25-OH Vitamin D Total 10.4 ng/ml (30-100) L 01/14/22 16:08 TSH 6.342 uIu/ml (0.300-4.500) H 01/14/22 16:08 Free T4 0.97 ng/dl (0.61-1.60) 01/14/22 16:08 PTH Intact 4.8 pg/ml (12.0-88.0) L 01/14/22 16:08 Urine Color Yellow 01/13/22 20:49 Urine Appearance Clear (Clear) 01/13/22 20:49 Urine pH 5.5 (4.5-7.5) 01/13/22 20:49 Ur Specific Dexter 1.021 (1.000-1.030) 01/13/22 20:49 Urine Protein Trace (Negative) H 01/13/22 20:49 Urine Glucose (UA) Negative (Negative) 01/13/22 20:49 Urine Ketones Negative (Negative) 01/13/22 20:49 Urine Blood Negative (Negative) 01/13/22 20:49 Urine Nitrite Negative (Negative) 01/13/22 20:49 Urine Bilirubin Negative (Negative) 01/13/22 20:49 Urine Urobilinogen Negative (Negative) 01/13/22 20:49 Ur Leukocyte Esterase Negative (Negative) 01/13/22 20:49 Urine WBC (Auto) 1-5 /hpf (0-5) 01/13/22 20:49 Urine RBC (Auto) 0-4 /hpf (0-4) 01/13/22 20:49 U Hyaline Cast (Auto) 1-5 /lpf (0-5) 01/13/22 20:49 U Epithel Cells (Auto) 5-10 /lpf (0-5) H 01/13/22 20:49 Urine Bacteria (Auto) Negative (Negative) 01/13/22 20:49 Hepatitis C Ab (EIA) NON-REACTIVE (NON-REACTIVE) 01/14/22 05:27 Hep C Ab Signal/Cutoff 0.04 (<1.00) 01/14/22 05:27 SARS-CoV-2, RNA, NAAT NEGATIVE (NEGATIVE) 01/13/22 21:[address] 01/13/22 18:27 CT OF THE HEAD WITHOUT CONTRAST CLINICAL HISTORY: Confusion. COMPARISON STUDY: No previous studies for comparison. CT DOSE: 691.05 mGy.cm TECHNIQUE: Helical axial images of the head were obtained without IV contrast. Automated exposure control was utilized for the study. A dose lowering technique was utilized adhering to the principles of ALARA. FINDINGS: No acute intracranial hemorrhage, midline shift or mass effect is present. The ventricular system is unremarkable. The basal cisterns are patent. No extra-axial collections are present. There are no findings to suggest acute dural sinus thrombosis or acute territorial infarct. No significant calvarial abnormalities are present. IMPRESSION: No acute intracranial findings. ACT 112: Negative or not required by law. Electronically signed by: Kadeem Mary M.D. 01/13/2022 7:46 PM Abdomen/Pelvis CT 01/20/22 20:25 CT SCAN OF THE ABDOMEN AND PELVIS WITH IV CONTRAST CLINICAL HISTORY: Left-sided abdominal pain. COMPARISON STUDY: Abdominal CT dated 05/03/2021. TECHNIQUE: Following the IV administration of 60 cc of Optiray 350, CT scan of the abdomen and pelvis is performed from the lung bases to the proximal femora. Images are reviewed in the axial, sagittal, and coronal planes. IV contrast was administered without complication. A dose lowering technique was utilized adhering to the principles of ALARA. The examination is degraded by motion artifact and patient cachexia. CT DOSE: 286.19 mGy.cm FINDINGS: Lung bases: The heart is normal in size and without pericardial effusion. The coronary artery densely calcified. There is a small hiatal hernia. Metastatic pleural disease is again seen at the left lung base. A small left pleural effusion. A pleural-based lesion on image #19 measures 3.6 cm. A pleural drain is seen on the left. Trace pleural effusion is seen on the right with dependent atelectasis. There is no airspace consolidation seen typical for pneumonia. A calcified granuloma is noted in the right middle lobe. Liver: The contrast-enhanced liver is normal in size, contour, and attenuation. There is no intrahepatic biliary ductal dilatation. The hepatic veins and portal veins are patent. A 2.3 cm low-attenuation lesion is suggested scalloping inferior right lobe of the liver on image #184. Gallbladder: Contracted. Spleen: Normal in size and attenuation. Pancreas: Moderately atrophic and grossly unremarkable. Adrenal glands: Unremarkable. Kidneys: The right kidney is not identified and presumed surgically absent. The left kidney is normal in size without hydronephrosis. A 2.5 cm exophytic cyst arises from the lower pole of the left kidney. The left kidney enhances homogeneously. Abdominal vasculature: The abdominal aorta is normal in course and caliber noting advanced atherosclerotic calcification. Bowel: There is rectosigmoid fecal impaction and moderate to severe constipation. There is diffuse gaseous distention of the colon. The cc: measures up to 9 cm diameter. The small bowel loops are normal in caliber. The appendix is partially visualized and normal. Peritoneum: There is mesenteric edema. No intraperitoneal free air or abdominal ascites is identified. Lymphadenopathy: Cardiophrenic lymphadenopathy is again noted. A node on image #59 measures 3.7 x 1.5 cm. No retroperitoneal lymphadenopathy is clearly identified. Pelvic viscera: The prostate gland is mildly enlarged and heterogeneous. The bladder is normal as visualized. There is a small fat-containing left inguinal hernia. There is evidence of previous right inguinal herniorrhaphy. Skeletal structures: The skeletal structures are osteopenic. There is mild thoracic spondylosis and scoliosis. There is evidence of multifocal osteolytic metastatic disease. There are numerous left-sided rib lesions (axial images #113, #140, #179, and #180) with associated soft tissue components. There is a large osteolytic lesion with a soft tissue component centered in the posterior 11th rib at the costovertebral junction on axial image #94. The soft tissue component measures 5.2 x 4.7 cm and invades the left pedicle of T11. This e ncroaches on the left estimated central canal as seen on image #93 as well as the left T11-T12 neural foramen as seen on image #101. Soft tissues: There is body wall edema. IMPRESSION: 1. There is rectosigmoid fecal impaction and moderate to severe constipation. 2. There is diffuse gaseous distention of the colon. The cecum measures up to 9 mm, and this may represent distal colonic obstruction secondary to fecal impaction. Clinical correlation will be required. 3. The small bowel loops are normal in caliber. 4. There is a small left pleural effusion with a left pleural drain in place and evidence of metastatic pleural disease. This has progressed as compared to 05/03/2021. 5. There is metastatic left cardiophrenic lymphadenopathy. 6. There are osteolytic bone lesions involving left-sided ribs which contain soft tissue components. The largest lesion involves the left posterior rib, and the soft tissue component invades the left aspect of T11. This encroaches upon the left aspect of the thecal sac at this level as well as the left T11-T12 neural foramen. 7. Question a lesion scalloping the inferior right lobe of liver. A hepatic metastasis is not excluded. 8. Anasarca of the body wall. 9. Additional findings as above. ACT 112: Negative or not required by law. Electronically signed by: Ben Blevins M.D. 01/20/2022 9:16 PM Chest X-Ray 01/22/22 11:03 XR chest 1V portable CLINICAL HISTORY: ff up left pleural effusion COMPARISON STUDY: None available at time of interpretation due to PACS downtime. FINDINGS: A left basilar pleural catheter is in place. There is no pneumothorax. A small left pleural effusion is noted with left basilar opacity. Volume loss is noted with elevation of the left hemidiaphragm. Right lung is clear. No evidence for pulmonary edema. There is no right pleural effusion. IMPRESSION: Left basilar pleural catheter in place with a small left pleural effusion and left basilar opacity with volume loss. ACT 112: Negative or not required by law. Electronically signed by: Kadeem Mary M.D. 01/22/2022 2:39 PM Medications Administered Current Inpatient Medications Acetaminophen (Acetaminophen 325 Mg Tab) 650 mg PO Q4H PRN PRN Reason: Mild Pain or Fever Stop: 02/12/22 23:45 Last Admin: 01/29/22 10:11 Dose: 650 mg Albuterol (Albuterol Hfa 8 Gm Inhaler) 2 puffs INH QID PRN PRN Reason: shortness of breath or wheezin Stop: 02/12/22 23:45 Allopurinol (Allopurinol 100 Mg Tab) 200 mg PO QAM [facility] Stop: 02/13/22 08:59 Last Admin: 01/29/22 08:07 Dose: 200 mg Amlodipine Besylate (Amlodipine Besylate 5 Mg Tab) 5 mg PO DAILY [facility] Stop: 02/13/22 08:59 Last Admin: 01/29/22 08:07 Dose: 5 mg Bisacodyl (B[facility]acodyl 5 Mg Tabec) [facility] Stop: 02/16/22 08:59 Last Admin: 01/29/22 08:07 Dose: 5 mg Cabozantinib (Cabozantinib S-Malate 20 Mg Tab (Cabometyx) (Patients Own Med)) 1 each PO DAILY@1030 [facility] Stop: 02/15/22 08:59 Last Admin: 01/29/22 10:14 Dose: 1 each Clobetasol Propionate (Clobetasol Propionate 0.05% Oint 15 Gm Tube) 1 appln EXT BID PRN PRN Reason: Skin Irritation Stop: 02/13/22 01:31 Cyanocobalamin (Cyanocobalamin (B-12) 500 Mcg Tablet) 1,000 mcg PO QAM [facility] Stop: 02/13/22 08:59 Last Admin: 01/29/22 08:07 Dose: 1,000 mcg Diclofenac Sodium (Diclofenac Sod 1% Gel 100 Gm Tube) 2 gm EXT BID [facility]; Protocol Stop: 02/15/22 11:44 Last Admin: 01/29/22 10:08 Dose: Not Given Duloxetine HCl (Duloxetine Hcl 30 Mg Cap) [facility] Stop: 02/16/22 08:59 Last Admin: 01/29/22 10:13 Dose: 30 mg Enoxaparin Sodium (Enoxaparin Inj 40 Mg/0.4 Ml Syr) 40 mg SQ HS [facility] Stop: 02/13/22 00:59 Last Admin: 01/28/22 21:23 Dose: 40 mg Fentanyl (Fentanyl 100 Mcg/Hr Tdsy) 100 mcg TD Q3D [facility] Stop: 02/12/22 08:44 Last Admin: 01/29/22 10:06 Dose: 100 mcg Fentanyl (Fentanyl 50 Mcg/Hr Tdsy) 50 mcg TD Q3D [facility] Stop: 02/12/22 08:44 Last Admin: 01/29/22 10:06 Dose: 50 mcg Fentanyl (Fentanyl 50 Mcg/Hr Tdsy) 50 mcg TD NOW STA Stop: 01/29/22 14:08 Gabapentin (Gabapentin 600 Mg Tab) 1,200 mg PO [facility] Stop: 02/13/22 08:59 Last Admin: 01/29/22 08:08 Dose: 1,200 mg Levothyroxine Sodium (Levothyroxine Sodium 25 Mcg Tablet) [facility]: 02/13/22 06:29 Last Admin: 01/29/22 06:07 Dose: 25 mcg Lisinopril (Lisinopril 10 Mg Tab) [facility] Stop: 02/13/22 08:59 Last Admin: 01/29/22 08:08 Dose: 30 mg Magnesium Oxide (Magnesium Oxide 400 Mg Tab) 400 mg PO [facility] Stop: 02/13/22 08:59 Last Admin: 01/29/22 08:08 Dose: 400 mg Miscellaneous (Fentanyl Patch Remove & Waste) 1 each N/A Q3D [facility] Stop: 02/28/22 08:44 Last Admin: 01/29/22 10:03 Dose: 1 each Miscellaneous (Check Fentanyl Patch Placement) 1 each N/A QS [facility] Stop: 02/28/22 15:59 Miscellaneous (Fentanyl Patch Remove & Waste) 1 each N/A Q3D [facility] Stop: 02/28/22 14:14 Miscellaneous (Check Fentanyl Patch Placement) 1 each N/A QS [facility] Stop: 02/28/22 15:59 Nitroglycerin (Nitroglycerin Sl 0.4 Mg/Tab Tab) 0.4 mg SL UD PRN PRN Reason: Chest Pain Stop: 02/12/22 23:45 Ondansetron HCl (Ondansetron Inj 2 Mg/Ml 2 Ml Vial) 4 mg IV Q6H PRN PRN Reason: Nausea Stop: 02/12/22 23:45 Last Admin: 01/27/22 08:16 Dose: 4 mg Oxycodone HCl (Oxycodone Hcl Ir 5 Mg Tab (Immediate Release)) 15 mg PO Q4H PRN PRN Reason: Pain Stop: 01/31/22 08:21 Last Admin: 01/29/22 12:32 Dose: 15 mg Pantoprazole Sodium (Pantoprazole 40 Mg Tab) 40 mg PO QAM [facility] Stop: 02/13/22 08:59 Last Admin: 01/29/22 08:09 Dose: 40 mg Polyethylene Glycol (Polyethylene (Miralax) 17 Gm Pack) 17 gm PO DAILY [facility] Stop: 02/15/22 08:59 Last Admin: 01/29/22 08:09 Dose: 17 gm Rosuvastatin Calcium (Rosuvastatin Calcium 10 Mg Tab) 10 mg PO QAM [facility] Stop: 02/13/22 08:59 Last Admin: 01/29/22 08:09 Dose: 10 mg Senna/Docusate Sodium (Docusate Sodium/Senna 50/8.6mg Tab) 1 tab PO BID [facility] Stop: 02/20/22 08:59 Last Admin: 01/29/22 08:08 Dose: 1 tab Tamsulosin HCl (Tamsulosin Hcl 0.4 Mg Cap) 0.4 mg PO QAM [facility] Stop: 02/13/22 08:59 Last Admin: 01/29/22 08:09 Dose: 0.4 mg
[2022-01-29] MEDS ORDERED: fentaNYL 25 MCG/HR TDSY TD ONE (15:00)
[2022-01-29] MEDS ORDERED: fentaNYL 25 MCG/HR TDSY TD SCH (15:00)
[2022-01-29] MEDS: CHECK FENTANYL SCH ×2 (16:00→23:07)
[2022-01-29] MEDS: [UNRECOGNIZED DRUG - OTHER] SCH ×2 (16:00→23:07)
[2022-01-29] MEDS: ENOXAPARIN INJ 40 MG/0.4 ML SYR SQ SCH (22:35)
[2022-01-30] MEDS: oxyCODONE HCL IR 5 MG TAB (IMMEDIATE RELEASE) PO PRN ×3 (03:42→12:31)
[2022-01-30] MEDS: LEVOTHYROXINE SODIUM 25 MCG TABLET PO SCH (03:42)
[2022-01-30] MEDS: ACETAMINOPHEN 325 MG TAB PO PRN ×3 (03:42→12:30)
[2022-01-30 08:15] VITALS: TEMP 98.2; O2SAT 96
[2022-01-30] MEDS: CHECK FENTANYL SCH (08:16)
[2022-01-30] MEDS: [UNRECOGNIZED DRUG - OTHER] SCH (08:16)
[2022-01-30] MEDS: POLYETHYLENE (MIRALAX) 17 GM PACK PO SCH (08:18)
[2022-01-30] MEDS: MAGNESIUM OXIDE 400 MG TAB PO SCH (08:24)
[2022-01-30] MEDS: lisinopril 10 MG TAB PO SCH (08:25)
[2022-01-30] MEDS: PANTOprazole 40 MG TAB PO SCH (08:25)
[2022-01-30] MEDS: allopurinoL 100 MG TAB PO SCH (08:25)
[2022-01-30] MEDS: CYANOCOBALAMIN (B-12) 500 MCG TABLET PO SCH (08:25)
[2022-01-30] MEDS: GABAPENTIN 600 MG TAB PO SCH (08:27)
[2022-01-30] MEDS: TAMSULOSIN HCL 0.4 MG CAP PO SCH (08:27)
[2022-01-30] MEDS: DULoxetine HCL 30 MG CAP PO SCH (08:27)
[2022-01-30] MEDS: ROSUVASTATIN CALCIUM 10 MG TAB PO SCH (08:27)
[2022-01-30] MEDS: amLODIPine BESYLATE 5 MG TAB PO SCH (08:27)
[2022-01-30] MEDS: bisacodyL 5 MG TABEC PO SCH (08:28)
[2022-01-30] MEDS: DICLOFENAC SOD 1% GEL 100 GM TUBE EXT SCH (08:29)
[2022-01-30] MEDS: DOCUSATE SODIUM/SENNA 50/8.6MG TAB PO SCH (08:33)
[2022-01-30] MEDS ORDERED: fentaNYL 100 MCG/HR TDSY TD SCH ×3 (09:00)
--- NOTE | 2022-01-30 13:05 | Discharge Summary ---
Date of Service January 30, 2022 Admission HPI Per Admitting Provider A 66-year-old male with past medical history significant for metastatic renal cell cancer, hyperlipidemia, history of hypercalcemia of malignancy, dehydration, history of COPD, metastasis to the left lung, abdominal aortic aneurysm, hypertension, history of inferior vena cava obstruction, sinus bradycardia, chronic kidney disease stage III, polyneuropathy associated with critical illness, anemia of chronic kidney disease, thrombocytopenia. The patient has history of thoracocentesis on the left side. On pain medication for cancer pain. Presents with hypercalcemia on outpatient labs with patient's calcium of 13.3 and was advised to come to the hospital. The patient was recently started on increased dose of Dilaudid and has some confusion, thought to be from Dilaudid, and has some weakness, could be from hypercalcemia. The patient has pain in the left rib cage and also left flank region, which is chronic and taking pain medications, currently on methadone 10 mg b.i.d. and Dilaudid p.o. 8 mg every 4 hours as needed, but still he has significant pain. Somewhat constipated. Moved bowels with stool softeners. Gets short of breath on exertion. Ambulates without any support. Appetite is okay. No headache. Had some double vision, thought to be from Dilaudid, but that is currently resolved. Has some mild runny nose, has some cough with whitish phlegm, afebrile. Normal bladder movements. No swelling in the legs. Resting comfortably and hemodynamically stable, answering questions appropriately. The is in the room. Admission Exam Per Admitting Provider GENERAL: The patient is of moderate build, not in acute distress. VITAL SIGNS: Temperature 37.1, pulse 70, respiratory rate 20, blood pressure 115/68, oxygen 99% on room air. HEENT: Pupils equal, round and reactive to light. Oral mucosa moist. NECK: No JVD, no neck masses. CARDIOVASCULAR: S1 and S2 heard. Regular rate and rhythm. No murmur, no ga llop. RESPIRATORY SYSTEM: Normal AP diameter, no accessory muscle use. Diminished breath sounds on the left side. No wheezing. ABDOMEN: Soft, bowel sounds present. Tenderness in the left lower quadrant. No distention. CENTRAL NERVOUS SYSTEM: Cranial nerves II through XII are grossly intact, nonfocal. EXTREMITIES: No edema, no erythema. Principal Diagnosis hypercalcemia, cancer pain Discharge Exam General- oriented x 3, not in distress, speaks in sentences with no effort or accessory muscle use Eyes- anicteric Neck- no JVD Lungs- clear breath sounds bilaterally, no crackles Pleurx catheter on the left chest wall Heart- normal rate, regular rhythm; no murmurs Abdomen- normal bowel sounds, nondistended, soft, nontender Extremities- no pretibial edema, no calf tenderness Neuro- alert, oriented x 3; no gross focal neurologic deficits Skin- warm & dry Discharge Data Allergies Allergy/AdvReac Type Severity Reaction Status Date / Time No Known Allergies Allergy Unverified 05/03/21 20:11 Consultations 01/13/22 19:40 ED Decision to Admit Stat 01/13/22 19:41 ED Decision to Admit Stat 01/14/22 08:00 Consult Nephrology Routine Consult Pain Management Routine 01/14/22 13:31 Consult Pulmonology Routine 01/26/22 12:12 Consult Palliative Care Routine Ordered Studies 01/13/22 18:27 CT head/brain wo con Stat 01/14/22 15:10 sono, invasive monitoring [US point of care ultrasound] Routine 01/20/22 20:25 CT abd pelvis IV con only Urgent Hospital Course (1) Cancer-related pain: - Metastatic right renal cell cancer - has been under care of oncologist Dr. Melissa on oral chemotherapy - Chronic pain from the cancer. - Has intractable pain mostly on the left chest wall, known site of left pleural effusion, pleural Metastasis - Pain management on board - Fentanyl patched increased to 200mcg - 200mcg fentanyl patch on discharge - Continue oxycodone PO PRN on discharge - continue methadone 10mg on discharge - discontinue morphine sulfate and hydromorphone on discharge (2) Pleural effusion on left: History of recurrent right renal cell carcinoma with right-sided mid lung metastasis, status post surgery, radiation, immunotherapy. Currently metastatic lung disease, left pleural effusion, had thoracocentesis in the past. On Cabometyx-.. Pulmonary service consulted 01/14, Pleurx catheter placed - no issues with Pleurex Cath - Pleurx cath drained by patient's every 2 to 3 days at the bedside - educated and can manage (3) Hypercalcemia: This 66-year-old male presents with hypercalcemia, mostly secondary to metastatic right renal cell cancer. Received Zometa on 01/14/2022 Given IV fluids Nephrology service consulted, signed off -- Hypercalcemia resolved Plan History of chronic obstructive pulmonary disease, past tobacco use. Not in exacerbation. History of hypertension, hyperlipidemia, abdominal aortic aneurysm. Follows up with primary care physician. Continue amlodipine, statin, and lisinopril. Anemia of chronic kidney disease. Hemoglobin stable No signs of active bleeding Monitor closely Chronic kidney disease stage III. Presents with creatinine of 1.1. --Stable Deep venous thrombosis prophylaxis, placed on Lovenox. DISPOSITION: Closely monitor in the med-tele. Disposition May need [facility] facility - patient and declining - would like to return home - discharged home 01/30/2022 Total Time Total Time Spent Total Time Spent (In Minutes): 25 Total Time Includes: Examination of the Patient, Discharge Planning and Medication Reconciliation Discharge Plan Discharge Items Patient Disposition: Home - Self-Care Reason For Visit: HYPERCALCEMIA Discharge Diagnosis: hypercalcemia, cancer related pain, pleurex drain placement Activity: Resume your previous activity Non-emergency contact: Primary Care Provider, Oncologist and Pain Management Call non-emergency contact if: you have any medication questions and your symptoms worsen Follow-up/Referrals: Noel Garcia MD, FIPP [Physician] - Jay Melissa MD [Surgeon] - Sherrie Pierce MD [Outside Practitioners] - 01/24/22 10:30 am Brandon Sevilla PA-C [Primary Care Provider] - 01/24/22 12:20 pm (With Lauren Holloway PA-C ) Diet: Regular Addtl Attending Provider Instructions: You were admitted for hypercalcemia (high calcium), likely related to metastatic renal cell carcinoma with spread to the lung. You were given IVF with improvement in your calcium. Pulmonary medicine saw you and placed a pleurex catheter and you and your were educated on its drainage so you could be at home. It is to be drained every 3 days. You were also see by pain management for pain control related to the cancer and the drain. You had increasing doses of fetanyl patches up to 200mcg, patches to be changed every 3 days. You also have as needed oxycodone 15mg for severe breakthrough pain. You should follow up with your oncologist, Primary care doctor, pain management. Pending Studies at Discharge: No Stand-Alone Forms: My [facility], Smoking Cessation Medications and DC Order Prescriptions: New polyethylene glycol 3350 [Miralax] 17 gram Powder In Packet 17 g PO DAILY Qty: 30 0RF sennosides-docusate sodium [Senokot-S] 8.6-50 mg Tablet 1 tab PO DAILY Qty: 30 0RF fentanyl 100 mcg/hr Patch 72 Hour 200 mcg transdermal Q3D Qty: 10 0RF bisacodyl [Gentle Laxative (bisacodyl)] 5 mg Tablet,Delayed Release (Dr/Ec) 5 mg PO QAM Qty: 30 0RF oxycodone 5 mg Tablet 15 mg PO Q4H PRN (Reason: pain) Qty: 30 0RF duloxetine 30 mg Capsule,Delayed Release(Dr/Ec) 30 mg PO QAM Qty: 30 0RF diclofenac sodium [Voltaren Arthritis Pain] 1 % Gel 2 g EXT BID Qty: 100 0RF Continued omeprazole 20 mg capsule,delayed release(DR/EC) 20 mg PO QAM gabapentin 600 mg tablet 1,200 mg PO QAM albuterol sulfate [Proventil HFA] 90 mcg/actuation HFA aerosol inhaler 2 puffs INH QID PRN (Reason: shortness of breath or wheezing) rosuvastatin [Crestor] 10 mg tablet 10 mg PO QAM tamsulosin [Flomax] 0.4 mg capsule 0.4 mg PO QAM clobetasol-emollient 0.05 % cream 1 appln TOP BID PRN (Reason: Skin Irritation) hydrocortisone acetate [Anusol-HC] 25 mg suppository 25 mg PA BID PRN (Reason: Hemorrhoids) methadone 10 mg tablet 10 mg PO BID amlodipine 5 mg tablet 5 mg PO DAILY Cabometyx 20 mg tablet 20 mg PO DAILY cyanocobalamin (vitamin B-12) [Vitamin B-12] 1,000 mcg Tablet Extended Release 1,000 mcg PO QAM allopurinol 100 mg Tablet 200 mg PO QAM levothyroxine [Synthroid] 25 mcg Tablet 25 mcg PO QAM lisinopril 30 mg Tablet 30 mg PO QAM magnesium oxide 400 mg magnesium Tablet 400 mg PO QAM ondansetron HCl 8 mg tablet 8 mg PO Q8H PRN (Reason: Nausea) Discontinued hydromorphone 4 mg tablet 8 mg PO Q4H PRN (Reason: Pain) Discharge Orders: Discharge Order (Routine); Ordered 01/30/22 Ordered By: Jesus Santos Admission Data Admit Date/Time: 01/13/22 21:50 Attending Provider: Jesus Santos Admit Provider: Zane Green Primary Care Provider: Brandon Sevilla Other Providers: Zane Green ; Noel Garcia ; Lonnie Aviles ; Ruperto Garcia ; [facility] ; Lashanda Hernandez ; Raiza Tran
[2022-01-30 13:36] VITALS: BP 151/71; PULSE 65
[2022-01-30] MEDS: CABOZANTINIB S MALATE 20 MG PO SCH (14:01)
[2022-01-30] MEDS ORDERED: CHECK fentaNYL PATCH PLACEMENT SCH ×2 (16:00)
[2022-02-01] MEDS ORDERED: [UNRECOGNIZED DRUG - REMARK] SCH (14:59)
== END 2022-01-30 14:40 | disposition home health service (06) | DRG 687 ==
LOC: ED 18:13 → 4W 21:50 → SUATTDRO 21:50 → 4W 22:53 → 2W 01-28 14:59